=== PATIENT | male | born 1960 | race Caucasian/White ===

== ENCOUNTER 2018-02-08 08:47 | Emergency (ER) | payer OTHER ==
[2018-02-08] MEDS ORDERED: HYDROCODONE/CHLORPHEN 5 ML/OSYR ONE (09:21)
[2018-02-08] MEDS ORDERED: IBUPROFEN 400 MG TAB ONE (09:21)
[2018-02-08] MEDS ORDERED: OSELTAMIVIR 75 MG CAP ONE (09:37)
[2018-02-08] MEDS ORDERED: CEFTRIAXONE 1000 MG/VIAL ONE (10:05)
[2018-02-08] MEDS ORDERED: ALBUTEROL 2.5 MG/3 ML NEB SOL ONE (10:05)
[2018-02-08] MEDS ORDERED: LIDOCAINE 1% MPF 5 ML VIAL ONE (10:06)
--- NOTE | 2018-02-08 10:13 | ER ---
Nurse's Notes [facility] Name: Hung Long Age: 57 yrs Sex: Male : 1960 Arrival Date: 02/08/2018 Time: 08:50 Bed 6 Private MD: Alexander Pradhan R Diagnosis: Influenza due to identified novel influenza A virus;Pneumonia, unspecified organism Presentation: 02/08 09:00 Presenting complaint: Patient states: fever, non-productive cough that began 2-3 days aa5 ago. Pt denies nausea and vomiting, reports diarrhea this morning. 09:00 Transition of care: patient was not received from another setting of care. Onset of aa5 symptoms was January 2018. Risk Assessment: Do you want to hurt yourself or someone else? Patient reports no desire to harm self or others. Care prior to arrival: None. 09:00 Method Of Arrival: Ambulatory aa5 09:00 Acuity: GUNNAR 3 aa5 09:00 Initial Sepsis Screen: Does the patient meet any 2 criteria? HR > 90 bpm. Does the aa5 patient have a suspected source of infection? No. Patient's initial sepsis screen is negative. Historical: - Allergies: 09:00 No Known Allergies; aa5 - Home Meds: 09:00 None [Active]; aa5 - PMHx: 09:00 Chronic neck pain; aa5 - PSHx: 09:00 neck; left leg; right eye; aa5 - Immunization history:: Flu vaccine is not up to date. - Social history:: Smoking status: Patient uses tobacco products, smokes one-half pack cigarettes per day. - Ebola Screening: : No symptoms or risks identified at this time. Screenin:05 Abuse screen: Denies threats or abuse. Nutritional screening: No deficits noted. aa5 Tuberculosis screening: No symptoms or risk factors identified. Fall Risk None identified. Assessment: 09:02 General: Appears comfortable, Behavior is calm, cooperative. Pain: Complains of pain in aa5 whole body Pain does not radiate. Pain currently is 8 out of 10 on a pain scale. Quality of pain is described as aching, Pain began 2-3 days ago. Is continuous. Neuro: Level of Consciousness is awake, alert, obeys commands, Oriented to person, place, time, situation. Cardiovascular: Heart tones S1 S2 present Rhythm is regular. Respiratory: Reports cough that is non-productive, Airway is patent Respiratory effort is even, unlabored, Respiratory pattern is regular, symmetrical, Breath sounds are diminished bilaterally. GI: Abdomen is round non-distended, Bowel sounds present X 4 quads. Abd is soft and non tender X 4 quads. Reports diarrhea, Patient currently denies nausea, vomiting. : Reports dark yellow urine. EENT: No signs and/or symptoms were reported regarding the EENT system. Derm: Skin is pink, warm \T\ dry. Musculoskeletal: Range of motion: intact in all extremities. 09:43 Reassessment: Pt resting in bed with eyes closed, respirations even and unlabored, skin aa5 is pink/warm/dry. ROTOR PLATE WASHER was notified of low O2 sat readings at this time. . 10:15 Reassessment: Pt resting in bed with eyes closed, respirations even and unlabored, skin aa5 is hot/red/dry. Wheezing auscultated bilaterally. . 11:10 Reassessment: Patient is alert, oriented x 3, equal unlabored respirations, skin aa5 warm/dry/pink. Pt notified of d/c home order, pt calling friend for ride home. . Vital Signs: 09:00 BP 150 / 88; Pulse 108; Resp 20 S; Temp 100.2(O); Pulse Ox 91% on R/A; Pain 8/10; aa5 09:43 Resp 16 S; aa5 10:10 BP 139 / 94; Pulse 93; Resp 24 S; Temp 102.0(O); Pulse Ox 98% on Nebulizer Mask; aa5 10:40 BP 122 / 92; Pulse 93; Resp 18 S; Pulse Ox 91% on R/A; Pain 6/10; aa5 11:04 BP 125 / 95; Pulse 81; Resp 20 S; Temp 99.5(O); Pulse Ox 90% on R/A; aa5 11:07 aa5 09:43 Pt's O2 sat fluctuating between 87% to 89% when pt is asleep, ROTOR PLATE WASHER was notified aa5 11:07 ROTOR PLATE WASHER notified of recent VS and notified of O2 sat still remaining between 89 to 92% on aa5 RA. VO to d/c pt home now. ED Course: 08:50 Patient arrived in ED. mr 08:51 Alexander Pradhan MD is Private Physician. mr 09:00 Arm band placed on Patient placed in an exam room, on a stretcher. aa5 09:00 Patient has correct armband on for positive identification. Placed in gown. Bed in low aa5 position. Call light in reach. Side rails up X2. 09:02 Alem Churchill FNP-C is [facility]. snw 09:02 Jimmie Lilly MD is Attending Physician. snw 09:04 Viv Petersen, EARL is Primary Nurse. aa5 09:06 Triage completed. aa5 09:28 Chest Pa And Lat (2 Views) XRAY In Process Unspecified. EDMS 10:12 Alexander Pradhan MD is Referral Physician. snw 11:00 No provider procedures requiring assistance completed. aa5 11:25 Patient did not have IV access during this emergency room visit. aa5 Administered Medications: 09:16 Drug: Tussionex Pennkinetic ER 5 ml Route: PO; aa5 10:40 Follow up: Response: No adverse reaction aa5 09:16 Drug: Motrin 400 mg Route: PO; aa5 10:40 Follow up: Response: No adverse reaction; Temperature is increased aa5 09:30 Drug: Tamiflu 75 mg Route: PO; aa5 10:40 Follow up: Response: No adverse reaction aa5 09:55 Drug: Albuterol 2.5 mg Route: Inhalation; aa5 10:08 Drug: Rocephin (cefTRIAXone) 1 grams Route: IM; Site: right gluteus; aa5 10:40 Follow up: Response: No adverse reaction aa5 10:40 Drug: Tylenol 1000 mg Route: PO; aa5 Outcome: 10:12 Discharge ordered by . snw 11:25 Discharged to home ambulatory, with friend. aa5 11:25 Condition: stable 11:25 Discharge instructions given to patient, Instructed on discharge instructions, follow up and referral plans. medication usage, Demonstrated understanding of instructions, follow-up care, medications, Prescriptions given X x 5 11:28 Patient left the ED. aa5 Signatures: Dispatcher [employer] EDWA Alem Churchill FNP-C UNDERGROUND CONDUIT INSTALLER-Csnw Tana Bartlett mr Viv Petersen, RN RN aa5 Corrections: (The following items were deleted from the chart) 10:12 10:10 Pulse 93bpm; Resp 14bpm; Spontaneous; Pulse Ox 98% Nebulizer Mask; aa5 aa5 10:12 10:10 BP 139 / 94; Pulse 93bpm; Resp 14bpm; Spontaneous; Pulse Ox 98% Nebulizer Mask; aa5 aa5 10:13 09:02 Respiratory: Reports cough that is non-productive, Airway is patent Respiratory aa5 effort is even, unlabored, Respiratory pattern is regular, symmetrical, Breath sounds are clear bilaterally. aa5 10:21 10:10 BP 139 / 94; Pulse 93bpm; Resp 24bpm; Spontaneous; Pulse Ox 98% Nebulizer Mask; aa5 aa5 10:48 09:43 Reassessment: Pt resting in bed with eyes closed, respirations even and aa5 unlabored, skin is pink/warm/dry. ROTOR PLATE WASHER was notified of low O2 sat readings at this time. . aa5
--- NOTE | 2018-02-08 10:13 | EDPHYS ---
Physician Documentation [facility] Name: Hung Long Age: 57 yrs Sex: Male : 1960 Arrival Date: 02/08/2018 Time: 08:50 Bed 6 Private MD: Alexander Pradhan R ED Physician Jimmie Lilly HPI: 02/08 09:05 This 57 yrs old Male presents to ER via Unassigned with complaints of Flu snw Symptoms. 09:05 Onset: The symptoms/episode began/occurred suddenly, 2 day(s) ago, and became snw persistent. Associated signs and symptoms: Pertinent positives: congestion, cough, diarrhea, fever, shortness of breath, sore throat. The patient has not experienced similar symptoms in the past. The patient has not recently seen a physician, the patient's primary care provider is Dr. Dr. Freitas. Historical: - Allergies: 09:00 No Known Allergies; aa5 - Home Meds: 09:00 None [Active]; aa5 - PMHx: 09:00 Chronic neck pain; aa5 - PSHx: 09:00 neck; left leg; right eye; aa5 - Immunization history:: Flu vaccine is not up to date. - Social history:: Smoking status: Patient uses tobacco products, smokes one-half pack cigarettes per day. - Ebola Screening: : No symptoms or risks identified at this time. ROS: 09:04 Eyes: Negative for injury, pain, redness, and discharge. snw 09:04 Neck: Negative for injury, pain, and swelling, Cardiovascular: Negative for chest pain, palpitations, and edema. 09:04 Abdomen/GI: Negative for abdominal pain, nausea, vomiting, diarrhea, and constipation, Back: Negative for injury and pain, : Negative for injury, bleeding, discharge, and swelling, MS/Extremity: Negative for injury and deformity, Skin: Negative for injury, rash, and discoloration, Neuro: Negative for headache, weakness, numbness, tingling, and seizure. 09:04 Constitutional: Positive for body aches, fatigue, fever, malaise, poor PO intake. 09:04 ENT: Positive for sinus congestion, sore throat. 09:04 Respiratory: Positive for cough. Exam: 09:02 Head/Face: Normocephalic, atraumatic. snw 09:02 Neck: Trachea midline, no thyromegaly or masses palpated, and no cervical lymphadenopathy. Supple, full range of motion without nuchal rigidity, or vertebral point tenderness. No Meningismus. Chest/axilla: Normal chest wall appearance and motion. Nontender with no deformity. No lesions are appreciated. 09:02 Abdomen/GI: Soft, non-tender, with normal bowel sounds. No distension or tympany. No guarding or rebound. No evidence of tenderness throughout. Back: No spinal tenderness. No costovertebral tenderness. Full range of motion. Skin: Warm, dry with normal turgor. Normal color with no rashes, no lesions, and no evidence of cellulitis. MS/ Extremity: Pulses equal, no cyanosis. Neurovascular intact. Full, normal range of motion. Neuro: Awake and alert, GCS 15, oriented to person, place, time, and situation. Cranial nerves II-XII grossly intact. Motor strength 5/5 in all extremities. Sensory grossly intact. Cerebellar exam normal. Normal gait. Psych: Awake, alert, with orientation to person, place and time. Behavior, mood, and affect are within normal limits. 09:02 Constitutional: The patient appears awake, obviously ill, uncomfortable. 09:02 Eyes: right eye injury - chronic. 09:02 ENT: Ear canal(s): cerumen impaction, occluding the right ear canal, TM's: erythema, that is moderate, on the left, Nose: Nasal mucosa: erythematous, Mouth: is normal, Posterior pharynx: erythema, that is moderate, Voice: is hoarse. 09:02 Cardiovascular: Rate: tachycardic, Rhythm: regular, Heart sounds: normal, Edema: is not appreciated. 09:02 Respiratory: the patient does not display signs of respiratory distress, Respirations: shallow respirations, tachypnea, Breath sounds: bronchial sounds, + upper airway congestion. Vital Signs: 09:00 BP 150 / 88; Pulse 108; Resp 20 S; Temp 100.2(O); Pulse Ox 91% on R/A; Pain 8/10; aa5 09:43 Resp 16 S; aa5 10:10 BP 139 / 94; Pulse 93; Resp 24 S; Temp 102.0(O); Pulse Ox 98% on Nebulizer Mask; aa5 10:40 BP 122 / 92; Pulse 93; Resp 18 S; Pulse Ox 91% on R/A; Pain 6/10; aa5 11:04 BP 125 / 95; Pulse 81; Resp 20 S; Temp 99.5(O); Pulse Ox 90% on R/A; aa5 11:07 aa5 09:43 Pt's O2 sat fluctuating between 87% to 89% when pt is asleep, SPORTS PHYSICAL THERAPIST was notified aa5 11:07 SPORTS PHYSICAL THERAPIST notified of recent VS and notified of O2 sat still remaining between 89 to 92% on aa5 RA. VO to d/c pt home now. MDM: 09:02 Patient medically screened. snw 10:28 Data reviewed: vital signs, nurses notes. Data interpreted: Pulse oximetry: on room air snw is 98 %. Interpretation: normal. Counseling: I had a detailed discussion with the patient and/or guardian regarding: the historical points, exam findings, and any diagnostic results supporting the discharge/admit diagnosis, the presence of at least one elevated blood pressure reading (>120/80) during this emergency department visit, lab results, radiology results, the need for outpatient follow up, to return to the emergency department if symptoms worsen or persist or if there are any questions or concerns that arise at home, smoking cessation. Special discussion: I have referred the patient to see his PCP for further evaluation of high blood pressure. Based on the history and exam findings, there is no indication for further emergent testing or inpatient evaluation. I discussed with the patient/guardian the need to see the primary care provider for further evaluation of the symptoms. 02/08 08:54 Order name: Flu; Complete Time: : snw 02/08 08:54 Order name: Strep; Complete Time: : snw 02/08 09:06 Order name: Chest Pa And Lat (2 Views) XRAY snw 02/08 09:23 Order name: Throat Culture EDMS Administered Medications: 09:16 Drug: Tussionex Pennkinetic ER 5 ml Route: PO; aa5 10:40 Follow up: Response: No adverse reaction aa5 09:16 Drug: Motrin 400 mg Route: PO; aa5 10:40 Follow up: Response: No adverse reaction; Temperature is increased aa5 09:30 Drug: Tamiflu 75 mg Route: PO; aa5 10:40 Follow up: Response: No adverse reaction aa5 09:55 Drug: Albuterol 2.5 mg Route: Inhalation; aa5 10:08 Drug: Rocephin (cefTRIAXone) 1 grams Route: IM; Site: right gluteus; aa5 10:40 Follow up: Response: No adverse reaction aa5 10:40 Drug: Tylenol 1000 mg Route: PO; aa5 Disposition: 02/08/18 10:12 Discharged to Home. Impression: Influenza due to identified novel influenza A virus, Pneumonia, unspecified organism. - Condition is Stable. - Discharge Instructions: Fever, Adult, Hypertension, Influenza, Adult, Cough, Adult, Rehydration, Adult. - Prescriptions for Tamiflu 75 mg Oral Capsule - take 1 capsule by ORAL route every 12 hours for 5 days; 10 capsule. Diclofenac Sodium 75 mg Oral Tablet Sustained Release - take 1 tablet by ORAL route 2 times per day; 30 tablet. Zithromax 500 mg Oral Tablet - take 1 tablet by ORAL route once daily for 5 days; 5 tablet. Prednisone 20 mg Oral Tablet - take 2 tablet by ORAL route once daily for 5 days; 10 tablet. Albuterol Sulfate 90 mcg/actuation - inhale 1-2 puff by INHALATION route every 4-6 hours; 1 Inhaler. - Work release form, Medication Reconciliation Form, Thank You Letter, Antibiotic Education, Prescription Opioid Use form. - Follow up: Alexander Pradhan; When: 1 - 2 days; Reason: Recheck today's complaints, Continuance of care, Re-evaluation by your physician. Follow up: Emergency Department; When: As needed; Reason: Worsening of condition. Addendum: 02/20/2018 15:08 Co-signature as Attending Physician, Jimmie Lilly MD Available for consultation at p s1 all times. . Signatures: Dispatcher [employer] EDMS Alem Churchill, FURNACE PROCESS PLANT OPERATOR-C FURNACE PROCESS PLANT OPERATOR-Csnw Viv Petersen RN RN aa5 Jimmie Lilly MD MD ps1 Corrections: (The following items were deleted from the chart) 02/08 10:13 10:12 02/08/2018 10:12 Discharged to Home. Impression: Influenza due to identified snw novel influenza A virus. Condition is Stable. Discharge Instructions: Fever, Adult, Hypertension, Influenza, Adult, Cough, Adult, Rehydration, Adult. Prescriptions for Tamiflu 75 mg Oral Capsule - take 1 capsule by ORAL route every 12 hours for 5 days; 10 capsule, Diclofenac Sodium 75 mg Oral Tablet Sustained Release - take 1 tablet by ORAL route 2 times per day; 30 tablet, Zithromax 500 mg Oral Tablet - take 1 tablet by ORAL route once daily for 5 days; 5 tablet, Prednisone 20 mg Oral Tablet - take 2 tablet by ORAL route once daily for 5 days; 10 tablet, Albuterol Sulfate 90 mcg/actuation - inhale 1-2 puff by INHALATION route every 4-6 hours; 1 Inhaler. and Forms are Work release form, Medication Reconciliation Form, Thank You Letter, Antibiotic Education, Prescription Opioid Use. Follow up: Alexander Pradhan; When: 1 - 2 days; Reason: Recheck today's complaints, Continuance of care, Re-evaluation by your physician. Follow up: Emergency Department; When: As needed; Reason: Worsening of condition. snw 11:28 10:13 02/08/2018 10:12 Discharged to Home. Impression: Influenza due to identified aa5 novel influenza A virus; Pneumonia, unspecified organism. Condition is Stable. Discharge Instructions: Fever, Adult, Hypertension, Influenza, Adult, Cough, Adult, Rehydration, Adult. Prescriptions for Tamiflu 75 mg Oral Capsule - take 1 capsule by ORAL route every 12 hours for 5 days; 10 capsule, Diclofenac Sodium 75 mg Oral Tablet Sustained Release - take 1 tablet by ORAL route 2 times per day; 30 tablet, Zithromax 500 mg Oral Tablet - take 1 tablet by ORAL route once daily for 5 days; 5 tablet, Prednisone 20 mg Oral Tablet - take 2 tablet by ORAL route once daily for 5 days; 10 tablet, Albuterol Sulfate 90 mcg/actuation - inhale 1-2 puff by INHALATION route every 4-6 hours; 1 Inhaler. and Forms are Work release form, Medication Reconciliation Form, Thank You Letter, Antibiotic Education, Prescription Opioid Use. Follow up: Alexander Pradhan; When: 1 - 2 days; Reason: Recheck today's complaints, Continuance of care, Re-evaluation by your physician. Follow up: Emergency Department; When: As needed; Reason: Worsening of condition. snw
[2018-02-08] MEDS ORDERED: ACETAMINOPHEN 500 MG TAB ONE (10:51)
[2018-02-08 11:40] VITALS: BP 125/95; TEMP 99.5; O2SAT 90
--- NOTE | 2018-02-08 12:14 | RAD REPORT ---
EXAM DESCRIPTION: Xander May (2 Views)02/08/2018 9:28 am CLINICAL HISTORY: Cough COMPARISON: 2013 FINDINGS: The lungs appear clear of acute infiltrate. The heart is normal size IMPRESSION: No acute abnormalities displayed
== END 2018-02-08 11:28 | disposition home or self-care (01) ==
LOC: ER 08:47
DX: J09.X1 Influenza due to identified novel influenza A virus with pneumonia (principal); F17.210 Nicotine dependence, cigarettes, uncomplicated
CPT/HCPCS: 71046; 87070; 87081; 87804; 96372; 99284

== ENCOUNTER 2022-04-24 10:05 | Inpatient (IN) | payer OTHER ==
--- OUTSIDE RECORDS SUMMARY | 2022-04-24 10:10 | XMS REPORT | Continuity of Care Document ---
:1960 Author Organization [facility] t Address [address] [facility] [address] [place] [address] Care Team Providers Name Role Phone GEORGE MEDLEY Primary Care Physician Unavailable JOAN BURLESON Attending Clinician Unavailable KESHAWN CHENEY Attending Clinician Unavailable Keshawn Lassiter Attending Clinician KESHAWN CHENEY Admitting Clinician Unavailable Payers Payer Name Policy Type Policy Number Effective Date Expiration Date S ource HUMANA [place] GOLD 7 [id number] 2021 00:00:00 PLUS 42 OA HUMANA GOLD PLS [id number] 2021 00:00:00 HMO Problems Condition Condition Condition Status Onset Resolution Last Treating Co mments Source Name Details Category Date Date Treatment Clinician Date History of History of Disease Active 2021-02 K elsey spinal spinal 0-04 Seybold fusion fusion 00:00: - 00 Externa l Chronic Chronic Disease Active 2021-02 Yumiko bilateral bilateral 0-04 Seyb old thoracic thoracic 00:00: - back pain back pain 00 Exte rna l Primary Primary Disease Active 2021-02 Yumiko hypertensi hypertensi 0-04 Se ybold on on 00:00: - 00 Externa l Acute Acute Disease Active 2018-02 Univers appendicit appendicit 0-16 it y of is is 00:00: [address] Obesity Obesity Disease Active 2018-02 Univers (BMI (BMI 0-16 ity of 30-39.9) 30-39.9) 00:00: [address] Allergies, Adverse Reactions, Alerts Allergy Allergy Status Severity Reaction(s) Onset Inactive Treating Comm ents Source Name Type Date Date Clinician NO KNOWN Drug Active [facility] ALLERGIE Class ity of S [facility] Social History Social Habit Start Date Stop Date Quantity Comments Source History of tobacco Cigarette Smoker Yumiko Joshi - use External Exposure to 2022-04-07 2022-04-17 Not sure University SARS-CoV-2 (event) 00:00:00 17:54:00 [facility] Education 2021-11-21 2021-11-21 18 Yumiko Joshi - 00:00:00 00:00:00 External Tobacco use and 2021-11-21 2021-11-21 Smokeless Yumiko guaman - exposure 00:00:00 00:00:00 tobacco non-user External Alcohol intake 2018-12-05 2018-12-05 Ex-drinker [facility] 00:00:00 00:00:00 (finding) [facility] Cigarettes smoked 2018-12-04 2018-12-04 [facility] ity of current (pack per 00:00:00 00:00:00 [facility] ) - Reported [place] Cigarette 2018-12-04 2018-12-04 [place] of pack-years 00:00:00 00:00:00 [facility] Sex Assigned At [birth year] Universit y of 00:00:00 00:00:00 [facility] Smoking Status Start Date Stop Date Source Smokes tobacco daily 2021-11-21 00:00:00 Yumiko Mabala - External Medications Ordered Filled Start Stop Current Ordering Indication Dosage Frequency Signature Comments Components Source Medication Medication Date Date Medication? Clinician (SIG) Name Name cefTRIAXone 2022- No 500mg 500 mg, U nivers (ROCEPHIN) 04-18 Intramuscu it y of injection 05:15: 04:37 lar, ONCE, [place] 500 mg 00 :00 1 dose, On [facility] 04/17/22 at 2315, ROXY
Re ason for Anti-Infec tive: Empiric Therapy for Suspected Infection< br>Empiric Therapy Site: Urine
D uration of therapy: 72 hours iopamidol 2022- No [id number] 80mL 80 mL, Univers (ISOVUE 3- Intravenou ity o f 370-500 mL) 02:15: 02:48 s, ONCE, 1 [place] injection 00 :00 dose, On Medica l 80 mL Tue Branch 04/17/22 at 2014, Routine doxycycline Yes [id number] 100mg Take 1 Univers hyclate 100 2-28 capsule by it y of mg capsule 00:00: mouth in Ant as 00 the Medical morning Branch and 1 capsule in the evening. Gabapentin 2021-02 Yes [id number] 300mg Take 1 Yumiko 300 MG oral 02-18 107 capsule Seybo ld Capsule 00:00: (300 mg - 00 total) by Externa mouth 2 l times daily Gabapentin 2021-02 Yes [id number] 100mg Take 1 Yumiko 100 MG oral 0-04 9103 capsule Seybo ld Capsule 00:00: (100 mg - 00 total) by Externa mouth 2 l times daily Tramadol 2021-02 Yes [id number] 50mg Q.[id number] Take 1 Yumiko HCl 50 MG 0-04 9103 [id number] tablet (50 Seybold oral Tablet 00:00: 3D mg total) - 00 by mouth Externa every 8 l hours as needed for pain Lisinopril 2021-02 Yes [id number] 20mg Take 1 K elsey 20 MG oral 0-04 tablet (20 Sey bold Tablet 00:00: mg total) - 00 by mouth Externa daily l Lisinopril 2021-02 Yes [id number] 20mg Take 1 K elsey 20 MG oral 0-04 tablet (20 Sey bold Tablet 00:00: mg total) - 00 by mouth Externa daily l Gabapentin 2021-02- No [id number] 100mg Take 1 Yumiko 100 MG oral 0-04 12-19 9103 capsule Seyb old Capsule 00:00: 00:00 (100 mg - 00 :00 total) by Externa mouth 2 l times daily Tramadol 2021-02- No [id number] 50mg Q.[id number] Take 1 Yumiko HCl 50 MG 0-04 - 9103 [id number] tablet (50 Seybold oral Tablet 00:00: 00:00 3D mg total) - 00 :00 by mouth Externa every 8 l hours as needed for pain Immunizations Ordered Filled Immunization Date Status Comments Sour e Immunization Name Name Influenza Virus 2018-12-06 Completed Universit y of Vaccine Quad .5 mL 00:00:00 [facility] 6+ MO Branch Vital Signs Vital Name Observation Time Observation Value Comments Source Oxygen saturation in 2022-04-17 23:55:00 100 /min [facility] Arterial blood by [facility] Pulse oximetry Branch Systolic blood 2022-04-17 23:55:00 154 mm[Hg] Univer sity of pressure [facility] Diastolic blood 2022-04-17 23:55:00 99 mm[Hg] Unive rsity of [facility] Heart rate 2022-04-17 23:55:00 82 /min [facility] Body temperature 2022-04-17 23:55:00 36.61 [facility] Respiratory rate 2022-04-17 23:55:00 16 /min [facility] height 2022-04-17 23:55:00 180.3 cm [facility] Body weight 2022-04-17 23:55:[address] [facility] BMI 2022-04-17 23:55:00 33.47 kg/m2 [facility] Systolic blood 2021-12-19 18:06:00 132 mm[Hg] Yumiko Hamiltonybold - pressure External Diastolic blood 2021-12-19 18:06:00 84 mm[Hg] Elfego coleman Seybold - pressure External Heart rate 2021-12-19 17:56:00 93 /min Yumiko alexbold - External Body temperature 2021-12-19 17:56:00 36.33 Miranda Lucila ey Seybold - External Respiratory rate 2021-12-19 17:56:00 14 /min Lucila ey Seybold - External Body height 2021-12-19 17:56:00 180.3 cm Yumiko S eybold - External Body weight 2021-12-19 17:56:00 98.884 kg Yumiko S abibold - External BMI 2021-12-19 17:56:00 30.40 kg/m2 Yumiko alexbold - External Oxygen saturation in 2021-12-19 17:56:00 99 /min Yumiko Joshi - Arterial blood by External Pulse oximetry Systolic blood 2021-11-21 20:03:00 170 mm[Hg] Yumiko Hamiltonybold - pressure External Diastolic blood 2021-11-21 20:03:00 100 mm[Hg] Elfego y Seybold - pressure External Heart rate 2021-11-21 19:28:00 87 /min Yumiko Kuo eybold - External Body temperature 2021-11-21 19:28:00 37 Miranda Lucila alex Seybold - External Respiratory rate 2021-11-21 19:28:00 14 /min Lucila alex Seybold - External Body height 2021-11-21 19:28:00 180.3 cm Yumiko alexbold - External Body weight 2021-11-21 19:28:00 100.699 kg Yumiko alexbold - External BMI 2021-11-21 19:28:00 30.96 kg/m2 Yumiko alexbold - External Oxygen saturation in 2021-11-21 19:28:00 96 /min Yumiko Hamiltonchitobala - Arterial blood by External Pulse oximetry Procedures Procedure Date / Time Performed Performing Clinician Sourc e LIPASE 2022-04-18 [facility] COMP. METABOLIC PANEL 2022-04-18 02:00:00 Keshawn Cheney [facility] ([id number]) [facility] CBC WITH DIFF 2022-04-18 02:00:00 Shravan [facility] URINALYSIS 2022-04-18 00:14:00 [facility]ravan [facility] NOTICE OF PRIVACY 2022-04-17 23:53:59 Doctor Unassigned, No Univ [facility] PRACTICES Name Medical Branch CONSENT/REFUSAL FOR 2022-04-17 23:51:45 [facility] Unassigned, No [facility] AND Name Medical Branch TREATMENT Encounters Start End Encounter Admission Attending Care Care Encounter Source Date/Time Date/Time Type Type Clinicians Facility Department ID 2022-04-23 2022-04-23 Outpatient YUMIKO BURLESON [id number] Yumiko 00:00:00 00:00:00 JOAN burgos 2022-04-17 2022-04-17 Emergency X SHRAVAN [facility] ERT [id number] Univers 17:57:00 22:53:[address] [facility] 2022-04-17 2022-04-17 [facility] [id number] Univers 17:57:00 22:53:00 Keshawn DONIS [id number] i [facility] [id number] [facility] [id number] [address] 2022-03-02 2022-03-02 Outpatient PREZASYUMIKO [id number] Yumiko 00:00:00 00:00:00 JOAN Seybol d 2021-12-19 2021-12-19 Outpatient PREZASYUMIKO [id number] Yumiko 13:30:00 13:30:00 JOAN Seybol d 2021-12-01 2021-12-01 Outpatient PREZASYUMIKO [id number] Yumiko 00:00:00 00:00:00 JOAN Seybol d 2021-11-21 2021-11-21 Outpatient PREZASYUMIKO [id number] Yumiko 14:30:00 14:30:00 JOAN Seybol d 2021-10-30 2021-10-30 Outpatient PREZASYUMIKO [id number] Yumiko 10:00:00 10:00:00 JOAN Seybol d Results Test Description Test Time Test Comments Results Result Comments Source COMP. METABOLIC PANEL (44325) 2022-04-18 02:28:08 Test Item Value Reference Range Interpretation Comme nts NA (test code = 9300673894) 139 mmol/L 135-145 K (test code = 6832546580) 3.9 mmol/L 3.5-5.0 CL (test code = 6433329131) 103 mmol/L 98-108 CO2 TOTAL (test code = 9220638261) 28 mmol/L 23-31 AGAP (test code = 5742842215) 8 2-16 BUN (test code = 6405868717) 32 mg/dL 7-23 H GLUCOSE (test code = 1453624484) 110 mg/dL 70-110 CREATININE (test code = 1.96 mg/dL 0.60-1.25 H 2798204847) TOTAL BILI (test code = 1.0 mg/dL 0.1-1.0 1959253663) CALCIUM (test code = 2410468190) 8.7 mg/dL 8.6-10.6 T PROTEIN (test code = 6195216696) 7.0 g/dL 6.3-8.2 ALBUMIN (test code = 5052135095) 4.0 g/dL 3.5-5.0 ALK PHOS (test code = 6583405515) 51 U/L 34-122 ALTv (test code = 1742-6) 18 U/L 5-50 AST(SGOT) (test code = 8108640639) 20 U/L 13-40 eGFR (test code = 0496322276) 34.8 mL/min/1.73m2 CLOVER (test code = CLOVER) Association of Glomerular Filtration Rate (GFR) and Staging of Kidney Disease* + +-------- + ------+| GFR (mL/min/1.73 m2) ?| With Kidney Damage ?| ?Without Kidney Damage+ +-- + +| ?>90 ?| ?Stage one ?| ? Normal ?+ +------- + -------+| ?60-89 ?| ?Stage two ?| ? Decreased GFR ? + +-------- + ------+| ?30-59 ?| ?Stage three ?| ? Stage three ? + +-------- + ------+| ?15-29 ?| ?Stage four ? | ? Stage four ?+ +------- + -------+| ?<15 (or dialysis) ? ?| ?Stage five ? | ? Stage five ?+ +------- + -------+ *Each stage assumes the associated GFR level has been in effect for at least three months. ?Stages 1 to 5, with or without kidney disease, indicate chronic kidney disease. Notes: Determination of stages one and two (with eGFR >59mL/min/1.73 m2) requires estimation of kidney damage for at least three months as defined by structural or functional abnormalities of the kidney, manifested by either:Pathological abnormalities or Markers of kidney damage (including abnormalities in the composition of the blood or urine or abnormalities in imaging tests). Lab Interpretation (test code = Abnormal 87655-6) [facility]27[facility]47 Test Item Value Reference Range Interpretation Comments LIPASE (test code = 1869273710) 47 U/L 0-220 Lab Interpretation (test code = Normal 29531-0) [facility] [id number] 02:15:28 Test Item Value Reference Range Interpretation Comments WBC (test code = 8.60 See_Comment [Automated message] 0490-2) The system [employer] generated this result transmitted ref erence range: 4.20 - 1 0.70 10*3/?L. The re ference range was not u sed to interpret this result as normal/abnor mal. RBC (test code = 5.42 See_Comment [Automated message] 289-8) The system [employer] generated this result transmitted ref erence range: 4.26 - 5 .52 10*6/?L. The re ference range was not u sed to interpret this result as normal/abnor mal. HGB (test code = 15.3 g/dL 12.2-16.4 718-7) HCT (test code = 48.4 % 38.4-49.3 4544-3) MCV (test code = 89.3 fL 81.7-95.6 787-2) MCH (test code = 28.2 pg 26.1-32.7 785-6) MCHC (test code = 31.6 g/dL 31.2-35.0 786-4) RDW-SD (test code 44.9 fL 38.5-51.6 = 28154-3) RDW-CV (test code 13.7 % 12.1-15.4 = 788-0) PLT (test code = 208 See_Comment [Automated message] 587-3) The system [employer] generated this result transmitted ref erence range: 150 - 32 8 10*3/?L. The re ference range was not u sed to interpret this result as normal/abnor mal. MPV (test code = 10.1 fL 9.8-13.0 21108-0) NRBC/100 WBC (test 0.0 See_Comment [Automat ed message] code = 5736494134) The syste m which generated this result transmitted ref erence range: 0.0 - 10 .0 /100 WBCs. The refer ence range was not u sed to interpret this result as normal/abnor mal. NRBC x10^3 (test See_Comment [Automated message] code = 6464159402) The syste m which generated this result transmitted ref erence range: 10*3/?L. The reference range was not used to interpr et this result as normal/abnormal . GRAN MAT (NEUT) % 67.4 % (test code = 770-8) IMM GRAN % (test 0.70 % code = 5336032976) LYMPH % (test code 19.8 % = 736-9) MONO % (test code 9.1 % = 5905-5) EOS % (test code = 2.3 % 713-8) BASO % (test code 0.7 % = 706-2) GRAN MAT 5.80 10*3/uL 1.99-6.95 x10^3(ANC) (test code = 3215637866) IMM GRAN x10^3 0.06 10*3/uL 0.00-0.06 (test code = 1696874768) LYMPH x10^3 (test 1.70 10*3/uL 1.09-3.23 code = 731-0) MONO x10^3 (test 0.78 10*3/uL 0.36-1.02 code = 742-7) EOS x10^3 (test 0.20 10*3/uL 0.06-0.53 code = 711-2) BASO x10^3 (test 0.06 10*3/uL 0.01-0.09 code = 704-7) [facility]"
[2022-04-24 10:57] LABS: Urine Blood 1+ (Negative); Urine Glucose Negative (Negative); Urine Protein Negative (Negative)
[2022-04-24 11:16] LABS: Absolute Lymphocytes (CBC) 1.6 K/uL (0.7-4.9); Hematocrit 46.9 % (39.6-49.0); Lymphocytes % 21.1 % (15.3-44.8); MCV 87.3 fL (80-100); RBC Red Blood Cell Count 5.37 M/uL (4.33-5.43)
[2022-04-24 11:17] LABS: Urine Bacteria None Seen /HPF (<20); Urine Mucus Slight /HPF (None Seen); Urine RBC <5 /HPF (None Seen)
[2022-04-24 11:39] LABS: Albumin 3.5 g/dL (3.4-5.0); Bilirubin Total 0.3 mg/dL (0.2-1.0); Potassium 3.7 mmol/L (3.5-5.1); Protein, Total 7.8 g/dL (6.4-8.2)
--- NOTE | 2022-04-24 12:22 | RAD REPORT ---
EXAM DESCRIPTION: CT - Abdomen Pelvis Wo Contrast - 04/24/2022 11:56 am CLINICAL HISTORY: Abdominal pain COMPARISON: None TECHNIQUE: Computed axial tomography of the abdomen and pelvis was obtained. IV and oral contrast we re not requested. All CT scans are performed using dose optimization technique as appropriate and may include automated exposure control or mA/KV adjustment according to patient size. FINDINGS: The evaluation of solid organs, vessels and bowel is limited secondary to the lack of con trast administration. The liver, spleen, pancreas, and adrenals appear grossly normal. Mild bilateral hydronephrosis. 2 millimeter parenchymal calculus left kidney. 4.1 centimeter cyst ext ends off of right kidney. 7.7 centimeter cyst extends off of the left kidney. 2.5 centimeter hyperden se cyst extends off of the left kidney. Cholelithiasis 3.6 centimeter fusiform aneurysm lower abdominal aorta. Marked bladder distention. Small inguinal hernias contain fat. No evidence of diverticulitis. Appendectomy Mild prostatic enlargement. Small bilateral inguinal hernias IMPRESSION: Marked bladder distention. The hydronephrosis probably is the sequela of the bladder dis tention. Cholelithiasis 3.6 centimeter lower abdominal aortic aneurysm
[2022-04-24 15:59] LABS: SARS-CoV-2 Antigen Rapid Res Negative (Negative)
[2022-04-24] MEDS ORDERED: NA CHLORIDE 0.9% 1,000 ML ONE ×2 (16:27→21:25)
[2022-04-24] MEDS ORDERED: lisinopriL 10 MG TAB ONE (16:27)
[2022-04-24] MEDS ORDERED: ACETAMINOPHEN 325 MG TABLET PO PRN (16:34)
[2022-04-24] MEDS ORDERED: HYDROCODONE/APAP 5/325 MG TAB PO PRN (16:34)
[2022-04-24] MEDS ORDERED: ONDANSETRON 4 MG/2 ML VIAL IV PRN (16:38)
--- NOTE | 2022-04-24 16:41 | P.HP ---
Certification for Inpatient Patient admitted to: Inpatient With expected LOS: >2 Midnights Patient will require the following post-hospital care: None Practitioner: I am a practitioner with admitting privileges, knowledge of patient current condition, hospital course, and medical plan of care. Services: Services provided to patient in accordance with Admission requirements found in Title 42 Section 412.3 of the Code of Federal Regulations Patient History Date of Service: 04/24/22 History of Present Illness: Patient is a 61-year-old male with a past medical history significant for nicotine dependence, chronic pain syndrome who presents with complaint of urinary incontinence has been ongoing for the past 2 weeks. Patient reported intermittent left lower quadrant pain rated a 5/10 in severity and described as aching in quality. Patient reported associated signs and symptoms of abdominal distention. Patient denies any other signs or symptoms. Symptoms are agg ravated or relieved by nothing. Patient decided to present to the hospital due to worsening symptoms. Allergies codeine [Codeine] Allergy (Unknown, Verified 11/24/13 17:57) UNKNOWN Home Medications: Chlorhexidine 4% [Betasept*] 1 appl TOP UD #1 btl 11/26/13 Ciprofloxacin HCl [Cipro] 500 mg PO BID #30 tablet 11/26/13 Doxycycline Hyclate 100 mg PO BID #30 tablet 11/26/13 Mupirocin Oint [Bactroban 2% Ointment*] 1 appl TOP BID #1 tube 11/26/13 Sodium Chloride Irrig Solution [Sodium Chloride] 1,000 ml IR DAILY #1 irrig.soln 11/26/13 Tramadol HCl/Acetaminophen [Ultracet Tablet] 1 each PO Q4HP PRN #40 tablet 11/26/13 - Past Medical/Surgical History Diabetic: No -: Chronic pain syndrome -: Nicotine dependence -: 2 fushions in neck c3/4 -: jorge hip through knee in L leg -: removal of R eye iris -: stiches in R forarm - Social History Smoking Status: Current every day smoker Counseled patient to stop smoking for: less than 10 minutes Smoking therapy provided: Yes Patient receptive to therapy: Yes Alcohol use: Yes CD- Drugs: No Caffeine use: Yes Place of Residence: Home Review of Systems General: Unremarkable Eyes: Unremarkable Respiratory: Unremarkable Cardiovascular: Unremarkable Gastrointestinal: Abdominal Pain, Distention Genitourinary: Incontinence Musculoskeletal: Unremarkable Integumentary: Unremarkable Neurological: Unremarkable Lymphatics: Unremarkable Physical Examination - Physical Exam General: Alert, In no apparent distress, Oriented x3, Cooperative HEENT: Atraumatic, PERRLA, Mucous membr. moist/pink, EOMI, Sclerae nonicteric Neck: Supple, 2+ carotid pulse no bruit, No LAD, Without JVD or thyroid abnormality Respiratory: Clear to auscultation bilaterally, Normal air movement Cardiovascular: No edema, Regular rate/rhythm, Normal S1 S2 Capillary refill: <2 Seconds Gastrointestinal: Normal bowel sounds, Distended Musculoskeletal: No clubbing, No swelling, No contractures, No tenderness Integumentary: No rashes, No breakdown, No significant lesion Neurological: Normal speech, Normal tone, Normal affect Lymphatics: No axilla or inguinal lymphadenopathy Urinary: Kyle catheter - Studies Laboratory Data (last 24 hrs) 04/24/22 11:15: Sodium 142, Potassium 3.7, BUN 33 H, Creatinine 2.62 H, Glucose 140 H, Total Bilirubin 0.3, AST 12 L, ALT 20, Alkaline Phosphatase 64, Lipase 21 04/24/22 10:58: WBC 7.60, Hgb 15.5, Hct 46.9, Plt Count 222 Assessment and Plan - Plan --Acute kidney injury. Likely secondary to urinary retention. CT imaging indicates marked bladder distention. Kyle cath inserted. Nephrology consulted. Continue IV hydration. --Chronic pain syndrome. Patient has a history of neck\leg surgery. We will manage pain with current pain medication regimen. --BPH. Patient placed on Flomax. --Abdominal aorta neurogram. A 3.6 cm fusiform aneurysm of the lower abdominal aorta noted on imaging. We will keep blood pressure controlled. Continue supportive care. --Nicotine dependence. Patient counseled on tobacco cessation and placed on nicotine patch. --Hyperlipidemia. Patient placed on statin. -- Elevated blood pressure without a diagnosis of hypertension. We will keep blood pressure controlled with hydralazine as needed. We will continue to monitor blood pressure levels. --DVT prophylaxis with Lovenox subQ. Discharge Plan: Home Plan to discharge in: Greater than 2 days - Advance Directives Does patient have a Living Will: No Does patient have a Durable POA for Healthcare: No - Code Status/Comfort Care Code Status Assessed: Yes Physician Review: Patient Assessed, Agree with Above Assessment and Plan Critical Care: No
[2022-04-24 19:26] LABS: Protime INR 0.99
[2022-04-24 19:48] LABS: Magnesium 2.4 mg/dL (1.6-2.4); Phosphorus 3.2 mg/dL (2.5-4.9); Thyroid Stimulating Hormone 1.25 uIU/mL (0.358-3.740)
[2022-04-24] MEDS ORDERED: D10W 250 ML IV SCH (20:00)
[2022-04-24] MEDS ORDERED: ENOXAPARIN 40 MG/0.4 ML SQ ONE (21:24)
[2022-04-24] MEDS: ENOXAPARIN 40 MG/0.4 ML SQ SCH (21:36)
[2022-04-24] MEDS: NA CHLORIDE 0.9% 1,000 ML IV SCH (21:36)
[2022-04-25 02:51] LABS: Absolute Lymphocytes (CBC) 2.8 K/uL (0.7-4.9); Hematocrit 45.2 % (39.6-49.0); Lymphocytes % 27.2 % (15.3-44.8); MCV 86.6 fL (80-100); MPV 8.1 fL (7.6-11.3); RBC Red Blood Cell Count 5.22 M/uL (4.33-5.43)
[2022-04-25 02:59] LABS: Potassium 3.6 mmol/L (3.5-5.1)
[2022-04-25] MEDS: NA CHLORIDE 0.9% 1,000 ML IV SCH (06:20)
[2022-04-25] MEDS ORDERED: KCL 20 MEQ/100 mL IVPB 20 MEQ/100 ML BAG IV SCH (07:00)
[2022-04-25] MEDS: NICOTINE 21 MG/PAT TD SCH (09:00)
[2022-04-25] MEDS ORDERED: POTASSIUM 25 MEQ EFFERV TAB ONE (09:28)
[2022-04-25] MEDS ORDERED: ASPIRIN 81 MG CHEWABLE TABLET ONE (09:28)
[2022-04-25] MEDS ORDERED: ENOXAPARIN 40 MG/0.4 ML SQ ONE (09:29)
[2022-04-25] MEDS ORDERED: POTASSIUM 25 MEQ EFFERV TAB PO ONE (09:30)
[2022-04-25] MEDS: ENOXAPARIN 40 MG/0.4 ML SQ SCH (09:42)
[2022-04-25] MEDS: ASPIRIN 81 MG CHEWABLE TABLET PO SCH (09:42)
[2022-04-25] MEDS: ATORVASTATIN 40 MG TAB PO SCH (20:48)
[2022-04-25] MEDS: TAMSULOSIN 0.4 MG SR CAP PO SCH (20:49)
[2022-04-25] MEDS: HYDRALAZINE HCL 20 MG/ML VIAL IV PRN (20:51)
[2022-04-26] MEDS: HYDRALAZINE HCL 20 MG/ML VIAL IV PRN ×2 (04:47→21:24)
[2022-04-26] MEDS: NA CHLORIDE 0.9% 1,000 ML IV SCH ×3 (04:52→21:24)
[2022-04-26 08:44] LABS: Potassium 3.7 mmol/L (3.5-5.1)
[2022-04-26] MEDS: ASPIRIN 81 MG CHEWABLE TABLET PO SCH (08:52)
[2022-04-26] MEDS: ENOXAPARIN 40 MG/0.4 ML SQ SCH (08:52)
[2022-04-26] MEDS: NICOTINE 21 MG/PAT TD SCH (08:52)
--- NOTE | 2022-04-26 15:08 | P.CNS ---
Date of Consult: 04/26/22 Reason for Consult: MARIA ISABEL, obstructive uropathy. Chief Complaint: weakness, flank pain. History of Present Illness: 62-year-old male patient with medical history significant for chronic pain syndrome, hypertension, benign prostatic hypertrophy was evaluated for episode of flank pain and weakness. He had elevated creatinine of 2.[address] of the abdomen/pelvis showed significantly distended bladder and no significant obstructive uropathy. Kyle catheter was placed and patient had relief of obstruction. He was started on Flomax. He was asked to be eval by nephrology due to abnormal kidney function. Allergies codeine [Codeine] Allergy (Unknown, Verified 11/24/13 17:57) UNKNOWN Home Medications: Chlorhexidine 4% [Betasept*] 1 appl TOP UD #1 btl 11/26/13 Ciprofloxacin HCl [Cipro] 500 mg PO BID #30 tablet 11/26/13 Doxycycline Hyclate 100 mg PO BID #30 tablet 11/26/13 Mupirocin Oint [Bactroban 2% Ointment*] 1 appl TOP BID #1 tube 11/26/13 Sodium Chloride Irrig Solution [Sodium Chloride] 1,000 ml IR DAILY #1 irrig.soln 11/26/13 Tramadol HCl/Acetaminophen [Ultracet Tablet] 1 each PO Q4HP PRN #40 tablet 11/26/13 - Past Medical/Surgical History Diabetic: No -: Chronic pain syndrome -: Nicotine dependence -: 2 fushions in neck c3/4 -: jorge hip through knee in L leg -: removal of R eye iris -: stiches in R forarm - Social History Smoking Status: Unknown if ever smoked Alcohol use: Yes CD- Drugs: No Caffeine use: Yes Place of Residence: Home Review of Systems General: Weakness, Malaise Eyes: Unremarkable ENT: Unremarkable Respiratory: Unremarkable Cardiovascular: Unremarkable Gastrointestinal: Abdominal Pain Genitourinary: Unremarkable Musculoskeletal: Unremarkable Integumentary: Unremarkable Neurological: Unremarkable Physical Examination Temp Pulse Resp BP Pulse Ox 98.1 F 84 18 135/93 H 95 04/26/22 12:00 04/26/22 12:00 04/26/22 12:00 04/26/22 12:00 04/26/22 12:00 General: Alert, Oriented x3 HEENT: Atraumatic, Normocephalic Neck: Supple Respiratory: Normal air movement Cardiovascular: Regular rate/rhythm, Normal S1 S2 Gastrointestinal: Soft and benign Neurological: Normal speech, Normal strength at 5/5 x4 extr Conclusions/Impression: Obstructive uropathy MARIA ISABEL Benign prostatic hypertrophy Hypertension Weakness Plan: Present episode of kidney function abnormalities deemed multifactorial as he has history of hypertension however with a markedly distended bladder there is concern for obstructive process major) Since admission his creatinine trended down from 2.6-1.5 after Kyle was placed. He has significant urine output and has been started on Flomax. We will monitor trend of kidney function closely and dose medication for symmetrical modification. We will obtain renal ultrasound to evaluate echogenicity, corticomedullary differentiation and size of kidneys. We will follow-up on outpatient nephrology clinic for routine CKD evaluation if kidney ultrasound is suggestive of CKD.
[2022-04-26] MEDS: ATORVASTATIN 40 MG TAB PO SCH (21:24)
[2022-04-26] MEDS: TAMSULOSIN 0.4 MG SR CAP PO SCH (21:24)
[2022-04-27 03:54] LABS: Phosphorus 2.2 mg/dL (2.5-4.9); Potassium 3.8 mmol/L (3.5-5.1)
[2022-04-27] MEDS: POTASS/SODIUM PHOSPHATE 1 PKT POWD.PACK PO SCH ×3 (07:40→09:33)
--- NOTE | 2022-04-27 08:07 | RAD REPORT ---
EXAM DESCRIPTION: US - Renal Ultrasound-Complete - 04/27/2022 5:25 am CLINICAL HISTORY: evaluation of suspected CKD. COMPARISON: Abdomen Pelvis Wo Contrast dated 04/24/2022 FINDINGS: Both kidneys are normal in size, shape and echotexture. The right kidney measures 9.8 cm. Right upper pole renal cyst measuring 4.2 x 4.5 cm. No stones or delgadillo spicious masses identified. The left kidney measures 11.9 cm. Mild left-sided hydronephrosis. Simple left renal cysts identified including a large cyst measuring 7.1 x 6.3 cm. No suspicious masses identified or stones. The bladder is decompressed via Kyle catheter. IMPRESSION: Mild left-sided hydronephrosis. Bilateral simple renal cysts.
[2022-04-27] MEDS: NICOTINE 21 MG/PAT TD SCH (08:40)
[2022-04-27] MEDS: ENOXAPARIN 40 MG/0.4 ML SQ SCH (08:41)
[2022-04-27] MEDS: ASPIRIN 81 MG CHEWABLE TABLET PO SCH (08:42)
[2022-04-27] MEDS: HYDRALAZINE HCL 20 MG/ML VIAL IV PRN ×2 (08:42→17:56)
[2022-04-27] MEDS ORDERED: POTASSIUM CL SA 10 MEQ TAB PO ONE (09:00)
--- NOTE | 2022-04-27 09:20 | P.PN ---
Subjective Date of Service: 04/27/22 Chief Complaint: weakness, flank pain. Subjective: No new changes, Improving Physical Examination - Vital Signs Temperature: 97.9 F Blood Pressure: 167/93 Pulse: 76 Respirations: 14 Pulse Ox (%): 94 - Physical Exam General: Alert, Oriented x3 HEENT: Atraumatic, Normocephalic Neck: Supple Respiratory: Normal air movement Cardiovascular: Regular rate/rhythm, Normal S1 S2 Gastrointestinal: Soft and benign Neurological: Normal speech, Normal strength at 5/5 x4 extr Urinary: Kyle catheter - Studies Microbiology Data (last 24 hrs): 04/24/22 10:56 Clean Catch Urine [place] Count - Final BETWEEN 10,000 & 100,000 CFU/ML 04/24/22 10:56 Clean Catch Urine - Final MIXED REYNA. Assessment And Plan - Plan Obstructive uropathy-mild left hydronephrosis MARIA ISABEL-resolving. Benign prostatic hypertrophy Hypertension-better comntrolled. Weakness Plan: His serum cr is now much improved at 1.25. his BUN is now normal. electrolyte profile is now stable. Renal US reviewed, bilateral cyst noted with normal echotexture. we will follow cyst progression on renal US at 6 monthly interval. we will continue to avoid nephrotoxins. Mild left hydronephrosis noted. Urology to evaluate. We will follow-up on outpatient nephrology clinic for routine CKD evaluation if kidney ultrasound is suggestive of CKD. Physician Review: Patient Assessed, Agree with Above Assessment and Plan
[2022-04-27] MEDS ORDERED: METOPROLOL TARTRATE 5 MG/5 ML INJ IV STA (13:13)
[2022-04-27] MEDS ORDERED: cloNIDine HCL 0.1 MG TAB PO ONE (16:40)
[2022-04-27 17:48] LABS: Specific Gravity 1.012 (1.005-1.030); Urine Bacteria None Seen /HPF (<20); Urine Bilirubin NEGATIVE (Negative); Urine Blood 3+ (Negative); Urine Clarity Clear (Clear); Urine Color Light-Yellow (Yellow); Urine Crystals Unidentified Few /HPF (None Seen); Urine Glucose NEGATIVE (Negative); Urine Mucus Slight /HPF (None Seen); Urine Protein NEGATIVE (Negative); Urine RBC >50 /HPF (None Seen); Urine Urobilinogen Normal (Normal); Urine WBC Clump Rare /HPF (None Seen); Urine pH 7.5 (5.0-7.0)
[2022-04-27] MEDS: ATORVASTATIN 40 MG TAB PO SCH (20:52)
[2022-04-27] MEDS: TAMSULOSIN 0.4 MG SR CAP PO SCH (20:52)
[2022-04-28 06:50] LABS: Phosphorus 3.1 mg/dL (2.5-4.9)
[2022-04-28] MEDS: ASPIRIN 81 MG CHEWABLE TABLET PO SCH (08:30)
[2022-04-28] MEDS: ENOXAPARIN 40 MG/0.4 ML SQ SCH (08:31)
[2022-04-28] MEDS: NICOTINE 21 MG/PAT TD SCH (08:31)
[2022-04-28] MEDS: HYDRALAZINE HCL 20 MG/ML VIAL IV PRN ×2 (08:58→15:40)
[2022-04-28] MEDS ORDERED: cloNIDine HCL 0.1 MG TAB PO ONE (16:42)
[2022-04-28] MEDS ORDERED: METOPROLOL TAR 25 MG TAB PO SCH (18:00)
[2022-04-28] MEDS: METOPROLOL TAR 50 MG TAB PO SCH (18:00)
[2022-04-28] MEDS: ATORVASTATIN 40 MG TAB PO SCH (20:15)
[2022-04-28] MEDS: TAMSULOSIN 0.4 MG SR CAP PO SCH (20:15)
[2022-04-28] MEDS: HYDRALAZINE HCL 25 MG TABLET PO SCH (20:15)
--- NOTE | 2022-04-28 22:40 | P.PN ---
Subjective Date of Service: 04/25/22 Subjective: No new changes, No C/O voiced, Improving Review of Systems 10-point ROS is otherwise unremarkable Physical Examination - Vital Signs Temperature: 97.9 F Blood Pressure: 157/81 Pulse: 81 Respirations: 18 Pulse Ox (%): 95 - Physical Exam General: Alert, In no apparent distress, Oriented x3 Respiratory: Clear to auscultation bilaterally, Normal air movement Cardiovascular: Regular rate/rhythm, Normal S1 S2 Gastrointestinal: Normal bowel sounds, Soft and benign, Non-distended, No tenderness Musculoskeletal: No clubbing, No swelling, No tenderness Neurological: Sensation intact, Cranial nerves 3-12 intact Lymphatics: No axilla or inguinal lymphadenopathy - Studies Medications List Reviewed: Yes Assessment & Plan - Problems (Diagnosis) (1) Obstructive uropathy Current Visit: Yes Status: Acute (2) MARIA ISABEL (acute kidney injury) Current Visit: Yes Status: Acute (3) HTN (hypertension) Current Visit: Yes Status: Acute (4) Tobacco abuse Current Visit: Yes Status: Acute (5) Impacted cerumen Current Visit: Yes Status: Acute - Plan Plan: 1. Continue with Kyle catheter 2. Monitor renal function 3. Continue with physical therapy and ambulate 4. Patient with difficult social situation as he is homeless and will need to monitor UOP closely 5. Outpatient Urology follow-up; ER spoke with Dr. Mohamud and we can have them follow-up with him in the next 1-2 weeks. Discharge Plan: Home Plan to discharge in: Greater than 2 days - Advance Directives Does patient have a Living Will: No Does patient have a Durable POA for Healthcare: No - Code Status/Comfort Care Code Status Assessed: Yes Code Status: Full Code Physician Review: Patient Assessed, Agree with Above Assessment and Plan Critical Care: No Time Spent Managing PTS Care (In Minutes): 35
--- NOTE | 2022-04-28 22:44 | P.PN ---
Date of Service: 04/26/22 Subjective Subjective: Pt is improving; renal function better Review of Systems 10-point ROS is otherwise unremarkable Physical Examination - Vital Signs reviewed - Physical Exam General: Alert, In no apparent distress, Oriented x3 Respiratory: Clear to auscultation bilaterally, Normal air movement Cardiovascular: Regular rate/rhythm, Normal S1 S2 Gastrointestinal: Normal bowel sounds, Soft and benign, Non-distended, No tenderness Musculoskeletal: No clubbing, No swelling, No tenderness Neurological: Sensation intact, Cranial nerves 3-12 intact Assessment & Plan - Problems (Diagnosis) (1) Obstructive uropathy Current Visit: Yes Status: Acute (2) MARIA ISABEL (acute kidney injury) Current Visit: Yes Status: Acute (3) HTN (hypertension) Current Visit: Yes Status: Acute (4) Tobacco abuse Current Visit: Yes Status: Acute (5) Impacted cerumen Current Visit: Yes Status: Acute - Plan Continue with POC as mentioned below: 1. Continue with Lundberg catheter 2. Monitor renal function 3. Continue with physical therapy and ambulate 4. Patient with difficult social situation as he is homeless and will need to monitor UOP closely; will remove lundberg in 24-48hrs 5. Outpatient Urology follow-up; ER spoke with Dr. Mohamud and we can have them follow-up with him in the next 1-2 weeks.
--- NOTE | 2022-04-28 22:50 | P.PN ---
Date of Service: 04/27/22 Subjective Subjective: Pt is doing well and with no new complaints; pt continues to do well; remove Lundberg in the AM and monitor UOP/PVR Review of Systems 10-point ROS is otherwise unremarkable Physical Examination - Vital Signs reviewed - Physical Exam General: Alert, In no apparent distress, Oriented x3 Respiratory: Clear to auscultation bilaterally, Normal air movement Cardiovascular: Regular rate/rhythm, Normal S1 S2 Gastrointestinal: Normal bowel sounds, Soft and benign, Non-distended, No tenderness Musculoskeletal: No clubbing, No swelling, No tenderness Neurological: Sensation intact, Cranial nerves 3-12 intact Assessment & Plan - Problems (Diagnosis) (1) Obstructive uropathy Current Visit: Yes Status: Acute (2) MARIA ISABEL (acute kidney injury) Current Visit: Yes Status: Acute (3) HTN (hypertension) Current Visit: Yes Status: Acute (4) Tobacco abuse Current Visit: Yes Status: Acute (5) Impacted cerumen Current Visit: Yes Status: Acute - Plan Continue with POC as mentioned below: 1. DC Lundberg catheter in the AM; monitor PVR; continue with flomax 2. Monitor renal function 3. Continue with physical therapy and ambulate 4. Patient with difficult social situation as he is homeless and will need to monitor UOP closely; will remove lundberg in 24-48hrs 5. Outpatient Urology follow-up; ER spoke with Dr. Mohamud and we can have them follow-up with him in the next 1-2 weeks.
--- NOTE | 2022-04-28 22:51 | P.PN ---
Date of Service: 04/28/22 Subjective Subjective: States his UOP is minimal; will check bladder scan in the AM Review of Systems 10-point ROS is otherwise unremarkable Physical Examination - Vital Signs reviewed - Physical Exam General: Alert, In no apparent distress, Oriented x3 Respiratory: Clear to auscultation bilaterally, Normal air movement Cardiovascular: Regular rate/rhythm, Normal S1 S2 Gastrointestinal: Normal bowel sounds, Soft and benign, Non-distended, No tenderness Musculoskeletal: No clubbing, No swelling, No tenderness Neurological: Sensation intact, Cranial nerves 3-12 intact Assessment & Plan - Problems (Diagnosis) (1) Obstructive uropathy Current Visit: Yes Status: Acute (2) MARI AISABEL (acute kidney injury) Current Visit: Yes Status: Acute (3) HTN (hypertension) Current Visit: Yes Status: Acute (4) Tobacco abuse Current Visit: Yes Status: Acute (5) Impacted cerumen Current Visit: Yes Status: Acute - Plan Continue with POC as mentioned below: 1. Monitor PVR; bladder scan in the AM; continue with flomax 2. Monitor renal function 3. Continue with physical therapy and ambulate 4. Patient with difficult social situation as he is homeless and will need to monitor UOP closely; will remove lundberg in 24-48hrs 5. Outpatient Urology follow-up; ER spoke with Dr. Mohamud and we can have them follow-up with him in the next 1-2 weeks.
[2022-04-29] MEDS: METOPROLOL TAR 50 MG TAB PO SCH ×2 (05:36→18:00)
[2022-04-29 06:29] LABS: Absolute Lymphocytes (CBC) 2.4 K/uL (0.7-4.9); Hematocrit 42.2 % (39.6-49.0); Lymphocytes % 25.7 % (15.3-44.8); MCV 86.6 fL (80-100); MPV 7.9 fL (7.6-11.3); RBC Red Blood Cell Count 4.88 M/uL (4.33-5.43)
[2022-04-29 06:44] LABS: Magnesium 2.1 mg/dL (1.6-2.4); Potassium 4.2 mmol/L (3.5-5.1)
--- NOTE | 2022-04-29 07:57 | RAD REPORT ---
EXAM DESCRIPTION: US - Urinary Bladder - 04/29/2022 7:08 am CLINICAL HISTORY: post-void residual Pelvic pain COMPARISON: No comparisons TECHNIQUE: Real-time sonographic evaluation of the urinary bladder with pre and postvoid volume shiva urements was performed. FINDINGS: No bladder mass or ureterocele is seen. Prevoid bladder volume 1388 mL. Postvoid volume 12 65 mL. IMPRESSION: There is significant postvoid residual noted.
[2022-04-29] MEDS: ENOXAPARIN 40 MG/0.4 ML SQ SCH (09:16)
[2022-04-29] MEDS: ASPIRIN 81 MG CHEWABLE TABLET PO SCH (09:16)
[2022-04-29] MEDS: HYDRALAZINE HCL 25 MG TABLET PO SCH ×3 (09:16→19:44)
[2022-04-29] MEDS: NICOTINE 21 MG/PAT TD SCH (09:17)
[2022-04-29] MEDS ORDERED: TAMSULOSIN 0.4 MG SR CAP PO ONE (12:00)
[2022-04-29] MEDS: TAMSULOSIN 0.4 MG SR CAP PO SCH (19:44)
[2022-04-29] MEDS: ATORVASTATIN 40 MG TAB PO SCH (19:44)
--- NOTE | 2022-04-30 05:00 | P.PN ---
Date of Service: 04/29/22 Subjective Subjective: Repeated bladder scan and patient with urinary retention. We placed Lundberg catheter and greater than 800 cc immediately. Clamped Lundberg catheter and after we later opened it up we had another L of urine output. Will keep Lundberg catheter in place. Increase Flomax. Urology was not available this past week as we spoke with Dr. Mohamud and he wanted patient to follow-up as an outpatient. If Dr. Chauhan is available this week we can consult. Patient is homeless and were waiting for SNF placement. Review of Systems 10-point ROS is otherwise unremarkable Physical Examination - Vital Signs reviewed - Physical Exam General: Alert, In no apparent distress, Oriented x3 Respiratory: Clear to auscultation bilaterally, Normal air movement Cardiovascular: Regular rate/rhythm, Normal S1 S2 Gastrointestinal: Normal bowel sounds, Soft and benign, Non-distended, No t enderness Musculoskeletal: No clubbing, No swelling, No tenderness Neurological: Sensation intact, Cranial nerves 3-12 intact Assessment & Plan - Problems (Diagnosis) (1) Obstructive uropathy Current Visit: Yes Status: Acute (2) MARIA ISABEL (acute kidney injury) Current Visit: Yes Status: Acute (3) HTN (hypertension) Current Visit: Yes Status: Acute (4) Tobacco abuse Current Visit: Yes Status: Acute (5) Impacted cerumen Current Visit: Yes Status: Acute - Plan Continue with POC as mentioned below: 1. Monitor PVR; bladder scan with >1000cc after voiding; replace lundberg and increase flomax 2. Monitor renal function 3. Continue with physical therapy and ambulate 4. Patient with difficult social situation as he is homeless and will need to monitor UOP closely; replaced lundberg; lundberg care and monitor renal function at facility 5. Outpatient Urology follow-up; ER spoke with Dr. Mohamud and we can have them follow-up with him in the next 1-2 weeks.
[2022-04-30] MEDS: METOPROLOL TAR 50 MG TAB PO SCH ×2 (05:24→17:38)
[2022-04-30 06:45] LABS: Absolute Lymphocytes (CBC) 3.3 K/uL (0.7-4.9); Hematocrit 42.5 % (39.6-49.0); MCV 87.1 fL (80-100); MPV 7.9 fL (7.6-11.3); RBC Red Blood Cell Count 4.88 M/uL (4.33-5.43)
[2022-04-30] MEDS: NICOTINE 21 MG/PAT TD SCH (08:34)
[2022-04-30] MEDS: ASPIRIN 81 MG CHEWABLE TABLET PO SCH (08:34)
[2022-04-30] MEDS: ENOXAPARIN 40 MG/0.4 ML SQ SCH (08:34)
[2022-04-30] MEDS: HYDRALAZINE HCL 25 MG TABLET PO SCH ×3 (08:34→21:00)
--- NOTE | 2022-04-30 16:18 | P.PN ---
Subjective Date of Service: 04/30/22 Chief Complaint: weakness, flank pain. No acute events overnight. He denies any symptoms this morning. Kyle catheter in place with good urine output. Pending placement to SNF. Appreciate CM assistance. Review of Systems 10-point ROS is otherwise unremarkable Genitourinary: Retention Physical Examination - Vital Signs Temperature: 98.5 F Blood Pressure: 131/84 Pulse: 57 Respirations: 14 Pulse Ox (%): 94 - Physical Exam General: Alert, In no apparent distress, Oriented x3 HEENT: Atraumatic, Mucous membr. moist/pink, EOMI, Sclerae nonicteric Neck: JVD not distended Respiratory: Clear to auscultation bilaterally, Normal air movement Cardiovascular: No edema, Regular rate/rhythm, Normal S1 S2, No gallops, No rubs, No murmurs Gastrointestinal: Normal bowel sounds, Soft and benign, Non-distended, No tenderness, No rebound, No guarding Musculoskeletal: No clubbing Integumentary: No rashes Neurological: Normal speech, Normal affect Urinary: Kyle catheter - Studies Medications List Reviewed: Yes Assessment And Plan - Plan # KDIGO Stage II Acute Kidney Injury secondary to Obstructive Uropathy # Mild Left Hydronephrosis secondary to Obstruction # Left Renal Nephrolithiasis (2 mm) - Urology consulted and notification sent to Dr. Chauhan - awaiting call back - Creatinine = 2.62 -> 1.98 -> 1.50 -> 1.25 -> 1.37 -> 1.38 - Urinalysis = 3+ blood, 75 leukocyte esterase, >50 RBCs - CT abdomen/pelvis = "marked bladder distention. The hydronephrosis probably is the sequela of the bladder distention. Cholelithiasis. 3.6 centimeter lower abdominal aortic aneurysm." - Renal ultrasound = "mild left-sided hydronephrosis. Bilateral simple renal cysts." - Bladder ultrasound = "there is significant postvoid residual noted." - Continue tamsulosin - Monitor creatinine and urine output - Renally dose medications - Avoid nephrotoxic agents # Hypertension - Continue home hydralazine, metoprolol # Tobacco Use Disorder - Continue nicotine patch # Right Renal Cyst (4.1 cm) # Multiple Left Renal Cysts (7.7 cm, 2.5 cm) # Cholelithiasis # Lower Abdominal Aortic Aneurysm (3.6 cm) # Small Bilateral Inguinal Hernias - Incidental findings on radiographic studies - follow-up with PCP Camden Allen M.D.
[2022-04-30] MEDS: ATORVASTATIN 40 MG TAB PO SCH (20:59)
[2022-04-30] MEDS: TAMSULOSIN 0.4 MG SR CAP PO SCH (21:00)
[2022-05-01] MEDS: METOPROLOL TAR 50 MG TAB PO SCH ×2 (05:53→17:13)
[2022-05-01] MEDS: ASPIRIN 81 MG CHEWABLE TABLET PO SCH (09:29)
[2022-05-01] MEDS: HYDRALAZINE HCL 25 MG TABLET PO SCH ×3 (09:29→22:13)
[2022-05-01] MEDS: NICOTINE 21 MG/PAT TD SCH (09:29)
[2022-05-01] MEDS: ENOXAPARIN 40 MG/0.4 ML SQ SCH (09:30)
--- NOTE | 2022-05-01 17:37 | P.PN ---
Subjective Date of Service: 05/01/22 Chief Complaint: weakness, flank pain. No acute events overnight. He denies any symptoms this morning. Kyle catheter in place with good urine output. Pending placement to SNF. Appreciate CM assistance. Spoke with Dr. Chauhan yesterday, who has agreed to see him as an outpatient. Review of Systems 10-point ROS is otherwise unremarkable Genitourinary: Retention Physical Examination - Vital Signs Temperature: 98.7 F Blood Pressure: 97/56 Pulse: 78 Respirations: 18 Pulse Ox (%): 94 - Studies Medications List Reviewed: Yes Assessment And Plan - Plan - Physical Exam General: Alert, In no apparent distress, Oriented x3 HEENT: Atraumatic, Sclerae nonicteric Neck: JVD not distended Respiratory: Clear to auscultation bilaterally, Normal air movement Cardiovascular: No edema, Regular rate/rhythm, No murmurs Gastrointestinal: Normal bowel sounds, Soft, Non-distended, No tenderness Musculoskeletal: No clubbing Integumentary: No rashes Neurological: Normal speech, Normal affect Urinary: Kyle catheter # KDIGO Stage II Acute Kidney Injury secondary to Obstructive Uropathy # Mild Left Hydronephrosis secondary to Obstruction # Left Renal Nephrolithiasis (2 mm) - Urology consulted and spoke with Dr. Chauhan - recommendations appreciated - He agreed to follow-up with him as an outpatient - Creatinine = 2.62 -> 1.98 -> 1.50 -> 1.25 -> 1.37 -> 1.38 -> 1.37 - Urinalysis = 3+ blood, 75 leukocyte esterase, >50 RBCs - CT abdomen/pelvis = "marked bladder distention. The hydronephrosis probably is the sequela of the bladder distention. Cholelithiasis. 3.6 centimeter lower abdominal aortic aneurysm." - Renal ultrasound = "mild left-sided hydronephrosis. Bilateral simple renal cysts." - Bladder ultrasound = "there is significant postvoid residual noted." - Continue tamsulosin - Monitor creatinine and urine output - Renally dose medications - Avoid nephrotoxic agents # Hypertension - Continue home hydralazine, metoprolol # Tobacco Use Disorder - Continue nicotine patch # Right Renal Cyst (4.1 cm) # Multiple Left Renal Cysts (7.7 cm, 2.5 cm) # Cholelithiasis # Lower Abdominal Aortic Aneurysm (3.6 cm) # Small Bilateral Inguinal Hernias - Incidental findings on radiographic studies - follow-up with PCP Cmaden Allen M.D.
--- NOTE | 2022-05-01 18:28 | P.CNS ---
Date of Consult: 05/01/22 61-year-old gentleman with hypertension, hypercholesterolemia, chronic pain syndrome, s/p cervical fusion (unknown levels, but suspected C3-4) estimated 15 to 20 years ago presented via the emergency department with urinary incontinence. He acknowledges over a year of problematic LUTS, but within the last month and a half, he has LUTS worsening to increased urinary frequency and the incontinence associated with some increased constipation. He apparently also reported some left lower quadrant pain that was 5 out of 10 in severity and achy in nature. He denied any gross hematuria or dysuria associated. He he had not been treated for his urinary symptoms. A urethral Kyle catheter was placed with apparently 1.2 L of urine drained. He was apparently given a voiding trial, but the catheter was reinserted after 1 day. This was apparently within the last few days. Past medical history: Hypertension, hypercholesterolemia Past surgical history: Appendectomy 1 to 2 years ago laparoscopic, cervical fusion 15 to 20 years ago, right eye removed, and other extremity procedures Social history: He is an active smoker Allergies: Suspected to codeine but unknown Examination: He is alert, awake, oriented x3 in no acute distress There was no dyspnea or sign of respiratory distress He was comfortable and well-appearing Urethral Kyle catheter was in place draining clear yellow urine 04/24/2022 CT abdomen and pelvis without contrast revealed bilateral mild hydronephrosis and a 2.5 cm left hyperdense renal cyst 04/27/2022 renal ultrasound revealed persistence of the mild left hydronephrosis and simple cysts 04/24/2022 urine culture 10-100 K mixed arie 04/25/2022 creatinine 1.98 with EGFR 37 that has improved to 1.37 with EGFR of 58 on 05/01/2022 Assessment and recommendation: 61-year-old gentleman with hypertension, hypercholesterolemia, chronic pain syndrome, s/p cervical fusion (unknown levels, but suspected C3-4) estimated 15 to 20 years ago with overflow incontinence presumptively secondary to BPH with LUTS, MARIA ISABEL on CKD stage IIIa, and persistent mild left hydronephrosis with 2.5 cm left hyperdense/Bosniak 2 renal cyst. -Continue Flomax 0.4 mg daily -Patient may follow-up in the urology clinic in 10 to 14 days to have her surveillance culture taken from his catheter prior to an active voiding trial being performed by medical imaging director staff. If he is not on active antimicrobials, he may be given a dose of Bactrim DS given his lack of sulfa allergy. -Follow-up for cystoscopy and MARY CARMEN with me approximately 4 to 6 weeks later with PSA done 3 to 5 days prior -He will be going to [facility] and his cell phone is [phone] ~25mins spent in consultation
[2022-05-01] MEDS: TAMSULOSIN 0.4 MG SR CAP PO SCH (22:13)
[2022-05-01] MEDS: ATORVASTATIN 40 MG TAB PO SCH (22:13)
[2022-05-01 22:22] VITALS: O2SAT 97
[2022-05-02] MEDS: METOPROLOL TAR 50 MG TAB PO SCH (05:57)
[2022-05-02 06:00] VITALS: BMI 35.1
[2022-05-02] MEDS: ENOXAPARIN 40 MG/0.4 ML SQ SCH (08:39)
[2022-05-02] MEDS: ASPIRIN 81 MG CHEWABLE TABLET PO SCH (08:39)
[2022-05-02] MEDS: HYDRALAZINE HCL 25 MG TABLET PO SCH (08:39)
[2022-05-02] MEDS: NICOTINE 21 MG/PAT TD SCH (08:39)
[2022-05-02 12:13] VITALS: BP 121/75; TEMP 98.4
--- NOTE | 2022-05-02 13:34 | P.DS ---
Admission Date: 04/24/22 Discharge Date: 05/02/22 Disposition: ROUTINE DISCHARGE Discharge Condition: GOOD Reason for Admission: weakness, flank pain. Consultations: 1. Nephrology 2. Urology Hospital Course: DIAGNOSES: # KDIGO Stage II Acute Kidney Injury on likely Chronic Kidney Disease Stage III secondary to Obstructive Uropathy # Mild Left Hydronephrosis secondary to Obstruction # Left Renal Nephrolithiasis (2 mm) # Hypertension # Dyslipidemia # Tobacco Use Disorder # Right Renal Cyst (4.1 cm) # Multiple Left Renal Cysts (7.7 cm, 2.5 cm) # Cholelithiasis # Lower Abdominal Aortic Aneurysm (3.6 cm) # Small Bilateral Inguinal Hernias HOSPITAL COURSE: Mr. Hung Long is a 61 year old male with a past medical history significant for hypertension and tobacco use disorder who was admitted to the [facility] on 04/24/2022 for abdominal pain. He was admitted to the Medicine service. He was found to have an initial creatin ine of 2.62 and was diagnosed with a KDIGO stage II acute kidney injury. Upon further evaluation, his CT abdomen/pelvis revealed, "marked bladder distention. The hydronephrosis probably is the sequela of the bladder distention. Cholelithiasis. 3.6 centimeter lower abdominal aortic aneurysm." His renal ultrasound revealed, "mild left-sided hydronephrosis. Bilateral simple renal cysts." His bladder ultrasound revealed, "there is significant postvoid residual noted." It was thought that his acute kidney injury was secondary to obstructive uropathy. Nephrology and Urology were consulted and he was evaluated by Dr. Viramontes and Dr. Chauhan, respectively. A Kyle catheter was placed with significant improvement in his renal function. A SNF was requested for close urine output monitoring as well as Kyle catheter care; however, this was declined. He has been cleared for discharge with outpatient Urology follow-up. Both Francis and Dr. Chauhan have emphasized the importance of Urology follow-up and Mr. Long has agreed to schedule the follow-up. We have offered him Home Health, which he declined. Our nursing staff was able to educate him on how to care for and change his Kyle leg bags. On 05/02/2022, he was seen on rounds and deemed medically stable for discharge. He was discharged with instructions to schedule follow-up appointments with his PCP, with Nephrology (Dr. Viramontes), and Urology (Dr. Chauhan). He was provided prescriptions for tamsulosin, atorvastatin, metoprolol, and hydralazine. He was given the opportunity to ask questions and reported no further questions. Furthermore, all questions were answered to the best of my ability. A copy of this discharge summary will be sent to the above providers to facilitate continuity of care. Today, I personally spent 25 minutes on his case, of which greater than 50% of the time was spent in patient education, counseling, and coordination of care as described above. - Physical Exam General: Alert, In no apparent distress, Oriented x3 HEENT: Atraumatic, Sclerae nonicteric Neck: JVD not distended Respiratory: Clear to auscultation bilaterally, Normal air movement Cardiovascular: No edema, Regular rate/rhythm, No murmurs Gastrointestinal: Normal bowel sounds, Soft, Non-distended, No tenderness Musculoskeletal: No clubbing Integumentary: No rashes Neurological: Normal speech, Normal affect Urinary: Kyle catheter with translucent yellow urine Vital Signs/Physical Exam: Temp Pulse Resp BP Pulse Ox 98.4 F 74 12 121/75 90 L 05/02/22 12:31 05/02/22 12:31 05/02/22 12:31 05/02/22 12:31 05/02/22 12:31 Laboratory Data at Discharge: WBC 10.00 K/uL (4.3-10.9) 04/30/22 06:26 Hgb 13.8 g/dL (13.6-17.9) 04/30/22 06:26 Hct 42.5 % (39.6-49.0) 04/30/22 06:26 Plt Count 225 K/uL (152-406) 04/30/22 06:26 PT 10.9 SECONDS (9.5-12.5) 04/24/22 18:59 INR 0.99 04/24/22 18:59 Sodium 140 mmol/L (136-145) 05/02/22 02:57 Potassium 4.0 mmol/L (3.5-5.1) 05/02/22 02:57 BUN 27 mg/dL (7-18) H 05/02/22 02:57 Creatinine 1.41 mg/dL (0.70-1.30) H 05/02/22 02:57 Glucose 99 mg/dL (74-106) 05/02/22 02:57 Phosphorus 3.1 mg/dL (2.5-4.9) 04/28/22 06:09 Magnesium 2.1 mg/dL (1.6-2.4) 04/29/22 06:10 Total Bilirubin 0.3 mg/dL (0.2-1.0) 04/24/22 11:15 AST 12 U/L (15-37) L 04/24/22 11:15 ALT 20 U/L (16-61) 04/24/22 11:15 Alkaline Phosphatase 64 U/L (45-117) 04/24/22 11:15 Triglycerides 242 mg/dL (<150) H 04/24/22 18:59 Cholesterol 221 mg/dL (<200) H 04/24/22 18:59 HDL Cholesterol 34 mg/dL (40-60) L 04/24/22 18:59 Cholesterol/HDL Ratio 6.50 04/24/22 18:59 Lipase 21 U/L (13-75) 04/24/22 11:15 Home Medications: Chlorhexidine 4% [Betasept*] 1 appl TOP UD #1 btl 11/26/13 Mupirocin Oint [Bactroban 2% Ointment*] 1 appl TOP BID #1 tube 11/26/13 Sodium Chloride Irrig Solution [Sodium Chloride] 1,000 ml IR DAILY #1 irrig.soln 11/26/13 Aspirin Chewable [Aspirin Chewable*] 81 mg PO DAILY tab.chew 05/02/22 Atorvastatin Calcium [Lipitor] 40 mg PO BEDTIME #30 tab 05/02/22 Hydralazine [Apresoline*] 25 mg PO TID #90 tab 05/02/22 Metoprolol Tartrate [Lopressor*] 50 mg PO BID 6AM 6PM #60 tab 05/02/22 Tamsulosin [Flomax*] 0.8 mg PO BEDTIME #60 cap 05/02/22 New Medications: Hydralazine [Apresoline*] 25 mg PO TID #90 tab Tamsulosin [Flomax*] 0.8 mg PO BEDTIME #60 cap Atorvastatin Calcium [Lipitor] 40 mg PO BEDTIME #30 tab Metoprolol Tartrate [Lopressor*] 50 mg PO BID 6AM 6PM #60 tab Physician Discharge Instructions: 1. Please call and schedule a follow-up appointment with your PCP in 3-5 days - During your evaluation, you were found to have cysts on your kidneys, gallbladder stones, an abdominal aortic aneurysm, and groin hernias. Please discuss this with your PCP as you will need to have these findings followed up. 2. Please call and schedule a follow-up appointment with Urology (Dr. Chauhan) in 10-14 days - He will re-evaluate you at that time and discuss removing the urine Kyle catheter 3. Please call and schedule a follow-up appointment with Nephrology (Dr. Viramontes) in 5-7 days Diet: Renal Activity: Ad shai Followup: NONE,NONE [Primary Care Provider] - 1 Week Prieto Viramontes [COURTESY - CAN ADMIT] - 1 Week Carlo Chauhan [ACTIVE - CAN ADMIT] - 1 Week Time spent managing pt's care (in minutes): 25
== END 2022-05-02 14:13 | disposition home or self-care (01) | DRG 684 ==
LOC: ER 10:05 → ERHOLD 16:33 → 2ND 04-25 16:13
PROVIDERS: ADMIT Hospitalist; ATTEND Internal Medicine
DX: N17.9 Acute kidney failure, unspecified (principal); G89.4 Chronic pain syndrome; E78.5 Hyperlipidemia, unspecified; N13.9 Obstructive and reflux uropathy, unspecified; N28.1 Cyst of kidney, acquired; K59.00 Constipation, unspecified; N13.2 Hydronephrosis with renal and ureteral calculous obstruction; I12.9 Hypertensive chronic kidney disease with stage 1 through stage 4 chronic kidney disease, or unspecified chronic kidney disease; N18.31 Chronic kidney disease, stage 3a; E78.00 Pure hypercholesterolemia, unspecified; H61.20 Impacted cerumen, unspecified ear; N40.1 Benign prostatic hyperplasia with lower urinary tract symptoms; R35.0 Frequency of micturition; I71.40 Abdominal aortic aneurysm, without rupture, unspecified; K40.90 Unilateral inguinal hernia, without obstruction or gangrene, not specified as recurrent; K80.20 Calculus of gallbladder without cholecystitis without obstruction; F17.200 Nicotine dependence, unspecified, uncomplicated; R03.0 Elevated blood-pressure reading, without diagnosis of hypertension; Z88.5 Allergy status to narcotic agent; Z79.82 Long term (current) use of aspirin; Z59.00 Homelessness unspecified; Z79.899 Other long term (current) drug therapy; Z20.822 Contact with and (suspected) exposure to COVID-19
CPT/HCPCS: 36415; 51702; 74176; 76770; 76857; 80048; 80053; 80061; 81001; 81003; 81015; 82550; 83036; 83690; 83735; 83880; 84100; 84439; 84443; 85025; 85610; 87086; 87088; 87811; 97116; 97161; 97530; 99285; G0103; J0360; J1650; J7030

== ENCOUNTER 2022-09-15 23:42 | Emergency (ER) | payer OTHER ==
--- OUTSIDE RECORDS SUMMARY | 2022-09-16 00:26 | XMS REPORT | Continuity of Care Document ---
:1960 Author Organization [facility] t Address [address] [facility] Jose Elias. [address] [place] [address] Care Team Providers Name Role Phone GEORGE MEDLEY Primary Care Physician Unavailable JOAN BURLESON Attending Clinician Unavailable LAB90 Attending Clinician Unavailable TAYLOR MCNAIR Attending Clinician Unavailable DARRYL BERNARD Attending Clinician Unavailable REEMA MOSLEY Attending Clinician Unavailable BHARATH ANDRADE Attending Clinician Unavailable MONICA PAULSON Attending Clinician Unavailable KESHAWN CHENEY Attending Clinician Unavailable Keshawn Lassiter Attending Clinician KESHAWN CHENEY Admitting Clinician Unavailable Payers Payer Name Policy Type Policy Number Effective Date Expiration Date S ource HUMANA MA GOLD 7 [id number] 2021 00:00:00 PLUS 42 OA HUMANA GOLD PLS [id number] 2021 00:00:00 HMO Problems Condition Condition Condition Status Onset Resolution Last Treating Co mments Source Name Details Category Date Date Treatment Clinician Date Mixed Mixed Disease Active Yumiko hyperlipid hyperlipid 5-15 Se ybold emia emia 00:00: - 00 Externa l Well adult Well adult Disease Active K elsey exam exam 5-15 Seybold 00:00: - 00 Externa l Tobacco Tobacco Disease Active Yumiko use use 5-15 Seybold 00:00: - 00 Externa l Benign Benign Disease Active Yumiko prostatic prostatic 5-15 Seyb old hyperplasi hyperplasi 00:00: - a without a without 00 Exte rna lower lower l urinary urinary tract tract symptoms symptoms Overweight Overweight Disease Active K elsey 5-15 Seybold 00:00: - 00 Externa l History of History of Disease Active 2021-02 [...] 0-16 it y of is is 00:00: [address] Obesity Obesity Disease Active 2018-02 Univers (BMI (BMI 0-16 ity of 30-39.9) 30-39.9) 00:00: [address] Allergies, Adverse Reactions, Alerts Allergy Allergy Status Severity Reaction(s) Onset Inactive Treating Comm ents Source Name Type Date Date Clinician Terry Prado Active Other 2013-02 Yumiko ty to 0-07 Seybold adverse 00:00: - reaction 00 Externa s l NO KNOWN Drug Active [facility] ALLERGIE Class ity of S [facility] Social History Social Habit Start Date Stop Date Quantity Comments Source History of tobacco Cigarette Smoker Yumiko Joshi - use External Gender identity Yumiko dalebala - External Sexual orientation Yumiko Joshi - External Exposure to 2022-04-07 2022-04-17 Not sure [facility] SARS-CoV-2 (event) 00:00:00 17:54:00 [facility] Education 2021-11-21 2021-11-21 18 Yumiko Hamiltonybold - 00:00:00 00:00:00 External History of Social 2021-11-21 2021-11-21 Yumiko Maold - function 00:00:00 00:00:00 External Tobacco use and 2021-11-21 2021-11-21 Smokeless Yumiko Hamilton ybold - exposure 00:00:00 00:00:00 tobacco non-user External Alcohol intake 2018-12-05 2018-12-05 Ex-drinker University of 00:00:00 00:00:00 (finding) [facility] Cigarettes smoked 2018-12-04 2018-12-04 Univers ity of current (pack per 00:00:00 00:00:00 ) - Reported Branch Cigarette 2018-12-04 2018-12-04 University of pack-years 00:00:00 00:00:00 [facility] Sex Ass[birth year] At [birth year] Universit y of 00:00:00 00:00:00 [facility] Smoking Status Start Date Stop Date Source Smokes tobacco daily 2021-11-21 00:00:00 Yumiko Seybold - External Medications Ordered Filled Start Stop Current Ordering Indication Dosage Frequency Signature Comments Components Source Medication Medication Date Date Medication? Clinician (SIG) Name Name Tamsulosin Yes [id number] .4mg Take 1 Yumiko HCl 0.4 MG 5-15 capsule Seybol d oral 00:00: (0.4 mg - Capsule 00 total) by Externa mouth l every night at bedtime Nicotine 21 2022-0 Yes [id number] 1{patch Place 1 Yumiko MG/24HR 5-15 } patch onto Seybol d transdermal 00:00: the skin - PATCH 24 HR 00 every 24 Exte rna hours l Tamsulosin 2022- No [id number] .4mg Take 1 Yumiko HCl 0.4 MG 5-15 05-15 capsule Seybo ld oral 00:00: 00:00 (0.4 mg - Capsule 00 :00 total) by Externa mouth l every night at bedtime Take two tabs orally once daily at bedtime Atorvastati 0 Yes 40mg Take 1 Lucila ey n Calcium 4-13 tablet (40 Seyb old 40 MG oral 00:00: mg total) - Tablet 00 by mouth Externa daily l Metoprolol 2022-0 Yes [id number] 50mg Take 1 K elsey Tartrate 4-13 tablet (50 Seybo ld (LOPRESSOR) 00:00: mg total) - 50 MG oral 00 by mouth 2 Ext aime Tablet times l daily Tamsulosin 2022-0 2022- No [id number] Take two Yumiko HCl 0.4 MG 4-13 05-15 tabs Seybold oral 00:00: 00:00 orally - Capsule 00 :00 once daily Motor Analyst a at bedtime l hydrALAZINE 2022-0 2022- No [id number] 25mg Take 1 Yumiko HCl 25 MG - 05-15 tablet (25 Sey bold oral Tablet 00:00: 00:00 mg total) - 00 :00 by mouth 3 Externa times l daily Cefpodoxime 2022-0 2022- No 200mg Take 1 Ke lsey Proxetil 3-29 05-15 tablet Seybold 200 MG oral 00:00: 00:00 (200 mg - Tablet 00 :00 total) by Externa mouth l every 12 hours Take for 14 days Aspirin 81 2022- Yes 81mg Take 1 Kelse y MG oral 3-15 tablet (81 Seybol d Chewable 00:00: mg total) - Tablet 00 by mouth Externa daily l cefTRIAXone 2022- No 500mg 500 mg, U nivers (ROCEPHIN) 04-18 Intramuscu it y of injection 05:15: 04:37 lar, ONCE, [place] 500 mg 00 :00 1 dose, On Medical [facility] Branch 04/17/22 at 2315, ROYX
Re ason for Anti-Infec tive: Empiric Therapy for Suspected Infection< br>Empiric Therapy Site: Urine
D uration of therapy: 72 hours iopamidol 2022- No [id number] 80mL 80 mL, Univers (ISOVUE 04-18 Intravenou ity o f 370-500 mL) 02:15: 02:48 s, ONCE, 1 [place] injection 00 :00 dose, On Medica l 80 mL e Branch 04/17/22 at 2015, Routine doxycycline Yes [id number] 100mg Take 1 Univers hyclate 100 2-28 capsule by it y of mg capsule 00:00: mouth in Ant as 00 the Medical morning Branch and 1 capsule in the evening. Gabapentin 2021-02 Yes [id number] 300mg Take 1 Yumiko 300 MG oral 1- 107 capsule Seybo ld Capsule 00:00: (300 mg - 00 total) by Externa mouth 2 l times daily Gabapentin 2021-02 Yes [id number] 100mg Take 1 Yumiko 100 MG oral 0 9103 capsule Seybo ld Capsule 00:00: (100 mg - 00 total) by Externa mouth 2 l times daily Tramadol 2021-02 Yes [id number] 50mg Q.[id number] Take 1 Yumiko HCl 50 MG 0-04 9103 [id number] tablet (50 Seybold oral Tablet 00:00: 3D mg total) - 00 by mouth Externa every 8 l hours as needed for pain Lisinopril 2021-02 Yes [id number] 20mg Take 1 K elsey 20 MG oral 0-04 tablet (20 Sey bold Tablet 00:00: mg total) - 00 by mouth Externa daily l Lisinopril 2021-02 Yes [id number] 20mg Take 1 K elsey 20 MG oral 0-04 tablet (20 Sey bold Tablet 00:00: mg total) - 00 by mouth Externa daily l Gabapentin 2021-02- No [id number] 100mg Take 1 Yumiko 100 MG oral 0-04 12-19 9103 capsule Seyb old Capsule 00:00: 00:00 (100 mg - 00 :00 total) by Externa mouth 2 l times daily Tramadol 2021-02- No [id number] 50mg Q.[id number] Take 1 Yumiko HCl 50 MG 0-04 12-19 9103 [id number] tablet (50 Seybold oral Tablet 00:00: 00:00 3D mg total) - 00 :00 by mouth Externa every 8 l hours as needed for pain Immunizations Ordered Filled Immunization Date Status Comments [facility] e Immunization Name Name Influenza Virus 2018-12-06 Completed Universit y of Vaccine Quad .5 mL 00:00:00 [facility] 6+ MO Branch Influenza Virus 2018-12-06 Completed Yumiko Se ybold - Vaccine, No 00:00:00 External Preserv, age 6 months and up Vital Signs Vital Name Observation Time Observation Value Comments Source Heart rate 2022-07-02 18:44:00 78 /min Yumiko che - External Body temperature 2022-07-02 18:44:00 37.11 Miranda Lucila alex Seybbala - External Respiratory rate 2022-07-02 18:44:00 16 /min Lucila Joshi - External Body height 2022-07-02 18:44:00 180.3 cm Yumiko che - External Body weight 2022-07-02 18:44:00 97.523 kg Yumiko alexboreji - External BMI 2022-07-02 18:44:00 29.99 kg/m2 Yumiko alexboreji - External Oxygen saturation in 2022-07-02 18:44:00 99 /min Yumiko Joshi - Arterial blood by External Pulse oximetry Systolic blood 2022-07-02 18:44:00 141 mm[Hg] Yumiko Hamiltonybold - pressure External Diastolic blood 2022-07-02 18:44:00 95 mm[Hg] Elfego coleman Seybold - pressure External Systolic blood 2022-04-17 23:55:00 154 mm[Hg] Univer sity of pressure [facility] Diastolic blood 2022-04-17 23:55:00 99 mm[Hg] Unive rsity of [facility] Heart rate 2022-04-17 23:55:00 82 /min [facility] Body temperature 2022-04-17 23:55:00 36.61 Miranda [facility] Respiratory rate 2022-04-17 23:55:00 16 /min [facility] Body height 2022-04-17 23:55:00 180.3 cm [facility] Body weight 2022-04-17 23:55:00 108.863 kg Univers ty [facility] BMI 2022-04-17 23:55:00 33.47 kg/m2 [facility] Oxygen saturation in 2022-04-17 23:55:00 100 /min University Arterial blood by [facility] Pulse oximetry Branch Systolic blood 2021-12-19 18:06:00 132 mm[Hg] Yumiko Hamiltonchitobala - pressure External Diastolic blood 2021-12-19 18:06:00 84 mm[Hg] Elfego jared ybbala - pressure External Heart rate 2021-12-19 17:56:00 93 /min Yumikojune alexboreji - External Body temperature 2021-12-19 17:56:00 36.33 Miranda Lucila abi Seybold - External Respiratory rate 2021-12-19 17:56:00 14 /min Lucila alex Seybold - External Body height 2021-12-19 17:56:00 180.3 cm Yumiko alexbold - External Body weight 2021-12-19 17:56:00 98.884 kg Yumiko Kuo eybold - External BMI 2021-12-19 17:56:00 30.40 kg/m2 Yuimko Kuo eybold - External Oxygen saturation in 2021-12-19 17:56:00 99 /min Yumiko Hamiltonybbala - Arterial blood by External Pulse oximetry Systolic blood 2021-11-21 20:03:00 170 mm[Hg] Yumiko Seybold - pressure External Diastolic blood 2021-11-21 20:03:00 [...] Body weight 2021-11-21 19:28:00 100.699 kg Yumiko Kuo eybold - External BMI 2021-11-21 19:28:00 30.96 kg/m2 Yumiko alexbold - External Oxygen saturation in 2021-11-21 19:28:00 96 /min Yumiko Hamiltonybbala - Arterial blood by External Pulse oximetry Procedures Procedure Date / Time Performed Performing Clinician Sourc e LIPASE 2022-04-18 02:00:00 Shravan [facility] COMP. METABOLIC PANEL 2022-04-18 02:00:00 Keshawn [facility] ([id number]) [facility] CBC WITH DIFF 2022-04-18 02:00:00 Shravan [facility] URINALYSIS 2022-04-18 00:14:00 Shravan [facility] NOTICE OF PRIVACY 2022-04-17 23:53:59 Doctor Unassigned, No Univ [facility] PRACTICES Name Medical Branch CONSENT/REFUSAL FOR 2022-04-17 23:51:45 Doctor Unassigned, No [facility] DIAGNOSIS AND Name Medical Branch TREATMENT Encounters Start End Encounter Admission Attending Care Care Encounter Source Date/Time Date/Time Type Type Clinicians Facility Department ID 2022-08-22 2022-08-22 Outpatient YUMIKO BURLESON [id number] Yumiko 00:00:00 00:00:00 JOAN Seybol d 2022-08-14 2022-08-14 Outpatient YUMIKO BURLESON [id number] Yumiko 00:00:00 00:00:00 JOAN Seybol d 2022-08-02 2022-08-02 Outpatient YUMIKO BURLESON [id number] Yumiko 00:00:00 00:00:00 JOAN Seybol d 2022-07-24 2022-07-24 Outpatient YUMIKO BURLESON [id number] Yumiko 00:00:00 00:00:00 JOAN Seybol d 2022-07-04 2022-07-04 Outpatient PREYUMIKO REN [id number] Yumiko 00:00:00 00:00:00 JOAN Seybol d 2022-07-03 2022-07-03 Outpatient LAB90 YUMIKO HOLBROOK [id number] Yumiko 08:05:00 08:05:00 Seybol d 2022-07-03 2022-07-03 Outpatient YUMIKO BURLESON [id number] Yumiko 00:00:00 00:00:00 OJAN Seybol d 2022-07-02 2022-07-02 Outpatient YUMIKO BURLESON [id number] Yumiko 14:15:00 14:15:00 JOAN Seybol d 2022-06-18 2022-06-18 Outpatient YUMIKO MCNAIR [id number] Yumiko 14:00:00 14:00:00 TAYLOR Seybo ld 2022-06-11 2022-06-11 Outpatient YUMIKO MCNAIR [id number] Yumiko 00:00:00 00:00:00 TAYLOR Seybo ld 2022-06-05 2022-06-05 Outpatient DARRYL BERNARD [id number] Yumiko 16:00:00 16:00:00 Seybol d 2022-05-31 2022-05-31 Outpatient PREZAShiela YUMIKO HOLBROOK [id number] Yumiko 00:00:00 00:00:00 JOAN Seybol d 2022-05-31 2022-05-31 Outpatient MELANY YUMIKO HOLBROOK [id number] Yumiko 00:00:00 00:00:00 REEMA Seybol d 2022-05-30 2022-05-30 Outpatient BHARATH ANDRADE YUMIKO HOLBROOK [id number] Yumiko 13:30:00 13:30:00 Seybol d 2022-05-30 2022-05-30 Outpatient PREZAShiela YUMIKO HOLBROOK [id number] Yumiko 00:00:00 00:00:00 JOAN Seybol d 2022-05-29 2022-05-29 Outpatient PREZAYUMIKO Kuo [id number] Yumiko 00:00:00 00:00:00 JOAN Seybol d 2022-05-23 2022-05-23 Outpatient PREZASYUMIKO [id number] Yumiko 00:00:00 00:00:00 JOAN Seybol d 2022-05-21 2022-05-21 Outpatient PREZAShiela YUMIKO HOLBROOK [id number] Yumiko 11:30:00 11:30:00 JOAN Seybol d 2022-05-17 2022-05-17 Outpatient PREZAYUMIKO Kuo [id number] Yumiko 00:00:00 00:00:00 JOAN Seybol d 2022-05-02 2022-05-02 Outpatient YUMIKO PAULSON [id number] Yumiko 00:00:00 00:00:00 MONICA Seybol d 2022-04-23 2022-04-23 Outpatient PREYUMIKO REN [id number] Yumiko 00:00:00 00:00:00 JOAN Seybol d 2022-04-17 2022-04-17 [id number] Univers 17:57:00 22:53:00 KESHAWN [facility] 2022-04-17 2022-04-17 [facility] [id number] Univers 17:57:00 22:53:00 Keshawn DONIS [id number] i [facility] [id number] [facility] [id number] [facility] keshawn 084 Branch 2022-03-02 2022-03-02 Outpatient PREZAYUMIKO Kuo YUMIKO [id number] Yumiko 00:00:00 00:00:00 JOAN Seybol d 2021-12-19 2021-12-19 Outpatient PREZAShiela YUMIKO HOLBROOK [id number] Yumiko 13:30:00 13:30:00 JOAN Seybol d 2021-12-01 2021-12-01 Outpatient PREZAShiela YUMIKO HOLBROOK [id number] Yumiko 00:00:00 00:00:00 JOAN Seybol d 2021-11-21 2021-11-21 Outpatient PREZAShiela YUMIKO HOLBROOK [id number] Yumiko 14:30:00 14:30:00 JOAN Seybol d 2021-10-30 2021-10-30 Outpatient PREZAShiela YUMIKO HOLBROOK [id number] Yumiko 10:00:00 10:00:00 JOAN Seybol d Results Test Description Test Time Test Comments Results Result Comments Source COMP. METABOLIC PANEL (17528) 2022-04-18 02:28:08 Test Item Value Reference Range Interpretation Comme nts NA (test code = 8219530695) 139 mmol/L 135-145 K (test code = 9619103609) 3.9 mmol/L 3.5-5.0 CL (test code = 2018916837) 103 mmol/L 98-108 CO2 TOTAL (test code = 0804644493) 28 mmol/L 23-31 AGAP (test code = 9902759089) 8 2-16 BUN (test code = 5882616182) 32 mg/dL 7-23 H GLUCOSE (test code = 9627552321) 110 mg/dL 70-110 CREATININE (test code = 1.96 mg/dL 0.60-1.25 H 4550652521) TOTAL BILI (test code = 1.0 mg/dL 0.1-1.7 6024629030) CALCIUM (test code = 9633632647) 8.7 mg/dL 8.6-10.6 T PROTEIN (test code = 3604483137) 7.0 g/dL 6.3-8.2 ALBUMIN (test code = 6901207874) 4.0 g/dL 3.5-5.0 ALK PHOS (test code = 5826556870) 51 U/L 34-122 ALTv (test code = 1742-6) 18 U/L 5-50 AST(SGOT) (test code = 4873306574) 20 U/L 13-40 eGFR (test code = 9213238237) 34.8 mL/min/1.73m2 CLOVER (test code = CLOVER) [...] tests). Lab Interpretation (test code = Abnormal 94046-7) [facility] 02[facility]27[facility]47 Test Item Value Reference Range Interpretation Comments LIPASE (test code = 9252373852) 47 U/L 0-220 Lab Interpretation (test code = Normal 93467-7) [facility] [id number] 02:15:28 Test Item Value Reference Range Interpretation Comments WBC (test code = 8.60 See_Comment [Automated message] 7290-2) The system [employer] generated this result transmitted ref erence range: 4.20 - 1 0.70 10*3/?L. The re ference range was not u sed to interpret this result as normal/abnor mal. RBC (test code = 5.42 See_Comment [Automated message] 789-8) The system [employer] generated this result transmitted ref erence range: [...] RDW-SD (test code 44.9 fL 38.5-51.6 = 95611-0) RDW-CV (test code 13.7 % 12.1-15.4 = 788-0) PLT (test code = 208 See_Comment [Automated message] 777-3) The system [employer] generated this result transmitted ref erence range: 150 - 32 8 10*3/?L. The re ference range was not u sed to interpret this result as normal/abnor mal. MPV (test code = 10.1 fL 9.8-13.0 44475-6) NRBC/100 WBC (test 0.0 See_Comment [Automat ed message] code = 4116337050) The [employer] which generated this result transmitted ref erence range: 0.0 - 10 .0 /100 WBCs. The refer ence range was not u sed to interpret this result as normal/abnor mal. NRBC x10^3 (test See_Comment [Automated message] code = 0186933553) The [employer] which generated this result transmitted ref erence range: 10*3/?L. The reference range was not used to interpr et this result as normal/abnormal . GRAN MAT (NEUT) % 67.4 % (test code = 770-8) IMM GRAN % (test 0.70 % code = 7639620788) LYMPH % (test code 19.8 % = 736-9) MONO % (test code 9.1 % = 5905-5) EOS % (test code = 2.3 % 713-8) BASO % (test code 0.7 % = 706-2) GRAN MAT 5.80 10*3/uL 1.99-6.95 x10^3(ANC) (test code = 4575944735) IMM GRAN x10^3 0.06 10*3/uL 0.00-0.06 (test code = 7241142109) LYMPH x10^3 (test 1.70 10*3/uL 1.09-3.23 code = 731-0) MONO x10^3 (test 0.78 10*3/uL 0.36-1.02 code = 742-7) EOS x10^3 (test 0.20 10*3/uL 0.06-0.53 code = 711-2) BASO x10^3 (test 0.06 10*3/uL 0.01-0.09 code = 704-7) [facility]"
[2022-09-16] MEDS ORDERED: cloNIDine HCL 0.1 MG TAB ONE (01:18)
[2022-09-16] MEDS ORDERED: levoFLOXacin 250 MG TAB ONE (01:18)
[2022-09-16 01:36] LABS: Specific Gravity 1.012 (1.005-1.030); Urine Bacteria 20-50 /HPF (<20); Urine Clarity Turbid (Clear); Urine Color Light-Orange (Yellow); Urine Glucose NEGATIVE (Negative); Urine Mucus Slight /HPF (None Seen); Urine Triple Phosphate Crystal Few /HPF (None Seen); Urine WBC Clump Rare /HPF (None Seen)
[2022-09-16 01:37] LABS: Urine Bilirubin NEGATIVE (Negative); Urine Blood 3+ (Negative); Urine Protein 2+ (Negative); Urine Urobilinogen Normal (Normal)
--- NOTE | 2022-09-16 01:51 | ER ---
Nurse's Notes [facility] Name: Hung Long Age: 61 yrs Sex: Male : 1960 Arrival Date: 09/15/2022 Time: 23:42 Bed 18 Private MD: Diagnosis: Mechanical complication of urinary (indwelling) catheter;Acute urinary catheter, catheter associated UTI, uncontrolled hypertension Presentation: 09/15 23:52 Chief complaint: Patient states: I think my Kyle catheter needs to be change. I have a ha1 lot of pain and it is not draining well. 23:52 Coronavirus screen: Vaccine status: Patient reports being unvaccinated. Ebola Screen: ha1 No symptoms or risks identified at this time. Initial Sepsis Screen: Does the patient meet any 2 criteria? No. Patient's initial sepsis screen is negative. Does the patient have a suspected source of infection? No. Patient's initial sepsis screen is negative. Risk Assessment: Do you want to hurt yourself or someone else? Patient reports no desire to harm self or others. Onset of symptoms was September 15, 2022. 23:52 Method Of Arrival: Wheelchair ha1 23:52 Acuity: GUNNAR 3 ha1 Triage Assessment: 23:52 General: Appears uncomfortable, Behavior is anxious, crying. Pain: Complains of pain in ha1 pelvis Pain does not radiate. Pain currently is 10 out of 10 on a pain scale. Neuro: Level of Consciousness is awake, alert, obeys commands, Oriented to person, place, time, situation. Cardiovascular: Patient's skin is warm and dry. Respiratory: Airway is patent Respiratory effort is even, unlabored, Respiratory pattern is regular, symmetrical. Historical: - Allergies: 09/16 00:20 No Known Allergies; ha1 - PMHx: 00:20 chronic neck pain; Hypercholesterolemia; Hypertensive disorder; ha1 - PSHx: 00:20 Appendectomy; ha1 - Immunization history:: Adult Immunizations up to date. - Social history:: Smoking status: unknown. - Family history:: not pertinent. Screenin/29 23:55 [facility] ED Fall Risk Assessment (Adult) History of falling in the last 3 months, ha1 including since admission No falls in past 3 months (0 pts) Confusion or Disorientation No (0 pts) Intoxicated or Sedated No (0 pts) Impaired Gait No (0 pts) Mobility Assist Device Used No (0 pt) Altered Elimination No (0 pt) Score/Fall Risk Level 0 - 2 = Low Risk. Abuse screen: Denies threats or abuse. Denies injuries from another. Nutritional screening: No deficits noted. Tuberculosis screening: No symptoms or risk factors identified. Assessment: 23:52 Reassessment: see triage assessment. ha1 09/16 01:00 Reassessment: Patient and/or family updated on plan of care and expected duration. Pain ha1 level reassessed. Patient is alert, oriented x 3, equal unlabored respirations, skin warm/dry/pink. 02:00 Reassessment: Patient and/or family updated on plan of care and expected duration. Pain ha1 level reassessed. Patient is alert, oriented x 3, equal unlabored respirations, skin warm/dry/pink. 02:34 Reassessment: Patient and/or family updated on plan of care and expected duration. Pain ha1 level reassessed. Patient is alert, oriented x 3, equal unlabored respirations, skin warm/dry/pink. Patient denies pain at this time. Patient states feeling better. Patient states symptoms have improved. Vital Signs: 09/15 23:52 BP 219 / 131; Pulse 93; Resp 20; Temp 98.8; Pulse Ox 98% on R/A; Weight 108.86 kg; ha1 Height 6 ft. 0 in. ; Pain 1010; 09/16 00:33 BP 171 / 110; Pulse 79; Resp 18 S; Pulse Ox 94% on R/A; ha1 01:00 BP 150 / 98; Pulse 90; Resp 18 S; Pulse Ox 96% on R/A; ha1 02:00 BP 144 / 95; Pulse 75; Resp 18 S; Pulse Ox 96% on R/A; ha1 09/15 23:52 Body Mass Index 32.55 (108.86 kg, 182.88 cm) ha1 09/15 23:52 Pain Scale: Adult ha1 ED Course: 09/15 23:44 Patient arrived in ED. ag3 23:46 Satinder Cross MD is Attending Physician. sp4 23:53 Patient has correct armband on for positive identification. Placed in gown. Bed in low ha1 position. Call light in reach. Side rails up X 1. 23:55 Arm band placed on. ha1 09/16 00:20 Triage completed. ha1 00:25 Kyle cath inserted, using sterile technique, 18 Fr., by ne, balloon inflated, to ha1 gravity drainage, urine specimen collected. 01:07 Annie Montes De Oca, RN is Primary Nurse. ha1 01:50 Carlo Chauhan MD is Referral Physician. sp4 02:05 Urine Culture Sent. ks5 02:35 No provider procedures requiring assistance completed. Patient did not have IV access ha1 during this emergency room visit. 02:36 Provided Education on: Kyle catheter care.. ha1 Administered Medications: 01:09 Drug: cloNIDine PO 0.2 mg Route: PO; ks5 02:00 Follow up: Response: No adverse reaction; Blood pressure is lowered ha1 01:09 Drug: LevOfloxacin PO 500 mg Route: PO; ks5 01:30 Follow up: Response: No adverse reaction ha1 Medication: 02:36 VIS not applicable for this client. ha1 Outcome: 01:51 Discharge ordered by . sp4 02:35 Discharged to home ambulatory. ha1 02:35 Condition: stable 02:35 Discharge instructions given to patient, family, Instructed on discharge instructions, follow up and referral plans. medication usage, Demonstrated understanding of instructions, follow-up care, medications, Prescriptions given X 2. 02:38 Patient left the ED. ha1 Signatures: Maritza Lazo, RN RN ks5 Dayna Hernández 3 Annie Montes De Oca RN RN ha1 Satinder Cross MD MD sp4 Corrections: (The following items were deleted from the chart) 02:37 02:34 Reassessment: Patient and/or family updated on plan of care and expected ha1 duration. Pain level reassessed. Patient is alert, oriented x 3, equal unlabored respirations, skin warm/dry/pink. Patient denies pain at this time. Patient states feeling better. Patient states symptoms have improved. ha1
--- NOTE | 2022-09-16 01:51 | EDPHYS ---
Physician Documentation [facility] Name: Hung Long Age: 61 yrs Sex: Male : 1960 Arrival Date: 09/15/2022 Time: 23:42 Bed 18 Private MD: ED Physician Satinder Cross HPI: 09/15 23:46 This 61 yrs old Male presents to ER via Unassigned with complaints of Problem sp4 With Urinary Catheter. 09/16 01:21 61-year-old male presents with pain associated with urinary catheter possibly occluded sp4 urinary cath. Patient states last time catheter was exchanged was here in the emergency room which was likely in May 2022. Patient states he is feeling unwell secondary to bladder distention and pain at the site of urinary catheter. Patient has a leg bag in place. Historical: - Allergies: 00:20 No Known Allergies; ha1 - PMHx: 00:20 chronic neck pain; Hypercholesterolemia; Hypertensive disorder; ha1 - PSHx: 00:20 Appendectomy; ha1 - Immunization history:: Adult Immunizations up to date. - Social history:: Smoking status: unknown. - Family history:: not pertinent. ROS: 01:21 Constitutional: Negative for fever, chills, and weight loss, Eyes: Negative for injury, sp4 pain, redness, and discharge, : Negative for injury, bleeding, discharge, positive for indwelling urinary catheter, positive for occluded urinary catheter, positive for bladder distention and pain 01:21 All other systems are negative. Exam: 01:21 Constitutional: This is a well developed, well nourished patient who is awake, alert, sp4 uncomfortable appearing male, hypertensive, nontoxic-appearing male Head/Face: Normocephalic, atraumatic. Eyes: Pupils equal round and reactive to light, extra-ocular motions intact. Lids and lashes normal. Conjunctiva and sclera are not injected. Cornea within normal limits. Periorbital areas with no swelling, redness, or edema. ENT: Nares patent. No nasal discharge, no septal abnormalities noted. Tympanic membranes are normal and external auditory canals are clear. Oropharynx with no redness, swelling, or masses, exudates, or evidence of obstruction, uvula midline. Mucous membranes moist. Neck: Trachea midline, no thyromegaly or masses palpated, and no cervical lymphadenopathy. Supple, full range of motion without nuchal rigidity, or vertebral point tenderness. Chest/axilla: Normal chest wall appearance and motion. Nontender with no deformity. No lesions are appreciated. Cardiovascular: Regular rate and rhythm with a normal S1 and S2. No gallops, murmurs, or rubs. Normal PMI, no JVD. No pulse deficits. Respiratory: Lungs have equal breath sounds bilaterally, clear to auscultation and percussion. No rales, rhonchi or wheezes noted. No increased work of breathing, no retractions or nasal flaring. Abdomen/GI: Soft, non-tender, with normal bowel sounds. No distension or tympany. No guarding or rebound. No evidence of tenderness throughout. Back: No spinal tenderness. No costovertebral tenderness. Male : Normal genitalia with indwelling urinary catheter, nondraining urinary catheter, appears old, leg bag is in place, turbid urine in the leg bag Skin: Warm, dry with normal turgor. Normal color with no rashes, no lesions, and no evidence of cellulitis. MS/ Extremity: Pulses equal, no cyanosis. Neurovascular intact. Full, normal range of motion. Neuro: Awake and alert, GCS 15, oriented to person, place, time, and situation. Cranial nerves II-XII grossly intact. Motor strength 5/5 in all extremities. Sensory grossly intact. Psych: Awake, alert, with orientation to person, place and time. Behavior, mood, and affect are within normal limits Vital Signs: 09/15 23:52 BP 219 / 131; Pulse 93; Resp 20; Temp 98.8; Pulse Ox 98% on R/A; Weight 108.86 kg; ha1 Height 6 ft. 0 in. ; Pain 1010; 09/16 00:33 BP 171 / 110; Pulse 79; Resp 18 S; Pulse Ox 94% on R/A; ha1 01:00 BP 150 / 98; Pulse 90; Resp 18 S; Pulse Ox 96% on R/A; ha1 02:00 BP 144 / 95; Pulse 75; Resp 18 S; Pulse Ox 96% on R/A; ha1 09/15 23:52 Body Mass Index 32.55 (108.86 kg, 182.88 cm) ha1 09/15 23:52 Pain Scale: Adult ha1 Procedures: 01:21 Kyle cath inserted by myself - 18 Fr. Urine output = 1000 ml's. Patient tolerated sp4 well. Kyle catheter has decompressed the bladder with improvement of symptoms. MDM: 09/15 23:48 Patient medically screened. sp4 09/16 01:21 Differential Diagnosis sepsis, Pyelonephritis, neurogenic bladder, Kyle catheter sp4 obstruction. Data reviewed: vital signs, nurses notes, lab test result(s), urinalysis, pyuria. Consideration of Admission/Observation Escalation of care including admission/observation considered. ED course: Patient will be prescribed levofloxacin PO . ED course: Will advise catheter exchange at least once a month, will advise follow-up with urologist soon as possible, will provide referral to Dr. Chauhan. We will continue to provide blood pressure medicine will prescribe losartan 100 mg daily. Additionally advise follow-up with rn appeals for blood pressure control. . 09/16 01:28 Order name: Urinalysis W/Microscopic; Complete Time: 01:49 [facility] 09/16 01:40 Order name: Urine Culture [facility] 09/16 00:22 Order name: Kyle; Complete Time: 01:07 sp4 Administered Medications: 01:09 Drug: cloNIDine PO 0.2 mg Route: PO; ks5 02:00 Follow up: Response: No adverse reaction; Blood pressure is lowered ha1 01:09 Drug: LevOfloxacin PO 500 mg Route: PO; ks5 01:30 Follow up: Response: No adverse reaction ha1 Disposition Summary: 09/16/22 01:51 Discharge Ordered Location: Home sp4 Problem: new sp4 Symptoms: have improved sp4 Condition: Stable sp4 Diagnosis - Mechanical complication of urinary (indwelling) catheter sp4 - Acute urinary catheter, catheter associated UTI, uncontrolled hypertension sp4 Followup: sp4 - With: Carlo Chauhan MD - When: 7 - 10 days - Reason: Recheck today's complaints Followup: sp4 - With: Private Physician - When: 7 - 10 days - Reason: Recheck today's complaints Discharge Instructions: - Discharge Summary Sheet sp4 - Indwelling Urinary Catheter Insertion, Care After sp4 Forms: - Patient Portal Instructions sp4 Prescriptions: - losartan 100 mg Oral tablet - take 1 tablet by ORAL route daily; 30 tablet; Refills: 0, Product Selection sp4 Permitted - levofloxacin 500 mg Oral Tablet - take 1 tablet by ORAL route once daily for 7 days; 7 tablet; Refills: 0, sp4 Product Selection Permitted Signatures: Dispatcher [employer] Maritza Evans RN RN ks5 Annie Montes De Oca RN RN ha1 Satinder Cross MD MD sp4
[2022-09-16 02:49] VITALS: TEMP 98.8
[2022-09-16 02:51] VITALS: O2SAT 96
[2022-09-16 02:52] VITALS: BP 144/95
== END 2022-09-16 02:38 | disposition home or self-care (01) ==
LOC: ER 23:42
DX: T83.098A Other mechanical complication of other urinary catheter, initial encounter (principal); T83.518A Infection and inflammatory reaction due to other urinary catheter, initial encounter; I10 Essential (primary) hypertension
CPT/HCPCS: 51702; 81001; 87077; 87086; 87088; 87186; 99284

== ENCOUNTER 2022-12-15 07:57 | Inpatient (IN) | payer OTHER ==
--- OUTSIDE RECORDS SUMMARY | 2022-12-15 08:03 | XMS REPORT | Continuity of Care Document ---
:1960 Author Organization [facility] t Address [address] [place] [address]. [address] [place] [address] Care Team Providers Name Role Phone GEORGE MEDLEY Primary Care Physician Unavailable JOAN BURLESON Attending Clinician Unavailable LAB90 Attending Clinician Unavailable TAYLOR MCNAIR Attending Clinician Unavailable DARRLY BERNARD Attending Clinician Unavailable REEMA MOSLEY Attending Clinician Unavailable BHARATH ANDRADE Attending Clinician Unavailable MONICA PAULSON Attending Clinician Unavailable KESHAWN CHENEY Attending Clinician Unavailable Keshawn Lassiter Attending Clinician KESHAWN CHENEY Admitting Clinician Unavailable Payers Payer Name Policy Type Policy Number Effective Date Expiration Date S ource HUMANA [place] GOLD 7 [id number] 2021 00:00:00 PLUS 42 OA HUMANA GOLD PLS [id number] 2021 00:00:00 HMO Problems Condition Condition Condition [...] History of History of Disease Active 2021-02 Ange mahmood spinal spinal 0-04 Seybold fusion fusion 00:00: [...] 0-16 it y of is is 00:00: [address] Obesity Obesity Disease Active 2018-02 Univers (BMI (BMI 0-16 ity of 30-39.9) 30-39.9) 00:00: [address] Allergies, Adverse Reactions, Alerts Allergy Allergy Status Severity Reaction(s) Onset Inactive Treating Comm ents Source Name Type Date Date Clinician Terry Prado Active Other 2013-02 Yumiko ty to 0-07 Seybold adverse 00:00: - reaction 00 Externa s l NO KNOWN Drug Active [facility] ALLERGIE Class ity of [facility] Social History Social Habit Start Date Stop Date Quantity Comments Source History of tobacco Cigarette Smoker Yumiko Joshi - use External Gender identity Yumiko Hamilton ybbala - External Sexual orientation Yumiko Joshi - External Exposure to 2022-04-07 2022-04-17 Not sure Formerly [facility]-CoV-2 (event) 00:00:00 17:54:00 [facility] Education 2021-11-21 2021-11-21 18 Yumiko Hamiltonybold - 00:00:00 00:00:00 External History of Social 2021-11-21 2021-11-21 Yumiko Maold - function 00:00:00 00:00:00 External Tobacco use and 2021-11-21 2021-11-21 Smokeless Yumiko Hamilton ybold - exposure 00:00:00 00:00:00 tobacco non-user External Alcohol intake 2018-12-05 2018-12-05 Ex-drinker University of 00:00:00 00:00:00 (finding) [facility] Cigarettes smoked 2018-12-04 2018-12-04 Univers ity of current (pack per 00:00:00 00:00:00 ) - Reported Branch Cigarette 2018-12-04 2018-12-04 University of pack-years 00:00:00 00:00:00 [facility] Sex Assigned At [birth year] Universit y of 00:00:00 00:00:00 [facility] Smoking Status Start Date Stop Date Source Smokes tobacco daily 2021-11-21 00:00:00 Yumiko Seybold - External Medications Ordered Filled Start Stop Current Ordering Indication Dosage Frequency Signature Comments Components Source Medication Medication Date Date Medication? Clinician (SIG) Name Name Tamsulosin Yes [id number] .4mg Take 1 Yumiko HCl 0.4 MG 5-15 capsule Seybol d oral 00:00: (0.4 mg - Capsule 00 total) by Externa mouth l every night at bedtime Nicotine 21 2022-0 Yes [id number] 1{patch Place 1 Yumiko MG/24HR 5-15 } patch onto Seybol d transdermal 00:00: the skin - PATCH 24 HR 00 every 24 Exte rna hours l Tamsulosin 2022- No [id number] .4mg Take 1 Yumiko HCl 0.4 MG 5-15 05-15 capsule Seybo ld oral 00:00: 00:00 (0.4 mg - Capsule 00 :00 total) by Externa mouth l every night at bedtime Take two tabs orally once daily at bedtime Atorvastati 2022-0 Yes 40mg Take 1 Lucila ey n Calcium 4-13 tablet (40 Seyb old 40 MG oral 00:00: mg total) - Tablet 00 by mouth Externa daily l Metoprolol 2022-0 Yes [id number] 50mg Take 1 K elsey Tartrate 4-13 tablet (50 Seybo ld (LOPRESSOR) 00:00: mg total) - 50 MG oral 00 by mouth 2 Ext aime Tablet times l daily Tamsulosin 2022-0 2022- No [id number] Take two Yumiko HCl 0.4 MG 4-13 05-15 tabs Seybold oral 00:00: 00:00 orally - Capsule 00 :00 once daily [employer] a at bedtime l hydrALAZINE 2022- No [id number] 25mg Take 1 Yumiko HCl 25 MG - 05-15 tablet (25 Sey bold oral Tablet 00:00: 00:00 mg total) - 00 :00 by mouth 3 Externa times l daily Cefpodoxime 2022-0 2022- No 200mg Take 1 Ke lsey Proxetil 05-16 05-15 tablet Seybold 200 MG oral 00:00: [...] mg 00 :00 1 dose, On Medical [facility] Branch 04/17/22 at 2315, ROXY
Re ason for Anti-Infec tive: Empiric Therapy for Suspected Infection< br>Empiric Therapy Site: Urine
D uration of therapy: 72 hours iopamidol 2022- No [id number] 80mL 80 mL, Univers (ISOVUE 04-18 Intravenou ity o f 370-500 mL) 02:15: 02:48 s, ONCE, 1 [place] injection 00 :00 dose, On Medica l 80 mL e Branch 04/17/22 at 2015, Routine doxycycline Yes [id number] 100mg Take 1 Univers hyclate 100 2-28 capsule by it y of mg capsule 00:00: mouth in Ant as 00 the Medical morning Branch and 1 capsule in the evening. Gabapentin 2021-02 Yes [id number] 300mg Take 1 Yumiko 300 MG oral 1- 107 capsule Seybo ld Capsule 00:00: (300 mg - 00 total) by Externa mouth 2 l times daily Gabapentin 2021-02 Yes [id number] 100mg Take 1 Yumiko 100 MG oral 0-04 9103 capsule Seybo ld Capsule 00:00: (100 mg - 00 total) by Externa mouth 2 l times daily Tramadol 2021-02 Yes [id number] 50mg Q.[id number] Take 1 Yumiko HCl 50 MG 0-04 9103 [id number] tablet (50 Seybold oral Tablet 00:00: 3D mg total) - 00 by mouth Externa every 8 l hours as needed for pain Lisinopril 2021-02 Yes [id number] 20mg Take 1 K elsey 20 MG oral 0-04 tablet (20 Sey bold Tablet 00:00: mg total) - 00 by mouth Externa daily l Lisinopril 2021-02 Yes [id number] 20mg Take 1 K elsey 20 MG oral 0-04 tablet (20 Sey bold Tablet 00:00: mg total) - 00 by mouth Externa daily l Gabapentin 2021-02- No [id number] 100mg Take 1 Yumiko 100 MG oral 0-04 12-19 9103 capsule Seyb old Capsule 00:00: 00:00 (100 mg - 00 :00 total) by Externa mouth 2 l times daily Tramadol 2021-02- No [id number] 50mg Q.[id number] Take 1 Yumiko HCl 50 MG 0-04 11- 9103 [id number] tablet (50 Seybold oral Tablet 00:00: 00:00 3D mg total) - 00 :00 by mouth Externa every 8 l hours as needed for pain Vital Signs Vital Name Observation Time Observation Value Comments Source Oxygen saturation in 2022-07-02 18:44:00 99 /min Yumiko Joshi - Arterial blood by External Pulse oximetry Systolic blood 2022-07-02 18:44:00 141 mm[Hg] Yumiko Joshi - pressure External Diastolic blood 2022-07-02 18:44:00 95 mm[Hg] Elfego Joshi - pressure External Heart rate 2022-07-02 18:44:00 78 /min Yumiko che - External Body temperature 2022-07-02 18:44:00 37.11 Miranda Lucila Joshi - External Respiratory rate 2022-07-02 18:44:00 16 /min Lucila Joshi - External Body height 2022-07-02 18:44:00 180.3 cm Yumiko S eybold - External Body weight 2022-07-02 18:44:00 97.523 kg Yumiko S eybold - External BMI 2022-07-02 18:44:00 29.99 kg/m2 Yumiko S eybold - External Systolic blood 2022-04-17 23:55:00 154 mm[Hg] Univer sity of pressure [facility] Diastolic blood 2022-04-17 23:55:00 99 mm[Hg] Unive rsity of pressure [facility] Heart rate 2022-04-17 23:55:00 82 /min Universi ty of [facility] Body temperature 2022-04-17 23:55:00 36.61 Miranda Univ ersity of [facility] Respiratory rate 2022-04-17 23:55:00 16 /min Univ ersity of [facility] Body height 2022-04-17 23:55:00 180.3 cm Universi ty of [facility] Body weight 2022-04-17 23:55:00 108.863 kg Universi ty of [facility] BMI 2022-04-17 23:55:00 33.47 kg/m2 Universi ty [facility] Oxygen saturation in 2022-04-17 23:55:00 100 /min [facility] Arterial blood by [facility] Pulse oximetry Branch Systolic blood 2021-12-19 18:06:00 132 mm[Hg] Yumiko Hamiltonybold - pressure External Diastolic blood 2021-12-19 18:06:00 84 mm[Hg] Elfego y Seybold - pressure External Heart rate 2021-12-19 17:56:00 93 /min Yumiko Kuo eybold - External Body temperature 2021-12-19 17:56:00 36.33 Miranda Lucila ey Seybold - External Respiratory rate 2021-12-19 17:56:00 14 /min Lucila ey Seybold - External Body height 2021-12-19 17:56:00 180.3 cm Yumiko Kuo eybold - External Body weight 2021-12-19 17:56:00 98.884 kg Yumiko Kuo eybold - External BMI 2021-12-19 17:56:00 30.40 kg/m2 Yumiko Kuo eybold - External Oxygen saturation in 2021-12-19 17:56:00 99 /min Yumiko Joshi - Arterial blood by External Pulse oximetry Systolic blood 2021-11-21 20:03:00 170 mm[Hg] Yumiko Seybold - pressure External Diastolic blood 2021-11-21 20:03:00 100 mm[Hg] Elfego y Seybold - pressure External Heart rate 2021-11-21 19:28:00 87 /min Yumiko alexbold - External Body temperature 2021-11-21 19:28:00 37 Miranda Lucila alex Seybold - External Respiratory rate 2021-11-21 19:28:00 14 /min Lucila alex Seybold - External Body height 2021-11-21 19:28:00 180.3 cm Yumiko alexboreji - External Body weight 2021-11-21 19:28:00 100.699 kg Yumiko alexbold - External BMI 2021-11-21 19:28:00 30.96 kg/m2 Yumiko alexboreji - External Oxygen saturation in 2021-11-21 19:28:00 96 /min Yumiko Joshi - Arterial blood by External Pulse oximetry Procedures Procedure Date / Time Performed Performing Clinician Sourc e LIPASE 2022-04-18 02:00:00 Shravan [facility] COMP. METABOLIC PANEL 2022-04-18 02:00:00 Keshawn Cheney [facility] ([id number]) [facility] CBC WITH DIFF 2022-04-18 02:00:00 Shravan [facility] URINALYSIS 2022-04-18 00:14:00 Shravan [facility] NOTICE OF PRIVACY 2022-04-17 23:53:59 Doctor Unassigned, No Univ [facility] PRACTICES Name Medical Branch CONSENT/REFUSAL FOR 2022-04-17 23:51:45 [facility]assigned, No [facility] AND Name Medical Branch TREATMENT Encounters Start End Encounter Admission Attending Care Care Encounter Source Date/Time Date/Time Type Type Clinicians Facility Department ID 2022 Outpatient [facility] [id number] Common 09:12:00 [id number] [facility] 2022-12-14 2022-12-14 Outpatient PREZAS, YUMIKO HOLBROOK [id number] Yumiko 00:00:00 00:00:00 JOAN Seybol d 2022-09-19 2022-09-19 Outpatient PREZAS, YUMIKO HOLBROOK [id number] Yumiko 00:00:00 00:00:00 JOAN Seybol d 2022-08-22 2022-08-22 Outpatient PREZAS, YUMIKO HOLBROOK [id number] Yumiko 00:00:00 00:00:00 JOAN Seybol d 2022-08-14 2022-08-14 Outpatient PREZAS, YUMIKO HOLBROOK [id number] Yumiko 00:00:00 00:00:00 JOAN Seybol d 2022-08-02 2022-08-02 Outpatient PREZAS, YUMIKO HOLBROOK [id number] Yumiko 00:00:00 00:00:00 JOAN Seybol d 2022-07-24 2022-07-24 Outpatient PREZAS, YUMIKO HOLBROOK [id number] Yumiko 00:00:00 00:00:00 JOAN Seybol d 2022-07-04 2022-07-04 Outpatient PREZAS, YUMIKO HOLBROOK [id number] Yumiko 00:00:00 00:00:00 JOAN Seybol d 2022-07-03 2022-07-03 Outpatient LAB90 YUMIKO HOLBROOK [id number] Yumiko 08:05:00 08:05:00 Seybol d 2022-07-03 2022-07-03 Outpatient PREZAS, YUMIKO HOLBROOK [id number] Yumiko 00:00:00 00:00:00 JOAN Seybol d 2022-07-02 2022-07-02 Outpatient PREZAS, YUMIKO HOLBROOK [id number] Yumiko 14:15:00 14:15:00 JOAN Seybol d 2022-06-18 2022-06-18 Outpatient YUMIKO MCNAIR [id number] Yumiko 14:00:00 14:00:00 TAYLOR Seybo ld 2022-06-11 2022-06-11 Outpatient YUMIKO MCNAIR [id number] Yumiko 00:00:00 00:00:00 TAYLOR Seybo ld 2022-06-05 2022-06-05 Outpatient MARCO ANTONIODARRYL YUMIKO HOLBROOK [id number] Yumiko 16:00:00 16:00:00 Seybol d 2022-05-31 2022-05-31 Outpatient PREZAYUMIKO Kuo [id number] Yumiko 00:00:00 00:00:00 JOAN Seybol d 2022-05-31 2022-05-31 Outpatient MELANY YUMIKO HOLBROOK [id number] Yumiko 00:00:00 00:00:00 REEMA Seybol d 2022-05-30 2022-05-30 Outpatient RAYMONDBHARATH YUMIKO HOLBROOK [id number] Yumiko 13:30:00 13:30:00 Seybol d 2022-05-30 2022-05-30 Outpatient PREZAYUMIKO Kuo [id number] Yumiko 00:00:00 00:00:00 JOAN Seybol d 2022-05-29 2022-05-29 Outpatient PREYUMIKO REN [id number] Yumiko 00:00:00 00:00:00 JOAN Seybol d 2022-05-23 2022-05-23 Outpatient PREZASYUMIKO [id number] Yumiko 00:00:00 00:00:00 JOAN Seybol d 2022-05-21 2022-05-21 Outpatient PREZAYUMIKO Kuo [id number] Yumiko 11:30:00 11:30:00 JOAN Seybol d 2022-05-17 2022-05-17 Outpatient PREYUMIKO REN [id number] Yumiko 00:00:00 00:00:00 JOAN Seybol d 2022-05-02 2022-05-02 Outpatient YUMIKO PAULSON [id number] Yumiko 00:00:00 00:00:00 MONICA Seybol d 2022-04-23 2022-04-23 Outpatient YUMIKO BURLESON [id number] Yumiko 00:00:00 00:00:00 JOAN Seybol d 2022-04-17 2022-04-17 Emergency Luis Angel CHENEY [facility] ERT [id number] Univers 17:57:00 22:53:00 KESHAWN oscar [facility] 2022-04-17 2022-04-17 Emergency Shravan, [facility] [id number] Univers 17:57:00 22:53:00 Keshawn DONIS [id number] i reynaldo YRIS [id number] [facility] [id number] [place] [id number] Branch 2022-03-02 2022-03-02 Outpatient PREZAYUMIKO Kuo [id number] Yumiko 00:00:00 00:00:00 JOAN Seybol d 2021-12-19 2021-12-19 Outpatient PREZAYUMIKO Kuo [id number] Yumiko 13:30:00 13:30:00 JOAN Seybol d 2021-12-01 2021-12-01 Outpatient PREZAYUMIKO Kuo [id number] Yumiko 00:00:00 00:00:00 JOAN Seybol d 2021-11-21 2021-11-21 Outpatient PREZAYUMIKO Kuo [id number] Yumiko 14:30:00 14:30:00 JOAN Seybol d 2021-10-30 2021-10-30 Outpatient PREZASYUMIKO [id number] Yumiko 10:00:00 10:00:00 JOAN Seybol d Results Test Description Test Time Test Comments Results Result Comments Source COMP. METABOLIC PANEL (27912) 2022-04-18 02:28:08 Test Item Value Reference Range Interpretation Comme nts NA (test code = 3615138941) 139 mmol/L 135-145 K (test code = 3403916266) 3.9 mmol/L 3.5-5.0 CL (test code = 3226958900) 103 mmol/L 98-108 CO2 TOTAL (test code = 6469148338) 28 mmol/L 23-31 AGAP (test code = 7329586349) 8 2-16 BUN (test code = 0989262122) 32 mg/dL 7-23 H GLUCOSE (test code = 1418999412) 110 mg/dL 70-110 CREATININE (test code = 1.96 mg/dL 0.60-1.25 H 1790384783) TOTAL BILI (test code = 1.0 mg/dL 0.1-1.4 7428528984) CALCIUM (test code = 7783455635) 8.7 mg/dL 8.6-10.6 T PROTEIN (test code = 8189040046) 7.0 g/dL 6.3-8.2 ALBUMIN (test code = 6439830642) 4.0 g/dL 3.5-5.0 ALK PHOS (test code = 1701036984) 51 U/L 34-122 ALTv (test code = 1742-6) 18 U/L 5-50 AST(SGOT) (test code = 6928662979) 20 U/L 13-40 eGFR (test code = 4646207500) 34.8 mL/min/1.73m2 CLOVER (test code = CLOVER) [...] tests). Lab Interpretation (test code = Abnormal 28268-8) [facility]27[facility]47 Test Item Value Reference Range Interpretation Comments LIPASE (test code = 3498881461) 47 U/L 0-220 Lab Interpretation (test code = Normal 15293-4) [facility] WITH [id number] 02:15:28 Test Item Value Reference Range Interpretation Comments WBC (test code = 8.60 See_Comment [Automated message] 2190-2) The system [employer] generated this result transmitted ref erence range: 4.20 - 1 0.70 10*3/?L. The re ference range was not u sed to interpret this result as normal/abnor mal. RBC (test code = 5.42 See_Comment [Automated message] 869-8) The system [employer] generated this result transmitted ref erence range: [...] RDW-SD (test code 44.9 fL 38.5-51.6 = 08385-2) RDW-CV (test code 13.7 % 12.1-15.4 = 788-0) PLT (test code = 208 See_Comment [Automated message] 517-3) The system [employer] generated this result transmitted ref erence range: 150 - 32 8 10*3/?L. The re ference range was not u sed to interpret this result as normal/abnor mal. MPV (test code = 10.1 fL 9.8-13.0 74396-8) NRBC/100 WBC (test 0.0 See_Comment [Automat ed message] code = 3675538549) The [employer] which generated this result transmitted ref erence range: 0.0 - 10 .0 /100 WBCs. The refer ence range was not u sed to interpret this result as normal/abnor mal. NRBC x10^3 (test See_Comment [Automated message] code = 0353684348) The syste m which generated this result transmitted ref erence range: 10*3/?L. The reference range was not used to interpr et this result as normal/abnormal . GRAN MAT (NEUT) % 67.4 % (test code = 770-8) IMM GRAN % (test 0.70 % code = 8554881020) LYMPH % (test code 19.8 % = 736-9) MONO % (test code 9.1 % = 5905-5) EOS % (test code = 2.3 % 713-8) BASO % (test code 0.7 % = 706-2) GRAN MAT 5.80 10*3/uL 1.99-6.95 x10^3(ANC) (test code = 6106239799) IMM GRAN x10^3 0.06 10*3/uL 0.00-0.06 (test code = 4975255872) LYMPH x10^3 (test 1.70 10*3/uL 1.09-3.23 code = 731-0) MONO x10^3 (test 0.78 10*3/uL 0.36-1.02 code = 742-7) EOS x10^3 (test 0.20 10*3/uL 0.06-0.53 code = 711-2) BASO x10^3 (test 0.06 10*3/uL 0.01-0.09 code = 704-7) [facility]"
[2022-12-15] MEDS ORDERED: IBUPROFEN 400 MG TAB ONE (08:44)
[2022-12-15] MEDS ORDERED: ACETAMINOPHEN 500 MG TAB ONE (08:44)
[2022-12-15] MEDS ORDERED: NA CHLORIDE 0.9% 1,000 ML ONE ×3 (08:45→20:02)
[2022-12-15] MEDS ORDERED: CEFTRIAXONE 1000 MG/VIAL ONE (08:45)
[2022-12-15 08:56] LABS: Absolute Lymphocytes (CBC) 0.9 K/uL (0.7-4.9); Hematocrit 52.5 % (39.6-49.0); Lymphocytes % 7.2 % (15.3-44.8); MCV 85.6 fL (80-100); MPV 7.9 fL (7.6-11.3); Platelets 185 thou/uL (152-406); RBC Red Blood Cell Count 6.13 M/uL (4.33-5.43)
[2022-12-15 09:04] LABS: Protime INR 1.1
[2022-12-15 09:14] LABS: Albumin 3.5 g/dL (3.4-5.0); Bilirubin Total 1.5 mg/dL (0.2-1.0); Potassium 3.8 mEq/L (3.5-5.1); Protein, Total 8.5 g/dL (6.4-8.2)
--- NOTE | 2022-12-15 09:18 | RAD REPORT ---
EXAM DESCRIPTION: CTAbdomen Pelvis Wo Contrast - 12/15/2022 8:58 am CLINICAL HISTORY: ABD PAIN COMPARISON: Abdomen Pelvis W Contrast dated 05/15/2022; Abdomen Pelvis Wo Contrast dated 04/24/2022 TECHNIQUE: CT of the abdomen and pelvis was performed. All CT scans are performed using dose optimization technique as appropriate and may include automated exposure control or mA/KV adjustment according to patient size. FINDINGS: Lower chest: No acute abnormality. Liver: Hepatic steatosis Biliary: Cholelithiasis. No CT evidence of acute cholecystitis. Stomach: No significant focal abnormality. Duodenum: No significant focal abnormality. Pancreas: No significant abnormality. Spleen: No significant abnormality. Adrenal: No suspicious lesions. Kidney/ureter: No hydronephrosis. No renal calculi. Bilateral renal lesions. Of note, there is an ind eterminate intermediate attenuation lesion at the lower pole left kidney that is similar in size to p rior. Other lesions likely represent cysts. Retroperitoneum: No retroperitoneal adenopathy. Vascular: No aneurysm. Atherosclerosis . Bowel: No significant focal abnormality. Peritoneum: No ascites or free air. Bladder: Bladder wall thickening. Kyle catheter in place. Bladder wall stranding. Reproductive: Prostatomegaly. Bones: No acute fracture. Intramedullary jorge in the femur. Other: n/a IMPRESSION: Bladder mostly decompressed around a Kyle catheter with bladder wall stranding that cou ld reflect cystitis. Correlate with urinalysis. No hydronephrosis. Bilateral renal lesions, most of which are consistent with cysts wall there is an indeterminate left lower pole renal lesion that is unchanged since 04/24/2022. It may reflect a proteinaceous or hemorrh agic cyst. 7 months of stability have been established. A renal protocol CT or MRI could provide more definitive evaluation.
--- NOTE | 2022-12-15 09:46 | EDPHYS ---
Physician Documentation [facility] Name: Hung Long Age: 62 yrs Sex: Male : 1960 Arrival Date: 12/15/2022 Time: 07:57 Bed 27 Private MD: ED Physician Pedro Chambers HPI: 12/15 08:20 This 62 yrs old Male presents to ER via Unassigned with complaints of Needs Urinary ec2 Catheter Replacement - Infection. 08:27 Patient arrives today due to concern for Kyle catheter issues. Patient reports that he ec2 has been leaking around the Kyle catheter, states he is having some pain and discomfort in the area as well. States that he has no fevers or chills, no nausea or vomiting, minimal left-sided flank pain. Reports that he has indwelling catheter that was placed by Dr. Chauhan, urology due to enlarged prostate. Historical: - Allergies: 08:25 No Known Allergies; jl7 - Home Meds: 08:25 None [Active]; jl7 - PMHx: 08:25 chronic neck pain; Hypercholesterolemia; Hypertensive disorder; jl7 - PSHx: 08:25 Appendectomy; jl7 - Immunization history:: Adult Immunizations unknown. - Social history:: Smoking status: . ROS: 08:27 Constitutional: as per hpi ec2 Exam: 08:27 Constitutional: GEN: NAD Head: atraumatic Eyes: EOMI Ears: External ears are ec2 normal. CV: Tachycardia LUNGS: no respiratory distress ABD: non-distended, soft, minimally tender left upper quadrant, no guarding, not rigid, bilateral flanks are nontender SKIN: no evidence of rashes MSK: no evidence of trauma NEURO: moves all extremities equally Vital Signs: 08:22 BP 154 / 100; Pulse 105; Resp 17; Temp 102.6(O); Pulse Ox 93% ; Height 5 ft. 11 in. ; jl7 Pain 8/10; 08:30 BP 143 / 93; Pulse 68; Resp 17; Temp 102(O); Pulse Ox 99% on R/A; rs5 09:10 BP 133 / 85; Pulse 71; Resp 17; Temp 100(O); Pulse Ox 99% ; rs5 09:40 Pulse 89; ec2 10:20 BP 142 / 89; Pulse 68; Resp 18; Pulse Ox 99% on R/A; rs5 11:43 Weight 81.5 kg; rs5 08:22 Pain Scale: Adult jl7 MDM: 08:03 Patient medically screened. ec2 08:27 ED course: Patient arrives today due to concern for dysuria and urinary problems. ec2 Examination remarkable for tachycardia with slight temperature at one 2.6. Will obtain a septic work-up and empirically treat for urinary pathology. Currently considering UTI, pyelonephritis, or suspicion for intra-abdominal abscess or infection. We will give the patient Tylenol and ibuprofen and empiric antibiotic coverage.. 09:10 ED course: EKG independently reviewed and interpreted by me, shows sinus tachycardia, ec2 rate of 101, no acute ST segment elevations, nonconcerning intervals.. 09:40 ED course: CBC remarkable for leukocytosis at 13.2. Metabolic profile with appropriate ec2 electrolytes, renal dysfunction noted, lactic acid within normal ranges. CT abdomen pelvis shows cystitis. Will admit for sepsis secondary to UTI. On my reassessment patient with improving tachycardia, heart rate at 89. . 09:45 Data reviewed: vital signs. ec2 12/15 08:27 Order name: Blood Culture Adult (2) ec2 12/15 08:27 Order name: CBC with Diff; Complete Time: 09:40 ec2 12/15 08:27 Order name: CMP; Complete Time: 09:40 ec2 12/15 08:27 Order name: Lactate w/ 2H reflex if indic.; Complete Time: 09:40 ec2 12/15 08:27 Order name: Protime (+inr); Complete Time: 09:40 ec2 12/15 08:27 Order name: Ptt, Activated; Complete Time: 09:40 ec2 12/15 09:44 Order name: Urinalysis w/ reflexes ec2 12/15 10:29 Order name: Urinalysis w/ reflexes EDMS 12/15 10:29 Order name: Basic Metabolic Panel EDMS 12/15 10:29 Order name: Basic Metabolic Panel EDMS 12/15 10:29 Order name: Basic Metabolic Panel EDMS 12/15 10:29 Order name: Basic Metabolic Panel EDMS 12/15 10:29 Order name: Comprehensive Metabolic Panel EDMS 12/15 10:29 Order name: Comprehensive Metabolic Panel EDMS 12/15 10:29 Order name: Comprehensive Metabolic Panel EDMS 12/15 10:29 Order name: Comprehensive Metabolic Panel EDMS 12/15 10:29 Order name: Lipid Profile EDMS 12/15 10:29 Order name: Lipid Profile EDMS 12/15 10:29 Order name: Magnesium EDMS 12/15 10:29 Order name: Magnesium EDMS 12/15 10:29 Order name: Magnesium EDMS 12/15 10:29 Order name: Magnesium EDMS 12/15 10:29 Order name: Phosphorus EDMS 12/15 10:29 Order name: Phosphorus EDMS 12/15 10:29 Order name: Phosphorus EDMS 12/15 10:29 Order name: Phosphorus EDMS 12/15 08:27 Order name: CT Abd/Pelvis - Without Contrast; Complete Time: 09:40 ec2 12/15 08:27 Order name: EKG; Complete Time: 08:28 ec2 12/15 08:27 Order name: Cardiac monitoring; Complete Time: 08:42 ec2 12/15 08:27 Order name: EKG - Nurse/Tech; Complete Time: 08:42 ec2 12/15 08:27 Order name: IV Saline Lock - Large Bore; Complete Time: 08:42 ec2 12/15 08:27 Order name: Labs collected and sent; Complete Time: 09:19 ec2 12/15 08:27 Order name: O2 Per Protocol; Complete Time: 08:42 ec2 12/15 08:27 Order name: O2 Sat Monitoring; Complete Time: 08:42 ec2 12/15 08:27 Order name: Vital Signs; Complete Time: 08:42 ec2 Administered Medications: 08:30 Drug: Acetaminophen PO 1000 mg PO once Route: PO; rs5 09:00 Follow up: Response: No adverse reaction; Temperature is decreased rs5 08:30 Drug: Ibuprofen PO 800 mg PO once Route: PO; rs5 09:00 Follow up: Response: No adverse reaction; Temperature is decreased rs5 08:40 Drug: NS 0.9% IV 1000 ml IV at 1 bolus Per protocol; 1000 mL bolus Route: IV; Rate: 1 rs5 bolus; Site: right forearm; 09:02 Follow up: Response: No adverse reaction rs5 09:12 Drug: Rocephin IV 1 grams IV at calculated rate once; Given slow IV push per pharmacy rs5 instructions Route: IV; Rate: calculated rate; Site: right forearm; 09:35 Follow up: Response: No adverse reaction rs5 Disposition Summary: 12/15/22 09:45 Hospitalization Ordered Notes: Hospitalization Status: Inpatient Admission ec2 Provider: Barron Lopes ec2 Condition: Stable ec2 Problem: new ec2 Symptoms: have improved ec2 Bed/Room Type: Standard ec2 Location: Telemetry/MedSurg (Inpatient)(12/15/22 20:23) cg Room Assignment: [facility](12/15/22 20:44) kb3 Diagnosis - Sepsis, unspecified organism ec2 - UTI/ Urinary tract infection, site not specified ec2 Forms: - Medication Reconciliation Form ec2 - SBAR form ec2 - Leadership Thank You Letter ec2 Critical care time excluding procedures: 09:45 Critical care time: Bedside Care: 30 minutes, Consultation: 5 minutes. Total time: 35 ec2 minutes Signatures: Dispatcher [employer] Tangela Cortez RN RN Joselito Mandujano RN RN jl7 Yuly Ceballos Kelly RN RN kb3 Andrea Winn RN RN rs5 Pedro Chambers MD MD ec2 Corrections: (The following items were deleted from the chart) 09:19 08:27 Accucheck ordered. ec2 aa5 10:37 09:45 Telemetry/MedSurg (Inpatient) ec2 eb 10:37 09:45 ec2 eb 20:23 10:37 [facility] ER HOLD eb cg 20:23 10:37 ERHOLD- eb cg 20:44 20:23 210 cg kb3
--- NOTE | 2022-12-15 09:46 | ER ---
Nurse's Notes [facility] Name: Hung Long Age: 62 yrs Sex: Male : 1960 Arrival Date: 12/15/2022 Time: 07:57 Bed 27 Private MD: Diagnosis: Sepsis, unspecified organism;UTI/ Urinary tract infection, site not specified Presentation: 12/15 08:22 Chief complaint: Patient states: Kyle catheter in place, leaking around, burning, jl7 reports left flank pain. Dr. Chauhan instructed pt to come to ER. Coronavirus screen: At this time, the client does not indicate any symptoms associated with coronavirus-19. Ebola Screen: No symptoms or risks identified at this time. Initial Sepsis Screen: Does the patient meet any 2 criteria? Temp <36.0*C (96.8*F)) or > 38.3*C (100.9*F). HR > 90 bpm. Yes Does the patient have a suspected source of infection? Yes: Dysuria/Frequency/Urgency/UTI If YES to both, name of provider notified: Pedro Chambers MD Risk Assessment: Do you want to hurt yourself or someone else? Patient reports no desire to harm self or others. Onset of symptoms is unknown. Care prior to arrival: None. 08:22 Method Of Arrival: Ambulatory [facility] 08:22 Acuity: GUNNAR 2 jl7 Triage Assessment: 08:25 General: Appears in no apparent distress. uncomfortable, Behavior is calm, cooperative, jl7 appropriate for age. Pain: Complains of pain in pelvis Pain currently is 7 out of 10 on a pain scale. Historical: - Allergies: 08:25 No Known Allergies; jl7 - Home Meds: 08:25 None [Active]; jl7 - PMHx: 08:25 chronic neck pain; Hypercholesterolemia; Hypertensive disorder; jl7 - PSHx: 08:25 Appendectomy; jl7 - Immunization history:: Adult Immunizations unknown. - Social history:: Smoking status: . Assessment: 08:26 Reassessment: Dr. Chambers in triage assessing pt. [facility] 08:27 Pain: Denies pain. Neuro: Level of Consciousness is awake, alert, obeys commands, rs5 Oriented to person, place, time, situation. Cardiovascular: Heart tones S1 S2 present Rhythm is regular. Respiratory: Airway is patent Respiratory effort is even, unlabored, Respiratory pattern is regular, symmetrical. GI: Abdomen is round non-distended, Bowel sounds present X 4 quads. : Kyle in place clamped Urine is cloudy, Reports burning with urination. EENT: No signs and/or symptoms were reported regarding the EENT system. Derm: Skin is intact, Skin is pink, warm \T\ dry. Musculoskeletal: Range of motion: intact in all extremities. 08:27 General: Appears in no apparent distress. comfortable, Behavior is calm, cooperative. rs5 09:30 Reassessment: No changes from previously documented assessment. rs5 10:20 Reassessment: Patient and/or family updated on plan of care and expected duration. Pain rs5 level reassessed. Patient is alert, oriented x 3, equal unlabored respirations, skin warm/dry/pink. Vital Signs: 08:22 BP 154 / 100; Pulse 105; Resp 17; Temp 102.6(O); Pulse Ox 93% ; Height 5 ft. 11 in. ; jl7 Pain 8/10; 08:30 BP 143 / 93; Pulse 68; Resp 17; Temp 102(O); Pulse Ox 99% on R/A; rs5 09:10 BP 133 / 85; Pulse 71; Resp 17; Temp 100(O); Pulse Ox 99% ; rs5 09:40 Pulse 89; ec2 10:20 BP 142 / 89; Pulse 68; Resp 18; Pulse Ox 99% on R/A; rs5 11:43 Weight 81.5 kg; rs5 08:22 Pain Scale: Adult jl7 ED Course: 08:02 Patient arrived in ED. mg5 08:03 Pedro Chambers MD is Attending Physician. ec2 08:25 Triage completed. jl7 08:25 Arm band placed on right wrist. jl7 08:30 Inserted saline lock: 20 gauge in right forearm, using aseptic technique. Blood rs5 collected. 08:54 Andrea Winn, EARL is Primary Nurse. rs5 09:00 CT Abd/Pelvis - Without Contrast In Process Unspecified. EDMS 09:45 Pedro Chambers MD is Hospitalizing Provider. ec2 09:45 Barron Lopes MD is Hospitalizing Provider. ec2 09:56 Blood Culture Adult (2) Sent. rs5 Administered Medications: 08:30 Drug: Acetaminophen PO 1000 mg PO once Route: PO; rs5 09:00 Follow up: Response: No adverse reaction; Temperature is decreased rs5 08:30 Drug: Ibuprofen PO 800 mg PO once Route: PO; rs5 09:00 Follow up: Response: No adverse reaction; Temperature is decreased rs5 08:40 Drug: NS 0.9% IV 1000 ml IV at 1 bolus Per protocol; 1000 mL bolus Route: IV; Rate: 1 rs5 bolus; Site: right forearm; 09:02 Follow up: Response: No adverse reaction rs5 09:12 Drug: Rocephin IV 1 grams IV at calculated rate once; Given slow IV push per pharmacy rs5 instructions Route: IV; Rate: calculated rate; Site: right forearm; 09:35 Follow up: Response: No adverse reaction rs5 Outcome: 09:45 Decision to Hospitalize by Provider. ec2 21:33 Patient left the ED. cm10 Signatures: Dispatcher [employer] Joselito Aguirre RN RN jl7 Andrea Winn RN RN rs5 Gladys Perry RN RN cm10 Makayla Reynolds 5 Pedro Chambers MD MD ec2 Corrections: (The following items were deleted from the chart) 18:03 08:56 General: Appears rs5 rs5
[2022-12-15] MEDS ORDERED: ONDANSETRON 4 MG/2 ML VIAL IV PRN (10:24)
[2022-12-15] MEDS ORDERED: ACETAMINOPHEN 500 MG TAB PO PRN (10:24)
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
[2022-12-15] MEDS: NA CHLORIDE 0.9% 1,000 ML IV SCH ×2 (11:00→20:28)
[2022-12-15] MEDS ORDERED: VANCOMYCIN 1 GM in NA CHLORIDE 0.9% 250 ML IVPB SCH (11:10)
[2022-12-15] MEDS ORDERED: SODIUM CHLORIDE 0.9% 10ML INJ IV PRN (11:11)
[2022-12-15] MEDS: CEFEPIME 2 GM in NA CHLORIDE 0.9% 100 ML IV SCH ×2 (12:00→20:28)
[2022-12-15] MEDS ORDERED: VANCOMYCIN 1.5 GM in NA CHLORIDE 0.9% 500 ML IVPB SCH (13:00)
[2022-12-15] MEDS: VANCOMYCIN 1.5 GM in NA CHLORIDE 0.9% 500 ML IVPB SCH (13:00)
[2022-12-15] MEDS ORDERED: NA CHLORIDE 0.9% 100 ML ONE ×2 (13:23→20:01)
[2022-12-15] MEDS ORDERED: VANCOMYCIN 1 GM/VIAL ONE ×2 (13:23→13:28)
[2022-12-15] MEDS ORDERED: NA CHLORIDE 0.9% 0 ML ONE (13:24)
[2022-12-15] MEDS ORDERED: CEFEPIME 1 GM/VIAL ONE ×2 (13:24→20:01)
[2022-12-15] MEDS ORDERED: CEFEPIME 2 GM VIAL ONE ×2 (13:28→20:20)
[2022-12-15] MEDS ORDERED: NA CHLORIDE 0.9% 500 ML ONE (13:28)
[2022-12-15 14:22] VITALS: BMI 25.7
[2022-12-15] MEDS ORDERED: INFLUENZA VACCINE (for 6+ mo) 0.5 ML DOSE IMVAC ONE (16:00)
[2022-12-15 16:27] LABS: Renal Epithelial <5 /HPF (None Seen); Specific Gravity 1.008 (1.005-1.030); Urine Bacteria <20 /HPF (<20); Urine Bilirubin NEGATIVE (Negative); Urine Blood 2+ (Negative); Urine Clarity Turbid (Clear); Urine Color Light-Yellow (Yellow); Urine Glucose NEGATIVE (Negative); Urine Mucus Slight /HPF (None Seen); Urine Protein NEGATIVE (Negative); Urine RBC <5 /HPF (None Seen); Urine Urobilinogen Normal (Normal); Urine pH 6.5 (5.0-7.0)
[2022-12-16 03:34] LABS: Absolute Lymphocytes (CBC) 1.9 K/uL (0.7-4.9); Hematocrit 43.7 % (39.6-49.0); Lymphocytes % 15.5 % (15.3-44.8); MCV 84.5 fL (80-100); MPV 8.4 fL (7.6-11.3); Platelets 150 thou/uL (152-406); RBC Red Blood Cell Count 5.17 M/uL (4.33-5.43)
[2022-12-16 04:00] LABS: Potassium 4.1 mEq/L (3.5-5.1)
[2022-12-16 04:01] LABS: Albumin 2.6 g/dL (3.4-5.0); Bilirubin Total 0.6 mg/dL (0.2-1.0); Magnesium 1.9 mg/dL (1.6-2.4); Protein, Total 6.7 g/dL (6.4-8.2)
[2022-12-16 04:11] LABS: Phosphorus 1.5 mg/dL (2.5-4.9)
[2022-12-16 04:15] LABS: Blood Morphology Comment NOT SEEN (NOT SEEN); Platelet Estimate ADEQ; White Blood Cell Scan OK (OK)
[2022-12-16] MEDS: POTASS/SODIUM PHOSPHATE 1 PKT POWD.PACK PO SCH ×3 (04:42→07:00)
[2022-12-16] MEDS: NA CHLORIDE 0.9% 1,000 ML IV SCH ×3 (07:00→21:03)
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
[2022-12-16] MEDS: CEFEPIME 2 GM in NA CHLORIDE 0.9% 100 ML IV SCH ×2 (09:00→21:03)
[2022-12-16] MEDS: PANTOPRAZOLE 40 MG INJ IVP SCH (09:01)
[2022-12-16] MEDS: ENOXAPARIN 40 MG/0.4 ML SQ SCH (09:01)
[2022-12-16] MEDS: VANCOMYCIN 1.5 GM in NA CHLORIDE 0.9% 500 ML IVPB SCH ×2 (13:00→13:25)
[2022-12-17 02:54] LABS: Absolute Lymphocytes (CBC) 2.5 K/uL (0.7-4.9); Hematocrit 42.4 % (39.6-49.0); Lymphocytes % 22.7 % (15.3-44.8); MCV 85.5 fL (80-100); MPV 8.7 fL (7.6-11.3); Platelets 171 thou/uL (152-406); RBC Red Blood Cell Count 4.96 M/uL (4.33-5.43)
[2022-12-17] MEDS: NA CHLORIDE 0.9% 1,000 ML IV SCH (03:00)
[2022-12-17 03:08] LABS: Albumin 2.5 g/dL (3.4-5.0); Bilirubin Total 0.6 mg/dL (0.2-1.0); Magnesium 2.1 mg/dL (1.6-2.4); Phosphorus 2.3 mg/dL (2.5-4.9); Protein, Total 6.6 g/dL (6.4-8.2)
[2022-12-17] MEDS: METOPROLOL TAR 50 MG TAB PO SCH ×2 (06:47→17:13)
[2022-12-17] MEDS: POTASS/SODIUM PHOSPHATE 1 PKT POWD.PACK PO SCH ×2 (06:47→08:51)
[2022-12-17] MEDS ORDERED: HYDRALAZINE HCL 20 MG/ML VIAL IV ONE (08:27)
[2022-12-17] MEDS: CEFEPIME 2 GM in NA CHLORIDE 0.9% 100 ML IV SCH (08:49)
[2022-12-17] MEDS: ENOXAPARIN 40 MG/0.4 ML SQ SCH (08:49)
[2022-12-17] MEDS: ASPIRIN 81 MG CHEWABLE TABLET PO SCH (08:49)
[2022-12-17] MEDS: PANTOPRAZOLE 40 MG INJ IVP SCH (08:51)
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
[2022-12-17] MEDS: VANCOMYCIN 1.5 GM in NA CHLORIDE 0.9% 500 ML IVPB SCH (13:28)
[2022-12-17] MEDS ORDERED: TAMSULOSIN 0.4 MG SR CAP PO SCH ×2 (21:00)
[2022-12-17] MEDS ORDERED: ATORVASTATIN 40 MG TAB PO SCH (21:00)
[2022-12-18] MEDS: METOPROLOL TAR 50 MG TAB PO SCH (05:43)
[2022-12-18] MEDS ORDERED: VANCOMYCIN 1.5 GM in NA CHLORIDE 0.9% 500 ML IVPB SCH (06:00)
--- NOTE | 2022-12-18 07:59 | EKG ---
Test Date: 2022-12-15 Test Time: 08:37:39 Control Valve Technician: HB MEASUREMENT RESULTS: Intervals: Rate: 101 TN: 148 QRSD: 100 QT: 330 QTc: 427 Valders: P: 64 TN: 148 QRS: 41 T: 74 INTERPRETIVE STATEMENTS: Sinus tachycardia Possible Left atrial enlargement Borderline ECG Compared to ECG 11/24/2013 16:53:43 Sinus rhythm no longer present Electronically Signed On 12-18-22 07:53:14 CDT by Miguel Campo
[2022-12-18 09:01] LABS: Albumin 2.6 g/dL (3.4-5.0); Bilirubin Total 0.8 mg/dL (0.2-1.0); Magnesium 2.3 mg/dL (1.6-2.4); Phosphorus 2.9 mg/dL (2.5-4.9); Potassium 4.2 mEq/L (3.5-5.1)
[2022-12-18] MEDS: ENOXAPARIN 40 MG/0.4 ML SQ SCH (09:17)
[2022-12-18] MEDS: PANTOPRAZOLE 40 MG INJ IVP SCH (09:17)
[2022-12-18] MEDS: ASPIRIN 81 MG CHEWABLE TABLET PO SCH (09:17)
[2022-12-18 09:28] VITALS: O2SAT 95
[2022-12-18 13:16] VITALS: BP 154/92; TEMP 97.7
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
[2022-12-18] MEDS ORDERED: CIPROFLOXACIN HCL 500 MG TAB PO SCH (21:00)
== END 2022-12-18 17:02 | disposition home or self-care (01) | DRG 698 ==
LOC: ER 07:57 → ERHOLD 10:21 → 2ND 20:41
PROVIDERS: ADMIT Hospitalist; ATTEND Internal Medicine
DX: T83.511A Infection and inflammatory reaction due to indwelling urethral catheter, initial encounter (principal); A41.81 Sepsis due to Enterococcus; N39.0 Urinary tract infection, site not specified; I10 Essential (primary) hypertension; E78.00 Pure hypercholesterolemia, unspecified; G89.4 Chronic pain syndrome; M54.2 Cervicalgia; N40.0 Benign prostatic hyperplasia without lower urinary tract symptoms; F17.200 Nicotine dependence, unspecified, uncomplicated; Z90.49 Acquired absence of other specified parts of digestive tract; Z88.5 Allergy status to narcotic agent; Z79.82 Long term (current) use of aspirin; Z79.899 Other long term (current) drug therapy
CPT/HCPCS: 36415; 74176; 80053; 80061; 80202; 81001; 83605; 83735; 84100; 85025; 85610; 85730; 87040; 87077; 87086; 87088; 87186; 93005; 96374; 99284; C9113; J0360; J0692; J0696; J1650; J7030; J7040; J7050

== ENCOUNTER → 2023-03-22 | Emergency (ER) | payer OTHER ==
--- OUTSIDE RECORDS SUMMARY | 2023-03-22 07:27 | XMS REPORT | Continuity of Care Document ---
Author Name Unknown Address [address] [facility] [address] Elias[address] [place] [address] [facility] Address [address] [facility] [address] [place] [address] Care Team Providers Care Nuclear Medicine Tech Name Role Phone GEORGE MEDLEY Primary Care Physician Unavailable JOAN BURLESON Attending Clinician Unavailable MONICA PAULSON Attending Clinician Unavailable LAB90 Attending Clinician Unavailable TAYLOR MCNAIR Attending Clinician UnavailDARRYL Suarez Attending Clinician Unavailable REEMA MOSLEY Attending Clinician Unavailable BHARATH ANDRADE Attending Clinician Unavailnikki e KESHAWN CHENEY Attending Clinician Unavailable Keshawn Lassiter Attending Clinician [phone] KESHAWN CHENEY Admitting Clinician Unavailable Payers Payer Name Policy Type Policy Number Effective Date Expirati on Date Source HUMANA MA GOLD PLUS 42 OA 7 [id number] 2021 00:00:00 Yumiko Joshi 53 [id number] [facility] HUMANA GOLD PLS O [id number] 2021 00:00:00 Problems Condition Name Condition Details Condition Category Status Onset Date Resolution Date Last Treatment Date Treating Clinician Comments Source Mixed hyperlipid emia Mixed hyperlipid emia Disease Active 07-02 00:00: 00 Yumiko Olivasa toribio Well adult exam Well adult exam Disease Active 07-02 00:00: 00 Yumiko Olivasa toribio Tobacco use Tobacco use Disease Active 07-02 00:00: 00 Yumiko Olivasa toribio Benign prostatic hyperplasi a without lower urinary tract symptoms Benign prostatic hyperplasi a without lower urinary tract symptoms Disease Active 07-02 00:00: 00 Yumiko Olivasa toribio Overweight Overweight Disease Active 07-02 00:00: 00 Yumiko Olivasa toribio History of spinal fusion History of spinal fusion Disease Active 2021-02 00:00: 00 Yumiko rooney Chronic bilateral thoracic back pain Chronic bilateral thoracic back pain Disease Active 2021-02 00:00: 00 Yumiko Olivasa toribio Primary hypertensi on Primary hypertensi on Disease Active 2021-02 00:00: 00 Yumiko rooney Acute appendicit is Acute appendicit is Disease Active 2018-02 00:00: 00 [facility] Obesity (BMI 30-39.9) Obesity (BMI 30-39.9) Disease Active 2018-02 00:00: 00 [facility] [id number] Hydronephr osis, left Problem [facility] [id number] BPH loc w urin obs/LUTS Problem [facility] [id number] Urinary retention Problem [facility] Urinary incontinen ce Urinary incontinen ce Problem [facility] Allergies, Adverse Reactions, Alerts Allergy Name Allergy Type Status Severity Reaction(s) Onset Date Inactive Date Treating Clinician Comments Source Codeine Propensi ty to adverse reaction s Active Other 2013-02 00:00: 00 Yumiko rooney NO KNOWN ALLERGIE S Drug Class Active [facility] Social History Social Habit Start Date Stop Date Quantity Comments Source Gender identity Lucila Joshi - External Sexual orientation K ela Joshi - External History of Tobacco Use [facility] Sex Assigned At [facility] Exposure to SARS-CoV-2 (event) 2022-04-07 00:00:00 2022-04-17 17:54:00 Not sure [facility] Education 2021-11-21 00:00:00 2021-11-21 00:00:00 18 Yumiko Joshi - External History of Social function 2021-11-21 00:00:00 2021-11-21 00:00:00 Yumiko Joshi - External Tobacco use and exposure 2021-11-21 00:00:00 2021-11-21 00:00:00 Smokeless tobacco non-user Yumiko Joshi - External Alcohol intake 2018-12-05 00:00:00 2018-12-05 00:00:00 Ex-drinker (finding) [facility] Cigarettes smoked current (pack per day) - Reported 2018-12-04 00:00:00 2018-12-04 00:00:00 [facility] Cigarette pack-years 2018-12-04 00:00:00 2018-12-04 00:00:00 [facility] Smoking Status Start Date Stop Date Source Never Smoker [facility] Smokes tobacco daily 2021-11-21 00:00:00 Yumiko Joshi - External Medications Ordered Medication Name Filled Medication Name Start Date Stop Date Current Medication? Ordering Clinician Indication Dosage Frequency Signature (SIG) Comments Components Source Tamsulosin HCl 0.4 MG Tamsulosin HCl 0.4 MG 2022-02 00:00: 00 No 1{capsu le} QD Tamsulosin HCl 0.4 MG Tamsulosin HCl 0.4 MG oral Capsule 07-02 00:00: 00 Yes [id number] .4mg Take 1 capsule (0.4 mg total) by mouth every night at bedtime Yumiko rooney Nicotine 21 MG/24HR transdermal PATCH 24 HR 07-02 00:00: 00 Yes [id number] 1{patch } Place 1 patch onto the skin every 24 hours Yumiko Choi l Tamsulosin HCl 0.4 MG oral Capsule 07-02 00:00: 00 07-02 00:00 :00 No [id number] .4mg Take 1 capsule (0.4 mg total) by mouth every night at bedtime Take two tabs orally once daily at bedtime Yumiko roonye Atorvastati n Calcium 40 MG oral Tablet 05-31 00:00: 00 Yes 40mg Take 1 tablet (40 mg total) by mouth daily Yumiko rooney Metoprolol Tartrate (LOPRESSOR) 50 MG oral Tablet 05-31 00:00: 00 Yes [id number] 50mg Take 1 tablet (50 mg total) by mouth 2 times daily Yumiko rooney Tamsulosin HCl 0.4 MG oral Capsule 05-31 00:00: 00 07-02 00:00 :00 No [id number] Take two tabs orally once daily at bedtime Yumiko rooney hydrALAZINE HCl 25 MG oral Tablet 05-31 00:00: 00 07-02 00:00 :00 No [id number] 25mg Take 1 tablet (25 mg total) by mouth 3 times daily Yumiko rooney Cefpodoxime Proxetil 200 MG oral Tablet 05-16 00:00: 00 07-02 00:00 :00 No 200mg Take 1 tablet (200 mg total) by mouth every 12 hours Take for 14 days Yumiko rooney Aspirin 81 MG oral Chewable Tablet 05-02 00:00: 00 Yes 81mg Take 1 tablet (81 mg total) by mouth daily Yumiko rooney cefTRIAXone (ROCEPHIN) injection 500 mg 04-18 05:15: 00 04-18 04:37 :00 No 500mg 500 mg, Intramuscu lar, ONCE, 1 dose, On Sat04/17/22 at 2315, ROXY
Re ason for Anti-Infec tive: Empiric Therapy for Suspected Infection< br>Empiric Therapy Site: Urine
D uration of therapy: 72 hours [facility] iopamidol (ISOVUE 370-500 mL) injection 80 mL 04-18 02:15: 00 04-18 02:48 :00 No [id number] 80mL 80 mL, Intravenou s, ONCE, 1 dose, On Sat04/17/22 at 2015, Routine [facility] doxycycline hyclate 100 mg capsule 04-17 00:00: 00 Yes [id number] 100mg Take 1 capsule by mouth in the morning and 1 capsule in the evening. [facility] Gabapentin 300 MG oral Capsule 2021-02 00:00: 00 Yes [id number] 107 300mg Take 1 capsule (300 mg total) by mouth 2 times daily Yumiko Sechitoold - Externa l Gabapentin 100 MG oral Capsule 2021-02 00:00: 00 Yes [id number] 9103 100mg Take 1 capsule (100 mg total) by mouth 2 times daily Yumiko Sechitoold - Externa l Tramadol HCl 50 MG oral Tablet 2021-02 00:00: 00 Yes [id number] 9103 50mg Q.[id number] 3D Take 1 tablet (50 mg total) by mouth every 8 hours as needed for pain Yumiko Sechitoold - Externa l Lisinopril 20 MG oral Tablet 2021-02 00:00: 00 Yes [id number] 20mg Take 1 tablet (20 mg total) by mouth daily Yumiko Seybold - Externa l Lisinopril 20 MG oral Tablet 2021-02 00:00: 00 Yes [id number] 20mg Take 1 tablet (20 mg total) by mouth daily Yumiko Maold - Externa l Gabapentin 100 MG oral Capsule 2021-02 00:00: 00 12-19 00:00 :00 No [id number] 9103 100mg Take 1 capsule (100 mg total) by mouth 2 times daily Yumiko Hamiltonybold - Externa l Tramadol HCl 50 MG oral Tablet 2021-02 00:00: 00 12-19 00:00 :00 No [id number] 9103 50mg Q.[id number] 3D Take 1 tablet (50 mg total) by mouth every 8 hours as needed for pain Yumiko Sedeniz - Externa l Vital Signs Vital Name Observation Time Observation Value Comments S ource weight 2022 09:45:00 218 [lb_av] Comm on [facility] temperature 2022 09:45:00 97.6 [degF] Com mon [facility] bmi 2022 09:45:00 30.4 kg/m2 Commo n [facility] oximetry 2022 09:45:00 94 % Commo n [facility] respiratory rate 2022 09:45:00 18 /min Common [facility] blood pressure systolic 2022 09:45:00 160 mm[Hg] [facility] blood pressure diastolic 2022 09:45:00 104 mm[Hg] [facility] height 2022 09:45:00 71 [in_i] Commo n [facility] Oxygen saturation in Arterial blood by Pulse oximetry 2022-07-02 18:44:00 99 /min Yumiko ybo ld - External Systolic blood pressure 2022-07-02 18:44:00 141 mm[Hg] Yumiko Seybo ld - External Diastolic blood pressure 2022-07-02 18:44:00 95 mm[Hg] Yumiko ybo ld - External Heart rate 2022-07-02 18:44:00 78 /min Kel y Seybold - External Body temperature 2022-07-02 18:44:00 37.11 Miranda Yumiko Seybold - External Respiratory rate 2022-07-02 18:44:00 16 /min Yumiko Seybold - External Body height 2022-07-02 18:44:00 180.3 cm Lucila ey Seybold - External Body weight 2022-07-02 18:44:00 97.523 kg Lucila ey Seybold - External BMI 2022-07-02 18:44:00 29.99 kg/m2 Lucila ey Seybold - External Systolic blood pressure 2022-04-17 23:55:00 154 mm[Hg] [facility] Diastolic blood pressure 2022-04-17 23:55:00 99 mm[Hg] [facility] Heart rate 2022-04-17 23:55:00 82 /min [facility] temperature 2022-04-17 23:55:00 36.61 Miranda [facility] Respiratory rate 2022-04-17 23:55:00 16 /min [facility] Body height 2022-04-17 23:55:00 180.3 cm [facility] Body weight 2022-04-17 23:55:00 108.863 kg [facility] BMI 2022-04-17 23:55:00 33.47 kg/m2 [facility] Oxygen saturation in Arterial blood by Pulse oximetry 2022-04-17 23:55:00 100 /min [facility] Systolic blood pressure 2021-12-19 18:06:00 132 mm[Hg] Yumiko Seybo ld - External Diastolic blood pressure 2021-12-19 18:06:00 84 mm[Hg] Yumiko Seybo ld - External Heart rate 2021-12-19 17:56:00 93 /min Kelse y Seybold - External Body temperature 2021-12-19 17:56:00 36.33 Miranda Yumiko Seybold - External Respiratory rate 2021-12-19 17:56:00 14 /min Yumiko Seybold - External Body height 2021-12-19 17:56:00 180.3 cm Lucila ey Seybold - External Body weight 2021-12-19 17:56:00 98.884 kg Lucila ey Seybold - External BMI 2021-12-19 17:56:00 30.40 kg/m2 Lucila ey Seybold - External Oxygen saturation in Arterial blood by Pulse oximetry 2021-12-19 17:56:00 99 /min Yumiko Seybo ld - External Systolic blood pressure 2021-11-21 20:03:00 170 mm[Hg] Yumiko Seybo ld - External Diastolic blood pressure 2021-11-21 20:03:00 100 mm[Hg] Yumiko Seybo ld - External Heart rate 2021-11-21 19:28:00 87 /min Kelse y Seybold - External Body temperature 2021-11-21 19:28:00 37 Miranda Yumiko Seybold - External Respiratory rate 2021-11-21 19:28:00 14 /min Yumiko Joshi - External Body height 2021-11-21 19:28:00 180.3 cm Lucila Joshi - External Body weight 2021-11-21 19:28:00 100.699 kg Lucila Joshi - External BMI 2021-11-21 19:28:00 30.96 kg/m2 Lucila Joshi - External Oxygen saturation in Arterial blood by Pulse oximetry 2021-11-21 19:28:00 96 /min Yumiko Hamiltonchitoobdulio ld - External Procedures Procedure Date / Time Performed Performing Clinicia n Source LIPASE 2022-04-18 02:00:00 Keshawn Cheney [facility] COMP. METABOLIC PANEL (23025) 2022-04-18 02:00:00 Keshawn Cheney [facility] CBC WITH DIFF 2022-04-18 02:00:00 Keshawn Cheney [facility] URINALYSIS 2022-04-18 00:14:00 Keshawn Cheney [facility] NOTICE OF PRIVACY PRACTICES 2022-04-17 23:53:59 Doctor Unassigned, [place] [facility] CONSENT/REFUSAL FOR DIAGNOSIS AND TREATMENT 2022-04-17 23:51:45 Doctor Unassigned, [place] [facility] Encounters Start Date/Time End Date/Time Encounter Type Admission Type Attending [facility] Care Facility Care Department Encounter ID Source 2022 09:12:00 Outpatient [facility] [id number] [facility] 2023-01-31 10:00:00 2023-01-31 10:00:00 Outpatient JOAN BURLESON [id number] Yumiko Joshi 2023-01-21 00:00:00 2023-01-21 00:00:00 Outpatient JOAN BURLESON [id number] Yumkio Joshi 2022-12-17 00:00:00 2022-12-17 00:00:00 Outpatient MONICA PAULSON [id number] Yumiko Joshi 2022-12-14 00:00:00 2022-12-14 00:00:00 Outpatient PREZAS, JOAN ROMEROOFE HOLBROOK [id number] [facility]22 00:00:00 2022 00:00:00 OFFICE VISIT [facility]AB [id number] 2022-09-19 00:00:00 2022-09-19 00:00:00 Outpatient PREZAS, JOAN YUMIKO HOLBROOK [id number] Yumiko [facility] 2022-08-22 00:00:00 2022-08-22 00:00:00 Outpatient PREZAS, JOANJOHN HOLBROOK [id number] Yumiko [facility] 2022-08-14 00:00:00 2022-08-14 00:00:00 Outpatient PREZAS, JOAN HOLBROOK [id number] [facility] 2022-08-02 00:00:00 2022-08-02 00:00:00 Outpatient PREZAS, JOAN YUMIKO HOLBROOK [id number] Yumiko [facility] 2022-07-24 00:00:00 2022-07-24 00:00:00 Outpatient PREZAS, JOANJOHN HOLBROOK [id number] [facility] 2022-07-04 00:00:00 2022-07-04 00:00:00 Outpatient PREZAS, JOAN HOLBROOK [id number] [facility] 2022-07-03 08:05:00 2022-07-03 08:05:00 Outpatient LAB90 YUMIKO HOLBROOK [id number] [facility] 2022-07-03 00:00:00 2022-07-03 00:00:00 Outpatient PREZAS, JOAN HOLBROOK [id number] [facility] 2022-07-02 14:15:00 2022-07-02 14:15:00 Outpatient PREZAS, JOAN HOLBROOK [id number] [facility] 2022-06-18 14:00:00 2022-06-18 14:00:00 Outpatient TAYLOR MCNAIR [id number] [facility] 2022-06-11 00:00:00 2022-06-11 00:00:00 Outpatient NIETETAYLOR Lundberg YUMIKO HOLBROOK [id number] Yumiko Seybold 2022-06-05 16:00:00 2022-06-05 16:00:00 Outpatient DARRYL BERNARD YUMIKO HOLBROOK [id number] Yumiko Seybold 2022-05-31 00:00:00 2022-05-31 00:00:00 Outpatient PREZAS, JOAN YUMIKO HOLBROOK [id number] [facility] 2022-05-31 00:00:00 2022-05-31 00:00:00 Outpatient REEMA MOSLEY YUMIKO HOLBROOK [id number] Yumiko Seybold 2022-05-30 13:30:00 2022-05-30 13:30:00 Outpatient RAYMONDBHARATH YUMIKO HOLBROOK [id number] [facility] 2022-05-30 00:00:00 2022-05-30 00:00:00 Outpatient PREZAS, JOAN HOLBROOK [id number] [facility] 2022-05-29 00:00:00 2022-05-29 00:00:00 Outpatient PREZAS, JOAN HOLBROOK [id number] [facility] 2022-05-23 00:00:00 2022-05-23 00:00:00 Outpatient PREZAS, JOANJOHN HOLBROOK [id number] [facility] 2022-05-21 11:30:00 2022-05-21 11:30:00 Outpatient PREZAS, JOAN HOLBROOK [id number] [facility] 2022-05-17 00:00:00 2022-05-17 00:00:00 Outpatient PREZAS, JOAN HOLBROOK [id number] Yumiko Seybold 2022-05-02 00:00:00 2022-05-02 00:00:00 Outpatient MONICA PAULSON [id number] Yumiko Seybold 2022-04-23 00:00:00 2022-04-23 00:00:00 Outpatient PREZAS, JOAN HOLBROOK [id number] [facility] 2022-04-17 17:57:00 2022-04-17 22:53:00 Emergency X KESHAWN CHENEY [facility] ERT [id number] [facility] 2022-04-17 17:57:00 2022-04-17 22:53:00 Emergency Keshawn Cheney [facility] [id number] [facility] 2022-03-02 00:00:00 2022-03-02 00:00:00 Outpatient PREZAS, JOAN YUMIKO HOLBOROK [id number] Yumiko bala 2021-12-19 13:30:00 2021-12-19 13:30:00 Outpatient PREZAS, JOAN YUMIKO HOLBROOK [id number] Yumiko Joshi 2021-12-01 00:00:00 2021-12-01 00:00:00 Outpatient PREZAS, JOAN HOLBROOK [id number] Yumiko Joshi 2021-11-21 14:30:00 2021-11-21 14:30:00 Outpatient PREZAS, JOAN YUMIKO HOLBROOK [id number] Yumiko Joshi 2021-10-30 10:00:00 2021-10-30 10:00:00 Outpatient PREZAS, JOAN YUMIKO HOLBROOK [id number] [facility] Results Test Description Test Time Test Comments Results Result Co mments Source [facility]:27:47* Test Item Value Reference Range Interpretation Comme nts LIPASE (test code = 7673358699) 47 U/L 0-220 Lab Interpretation (test cod e = 61386-2) Normal [facility] [id number] 02:15:28* Test Item Value Reference Range Interpretation Comme nts WBC (test code = 6690-2) 8.60 See_Comment [Automated messa ge] The system which generated this result transmitted reference range: 4.20 - 10.70 10*3/?L. The reference range was not used to interpret this result as normal/abnormal. RBC (test code = 789-8) 5.42 See_Comment [Automated messa ge] The system which generated this result transmitted reference range: 4.26 - 5.52 10*6/?L. The reference range was not used to interpret this result as normal/abnormal. HGB (test code = 718-7) 15.3 g/dL 12.2-16.4 HCT (test code = 4544-3) 48.4 % 38.4-49.3 MCV (test code = 787-2) 89.3 fL 81.7-95.6 MCH (test code = 785-6) 28.2 pg 26.1-32.7 MCHC (test code = 786-4) 31.6 g/dL 31.2-35.0 RDW-SD (test code = 93183-1) 44.9 fL 38.5-51.6 RDW-CV (test code = 788-0) 13.7 % 12.1-15.4 PLT (test code = 777-3) 208 See_Comment [PopSeal] The system which generated this result transmitted reference range: 150 - 328 10*3/?L. The reference range was not used to interpret this result as normal/abnormal. MPV (test code = 98623-7) 10.1 fL 9.8-13.0 NRBC/100 WBC (test code = 1478674305) 0.0 See_Comment [Automated Comprehensive Carege] The system which generated this result transmitted reference range: 0.0 - 10.0 /100 WBCs. The reference range was not used to interpret this result as normal/abnormal. NRBC x10^3 (test code = 3865869260) See_Comment [Automated Comprehensive Carege] The system which generated this result transmitted reference range: 10*3/?L. The reference range was not used to interpret this result as normal/abnormal. GRAN MAT (NEUT) % (test code = 770-8) 67.4 % IMM GRAN % (test code = 1046756415) 0.70 % LYMPH % (test code = 736-9) 19.8 % MONO % (test code = 5905-5) 9.1 % EOS % (test code = 713-8) 2.3 % BASO % (test code = 706-2) 0.7 % GRAN MAT x10^3(ANC) (test code = 8002272746) 5.80 10*3/uL 1.99-6.95 IMM GRAN x10^3 (test code = 2955922112) 0.06 10*3/uL 0.00-0.06 LYMPH x10^3 (test code = 731-0) 1.70 10*3/uL 1.09-3.23 MONO x10^3 (test code = 742-7) 0.78 10*3/uL 0.36-1.02 EOS x10^3 (test code = 711-2) 0.20 10*3/uL 0.06-0.53 BASO x10^3 (test code = 704-7) 0.06 10*3/uL 0.01-0.09 [facility]
[2023-03-22 08:17] LABS: Specific Gravity 1.017 (1.005-1.030); Urine Bacteria None Seen /HPF (<20); Urine Bilirubin NEGATIVE (Negative); Urine Blood 2+ (Negative); Urine Clarity Clear (Clear); Urine Color Light-Yellow (Yellow); Urine Glucose NEGATIVE (Negative); Urine Mucus Slight /HPF (None Seen); Urine Protein NEGATIVE (Negative); Urine RBC >50 /HPF (None Seen); Urine Urobilinogen Normal (Normal); Urine pH 6.5 (5.0-7.0)
--- NOTE | 2023-03-22 08:30 | ER ---
Nurse's Notes [facility] Name: Hung Long Age: 62 yrs Sex: Male : 1960 Arrival Date: 03/22/2023 Time: 07:23 Bed 13 Private MD: Diagnosis: Other mechanical complication of urinary (indwelling) catheter Presentation: 03/22 07:48 Chief complaint: Patient states: has lundberg catheter in place, pt states "I have pain aa5 around the tip and I think it's clogged". Coronavirus screen: At this time, the client does not indicate any symptoms associated with coronavirus-19. Ebola Screen: Patient denies travel to an Ebola-affected area in the 21 days before illness onset. Initial Sepsis Screen: Does the patient meet any 2 criteria? No. Patient's initial sepsis screen is negative. Does the patient have a suspected source of infection? No. Patient's initial sepsis screen is negative. Risk Assessment: Do you want to hurt yourself or someone else? Patient reports no desire to harm self or others. Onset of symptoms was March 22, 2023. 07:48 Method Of Arrival: Ambulatory aa5 07:48 Acuity: GUNNAR 4 aa5 Historical: - Allergies: 07:48 No Known Allergies; aa5 - PMHx: 07:47 chronic neck pain; Hypercholesterolemia; Hypertensive disorder; aa5 - PSHx: 07:47 Appendectomy; aa5 - Family history:: not pertinent. - Hospitalizations: : No recent hospitalization is reported. Screenin:00 [facility] ED Fall Risk Assessment (Adult) History of falling in the last 3 months, aa5 including since admission No falls in past 3 months (0 pts) Confusion or Disorientation No (0 pts) Intoxicated or Sedated No (0 pts) Impaired Gait No (0 pts) Mobility Assist Device Used No (0 pt) Altered Elimination No (0 pt) Score/Fall Risk Level 0 - 2 = Low Risk Oriented to surroundings, Maintained a safe environment, Educated pt \\T\\ family on fall prevention, incl call for assistance when getting out of bed. Abuse screen: Denies threats or abuse. Nutritional screening: No deficits noted. Tuberculosis screening: No symptoms or risk factors identified. Assessment: 07:50 General: Appears uncomfortable, Behavior is calm, cooperative. Pain: Complains of pain aa5 in suprapubic area Pain currently is 9 out of 10 on a pain scale. Quality of pain is described as pressure, Pain began this morning Is continuous. Neuro: Level of Consciousness is awake, alert, obeys commands, Oriented to person, place, time, situation. Cardiovascular: Patient's skin is warm and dry. Respiratory: Airway is patent Respiratory effort is even, unlabored, Respiratory pattern is regular, symmetrical. : Lundberg in place to gravity drainage reports very small urinary output since yesterday morning. Reports pain to penis. Derm: Skin is pink, warm \\T\\ dry. 08:07 Reassessment: Urine specimen sent to lab . aa5 08:07 Reassessment: Patient is alert, oriented x 3, equal unlabored respirations, skin aa5 warm/dry/pink. Patient states feeling better. Patient states symptoms have improved. 08:55 Reassessment: Patient is alert, oriented x 3, equal unlabored respirations, skin aa5 warm/dry/pink. Vital Signs: 07:48 BP 158 / 122; Pulse 86; Resp 18 S; Temp 98.4(TE); Pulse Ox 96% on R/A; aa5 08:50 BP 155 / 98; Pulse 82; Resp 16 S; Pulse Ox 97% on R/A; aa5 ED Course: 07:27 Patient arrived in ED. im 07:30 Felipe Lopes MD is Attending Physician. rn 07:47 Arm band placed on. aa5 07:47 Patient has correct armband on for positive identification. Placed in gown. Bed in low aa5 position. Call light in reach. Side rails up X 1. 07:49 Triage completed. aa5 08:05 Lundberg cath removed intact, balloon deflated, sediment and possible bacteria growing at aa5 tip of catheter, was notified. 08:07 Lundberg cath inserted, using sterile technique, 18 Fr., by pa, balloon inflated, to aa5 gravity drainage, urine specimen collected. returned 400mls of urine. Patient tolerated well. 08:12 Viv Petersen, RN is Primary Nurse. aa5 08:55 No provider procedures requiring assistance completed. Patient did not have IV access aa5 during this emergency room visit. Administered Medications: No medications were administered Medication: 08:55 VIS not applicable for this client. aa5 Outcome: 08:29 Discharge ordered by . rn 08:55 Discharged to home ambulatory, aa5 08:55 Condition: improved 08:55 Discharge instructions given to patient, Instructed on discharge instructions, follow up and referral plans. medication usage, Demonstrated understanding of instructions, follow-up care, medications, Prescriptions given X 08:57 Patient left the ED. Signatures: Felipe Lopes MD MD rn Calderon, Audri, RN RN aa5 Georgina Putnam RN RN Isabelle Francis
--- NOTE | 2023-03-22 08:30 | EDPHYS ---
Physician Documentation [facility] Name: Hung Long Age: 62 yrs Sex: Male : 1960 Arrival Date: 03/22/2023 Time: 07:23 Bed 13 Private MD: ED Physician Felipe Lopes HPI: 03/22 08:19 This 62 yrs old Male presents to ER via Ambulatory with complaints of Problem With rn Urinary Catheter. 08:19 The patient presents with a Lundberg catheter problem, is not draining, is leaking urine. rn Onset: The symptoms/episode began/occurred yesterday. Modifying factors: The symptoms are alleviated by nothing, the symptoms are aggravated by nothing. Severity of symptoms: At their worst the symptoms were mild, in the emergency department the symptoms are unchanged. The patient has experienced similar episodes in the past. The patient has not recently seen a physician. Pt reports lundberg catheter not draining normal, is starting to leak around catheter. No fever. NO chills. No other acute problems. . Historical: - Allergies: 07:48 No Known Allergies; aa5 - PMHx: 07:47 chronic neck pain; Hypercholesterolemia; Hypertensive disorder; aa5 - PSHx: 07:47 Appendectomy; aa5 - Family history:: not pertinent. - Hospitalizations: : No recent hospitalization is reported. ROS: 08:19 Constitutional: Negative for fever, chills, and weight loss, Abdomen/GI: Negative for rn abdominal pain, nausea, vomiting, diarrhea, and constipation, : Negative for injury, bleeding, discharge, and swelling, Exam: 08:19 Constitutional: This is a well developed, well nourished patient who is awake, alert, rn and in no acute distress. Male : Lundberg catheter in place with moderate sediment. No discoloration or blood Vital Signs: 07:48 BP 158 / 122; Pulse 86; Resp 18 S; Temp 98.4(TE); Pulse Ox 96% on R/A; aa5 08:50 BP 155 / 98; Pulse 82; Resp 16 S; Pulse Ox 97% on R/A; aa5 MDM: 07:30 Patient medically screened. rn 08:19 Differential diagnosis: urinary retention, Lundberg catheter problem. Data reviewed: vital rn signs, nurses notes, lab test result(s), and as a result, I will discharge patient. Counseling: I had a detailed discussion with the patient and/or guardian regarding the historical points, exam findings, and any diagnostic results supporting the discharge/admit diagnosis, lab results, the need for outpatient follow up, to return to the emergency department if symptoms worsen or persist or if there are any questions or concerns that arise at home. Special discussion: I discussed with the patient/guardian in detail that at this point there is no indication for admission to the hospital. It is understood, however, that if the symptoms persist or worsen the patient needs to return immediately for re-evaluation. 03/22 07:48 Order name: Urinalysis w/ reflexes; Complete Time: 08:19 rn 03/22 08:22 Order name: Urine Culture EDDC 03/22 07:48 Order name: Lundberg; Complete Time: 08:12 rn Administered Medications: No medications were administered Disposition Summary: 03/22/23 08:29 Discharge Ordered Notes: Location: Home rn Problem: new rn Symptoms: have improved rn Condition: Stable rn Diagnosis - Other mechanical complication of urinary (indwelling) catheter rn Followup: rn - With: Private Physician - When: As needed - Reason: Recheck today's complaints, Re-evaluation by your physician Discharge Instructions: - Discharge Summary Sheet rn - Indwelling Urinary Catheter Care, Adult rn Forms: - Medication Reconciliation Form rn - Thank You Letter 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
[2023-03-22 09:10] VITALS: BP 158/122; TEMP 98.4; O2SAT 96
== END ==
LOC: ER 07:23
DX: T83.098A Other mechanical complication of other urinary catheter, initial encounter (principal)
CPT/HCPCS: 81001; 87077; 87086; 87088; 87186

== ENCOUNTER → 2023-05-06 | Emergency (ER) | payer OTHER ==
--- OUTSIDE RECORDS SUMMARY | 2023-05-06 07:00 | XMS REPORT | Continuity of Care Document ---
Author Name Unknown Address [address] [place] [address] [facility] thconnect Address [address] [place] [address] Care Team Providers Care Business Analyst Sales Operations Name Role Phone GEORGE MEDLEY Primary Care Physician Unavailable JOAN BURLESON Attending Clinician Unavailable MONICA PAULSON Attending Clinician Unavailable [id number] Attending Clinician Unavailable TAYLOR MCNAIR Attending Clinician UnavailDARRYL Suarez Attending Clinician Unavailable REEMA MOSLEY Attending Clinician Unavailable BHARATH ANDRADE Attending Clinician Unavailnikki e KESHAWN CHENEY Attending Clinician Unavailable Keshawn Lassiter Attending Clinician [phone] KESHAWN CHENEY Admitting Clinician Unavailable Payers Payer Name Policy Type Policy Number Effective Date Expirati on Date Source [employer] MA GOLD PLUS 42 OA 7 [id number] 2021 00:00:00 Yumiko Joshi 53 [id number] [facility] [employer]MANA GOLD PLS O [id number] 2021 00:00:00 Problems Condition Name Condition Details [...] appendicit is Disease Active 2018-02 00:00: 00 [facility] Obesity (BMI 30-39.9) Obesity (BMI 30-39.9) Disease Active 2018-02 00:00: 00 [facility] [id number] Hydronephr osis, left Problem [facility] [id number] BPH loc w urin obs/LUTS Problem [facility] [id number] Urinary retention Problem [facility] Urinary incontinen ce Urinary incontinen ce Problem [facility] Allergies, Adverse Reactions, Alerts Allergy Name Allergy Type Status Severity Reaction(s) Onset Date Inactive Date Treating Clinician Comments Source Codeine Propensi ty to adverse reaction s Active Other 2013-02 00:00: 00 Yumiko rooney NO KNOWN ALLERGIE S Drug Class Active [facility] Social History Social Habit Start Date Stop Date Quantity Comments Source Gender identity Lucila Joshi - External Sexual orientation K ela Joshi - External History of Tobacco Use [facility] Sex Assigned At [facility] Exposure to SARS-CoV-2 (event) 2022-04-07 00:00:00 2022-04-17 17:54:00 Not sure [facility] Education 2021-11-21 00:00:00 2021-11-21 00:00:00 18 Yumiko Joshi - External History of Social function 2021-11-21 00:00:00 2021-11-21 00:00:00 Yumiko Joshi - External Tobacco use and exposure 2021-11-21 00:00:00 2021-11-21 00:00:00 Smokeless tobacco non-user Yumiko Joshi - External Alcohol intake 2018-12-05 00:00:00 2018-12-05 00:00:00 Ex-drinker (finding) [facility] Cigarettes smoked current (pack per day) - Reported 2018-12-04 00:00:00 2018-12-04 00:00:00 [facility] Cigarette pack-years 2018-12-04 00:00:00 2018-12-04 00:00:00 [facility] Smoking Status Start Date Stop Date Source Never Smoker [facility] Smokes tobacco daily 2021-11-21 00:00:00 Yumiko Joshi - External Medications Ordered Medication Name Filled Medication Name Start Date Stop Date Current Medication? Ordering Clinician Indication Dosage Frequency Signature (SIG) Comments Components Source Tamsulosin HCl 0.4 MG Tamsulosin HCl 0.4 MG 2022-02 00:00: 00 No 1{capsu le} QD Tamsulosin HCl 0.4 MG Tamsulosin HCl 0.4 MG oral Capsule 07-02 00:00: 00 Yes [id number] .4mg Take 1 capsule (0.4 mg total) by mouth every night at bedtime Yumiko rooney Nicotine 21 MG/24HR transdermal PATCH 24 HR 07-02 00:00: 00 Yes [id number] 1{patch } Place 1 patch onto the skin every 24 hours Yumiko Choi l Tamsulosin HCl 0.4 MG oral Capsule 07-02 00:00: 00 07-02 00:00 :00 No [id number] .4mg Take 1 capsule (0.4 mg total) by mouth every night at bedtime Take two tabs orally once daily at bedtime Yumiko rooney Atorvastati n Calcium 40 MG oral Tablet 05-31 00:00: 00 Yes 40mg Take 1 tablet (40 mg total) by mouth daily Yumiko rooney Metoprolol Tartrate (LOPRESSOR) 50 MG oral Tablet 05-31 00:00: 00 Yes [id number] 50mg Take 1 tablet (50 mg total) by mouth 2 times daily Yumiko rooney Tamsulosin HCl 0.4 MG oral Capsule 05-31 00:00: 00 07-02 00:00 :00 No [id number] Take two tabs orally once daily at bedtime Yumiko rooney hydrALAZINE HCl 25 MG oral Tablet 05-31 00:00: 00 07-02 00:00 :00 No [id number] 25mg Take 1 tablet (25 mg total) [...] Urine
D uration of therapy: 72 hours [facility] iopamidol (ISOVUE 370-500 mL) injection 80 mL 04-18 02:15: 00 04-18 02:48 :00 No [id number] 80mL 80 mL, Intravenou s, ONCE, 1 dose, On Sat04/17/22 at 2015, Routine [facility] doxycycline hyclate 100 mg capsule 04-17 00:00: 00 Yes [id number] 100mg Take 1 capsule by mouth in the morning and 1 capsule in the evening. [facility] Gabapentin 300 MG oral Capsule 2021-02 00:00: 00 Yes [id number] 107 300mg Take 1 capsule (300 mg total) by mouth 2 times daily Yumiko Sechitoold - Externa l Gabapentin 100 MG oral Capsule 2021-02 00:00: 00 Yes [id number] 9103 100mg Take 1 capsule (100 mg total) by mouth 2 times daily Yumiko Sechitoold - Externa l Tramadol HCl 50 MG oral Tablet 2021-02 00:00: 00 Yes [id number] 9103 50mg Q.[id number] 3D Take 1 tablet (50 mg total) by mouth every 8 hours as needed for pain Yumiko Sechitoold - Externa l Lisinopril 20 MG oral Tablet 2021-02 00:00: 00 Yes [id number] 20mg Take 1 tablet (20 mg total) by mouth daily Yumiko Seybold - Externa l Lisinopril 20 MG oral Tablet 2021-02 00:00: 00 Yes [id number] 20mg Take 1 tablet (20 mg total) by mouth daily Yumiko Maold - Externa l Gabapentin 100 MG oral Capsule 2021-02 00:00: 00 12-19 00:00 :00 No [id number] 9103 100mg Take 1 capsule (100 mg total) by mouth 2 times daily Yumiko Hamiltonybold - Externa l Tramadol HCl 50 MG oral Tablet 2021-02 00:00: 00 12-19 00:00 :00 No [id number] 9103 50mg Q.[id number] 3D Take 1 tablet (50 mg total) by mouth every 8 hours as needed for pain Yumiko Sedeniz - Externa l Vital Signs Vital Name Observation Time Observation Value Comments S ource weight 2022 09:45:00 218 [lb_av] Comm on [facility] temperature 2022 09:45:00 97.6 [degF] Com mon [facility] bmi 2022 09:45:00 30.4 kg/m2 Commo n [facility] oximetry 2022 09:45:00 94 % Commo n [facility] respiratory rate 2022 09:45:00 18 /min [facility] blood pressure systolic 2022 09:45:00 160 mm[Hg] [facility] blood pressure diastolic 2022 09:45:00 104 mm[Hg] [facility] height 2022 09:45:00 71 [in_i] Commo n [facility] Oxygen saturation in Arterial blood [...] Systolic blood pressure 2022-04-17 23:55:00 154 mm[Hg] [facility] Diastolic blood pressure 2022-04-17 23:55:00 99 mm[Hg] [facility] Heart rate 2022-04-17 23:55:00 82 /min [facility] 2022-04-17 23:55:00 36.61 Miranda [facility] Respiratory rate 2022-04-17 23:55:00 16 /min [facility] Body height 2022-04-17 23:55:00 180.3 cm [facility] Body weight 2022-04-17 23:55:00 108.863 kg [facility] BMI 2022-04-17 23:55:00 33.47 kg/m2 [facility] Oxygen saturation in Arterial blood by Pulse oximetry 2022-04-17 23:55:00 100 /min [facility] Systolic blood pressure 2021-12-19 [...] n Source LIPASE 2022-04-18 02:00:00 Keshawn Cheney [facility] COMP. METABOLIC PANEL (48122) 2022-04-18 02:00:00 Keshawn Cheney [facility] CBC WITH DIFF 2022-04-18 02:00:00 Keshawn Cheney [facility] URINALYSIS 2022-04-18 00:14:00 Keshawn Cheney [facility] NOTICE OF PRIVACY PRACTICES 2022-04-17 23:53:59 Doctor Unassigned, [facility] CONSENT/REFUSAL FOR DIAGNOSIS AND TREATMENT 2022-04-17 23:51:45 Doctor Unassigned, [facility] Encounters Start Date/Time End Date/Time Encounter Type Admission Type Attending [facility] Care Facility Care Department Encounter ID Source 2022 09:12:00 Outpatient [facility] [id number] [facility] 2023-01-31 10:00:00 2023-01-31 10:00:00 Outpatient JOAN BURLESON [id number] Yumiko Joshi 2023-01-21 00:00:00 2023-01-21 00:00:00 Outpatient JOAN BURLESON [id number] Yumiko Joshi 2022-12-17 00:00:00 2022-12-17 00:00:00 Outpatient MONICA PAULSON [id number] Yumiko Joshi 2022-12-14 00:00:00 2022-12-14 00:00:00 Outpatient PREZAS, JOAN ROMEROOFE HOLBROOK [id number] [facility] 00:00:00 2022 00:00:00 OFFICE VISIT ESTAB PT LEVEL 4 [facility] [id number] 2022-09-19 00:00:00 2022-09-19 00:00:00 Outpatient PREZAS, JOAN YUMIKO HOLBROOK [id number] Yumiko [facility] 2022-08-22 00:00:00 2022-08-22 00:00:00 Outpatient PREZAS, JOANJOHN HOLBROOK [id number] Yumiko [facility] 2022-08-14 00:00:00 2022-08-14 00:00:00 Outpatient PREZAS, JOAN HOLBROOK [id number] [facility] 2022-08-02 00:00:00 2022-08-02 00:00:00 Outpatient PREZAS, JOAN YUMIKO HOLBROOK [id number] Yumiko [facility] 2022-07-24 00:00:00 2022-07-24 00:00:00 Outpatient PREZAS, JOANJOHN HOLBROOK [id number] [facility] 2022-07-04 00:00:00 2022-07-04 00:00:00 Outpatient PREZAS, JOAN HOLBROOK [id number] [facility] 2022-07-03 08:05:00 2022-07-03 08:05:00 Outpatient LAB90 YUMIKO HOLBROOK [id number] [facility] 2022-07-03 00:00:00 2022-07-03 00:00:00 Outpatient PREZAS, JOAN HOLBROOK [id number] [facility] 2022-07-02 14:15:00 2022-07-02 14:15:00 Outpatient PREZAS, JOAN HOLBROOK [id number] [facility] 2022-06-18 14:00:00 2022-06-18 14:00:00 Outpatient TAYLOR MCNAIR [id number] [facility] 2022-06-11 00:00:00 2022-06-11 00:00:00 Outpatient NIETETAYLOR Lundberg YUMIKO HOLBROOK [id number] Yumiko Seybold 2022-06-05 16:00:00 2022-06-05 16:00:00 Outpatient DARRYL BERNARD YUMIKO HOLBROOK [id number] Yumiko Seybold 2022-05-31 00:00:00 2022-05-31 00:00:00 Outpatient PREZAS, JOAN YUMIKO HOLBROOK [id number] [facility] 2022-05-31 00:00:00 2022-05-31 00:00:00 Outpatient REEMA MOSLEY YUMIKO HOLBROOK [id number] Yumiko Seybold 2022-05-30 13:30:00 2022-05-30 13:30:00 Outpatient RAYMONDBHARATH YUMIKO HOLBROOK [id number] [facility] 2022-05-30 00:00:00 2022-05-30 00:00:00 Outpatient PREZAS, JOAN HOLBROOK [id number] [facility] 2022-05-29 00:00:00 2022-05-29 00:00:00 Outpatient PREZAS, JOAN HOLBROOK [id number] [facility] 2022-05-23 00:00:00 2022-05-23 00:00:00 Outpatient PREZAS, JOANJOHN HOLBROOK [id number] [facility] 2022-05-21 11:30:00 2022-05-21 11:30:00 Outpatient PREZAS, JOAN HOLBROOK [id number] [facility] 2022-05-17 00:00:00 2022-05-17 00:00:00 Outpatient PREZAS, JOAN HOLBROOK [id number] Yumiko Seybold 2022-05-02 00:00:00 2022-05-02 00:00:00 Outpatient MONICA PAULSON [id number] Yumiko Seybold 2022-04-23 00:00:00 2022-04-23 00:00:00 Outpatient PREZAS, JOAN HOLBROOK [id number] [facility] 2022-04-17 17:57:00 2022-04-17 22:53:00 Emergency X KESHAWN CHENEY [facility] ERT [id number] [facility] 2022-04-17 17:57:00 2022-04-17 22:53:00 Emergency Keshawn Cheney [facility] [id number] [facility] 2022-03-02 00:00:00 2022-03-02 00:00:00 Outpatient PREZAS, JOAN YUMIKO HOLBROOK [id number] Yumiko bala 2021-12-19 13:30:00 2021-12-19 13:30:00 Outpatient PREZAS, JOAN YUMIKO HOLBROOK [id number] Yumiko Joshi 2021-12-01 00:00:00 2021-12-01 00:00:00 Outpatient PREZAS, JOAN HOLBROOK [id number] Yumiko Joshi 2021-11-21 14:30:00 2021-11-21 14:30:00 Outpatient PREZAS, JOAN YUMIKO HOLBROOK [id number] Yumiko Joshi 2021-10-30 10:00:00 2021-10-30 10:00:00 Outpatient PREZAS, JOAN YUMIKO HOLBROOK [id number] [facility] Results Test Description Test Time Test Comments Results Result Co mments [facility]47* Test Item Value Reference Range Interpretation Comme nts LIPASE (test code = 5075125188) 47 U/L 0-220 Lab Interpretation (test cod e = 77520-3) [facility] HFAQ1234-50-21 02:15:28* Test Item Value Reference Range Interpretation [...] 31.6 g/dL 31.2-35.0 RDW-SD (test code = 77766-1) 44.9 fL 38.5-51.6 RDW-CV (test code = 788-0) 13.7 % 12.1-15.4 PLT (test code = 777-3) 208 See_Comment [Chrysallis] The system which generated this result transmitted reference range: 150 - 328 10*3/?L. The reference range was not used to interpret this result as normal/abnormal. MPV (test code = 11004-3) 10.1 fL 9.8-13.0 NRBC/100 WBC (test code = 1778627194) 0.0 See_Comment [Automated Phizzboge] The system which generated this result transmitted reference range: 0.0 - 10.0 /100 WBCs. The reference range was not used to interpret this result as normal/abnormal. NRBC x10^3 (test code = 2154013650) See_Comment [Automated Phizzboge] The system which generated this result transmitted reference range: 10*3/?L. The reference range was not used to interpret this result as normal/abnormal. GRAN MAT (NEUT) % (test code = 770-8) 67.4 % IMM GRAN % (test code = 2399339104) 0.70 % LYMPH % (test code = 736-9) 19.8 % MONO % (test code = 5905-5) 9.1 % EOS % (test code = 713-8) 2.3 % BASO % (test code = 706-2) 0.7 % GRAN MAT x10^3(ANC) (test code = 7288885536) 5.80 10*3/uL 1.99-6.95 IMM GRAN x10^3 (test code = 7003470014) 0.06 10*3/uL 0.00-0.06 LYMPH x10^3 (test code = 731-0) 1.70 10*3/uL 1.09-3.23 MONO x10^3 (test code = 742-7) 0.78 10*3/uL 0.36-1.02 EOS x10^3 (test code = 711-2) 0.20 10*3/uL 0.06-0.53 BASO x10^3 (test code = 704-7) 0.06 10*3/uL 0.01-0.09 [facility]
[2023-05-06 08:12] LABS: Specific Gravity 1.011 (1.005-1.030); Sqamous Epithelial None Seen /HPF (None Seen); Urine Bacteria None Seen /HPF (<20); Urine Bilirubin NEGATIVE (Negative); Urine Blood 2+ (Negative); Urine Clarity Clear (Clear); Urine Color Light-Yellow (Yellow); Urine Culture Reflex Order NOT NEEDED; Urine Glucose NEGATIVE (Negative); Urine Ketones NEGATIVE (Negative); Urine Microscopic Reflex YN ORDER UMIC; Urine Mucus Slight /HPF (None Seen); Urine Nitrite NEGATIVE (Negative); Urine Protein NEGATIVE (Negative); Urine RBC >50 /HPF (None Seen); Urine Urobilinogen Normal (Normal); Urine pH 6.5 (5.0-7.0)
--- NOTE | 2023-05-06 08:55 | ER ---
Nurse's Notes [facility] Name: Hung Long Age: 62 yrs Sex: Male : 1960 Arrival Date: 05/06/2023 Time: 06:57 Bed 20 Private MD: Diagnosis: Retention of urine, unspecified;Lundberg catheter obstruction Presentation: 05/05 07:03 Chief complaint: Patient states: noticed his lundberg stopped draining at about 2 or 3 am, iw has prostate issues. Coronavirus screen: At this time, the client does not indicate any symptoms associated with coronavirus-19. Ebola Screen: No symptoms or risks identified at this time. Initial Sepsis Screen: Does the patient meet any 2 criteria? No. Patient's initial sepsis screen is negative. Does the patient have a suspected source of infection? No. Patient's initial sepsis screen is negative. Risk Assessment: Do you want to hurt yourself or someone else? Patient reports no desire to harm self or others. Onset of symptoms was May 06, 2023. 07:03 Method Of Arrival: Ambulatory iw 07:03 Acuity: GUNNAR 3 iw Historical: - Allergies: 07:05 No Known Allergies; iw - PMHx: 07:05 chronic neck pain; Hypercholesterolemia; Hypertensive disorder; iw - PSHx: 07:05 Appendectomy; iw - Immunization history:: Adult Immunizations not up to date. - Social history:: Smoking status: Patient reports the use of cigarette tobacco products, smokes one-half pack cigarettes per day. Screenin:47 [facility] ED Fall Risk Assessment (Adult) History of falling in the last 3 months, ph including since admission No falls in past 3 months (0 pts) Confusion or Disorientation No (0 pts) Intoxicated or Sedated No (0 pts) Impaired Gait No (0 pts) Mobility Assist Device Used No (0 pt) Altered Elimination Yes (1 pt) Score/Fall Risk Level 0 - 2 = Low Risk Oriented to surroundings, Maintained a safe environment, Assessed \T\ reinforced patient's understanding of fall precautions, Hourly rounding (assess needs \T\ fall precautionary measures) done. Abuse screen: Denies threats or abuse. Denies injuries from another. Nutritional screening: No deficits noted. Tuberculosis screening: No symptoms or risk factors identified. Assessment: 07:55 General: Appears in no apparent distress. uncomfortable, Behavior is calm, cooperative, ph appropriate for age. Pain: Complains of pain in back and pelvis. Neuro: Level of Consciousness is awake, alert, obeys commands, Oriented to person, place, time, situation. Cardiovascular: Capillary refill < 3 seconds in bilateral fingers Patient's skin is warm and dry. Respiratory: Airway is patent Respiratory effort is even, unlabored. : Lundberg in place to gravity drainage. Derm: Skin is pink, warm \T\ dry. Musculoskeletal: Circulation, motion, and sensation intact. Range of motion: intact in all extremities. Vital Signs: 07:03 Resp 16; Temp 97.4; Pulse Ox 95% on R/A; Weight 97.52 kg; Height 5 ft. 11 in. ; Pain iw 10/10; 08:00 BP 127 / 78; Pulse 89; Resp 18; Temp 98; Pulse Ox 95% on R/A; ph 07:03 Body Mass Index 29.99 (97.52 kg, 180.34 cm) iw 07:03 Pain Scale: Adult iw ED Course: 06:59 Patient arrived in ED. [id number] 07:05 Triage completed. iw 07:05 Arm band placed on. iw 07:10 Dontrell Ramsey DO is Attending Physician. ms3 07:45 Lundberg cath removed intact, balloon deflated. ph 07:55 Lundberg cath inserted, using sterile technique, 16 Fr., by ga, balloon inflated, to ph gravity drainage, urine specimen collected. returned clear yellow urine. Patient tolerated well. 07:55 Urine collected: Lundberg catheter specimen, clear. ph 08:32 Carolina Rivas RN is Primary Nurse. ph 08:47 Patient has correct armband on for positive identification. Placed in gown. Bed in low ph position. Call light in reach. Side rails up X 1. Pulse ox on. NIBP on. Door closed. Noise minimized. Warm blanket given. 08:49 No provider procedures requiring assistance completed. Patient did not have IV access ph during this emergency room visit. 08:54 Carlo Chauhan MD is Referral Physician. ms3 Administered Medications: No medications were administered Medication: 08:48 VIS not applicable for this client. ph Outcome: 08:55 Discharge ordered by . ms3 09:44 Patient left the ED. ph 09:44 Discharged to home ambulatory, ph 09:44 Condition: good 09:44 Discharge instructions given to patient, Instructed on discharge instructions, follow up and referral plans. medication usage, Demonstrated understanding of instructions, follow-up care, Signatures: Santa White RN RN Carolina Rivas RN RN Dontrell Ramsey DO DO ms3 Micki Otero jj6 Corrections: (The following items were deleted from the chart) 16:43 09:44 Discharge instructions given to patient, Instructed on discharge instructions, ph follow up and referral plans. medication usage, Demonstrated understanding of instructions, follow-up care, medications, Prescriptions given X 2, ph
--- NOTE | 2023-05-06 08:55 | EDPHYS ---
Physician Documentation [facility] Name: Hung Long Age: 62 yrs Sex: Male : 1960 Arrival Date: 05/06/2023 Time: 06:57 Bed 20 Private MD: ED Physician Dontrell Ramsey HPI: 05/05 08:56 This 62 yrs old Male presents to ER via Ambulatory with complaints of Problem With ms3 Urinary Catheter, Needs Urinary Catheter Replacement. 08:56 62-year-old male with past medical history of chronic neck pain, hypercholesterolemia, ms3 hypertension presents to the emergency department for urinary retention. Patient states his Kyle catheter clogs approximately once per month. Patient states he has a Kyle catheter inserted for enlarged prostate. Patient states his catheter was inserted on the third of last month. Patient denies fevers, chills. Patient endorses suprapubic pain.. Historical: - Allergies: 07:05 No Known Allergies; iw - PMHx: 07:05 chronic neck pain; Hypercholesterolemia; Hypertensive disorder; iw - PSHx: 07:05 Appendectomy; iw - Immunization history:: Adult Immunizations not up to date. - Social history:: Smoking status: Patient reports the use of cigarette tobacco products, smokes one-half pack cigarettes per day. ROS: 08:56 Constitutional: Negative for fever, and chills. Neck: Negative for injury, pain, and ms3 swelling, Cardiovascular: Negative for chest pain, and palpitations. Respiratory: Negative for shortness of breath, cough, wheezing, and pleuritic chest pain, 08:56 Abdomen/GI: Positive for Suprapubic pain, 08:56 : Positive for Urinary return, 08:56 All other systems are negative, Exam: 08:56 Constitutional: This is a well developed, well nourished patient who is awake, alert, ms3 and in no acute distress. Head/Face: Normocephalic, atraumatic. Neck: Trachea midline, no cervical lymphadenopathy. Supple, full range of motion without nuchal rigidity, or vertebral point tenderness. No Meningismus. Chest/axilla: Normal chest wall appearance and motion. Nontender with no deformity. Cardiovascular: Regular rate and rhythm with a normal S1 and S2. No gallops, murmurs, or rubs. Normal PMI, no JVD. No pulse deficits. Respiratory: Lungs have equal breath sounds bilaterally, clear to auscultation and percussion. No rales, rhonchi or wheezes noted. No increased work of breathing, no retractions or nasal flaring. 08:56 Abdomen/GI: Inspection: abdomen appears normal, Bowel sounds: normal, Palpation: moderate abdominal tenderness, in the suprapubic area, Vital Signs: 07:03 Resp 16; Temp 97.4; Pulse Ox 95% on R/A; Weight 97.52 kg; Height 5 ft. 11 in. ; Pain iw 10/10; 08:00 BP 127 / 78; Pulse 89; Resp 18; Temp 98; Pulse Ox 95% on R/A; ph 07:03 Body Mass Index 29.99 (97.52 kg, 180.34 cm) iw 07:03 Pain Scale: Adult iw MDM: 07:19 Patient medically screened. ms3 08:56 Differential diagnosis: urinary retention, Kyle catheter problem. Data reviewed: vital ms3 signs, nurses notes, lab test result(s), and as a result, I will discharge patient. Care significantly affected by the following chronic conditions: Hypertension. Counseling: I had a detailed discussion with the patient and/or guardian regarding the historical points, exam findings, and any diagnostic results supporting the discharge/admit diagnosis, lab results, the need for outpatient follow up, to return to the emergency department if symptoms worsen or persist or if there are any questions or concerns that arise at home. Special discussion: I discussed with the patient/guardian in detail that at this point there is no indication for admission to the hospital. It is understood, however, that if the symptoms persist or worsen the patient needs to return immediately for re-evaluation. ED course: Discussed urinalysis results with patient. On reevaluation after Kyle catheter replacement Kyle is draining clear urine, patient's symptoms improved, patient is alert and orient x 4, no apparent distress. Patient to follow-up with Dr. Chauhan in 2 to 3 days. All questions were answered. Return precautions discussed include fevers, chills, worsening symptoms, or any other concerns.. 05/05 07:19 Order name: Urinalysis w/ reflexes; Complete Time: 08:34 ms3 05/05 07:19 Order name: Kyle; Complete Time: 08:48 ms3 Administered Medications: No medications were administered Disposition Summary: 05/06/23 08:55 Discharge Ordered Notes: Location: Home ms3 Condition: Stable ms3 Diagnosis - Retention of urine, unspecified ms3 - Kyle catheter obstruction ms3 Followup: ms3 - With: Carlo Chauhan MD - When: 2 - 3 days - Reason: Recheck today's complaints Discharge Instructions: - Discharge Summary Sheet ms3 - Indwelling Urinary Catheter Care, Adult ms3 - Acute Urinary Retention, Male ms3 Forms: - Medication Reconciliation Form ms3 - Thank You Letter ms3 - Antibiotic Education ms3 - Prescription Opioid Use ms3 - Patient Portal Instructions ms3 - Leadership Thank You Letter ms3 Signatures: Dispatcher [employer] Santa Marinelli RN RN Dontrell Be DO DO ms3
[2023-05-06 10:19] VITALS: TEMP 97.4; O2SAT 95
== END ==
LOC: ER 06:57
PROC: 0T2BX0Z Change Drainage Device in Bladder, External Approach (ICD-10-PCS; principal; 2023-05-06)
DX: T83.098A Other mechanical complication of other urinary catheter, initial encounter (principal); F17.210 Nicotine dependence, cigarettes, uncomplicated
CPT/HCPCS: 51702; 81001; 99284

== ENCOUNTER 2023-05-23 18:40 | Emergency (ER) | payer OTHER ==
--- OUTSIDE RECORDS SUMMARY | 2023-05-23 18:44 | XMS REPORT | Continuity of Care Document ---
Author Name Unknown Address [address] [place] [address] [facility] thconnect Address [address] [place] [address] Care Team Providers Care Temporary Help Agency Referral Clerk Name Role Phone GEORGE MEDLEY Primary Care Physician Unavailable JOAN BURLESON Attending Clinician Unavailable MONICA PAULSON Attending Clinician Unavailable [id number] Attending Clinician Unavailable TAYLOR MCNAIR Attending Clinician UnavailDARRYL Suarez Attending Clinician Unavailable REEMA MOSLEY Attending Clinician Unavailable BHARATH ANDRADE Attending Clinician Unavailnikki e KESHAWN CHENEY Attending Clinician Unavailable Keshawn Lassiter Attending Clinician [phone] KESHAWN CHENEY Admitting Clinician Unavailable Payers Payer Name Policy Type Policy Number Effective Date Expirati on Date Source [employer] GOLD PLUS 42 OA 7 [id number] 2021 00:00:00 Yumiko Joshi 53 [id number] [facility] [employer] GOLD PLS HMO [id number] 2021 00:00:00 Problems Condition Name Condition Details Condition Category Status Onset Date Resolution Date Last Treatment Date Treating Clinician Comments Source Mixed hyperlipid emia Mixed hyperlipid emia Disease Active 07-02 00:00: 00 Yumiko Joshi - Externa toribio Well adult exam Well adult exam Disease Active 07-02 00:00: 00 Yumiko Barragan Externa toribio Tobacco use Tobacco use Disease Active 07-02 00:00: 00 Yumiko Joshi - Externa toribio Benign prostatic hyperplasi a without lower urinary tract symptoms Benign prostatic hyperplasi a without lower urinary tract symptoms Disease Active 07-02 00:00: 00 Yumiko Olivasa toribio Overweight Overweight Disease Active 07-02 00:00: 00 Yumiko Joshi - Externa toribio History of spinal fusion History of spinal fusion Disease Active 2021-02 00:00: 00 Yumiko Olivasa toribio Chronic bilateral thoracic back pain Chronic bilateral thoracic back pain Disease Active 2021-02 00:00: 00 Yumiko Olivasa toribio Primary hypertensi on Primary hypertensi on Disease Active 2021-02 00:00: 00 Yumiko Olivasa toribio Acute appendicit is Acute appendicit is Disease Active 2018-02 00:00: 00 [facility] Obesity (BMI 30-39.9) Obesity (BMI 30-39.9) Disease Active 2018-02 00:00: 00 [facility] [id number] Hydronephr osis, left Problem [facility] [id number] BPH loc w urin obs/LUTS Problem [facility] [id number] Urinary retention Problem [facility] Urinary incontinen ce Urinary incontinen ce Problem [facility] Allergies, Adverse Reactions, Alerts Allergy Name Allergy Type Status Severity Reaction(s) Onset Date Inactive Date Treating Clinician Comments Source Codeine Propensi ty to adverse reaction s Active Other 2013-02 0 00:00: 00 Yumiko rooney NO KNOWN ALLERGIE S Drug Class Active [facility] Social History Social Habit Start Date Stop Date Quantity Comments Source Gender identity Lucila Joshi - External Sexual orientation K ela Joshi - External History of Tobacco Use [facility] Sex Assigned At [facility] Exposure to SARS-CoV-2 (event) 2022-04-07 00:00:00 2022-04-17 17:54:00 Not sure [facility] Education 2021-11-21 00:00:00 2021-11-21 00:00:00 18 Yumiko Joshi - External History of Social function 2021-11-21 00:00:00 2021-11-21 00:00:00 Yumiko Joshi - External Tobacco use and exposure 2021-11-21 00:00:00 2021-11-21 00:00:00 Smokeless tobacco non-user Yumiko Joshi - External Alcohol intake 2018-12-05 00:00:00 2018-12-05 00:00:00 Ex-drinker (finding) [facility] Cigarettes smoked current (pack per day) - Reported 2018-12-04 00:00:00 2018-12-04 00:00:00 [facility] Cigarette pack-years 2018-12-04 00:00:00 2018-12-04 00:00:00 [facility] Smoking Status Start Date Stop Date Source Never Smoker [facility] Smokes tobacco daily 2021-11-21 00:00:00 Yumiko Joshi - External Medications Ordered Medication Name Filled Medication Name Start Date Stop Date Current Medication? Ordering Clinician Indication Dosage Frequency Signature (SIG) Comments Components Source Tamsulosin HCl 0.4 MG Tamsulosin HCl 0.4 MG 2022-02 0-05 00:00: 00 No 1{capsu le} QD Tamsulosin HCl 0.4 MG Tamsulosin HCl 0.4 MG oral Capsule 07-02 00:00: 00 Yes [id number] .4mg Take 1 capsule (0.4 mg total) by mouth every night at bedtime Yumiko rooney Nicotine 21 MG/24HR transdermal PATCH 24 HR 07-02 00:00: 00 Yes [id number] 1{patch } Place 1 patch onto the skin every 24 hours Yumiko rooney Atorvastati n Calcium 40 MG oral Tablet 05-31 00:00: 00 Yes 40mg Take 1 tablet (40 mg total) by mouth daily Yumiko rooney Metoprolol Tartrate (LOPRESSOR) 50 MG oral Tablet 05-31 00:00: 00 Yes [id number] 50mg Take 1 tablet (50 mg total) by mouth 2 times daily Yumiko rooney Tamsulosin HCl 0.4 MG oral Capsule 05-31 00:00: 00 07-02 00:00 :00 No [id number] Take two tabs orally once daily at bedtime Yumiko rooney hydrALAZINE HCl 25 MG oral Tablet 05-31 00:00: 00 07-02 00:00 :00 No [id number] 25mg Take 1 tablet (25 mg total) [...] Urine
D uration of therapy: 72 hours [facility] iopamidol (ISOVUE 370-500 mL) injection 80 mL 04-18 02:15: 04-18 02:48 :00 No [id number] 80mL 80 mL, Intravenou s, ONCE, 1 dose, On Sat04/17/22 at 2015, Routine [facility] doxycycline hyclate 100 mg capsule 04-17 00:00: 00 Yes [id number] 100mg Take 1 capsule by mouth in the morning and 1 capsule in the evening. [facility] Gabapentin 300 MG oral Capsule 2021-02 00:00: 00 Yes [id number] 107 300mg Take 1 capsule (300 mg total) by mouth 2 times daily Yumiko rooney Lisinopril 20 MG oral Tablet 2021-02 00:00: 00 Yes [id number] 20mg Take 1 tablet (20 mg total) by mouth daily Yumiko rooney Gabapentin 100 MG oral Capsule 2021-02 00:00: 00 12-19 00:00 :00 No [id number] 9103 100mg Take 1 capsule (100 mg total) by mouth 2 times daily Yumiko rooney Tramadol HCl 50 MG oral Tablet 2021-02 00:00: 00 12-19 00:00 :00 No [id number] 9103 50mg [id number] 3D Take 1 tablet (50 mg total) by mouth every 8 hours as needed for pain Yumiko rooney Vital Signs Vital Name Observation Time Observation Value Comments S ource weight 2022 09:45:00 218 [lb_av] Comm on [facility] temperature 2022 09:45:00 97.6 [degF] Com [facility] bmi 2022 09:45:00 30.4 kg/m2 Commo n [facility] oximetry 2022 09:45:00 94 % Commo n [facility] respiratory rate 2022 09:45:00 18 /min [facility] blood pressure systolic 2022 09:45:00 160 mm[Hg] [facility] blood pressure diastolic 2022 09:45:00 104 mm[Hg] [facility] height 2022 09:45:00 71 [in_i] Commo n [facility] Oxygen saturation in Arterial blood by Pulse oximetry 2022-07-02 18:44:00 99 /min Yumiko Hamiltonybo ld - External Systolic blood pressure 2022-07-02 18:44:00 141 mm[Hg] Yumiko Hamiltonybo ld - External Diastolic blood pressure 2022-07-02 18:44:00 95 mm[Hg] Yumiko Seybo ld - External Heart rate 2022-07-02 18:44:00 78 /min Elfego y Seybold - External Body temperature 2022-07-02 18:44:00 37.11 Miranda Yumiko Seybold - External Respiratory rate 2022-07-02 18:44:00 16 /min Yumiko Hamiltonybold - External Body height 2022-07-02 18:44:00 180.3 cm Lucila ey Seybold - External Body weight 2022-07-02 18:44:00 97.523 kg Lucila ey Seybold - External BMI 2022-07-02 18:44:00 29.99 kg/m2 Lucila ey Seybold - External Systolic blood pressure 2022-04-17 23:55:00 154 mm[Hg] [facility] Diastolic blood pressure 2022-04-17 23:55:00 99 mm[Hg] [facility] Heart rate 2022-04-17 23:55:00 82 /min [facility] Body temperature 2022-04-17 23:55:00 36.61 Miranda [facility] Respiratory rate 2022-04-17 23:55:00 16 /min [facility] Body height 2022-04-17 23:55:00 180.3 cm [facility] Body weight 2022-04-17 23:55:00 108.863 kg [facility] BMI 2022-04-17 23:55:00 33.47 kg/m2 [facility] Oxygen saturation in Arterial blood by Pulse oximetry 2022-04-17 23:55:00 100 /min [facility] Systolic blood pressure 2021-12-19 18:06:00 132 mm[Hg] Yumiko Hamiltonybo ld - External Diastolic blood pressure 2021-12-19 18:06:00 84 mm[Hg] Yumiko Hamiltonybo ld - External Heart rate 2021-12-19 17:56:00 93 /min Kelse y Seybold - External Body temperature 2021-12-19 17:56:00 36.33 Miranda Yumiko Seybold - External Respiratory rate 2021-12-19 17:56:00 14 /min Ymuiko Seybold - External Body height 2021-12-19 17:56:00 [...] Respiratory rate 2021-11-21 19:28:00 14 /min Yumiko Seybold - External Body height 2021-11-21 19:28:00 180.3 cm Lucila ey Seybold - External Body weight 2021-11-21 19:28:00 100.699 kg Lucila ey Seybold - External BMI 2021-11-21 19:28:00 30.96 kg/m2 Lucila ey Seybold - External Oxygen saturation in Arterial blood by Pulse oximetry 2021-11-21 19:28:00 96 /min Yumiko Seybo ld - External Procedures Procedure Date / Time Performed Performing Clinicia n Source LIPASE 2022-04-18 02:00:00 Keshawn Cheney [facility] COMP. METABOLIC PANEL (68010) 2022-04-18 02:00:00 Keshawn Cheney [facility] CBC WITH DIFF 2022-04-18 02:00:00 Keshawn Cheney [facility] URINALYSIS 2022-04-18 00:14:00 Keshawn Cheney [facility] NOTICE OF PRIVACY PRACTICES 2022-04-17 23:53:59 Doctor Unassigned, [place] [facility] CONSENT/REFUSAL FOR DIAGNOSIS AND TREATMENT 2022-04-17 23:51:45 Doctor Unassigned, [place] [facility] Encounters Start Date/Time End Date/Time Encounter Type Admission Type Attending [facility] Care Facility Care Department Encounter ID Source 2022 09:12:00 Outpatient [facility] [id number] [facility] 2023-01-31 10:00:00 2023-01-31 10:00:00 Outpatient JOAN BURLESON [id number] [facility] 2023-01-21 00:00:00 2023-01-21 00:00:00 Outpatient JOAN BURLESON [id number] [facility] 2022-12-17 00:00:00 2022-12-17 00:00:00 Outpatient MONICA PAULSON [id number] [facility] 2022-12-14 00:00:00 2022-12-14 00:00:00 Outpatient JOAN BURLESON [id number] [facility] 2022 00:00:00 2022 00:00:00 OFFICE VISIT ESTAB PT LEVEL [facility] [id number] [facility] 2022-09-19 00:00:00 2022-09-19 00:00:00 Outpatient JOAN BURLESON [id number] [facility] 2022-08-22 00:00:00 2022-08-22 00:00:00 Outpatient JOAN BURLESON [id number] [facility] 2022-08-14 00:00:00 2022-08-14 00:00:00 Outpatient JOAN BURLESON [id number] [facility] 2022-08-02 00:00:00 2022-08-02 00:00:00 Outpatient JOAN BURLESON [id number] [facility] 2022-07-24 00:00:00 2022-07-24 00:00:00 Outpatient PREZAS, JOAN HOLBROOK YUMIKO [id number] [facility] 2022-07-04 00:00:00 2022-07-04 00:00:00 Outpatient PREZASJOAN YUMIKO [id number] Y[facility] Seybold 2022-07-03 08:05:00 2022-07-03 08:05:00 Outpatient CELESTE YUMIKO YUMIKO [id number] Y[facility]iko Seybold 2022-07-03 00:00:00 2022-07-03 00:00:00 Outpatient PREZAS, JOAN YUMIKO H[facility]BROOK [id number] [facility] 2022-07-02 14:15:00 2022-07-02 14:15:00 Outpatient PREZAS, JOAN YUMIKO [facility]OOK [id number] [facility] Seybold 2022-06-18 14:00:00 2022-06-18 14:00:00 Outpatient TAYLOR MCNAIR [id number] [facility] Seybold 2022-06-11 00:00:00 2022-06-11 00:00:00 Outpatient TAYLOR MCNAIR [id number] Y[facility] Seybold 2022-06-05 16:00:00 2022-06-05 16:00:00 Outpatient MARCO ANTONIO DARRYL H[facility]BROOK [id number] [facility] Seybold 2022-05-31 00:00:00 2022-05-31 00:00:00 Outpatient PREZAS, JOAN YUMIKO HOLBROOK [id number] [facility] Seybold 2022-05-31 00:00:00 2022-05-31 00:00:00 Outpatient REEMA MOSLEY [id number] [facility] Seybold 2022-05-30 13:30:00 2022-05-30 13:30:00 Outpatient BHARATH ANDRADE [id number] [facility] Seybold 2022-05-30 00:00:00 2022-05-30 00:00:00 Outpatient PREZAS, JOAN HOLBROOK [id number] [facility] Joshi 2022-05-29 00:00:00 2022-05-29 00:00:00 Outpatient PREZAJOAN Kuo YUMIKO [id number] [facility] Joshi 2022-05-23 00:00:00 2022-05-23 00:00:00 Outpatient PREZAS, JOAN HOLBROOK YUMIKO [id number] [facility] Joshi 2022-05-21 11:30:00 2022-05-21 11:30:00 Outpatient PREZAS, JOAN YUMIKO YUMIKO [id number] [facility] 2022-05-17 00:00:00 2022-05-17 00:00:00 Outpatient PREZAS, JOAN YUMIKO HOLBROOK [id number] [facility] 2022-05-02 00:00:00 2022-05-02 00:00:00 Outpatient NAIMA PAULSONICA YUMIKO [facility] [id number] [facility] 2022-04-23 00:00:00 2022-04-23 00:00:00 Outpatient PREZAS, JOAN ROMEROOFE H[facility]BROOK [id number] [facility] 2022-04-17 17:57:00 2022-04-17 22:53:00 Emergency X KESHAWN CHENEY [facility] E[facility] [id number] [facility] 2022-04-17 17:57:00 2022-04-17 22:53:00 Emergency Keshawn Cheney [facility] [id number] [facility] 2022-03-02 00:00:00 2022-03-02 00:00:00 Outpatient PREZAS, JOAN YUMIKO HOLBROOK [id number] [facility] 2021-12-19 13:30:00 2021-12-19 13:30:00 Outpatient PREZAS, JOAN YUMIKO HOLBROOK [id number] [facility] 2021-12-01 00:00:00 2021-12-01 00:00:00 Outpatient PREZAS, JOAN YUMIKO HOLBROOK [id number] [facility] 2021-11-21 14:30:00 2021-11-21 14:30:00 Outpatient JOAN BURLESON [id number] [facility] Joshi 2021-10-30 10:00:00 2021-10-30 10:00:00 Outpatient JOAN BURLESON [id number] [facility] Joshi Results Test Description Test Time Test Comments Results Result Co mments [facility]47* Test Item Value Reference Range Interpretation Comme nts LIPASE (test code = 1485202754) 47 U/L 0-220 Lab Interpretation (test cod e = 86630-0) [facility] [id number] 02:15:28* Test Item Value Reference Range Interpretation [...] 31.6 g/dL 31.2-35.0 RDW-SD (test code = 26007-6) 44.9 fL 38.5-51.6 RDW-CV (test code = 788-0) 13.7 % 12.1-15.4 PLT (test code = 777-3) 208 See_Comment [Automated messa ge] The system which generated this result transmitted reference range: 150 - 328 10*3/?L. The reference range was not used to interpret this result as normal/abnormal. MPV (test code = 42706-1) 10.1 fL 9.8-13.0 NRBC/100 WBC (test code = 3822834187) 0.0 See_Comment [Automated me ssage] The system which generated this result transmitted reference range: 0.0 - 10.0 /100 WBCs. The reference range was not used to interpret this result as normal/abnormal. NRBC x10^3 (test code = 2310983509) See_Comment [Automated me ssage] The system which generated this result transmitted reference range: 10*3/?L. The reference range was not used to interpret this result as normal/abnormal. GRAN MAT (NEUT) % (test code = 770-8) 67.4 % IMM GRAN % (test code = 0919055505) 0.70 % LYMPH % (test code = 736-9) 19.8 % MONO % (test code = 5905-5) 9.1 % EOS % (test code = 713-8) 2.3 % BASO % (test code = 706-2) 0.7 % GRAN MAT x10^3(ANC) (test code = 5671576669) 5.80 10*3/uL 1.99-6.95 IMM GRAN x10^3 (test code = 4108234226) 0.06 10*3/uL 0.00-0.06 LYMPH x10^3 (test code = 731-0) 1.70 10*3/uL 1.09-3.23 MONO x10^3 (test code = 742-7) 0.78 10*3/uL 0.36-1.02 EOS x10^3 (test code = 711-2) 0.20 10*3/uL 0.06-0.53 BASO x10^3 (test code = 704-7) 0.06 10*3/uL 0.01-0.09 [facility]
--- NOTE | 2023-05-23 20:13 | EDPHYS ---
Physician Documentation [facility] Name: Hung Long Age: 62 yrs Sex: Male : 1960 Arrival Date: 05/23/2023 Time: 18:40 Bed 9 Private MD: ED Physician Pedro Chambers HPI: 05/22 20:06 This 62 yrs old Male presents to ER via Ambulatory with complaints of Needs ec2 Urinary Catheter Replacement. 20:06 Patient arrives today for evaluation of Lundberg catheter issues. Patient with indwelling ec2 lundebrg catheter. Patient feels that is not draining appropriately. Denies any abdominal pain, denies fevers or chills, denies any other complaints. Historical: - Allergies: 19:24 No Known Allergies; ha1 - PMHx: 19:24 chronic neck pain; Hypercholesterolemia; Hypertensive disorder; ha1 - PSHx: 19:24 Appendectomy; ha1 - Immunization history:: Adult Immunizations unknown. - Infectious Disease History:: Denies. - Social history:: Smoking status: Patient reports the use of cigarette tobacco products, denies chronic smoking, but will smoke occasionally. ROS: 20:11 Constitutional: as per hpi ec2 Exam: 20:08 Constitutional: , Suprapubic catheter in place. GEN: NAD Head: atraumatic Eyes: ec2 EOMI Ears: External ears are normal. CV: regular rate LUNGS: no respiratory distress ABD: non-distended, lundberg catheter in place. SKIN: no evidence of rashes MSK: no evidence of trauma NEURO: moves all extremities equally Vital Signs: 19:21 BP 185 / 115; Pulse 84; Resp 16 S; Temp 98.2; Pulse Ox 95% on R/A; Weight 95.25 kg; ha1 21:03 BP 155 / 95; Pulse 80; Resp 17 S; Temp 98.2(T); Pulse Ox 96% on R/A; ha1 MDM: 19:50 Patient medically screened. ec2 20:08 Data reviewed: vital signs. ED course: Patient arrives today for exchange of suprapubic ec2 catheter. Examination markable appearing nontoxic dividual is otherwise in no acute distress. Low suspicion for UTI, low suspicion for intra-abdominal process.. 05/22 18:45 Order name: Lundberg; Complete Time: 20:50 ec2 Administered Medications: No medications were administered Disposition Summary: 05/23/23 20:12 Discharge Ordered Notes: Location: Home ec2 Condition: Stable ec2 Diagnosis - Other mechanical complication of urinary (indwelling) catheter ec2 Followup: ec2 - With: Private Physician - When: - Reason: Re-evaluation by your physician Discharge Instructions: - Discharge Summary Sheet ec2 - Indwelling Urinary Catheter Care, Adult, [id number] ec2 Forms: - Medication Reconciliation Form ec2 - Thank You Letter ec2 - Antibiotic Education ec2 - Prescription Opioid Use ec2 - Patient Portal Instructions ec2 - Leadership Thank You Letter ec2 Signatures: Annie Montes De Oca RN RN 1 Pedro Chambers MD MD ec2 Corrections: (The following items were deleted from the chart) 20:08 20:08 Constitutional: GEN: NAD Head: atraumatic Eyes: EOMI Ears: External ears are ec2 normal. CV: regular rate LUNGS: no respiratory distress ABD: non-distended SKIN: no evidence of rashes MSK: no evidence of trauma NEURO: moves all extremities equally ec2 20:11 20:06 Patient arrives today for evaluation of Lundberg catheter issues. Patient with ec2 indwelling suprapubic catheter. Patient feels that is not draining appropriately. Denies any abdominal pain, denies fevers or chills, denies any other complaints. ec2 20:12 20:08 Constitutional: , Suprapubic catheter in place. GEN: NAD Head: atraumatic Eyes: ec2 EOMI Ears: External ears are normal. CV: regular rate LUNGS: no respiratory distress ABD: non-distended, suprapubic catheter in place. SKIN: no evidence of rashes MSK: no evidence of trauma NEURO: moves all extremities equally ec2
--- NOTE | 2023-05-23 20:13 | ER ---
Nurse's Notes [facility] Name: Hung Long Age: 62 yrs Sex: Male : 1960 Arrival Date: 05/23/2023 Time: 18:40 Bed 9 Private MD: Diagnosis: Other mechanical complication of urinary (indwelling) catheter Presentation: 05/22 19:21 Chief complaint: Patient states: My urinary catheter is not draining well and is ha1 painful at my suprapubic area. Coronavirus screen: Vaccine status: Patient reports being unvaccinated. Ebola Screen: No symptoms or risks identified at this time. Initial Sepsis Screen: Does the patient meet any 2 criteria? No. Patient's initial sepsis screen is negative. Does the patient have a suspected source of infection? No. Patient's initial sepsis screen is negative. Risk Assessment: Do you want to hurt yourself or someone else? Patient reports no desire to harm self or others. Onset of symptoms was May 23, 2023. 19:21 Method Of Arrival: Ambulatory ha1 19:21 Acuity: GUNNAR 4 ha1 Triage Assessment: 19:24 General: Appears uncomfortable, Behavior is calm, cooperative. Pain: Complains of pain ha1 in pelvis Pain does not radiate. Pain currently is 10 out of 10 on a pain scale. Quality of pain is described as pressure, throbbing. Neuro: Level of Consciousness is awake, alert, obeys commands, Oriented to person, place, time, situation. Cardiovascular: Patient's skin is warm and dry. Respiratory: Airway is patent Respiratory effort is even, unlabored, Respiratory pattern is regular, symmetrical. Historical: - Allergies: 19:24 No Known Allergies; ha1 - PMHx: 19:24 chronic neck pain; Hypercholesterolemia; Hypertensive disorder; ha1 - PSHx: 19:24 Appendectomy; ha1 - Immunization history:: Adult Immunizations unknown. - Infectious Disease History:: Denies. - Social history:: Smoking status: Patient reports the use of cigarette tobacco products, denies chronic smoking, but will smoke occasionally. Screenin:04 [facility] ED Fall Risk Assessment (Adult) History of falling in the last 3 months, ha1 including since admission No falls in past 3 months (0 pts) Confusion or Disorientation No (0 pts) Intoxicated or Sedated No (0 pts) Impaired Gait No (0 pts) Mobility Assist Device Used No (0 pt) Altered Elimination No (0 pt) Score/Fall Risk Level 0 - 2 = Low Risk Oriented to surroundings, Maintained a safe environment, Educated pt \T\ family on fall prevention, incl call for assistance when getting out of bed, Hourly rounding (assess needs \T\ fall precautionary measures) done. Abuse screen: Denies threats or abuse. Denies injuries from another. Nutritional screening: No deficits noted. Tuberculosis screening: No symptoms or risk factors identified. Assessment: 19:20 Reassessment: see triage assessment. ha1 20:50 Reassessment: Patient and/or family updated on plan of care and expected duration. Pain ha1 level reassessed. Patient is alert, oriented x 3, equal unlabored respirations, skin warm/dry/pink. Patient denies pain at this time. Patient states feeling better. Patient states symptoms have improved. Vital Signs: 19:21 BP 185 / 115; Pulse 84; Resp 16 S; Temp 98.2; Pulse Ox 95% on R/A; Weight 95.25 kg; ha1 21:03 BP 155 / 95; Pulse 80; Resp 17 S; Temp 98.2(T); Pulse Ox 96% on R/A; ha1 ED Course: 18:44 Patient arrived in ED. im 18:45 Pedro Chambers MD is Attending Physician. ec2 19:19 Arm band placed on right wrist. ha1 19:24 Triage completed. ha1 19:55 Patient has correct armband on for positive identification. Placed in gown. Bed in low ha1 position. Call light in reach. Side rails up X 1. 20:51 Lundberg cath inserted, using sterile technique, 18 Fr., by sc, balloon inflated, to cm10 gravity drainage, Patient tolerated well. 20:51 Lundberg cath removed intact, balloon deflated, Patient's old lundberg catheter removed and cm10 replaced. 21:04 No provider procedures requiring assistance completed. Patient did not have IV access ha1 during this emergency room visit. 21:05 Provided Education on: following up with urology . ha1 Administered Medications: No medications were administered Medication: 21:05 VIS not applicable for this client. ha1 Outcome: 20:12 Discharge ordered by . ec2 21:04 Discharged to home ambulatory, ha1 21:04 Condition: stable 21:04 Discharge instructions given to patient, Instructed on discharge instructions, follow up and referral plans. Demonstrated understanding of instructions, follow-up care, 21:05 Patient left the ED. ha1 Signatures: Annie Montes De Oca RN RN ha1 Isabelle Francis Clarissa, RN RN cm10 Pedro Chambers MD MD ec2
[2023-05-23 22:27] VITALS: BP 185/115; TEMP 98.2; O2SAT 95
== END 2023-05-23 21:05 | disposition home or self-care (01) ==
LOC: ER 18:40
DX: T83.098A Other mechanical complication of other urinary catheter, initial encounter (principal)
CPT/HCPCS: 51702; 99284

== ENCOUNTER 2023-06-04 02:55 | Emergency (ER) | payer OTHER ==
--- OUTSIDE RECORDS SUMMARY | 2023-06-04 03:00 | XMS REPORT | Continuity of Care Document ---
Author Name Unknown Address [address] [place] [address] [facility] thconnect Address [address] [place] [address] Care Team Providers Care Coil Shaper Name Role Phone GEORGE MEDLEY Primary Care Physician Unavailable JOAN BURLESON Attending Clinician Unavailable MONICA PAULSON Attending Clinician Unavailable LAB90 Attending Clinician Unavailable TAYLOR MCNAIR Attending Clinician UnavailDARRYL Suarez Attending Clinician Unavailable REEMA MOSLEY Attending Clinician Unavailable BHARATH ANDRADE Attending Clinician Unavailnikki e KESHAWN CHENEY Attending Clinician Unavailable Keshawn Lassiter Attending Clinician [phone] KESHAWN CHENEY Admitting Clinician Unavailable Payers Payer Name Policy Type Policy Number Effective Date Expirati on Date Source [employer] MA GOLD PLUS 42 OA 7 [id number] 2021 00:00:00 Yumiko Joshi 53 [id number] [facility] HUMANA GOLD PLS O [id number] 2021 00:00:00 Problems Condition Name Condition Details [...] Active 2018-02 00:00: 00 [facility] [id number] Hydronephr osis, left Problem [facility] [id number] BPH loc w urin obs/LUTS Problem [facility] [id number] Urinary retention Problem [facility] Urinary incontinen ce Urinary incontinen ce Problem [facility] Allergies, Adverse Reactions, Alerts Allergy [...] Joshi - External History of Tobacco Use [facility] Sex Assigned At [facility] Exposure to SARS-CoV-2 (event) 2022-04-07 00:00:00 2022-04-17 17:54:00 Not sure [facility] Education 2021-11-21 00:00:00 2021-11-21 00:00:00 18 Yumiko Joshi - External History of Social function 2021-11-21 00:00:00 2021-11-21 00:00:00 Yumiko Joshi - External Tobacco use and exposure 2021-11-21 00:00:00 2021-11-21 00:00:00 Smokeless tobacco non-user Yumiko Joshi - External Alcohol intake 2018-12-05 00:00:00 2018-12-05 00:00:00 Ex-drinker (finding) [facility] Cigarettes smoked current (pack per day) - Reported 2018-12-04 00:00:00 2018-12-04 00:00:00 [facility] Cigarette pack-years 2018-12-04 00:00:00 2018-12-04 00:00:00 [facility] Smoking Status Start Date Stop Date Source Never Smoker [facility] Smokes tobacco daily 2021-11-21 00:00:00 Yuimko Joshi - External Medications Ordered Medication Name Filled Medication Name Start Date Stop Date Current Medication? Ordering Clinician Indication Dosage Frequency Signature (SIG) Comments Components Source Tamsulosin HCl 0.4 MG Tamsulosin HCl 0.4 MG 2022-02 0-05 00:00: 00 No 1{capsu le} QD Tamsulosin HCl 0.4 MG Tamsulosin HCl 0.4 MG oral Capsule 07-02 00:00: 00 Yes [id number] .4mg Take 1 capsule (0.4 mg total) by mouth every night at bedtime Yumiko rooney Nicotine 21 MG/24HR transdermal PATCH 24 HR 07-02 00:00: 00 Yes [id number] 1{patch } Place 1 patch onto the skin every 24 hours Yumiko rooney Atorvastati n Calcium 40 MG oral Tablet 05-31 00:00: 00 Yes 40mg Take 1 tablet (40 mg total) by mouth daily Yumiko rooney Metoprolol Tartrate (LOPRESSOR) 50 MG oral Tablet 05-31 00:00: 00 Yes [id number] 50mg Take 1 tablet (50 mg total) by mouth 2 times daily Yumiko rooney Tamsulosin HCl 0.4 MG oral Capsule 05-31 00:00: 00 07-02 00:00 :00 No [id number] Take two tabs orally once daily at bedtime Yumiko rooney hydrALAZINE HCl 25 MG oral Tablet 05-31 00:00: 00 07-02 00:00 :00 No [id number] 25mg Take 1 tablet (25 mg total) [...] Urine
D uration of therapy: 72 hours [facility] iopamidol (ISOVUE 370-500 mL) injection 80 mL 04-18 02:15: 04-18 02:48 :00 No [id number] 80mL 80 mL, Intravenou s, ONCE, 1 dose, On Sat04/17/22 at 2015, Routine [facility] doxycycline hyclate 100 mg capsule 04-17 00:00: 00 Yes [id number] 100mg Take 1 capsule by mouth in the morning and 1 capsule in the evening. [facility] Gabapentin 300 MG oral Capsule 2021-02 00:00: 00 Yes [id number] 107 300mg Take 1 capsule (300 mg total) by mouth 2 times daily Yumiko rooney Lisinopril 20 MG oral Tablet 2021-02 00:00: 00 Yes [id number] 20mg Take 1 tablet (20 mg total) by mouth daily Yumiko rooney Gabapentin 100 MG oral Capsule 2021-02 00:00: 00 12-19 00:00 :00 No [id number] 9103 100mg Take 1 capsule (100 mg total) by mouth 2 times daily Yumiko rooney Tramadol HCl 50 MG oral Tablet 2021-02 00:00: 00 12-19 00:00 :00 No [id number] 9103 50mg Q.[id number] 3D Take 1 tablet (50 mg total) by mouth every 8 hours as needed for pain Yumiko rooney Vital Signs Vital Name Observation Time Observation Value Comments S ource weight 2022 09:45:00 218 [lb_av] Comm on [facility] temperature 2022 09:45:00 97.6 [degF] Com [facility] bmi 2022 09:45:00 30.4 kg/m2 Commo n [facility] oximetry 2022 09:45:00 94 % Commo n [facility] respiratory rate 2022 09:45:00 18 /min [facility] blood pressure systolic 2022 09:45:00 160 mm[Hg] [facility] blood pressure diastolic 2022 09:45:00 104 mm[Hg] [facility] height 2022 09:45:00 71 [in_i] Commo [facility] Oxygen saturation in Arterial blood by Pulse oximetry 2022-07-02 18:44:00 99 /min Yumiko Mao ld - External Systolic blood pressure 2022-07-02 18:44:00 141 mm[Hg] Yumiko Hamiltonybo ld - External Diastolic blood pressure 2022-07-02 18:44:00 95 mm[Hg] Yumiko Hamiltonybo ld - External Heart rate 2022-07-02 18:44:00 78 /min Kel y Seybold - External Body temperature 2022-07-02 18:44:00 37.11 Miranad Yumiko Hamiltonybold - External Respiratory rate 2022-07-02 18:44:00 16 /min Yumiko Hamiltonybold - External Body height 2022-07-02 18:44:00 180.3 cm Lucila ey Seybold - External Body weight 2022-07-02 18:44:00 97.523 kg Lucila ey Seybold - External BMI 2022-07-02 18:44:00 29.99 kg/m2 Lucila ey Seybold - External Diastolic blood pressure 2022-04-17 23:55:00 99 mm[Hg] [facility] Heart rate 2022-04-17 23:55:00 82 /min [facility] Body temperature 2022-04-17 23:55:00 36.61 Miranda [facility] Respiratory rate 2022-04-17 23:55:00 16 /min [facility] Body height 2022-04-17 23:55:00 180.3 cm [facility] Body weight 2022-04-17 23:55:00 108.863 kg [facility] BMI 2022-04-17 23:55:00 33.47 kg/m2 [facility] Oxygen saturation in Arterial blood by Pulse oximetry 2022-04-17 23:55:00 100 /min [facility] Systolic blood pressure 2022-04-17 23:55:00 154 mm[Hg] [facility] Systolic blood pressure 2021-12-19 18:06:00 132 mm[Hg] [...] n Source LIPASE 2022-04-18 02:00:00 Keshawn [facility] COMP. METABOLIC PANEL ([id number]) 2022-04-18 02:00:00 Keshawn Cheney [facility] CBC WITH DIFF 2022-04-18 02:00:00 Keshawn Cheney [facility] URINALYSIS 2022-04-18 00:14:00 Keshawn [facility] NOTICE OF PRIVACY PRACTICES 2022-04-17 23:53:59 Doctor Unassigned, [place] [facility] CONSENT/REFUSAL FOR DIAGNOSIS AND TREATMENT 2022-04-17 23:51:45 Doctor Unassigned, [place] [facility] Encounters Start Date/Time End Date/Time Encounter Type Admission Type Attending [facility] Care Facility Care Department Encounter ID Source 2022 09:12:00 Outpatient [facility] [id number] [facility] 2023-01-31 10:00:00 2023-01-31 10:00:00 Outpatient JOAN BURLESON [id number] [facility] 2023-01-21 00:00:00 2023-01-21 00:00:00 Outpatient JOAN BURLESON [id number] [facility] 2022-12-17 00:00:00 2022-12-17 00:00:00 Outpatient MONICA PAULSON [id number] [facility] 2022-12-14 00:00:00 2022-12-14 00:00:00 Outpatient JOAN BURLESON [id number] [facility] 2022 00:00:00 2022 00:00:00 [id number] 2022-09-19 00:00:00 2022-09-19 00:00:00 Outpatient JOAN BURLESON [id number] [facility] 2022-08-22 00:00:00 2022-08-22 00:00:00 Outpatient JOAN BURLESON [id number] [facility] 2022-08-14 00:00:00 2022-08-14 00:00:00 Outpatient JOAN BURLESON [id number] [facility] 2022-08-02 00:00:00 2022-08-02 00:00:00 Outpatient JOAN BURLESON [id number] [facility] 2022-07-24 00:00:00 2022-07-24 00:00:00 Outpatient PREZAS, JOAN HOLBROOK YUMIKO [id number] [facility] 2022-07-04 00:00:00 2022-07-04 00:00:00 Outpatient PREZAS, JOAN YUMIKO YUMIKO [id number] [facility] 2022-07-03 08:05:00 2022-07-03 08:05:00 Outpatient CELESTE YUMIKO YUMIKO [id number] [facility] 2022-07-03 00:00:00 2022-07-03 00:00:00 Outpatient PREZAS, JOAN YUMIKO HOLBROOK [id number] [facility] 2022-07-02 14:15:00 2022-07-02 14:15:00 Outpatient PREZAS, JOAN YUMIKO HOLBROOK [id number] [facility] 2022-06-18 14:00:00 2022-06-18 14:00:00 Outpatient TAYLOR MCNAIR [id number] [facility] 2022-06-11 00:00:00 2022-06-11 00:00:00 Outpatient TAYLOR MCNAIR [id number] [facility] 2022-06-05 16:00:00 2022-06-05 16:00:00 Outpatient DARRYL BERNARD [id number] [facility] 2022-05-31 00:00:00 2022-05-31 00:00:00 Outpatient PREZAS, JOAN YUMIKO HOLBROOK [id number] [facility] 2022-05-31 00:00:00 2022-05-31 00:00:00 Outpatient REEMA MOSLEY [id number] [facility] 2022-05-30 13:30:00 2022-05-30 13:30:00 Outpatient BHARATH ANDRADE [id number] [facility] 2022-05-30 00:00:00 2022-05-30 00:00:00 Outpatient PREZAS, JOAN HOLBROOK [id number] [facility] 2022-05-29 00:00:00 2022-05-29 00:00:00 Outpatient PREZAJOAN Kuo YUMIKO [id number] [facility] 2022-05-23 00:00:00 2022-05-23 00:00:00 Outpatient PREZAS, JOAN HOLBROOK YUMIKO [id number] [facility] 2022-05-21 11:30:00 2022-05-21 11:30:00 Outpatient PREZAS, JOAN HOLBROOK YUMIKO [id number] [facility] 2022-05-17 00:00:00 2022-05-17 00:00:00 Outpatient PREZAS, JOAN YUMIKO [facility]BROOK [id number] [facility] 2022-05-02 00:00:00 2022-05-02 00:00:00 Outpatient KHURRAM MONICA YUMIKO [facility]BROOK [id number] [facility] 2022-04-23 00:00:00 2022-04-23 00:00:00 Outpatient PREZAS, JOAN HOLBROOK YUMIKO [id number] [facility] 2022-04-17 17:57:00 2022-04-17 22:53:00 Emergency X KESHAWN CHENEY [facility] ERT [id number] [facility] 2022-04-17 17:57:00 2022-04-17 22:53:00 Emergency Keshawn Cheney [facility] [id number] [facility] 2022-03-02 00:00:00 2022-03-02 00:00:00 Outpatient PREZAS, JOAN YUMIKO HOLBROOK [id number] [facility] 2021-12-19 13:30:00 2021-12-19 13:30:00 Outpatient PREZAS, JOAN YUMIKO HOLBROOK [id number] [facility] 2021-12-01 00:00:00 2021-12-01 00:00:00 Outpatient PREZAS, JOAN YUMIKO HOLBROOK [id number] [facility] 2021-11-21 14:30:00 2021-11-21 14:30:00 Outpatient JOAN BURLESON [id number] [facility] 2021-10-30 10:00:00 2021-10-30 10:00:00 Outpatient JOAN BURLESON [id number] [facility] Results Test Description Test Time Test Comments Results Result Co mments [facility]47* Test Item Value Reference Range Interpretation Comme nts LIPASE (test code = 2486645581) 47 U/L 0-220 Lab Interpretation (test cod e = 90568-0) [id number] 02:15:28* Test Item Value Reference Range Interpretation [...] 31.6 g/dL 31.2-35.0 RDW-SD (test code = 97596-1) 44.9 fL 38.5-51.6 RDW-CV (test code = 788-0) 13.7 % 12.1-15.4 PLT (test code = 777-3) 208 See_Comment [Automated messa ge] The system which generated this result transmitted reference range: 150 - 328 10*3/?L. The reference range was not used to interpret this result as normal/abnormal. MPV (test code = 34565-5) 10.1 fL 9.8-13.0 NRBC/100 WBC (test code = 5585827175) 0.0 See_Comment [Automated me ssage] The system which generated this result transmitted reference range: 0.0 - 10.0 /100 WBCs. The reference range was not used to interpret this result as normal/abnormal. NRBC x10^3 (test code = 5206474623) See_Comment [Automated me ssage] The system which generated this result transmitted reference range: 10*3/?L. The reference range was not used to interpret this result as normal/abnormal. GRAN MAT (NEUT) % (test code = 770-8) 67.4 % IMM GRAN % (test code = 8668947008) 0.70 % LYMPH % (test code = 736-9) 19.8 % MONO % (test code = 5905-5) 9.1 % EOS % (test code = 713-8) 2.3 % BASO % (test code = 706-2) 0.7 % GRAN MAT x10^3(ANC) (test code = 6077537776) 5.80 10*3/uL 1.99-6.95 IMM GRAN x10^3 (test code = 2111450171) 0.06 10*3/uL 0.00-0.06 LYMPH x10^3 (test code = 731-0) 1.70 10*3/uL 1.09-3.23 MONO x10^3 (test code = 742-7) 0.78 10*3/uL 0.36-1.02 EOS x10^3 (test code = 711-2) 0.20 10*3/uL 0.06-0.53 BASO x10^3 (test code = 704-7) 0.06 10*3/uL 0.01-0.09 [facility]
--- NOTE | 2023-06-04 03:25 | EDPHYS ---
Physician Documentation [facility] Name: Hung Long Age: 62 yrs Sex: Male : 1960 Arrival Date: 06/04/2023 Time: 02:55 Bed 13 Private MD: Boom Anthony ED Physician Satinder Cross HPI: 06/03 03:02 This 62 yrs old Male presents to ER via Unassigned with complaints of Needs sp4 Urinary Catheter Replacement. 03:21 Very pleasant 62-year-old male with chronic neck pain, hypercholesterolemia, sp4 hypertensive disorder, BPH and indwelling Kyle catheter with leg bag, presents with request for Kyle catheter change, patient states he has been urinating just a little around the Kyle catheter. Patient has no other complaints today . . Historical: - Allergies: 03:19 Codeine; cm10 - PMHx: 03:19 chronic neck pain; Hypercholesterolemia; Hypertensive disorder; cm10 - PSHx: 03:19 Appendectomy; cm10 - Immunization history:: Adult Immunizations up to date. - Infectious Disease History:: Denies. - Social history:: Smoking status: Patient denies any tobacco usage or history of. - Family history:: not pertinent. ROS: 03:21 Constitutional: Negative for fever, chills, and weight loss, positive for indwelling sp4 Kyle catheter with poor seal 03:21 All other systems are negative, Exam: 03:21 Constitutional: This is a well developed, well nourished patient who is awake, alert, sp4 and in no acute distress. Head/Face: Normocephalic, atraumatic. Eyes: Pupils equal round and reactive to light, extra-ocular motions intact. Lids and lashes normal. Conjunctiva and sclera are not injected. Cornea within normal limits. Periorbital areas with no swelling, redness, or edema. ENT: Nares patent. No nasal discharge, no septal abnormalities noted. Tympanic membranes are normal and external auditory canals are clear. Oropharynx with no redness, swelling, or masses, exudates, or evidence of obstruction, uvula midline. Mucous membranes moist. Neck: Trachea midline, no thyromegaly or masses palpated, and no cervical lymphadenopathy. Supple, full range of motion without nuchal rigidity, or vertebral point tenderness. Chest/axilla: Normal chest wall appearance and motion. Nontender with no deformity. No lesions are appreciated. Cardiovascular: Regular rate and rhythm with a normal S1 and S2. No gallops, murmurs, or rubs. Normal PMI, no JVD. No pulse deficits. Respiratory: Lungs have equal breath sounds bilaterally, clear to auscultation and percussion. No rales, rhonchi or wheezes noted. No increased work of breathing, no retractions or nasal flaring. Abdomen/GI: Soft, with normal bowel sounds. No distension or tympany. No guarding or rebound. No evidence of tenderness throughout. Back: No spinal tenderness. No costovertebral tenderness. Male : Normal genitalia with no discharge or lesions. Positive for indwelling Kyle catheter Skin: Warm, dry with normal turgor. Normal color with no rashes, no lesions, and no evidence of cellulitis. MS/ Extremity: Pulses equal, no cyanosis. Neurovascular intact. Full, normal range of motion. Neuro: Awake and alert, GCS 15, oriented to person, place, time, and situation. Cranial nerves II-XII grossly intact. Motor strength 5/5 in all extremities. Sensory grossly intact. Psych: Awake, alert, with orientation to person, place and time. Behavior, mood, and affect are within normal limits Vital Signs: 03:15 BP 192 / 111 LA Sitting (auto/reg); Pulse 77 MON; Resp 17 S; Temp 98.1(O); Pulse Ox 97% ty on R/A; Weight 97.52 kg (R); Height 5 ft. 11 in. (R); Pain 0/10; 03:15 Body Mass Index 29.99 (97.52 kg, 180.34 cm) ty 03:15 Pain Scale: Adult ty Lingle Coma Score: 03:21 Eye Response: spontaneous(4). Motor Response: obeys commands(6). Verbal Response: sp4 oriented(5). Total: 15. MDM: 03:10 Patient medically screened. sp4 03:21 Differential Diagnosis Complication of Kyle Catheter . Data reviewed: vital signs, sp4 nurses notes. ED course: Patient is going to have Kyle catheter exchange.. RN was instructed to exchange Kyle catheter. Patient stable for discharge home. . 06/03 03:06 Order name: Kyle Leg Bag; Complete Time: 03:43 sp4 06/03 03:06 Order name: Leg Bag; Complete Time: 03:43 sp4 Administered Medications: No medications were administered Disposition Summary: 06/04/23 03:24 Discharge Ordered Notes: Location: Home sp4 Problem: new sp4 Symptoms: have improved sp4 Condition: Stable sp4 Diagnosis - Other mechanical complication of urinary (indwelling) catheter sp4 - Encounter for Kyle catheter exchange sp4 Followup: sp4 - With: Private Physician - When: 7 - 10 days - Reason: Recheck today's complaints Discharge Instructions: - Discharge Summary Sheet sp4 - Indwelling Urinary Catheter Care, Adult, [id number] sp4 Signatures: Satinder Cross MD MD sp4 Gladys Perry RN RN cm10
--- NOTE | 2023-06-04 03:25 | ER ---
Nurse's Notes [facility] Name: Hung [facility] Age: 62 yrs Sex: Male : 1960 Arrival Date: 06/04/2023 Time: 02:55 Bed 13 Private MD: Boom Anthony Diagnosis: Other mechanical complication of urinary (indwelling) catheter;Encounter for Lundberg catheter exchange Presentation: 06/03 03:18 Chief complaint: Patient states: Here to have lundberg catheter exchanged. Coronavirus cm10 screen: Client denies travel out of the [place] in the last 14 days. At this time, the client does not indicate any symptoms associated with coronavirus-19. Ebola Screen: Patient denies travel to an Ebola-affected area in the 21 days before illness onset. No symptoms or risks identified at this time. Initial Sepsis Screen: Does the patient meet any 2 criteria? No. Patient's initial sepsis screen is negative. Does the patient have a suspected source of infection? No. Patient's initial sepsis screen is negative. Risk Assessment: Do you want to hurt yourself or someone else? Patient reports no desire to harm self or others. Onset of symptoms was June 04, 2023. 03:18 Method Of Arrival: Ambulatory cm10 03:18 Acuity: GUNNAR 4 cm10 Triage Assessment: 03:19 General: Appears in no apparent distress. comfortable, Behavior is calm, cooperative. cm10 Pain: Denies pain. Neuro: No deficits noted. Level of Consciousness is awake, alert, obeys commands, Oriented to person, place, time, situation, Appropriate for age. Respiratory: No deficits noted. Airway is patent Respiratory effort is even, unlabored, Respiratory pattern is regular, symmetrical. : Lundberg in place. Derm: No deficits noted. Skin is intact, Skin is pink, warm \T\ dry. Musculoskeletal: No deficits noted. Range of motion: intact in all extremities. Historical: - Allergies: 03:19 Codeine; cm10 - PMHx: 03:19 chronic neck pain; Hypercholesterolemia; Hypertensive disorder; cm10 - PSHx: 03:19 Appendectomy; cm10 - Immunization history:: Adult Immunizations up to date. - Infectious Disease History:: Denies. - Social history:: Smoking status: Patient denies any tobacco usage or history of. - Family history:: not pertinent. Screenin:26 [facility] ED Fall Risk Assessment (Adult) History of falling in the last 3 months, cm10 including since admission No falls in past 3 months (0 pts) Confusion or Disorientation No (0 pts) Intoxicated or Sedated No (0 pts) Impaired Gait No (0 pts) Mobility Assist Device Used No (0 pt) Altered Elimination No (0 pt) Score/Fall Risk Level 0 - 2 = Low Risk Oriented to surroundings, Maintained a safe environment, Hourly rounding (assess needs \T\ fall precautionary measures) done. Abuse screen: Denies threats or abuse. Denies injuries from another. Nutritional screening: No deficits noted. Tuberculosis screening: No symptoms or risk factors identified. Vital Signs: 03:15 BP 192 / 111 LA Sitting (auto/reg); Pulse 77 MON; Resp 17 S; Temp 98.1(O); Pulse Ox 97% ty on R/A; Weight 97.52 kg (R); Height 5 ft. 11 in. (R); Pain 0/10; 03:15 Body Mass Index 29.99 (97.52 kg, 180.34 cm) ty 03:15 Pain Scale: Adult ty Melissa Coma Score: 03:21 Eye Response: spontaneous(4). Motor Response: obeys commands(6). Verbal Response: sp4 oriented(5). Total: 15. ED Course: 03:01 Patient arrived in ED. gm2 03:01 Boom Atnhony DO is Private Physician. gm2 03:02 Satinder Cross MD is Attending Physician. sp4 03:19 Triage completed. cm10 03:20 Arm band placed on Patient placed in an exam room, on a stretcher. cm10 03:26 Patient has correct armband on for positive identification. Provided Education on: ER cm10 process and procedures. 03:26 No provider procedures requiring assistance completed. Lundberg cath removed intact, cm10 balloon deflated. 03:27 Lundberg cath inserted, using sterile technique, 18 Fr., by ED staff, balloon inflated, to cm10 gravity drainage. 03:30 Patient did not have IV access during this emergency room visit. cm10 Administered Medications: No medications were administered Medication: 03:26 VIS not applicable for this client. cm10 Outcome: 03:24 Discharge ordered by . sp4 03:30 Discharged to home ambulatory, cm10 03:30 Condition: good 03:30 Discharge instructions given to patient, Instructed on discharge instructions, follow up and referral plans. Demonstrated understanding of instructions, follow-up care, 03:43 Patient left the ED. cm10 Signatures: Satinder Cross MD MD sp4 Gladys Perry RN RN cm10 Kayla Buchanan gm2 Molina Alfaro
[2023-06-04 10:08] VITALS: BP 192/111; TEMP 98.1; O2SAT 97
== END 2023-06-04 03:43 | disposition home or self-care (01) ==
LOC: ER 02:55
DX: T83.038A Leakage of other urinary catheter, initial encounter (principal); Z46.6 Encounter for fitting and adjustment of urinary device
CPT/HCPCS: 51702; 99284

== ENCOUNTER 2023-06-23 16:20 | Emergency (ER) | payer OTHER ==
[2023-06-23 17:45] LABS: Specific Gravity 1.013 (1.005-1.030); Sqamous Epithelial None Seen /HPF (None Seen); Urine Bacteria <20 /HPF (<20); Urine Bilirubin NEGATIVE (Negative); Urine Blood 1+ (Negative); Urine Clarity Extremely Turbid (Clear); Urine Color Light-Yellow (Yellow); Urine Culture Reflex Order REFLEXED; Urine Glucose NEGATIVE (Negative); Urine Ketones NEGATIVE (Negative); Urine Micro Reflex YN NO BILL MICROSCOPIC; Urine Nitrite NEGATIVE (Negative); Urine Protein TRACE (Negative); Urine RBC 21-50 /HPF (None Seen); Urine Urobilinogen Normal (Normal); Urine WBC 20-50 /HPF (<5); Urine pH 6.5 (5.0-7.0)
--- NOTE | 2023-06-23 17:52 | EDPHYS ---
Physician Documentation [facility] Name: Hung Long Age: 62 yrs Sex: Male : 1960 Arrival Date: 06/23/2023 Time: 16:20 Bed 17 Private MD: Boom Anthony ED Physician Evelio Guzman HPI: 06/22 17:01 This 62 yrs old Male presents to ER via Ambulatory with complaints of Needs Urinary sb4 Catheter Replacement. 17:01 states urine is leaking around his lundberg catheter tubing causing pain. lundberg was last sb4 replaced 2 weeks ago. no other complaints at this time. Historical: - Allergies: 16:36 NKDA; nj1 - PMHx: 16:36 Hypercholesterolemia; Hypertensive disorder; chronic neck pain; nj1 - PSHx: 16:36 Appendectomy; nj1 - Immunization history:: Client reports having NOT received the Covid vaccine. - Infectious Disease History:: Denies. - Social history:: Smoking status: Patient reports the use of cigarette tobacco products, smokes one-half pack cigarettes per day. ROS: 17:01 Constitutional: Negative for fever, chills, and weight loss, sb4 17:01 : Positive for burning with urination, Exam: 17:30 Constitutional: This is a well developed, well nourished patient who is awake, alert, sb4 and in no acute distress. Head/Face: Normocephalic, atraumatic. Eyes: Extra-ocular motions intact. Periorbital areas with no swelling, redness, or edema. ENT: Mucous membranes moist. 17:30 : a lundberg is noted, leaking, Vital Signs: 16:33 BP 202 / 116; Pulse 87; Resp 18; Temp 98.5; Pulse Ox 94% on R/A; Weight 97.52 kg; nj1 Height 5 ft. 11 in. ; Pain 10/10; 17:02 BP 181 / 107; Pulse 80; Resp 18; Pulse Ox 99% on R/A; rs5 18:01 BP 177 / 99; Pulse 77; Resp 18; Pulse Ox 99% on R/A; rs5 16:33 Body Mass Index 29.99 (97.52 kg, 180.34 cm) [facility] 16:33 Pain Scale: Adult [facility] MDM: 16:38 Patient medically screened. sb4 17:30 Data reviewed: vital signs, nurses notes, lab test result(s), and as a result, I will sb4 discharge patient. Counseling: I had a detailed discussion with the patient and/or guardian regarding the historical points, exam findings, and any diagnostic results supporting the discharge/admit diagnosis, lab results, the need for outpatient follow up, a urologist, to return to the emergency department if symptoms worsen or persist or if there are any questions or concerns that arise at home. 06/22 16:37 Order name: UAM; Complete Time: 17:50 sb4 06/22 16:39 Order name: Urine Culture sb4 06/22 16:37 Order name: Misc. Order: replace lundberg catheter; Complete Time: 17:14 sb4 Administered Medications: No medications were administered Disposition Summary: 06/23/23 17:51 Discharge Ordered Notes: Location: Home sb4 Problem: new sb4 Symptoms: have improved sb4 Condition: Stable sb4 Diagnosis - Mechanical complication of urinary (indwelling) catheter sb4 Followup: sb4 - With: Carlo Chauhan MD - When: 2 - 3 days - Reason: Recheck today's complaints, Re-evaluation by your physician Discharge Instructions: - Discharge Summary Sheet sb4 - Indwelling Urinary Catheter Care, Adult, [id number] sb4 Forms: - Patient Portal Instructions sb4 - Leadership Thank You Letter sb4 Signatures: Dispatcher [employer] Chantal Leyva PA-C PA-C sb4 Andrea Winn RN RN rs5 Betzaida Neal, EARL RN nj1 Corrections: (The following items were deleted from the chart) 16:37 16:36 Allergies: Codeine; nj1 nj1 16:40 16:40 Urine Culture+[id number].LAB.BRZ ordered. [facility] [place]
--- NOTE | 2023-06-23 17:52 | ER ---
Nurse's Notes [facility] Name: Hung Long Age: 62 yrs Sex: Male : 1960 Arrival Date: 06/23/2023 Time: 16:20 Bed 17 Private MD: Boom Anthony Diagnosis: Mechanical complication of urinary (indwelling) catheter Presentation: 06/22 16:33 Chief complaint: Patient states: Catheter not draining properly, burning at meatus. nj1 Sees urologist next month, had catheter placed 2 week ago in this ED. Coronavirus screen: Vaccine status: Patient reports being unvaccinated. Ebola Screen: Patient denies travel to an Ebola-affected area in the 21 days before illness onset. Initial Sepsis Screen: Does the patient meet any 2 criteria? No. Patient's initial sepsis screen is negative. Does the patient have a suspected source of infection? No. Patient's initial sepsis screen is negative. Risk Assessment: Do you want to hurt yourself or someone else? Patient reports no desire to harm self or others. Onset of symptoms was June 22, 2023. 16:33 Method Of Arrival: Ambulatory [facility] 16:33 Acuity: GUNNAR 3 [facility] Triage Assessment: 16:37 General: Appears in no apparent distress. uncomfortable, Behavior is calm, cooperative, nj1 appropriate for age. Pain: Complains of pain in meatus Pain currently is 10 out of 10 on a pain scale. Quality of pain is described as burning. Historical: - Allergies: 16:36 NKDA; nj1 - PMHx: 16:36 Hypercholesterolemia; Hypertensive disorder; chronic neck pain; nj1 - PSHx: 16:36 Appendectomy; nj1 - Immunization history:: Client reports having NOT received the Covid vaccine. - Infectious Disease History:: Denies. - Social history:: Smoking status: Patient reports the use of cigarette tobacco products, smokes one-half pack cigarettes per day. Screenin:40 [facility] ED Fall Risk Assessment (Adult) History of falling in the last 3 months, rs5 including since admission No falls in past 3 months (0 pts) Confusion or Disorientation No (0 pts) Intoxicated or Sedated No (0 pts) Impaired Gait No (0 pts) Mobility Assist Device Used No (0 pt) Altered Elimination No (0 pt) Score/Fall Risk Level 0 - 2 = Low Risk Oriented to surroundings, Maintained a safe environment. 16:40 Abuse screen: Denies threats or abuse. Nutritional screening: No deficits noted. rs5 Tuberculosis screening: No symptoms or risk factors identified. Assessment: 16:40 General: Appears in no apparent distress. uncomfortable, Behavior is calm, cooperative. rs5 Pain: Complains of pain in penis Pain currently is 8 out of 10 on a pain scale. Quality of pain is described as aching, Is continuous. Neuro: Level of Consciousness is awake, alert, obeys commands, Oriented to person, place, time, situation. Cardiovascular: Rhythm is regular. Respiratory: Airway is patent Respiratory effort is even, unlabored, Respiratory pattern is regular, symmetrical. GI: Abdomen is round non-distended, Abd is soft and non tender X 4 quads. : Reports pain in urinary catheter when urinating. pt states "when I pee I feel like it leeks around the catheter and it hurts". EENT: No signs and/or symptoms were reported regarding the EENT system. Derm: Skin is intact, Skin is pink, warm \\T\\ dry. Musculoskeletal: Range of motion: intact in all extremities. 16:40 : Kyle in place clamped with leg bag. clear yellow urine noted in urinary cathet. rs5 16:45 Reassessment: pt states "I don't want anything for my blood pressure, just get this rs5 cather out and replace it with a new one". 16:52 Reassessment: Patient and/or family updated on plan of care and expected duration. Pain ll1 level reassessed. 16:52 Reassessment: To bedside. old catheter removed and new 20 ff catheter Kyle inserted rs5 using sterile technique per MD orders. pt denies pain at this moment. 18:01 Reassessment: Patient and/or family updated on plan of care and expected duration. Pain rs5 level reassessed. Patient is alert, oriented x 3, equal unlabored respirations, skin warm/dry/pink. Vital Signs: 16:33 BP 202 / 116; Pulse 87; Resp 18; Temp 98.5; Pulse Ox 94% on R/A; Weight 97.52 kg; nj1 Height 5 ft. 11 in. ; Pain 10/10; 17:02 BP 181 / 107; Pulse 80; Resp 18; Pulse Ox 99% on R/A; rs5 18:01 BP 177 / 99; Pulse 77; Resp 18; Pulse Ox 99% on R/A; rs5 16:33 Body Mass Index 29.99 (97.52 kg, 180.34 cm) nj1 16:33 Pain Scale: Adult nj1 ED Course: 16:01 No provider procedures requiring assistance completed. rs5 16:01 Patient did not have IV access during this emergency room visit. rs5 16:24 Patient arrived in ED. rg4 16:24 Boom Anthony DO is Private Physician. rg4 16:34 Chantal Espinoza PA-C is PHCP. sb4 16:34 Evelio Guzman MD is Attending Physician. sb4 16:36 Triage completed. nj1 16:37 Arm band placed on right wrist. nj1 16:40 Patient has correct armband on for positive identification. Placed in gown. Bed in low rs5 position. Call light in reach. Side rails up X2. 16:52 Patient placed in an exam room, on a stretcher. ll1 16:53 Andrea Winn, RN is Primary Nurse. rs5 17:51 Carlo Chauhan MD is Referral Physician. sb4 Administered Medications: No medications were administered Medication: 16:40 VIS not applicable for this client. rs5 Outcome: 17:51 Discharge ordered by . sb4 18:05 Discharged to home ambulatory, rs5 18:05 Condition: stable 18:05 Discharge instructions given to patient, family, Instructed on discharge instructions, follow up and referral plans. Demonstrated understanding of instructions, follow-up care, 18:10 Patient left the ED. rs5 Signatures: Talia Naranjo rg4 Kevin Solis, RN RN ll1 Chantal Espinoza PA-C PA-C sb4 Andrea Winn RN RN rs5 Betzaida Neal RN RN nj1 Corrections: (The following items were deleted from the chart) 16:37 16:36 Allergies: Codeine; nj1 nj1 18:48 18:21 Patient left the ED. rs5 rs5 18:49 16:40 No provider procedures requiring assistance completed. rs5 rs5
[2023-06-23 19:08] VITALS: BP 202/116; TEMP 98.5; O2SAT 94
== END 2023-06-23 18:21 | disposition home or self-care (01) ==
LOC: ER 16:20
PROC: 0T2BX0Z Change Drainage Device in Bladder, External Approach (ICD-10-PCS; principal; 2023-06-23)
DX: T83.098A Other mechanical complication of other urinary catheter, initial encounter (principal)
CPT/HCPCS: 81001; 87086; 87088; 99283

== ENCOUNTER 2023-08-01 19:32 | Emergency (ER) | payer OTHER ==
--- NOTE | 2023-08-01 21:05 | EDPHYS ---
Physician Documentation [facility] Name: Hung Long Age: 62 yrs Sex: Male : 1960 Arrival Date: 08/01/2023 Time: 19:32 Bed 13 Private MD: ED Physician Evelio Guzman HPI: 07/31 21:16 This 62 yrs old Male presents to ER via Ambulatory with complaints of Needs Urinary kb Catheter Replacement. 21:16 Pt is a 62 year old male who presents to have lundberg catheter replaced. States he has kb had this catheter in for one month. Today he changed the bag around 1500 and it hasn't drained since then. . Historical: - Allergies: 19:43 NKDA; as6 - PMHx: 19:43 Hypercholesterolemia; chronic neck pain; Hypertensive disorder; as6 - PSHx: 19:43 Appendectomy; as6 - Immunization history:: Adult Immunizations up to date. - Infectious Disease History:: Denies. - Social history:: Smoking status: Patient reports the use of cigarette tobacco products, cigars. ROS: 21:16 Constitutional: As per HPI kb Exam: 21:16 Constitutional: This is a well developed, well nourished patient who is awake, alert, kb and in no acute distress. Head/Face: Normocephalic, atraumatic. ENT: Moist Mucous membranes Cardiovascular: Regular rate Respiratory: Respirations even and unlabored. No increased work of breathing. Talking in full sentences Abdomen/GI: Soft, non-tender. No distention Skin: Warm, dry with normal turgor. Normal color. MS/ Extremity: Pulses equal, no cyanosis. Neurovascular intact. Full, normal range of motion. Neuro: Awake and alert, GCS 15, oriented to person, place, time, and situation. Moves all extremities. Normal gait. Vital Signs: 19:42 BP 204 / 129; Pulse 87; Resp 18; Temp 97.4; Pulse Ox 94% ; Weight 99.79 kg; Height 5 as6 ft. 11 in. ; Pain 10/10; 20:19 BP 199 / 136; Pulse 94; Resp 20; Temp 98.4; Pulse Ox 94% on R/A; Pain 10/10; pc2 21:14 BP 187 / 119; Pulse 90; Resp 18; Pulse Ox 99% ; Pain 4/10; pc2 19:42 Body Mass Index 30.68 (99.79 kg, 180.34 cm) as6 19:42 Pain Scale: Adult as6 20:19 Pain Scale: Adult pc2 21:14 Pain Scale: Adult pc2 MDM: 19:48 Patient medically screened. kb 21:16 Data reviewed: vital signs, nurses notes. Counseling: I had a detailed discussion with kb the patient and/or guardian regarding the historical points, exam findings, and any diagnostic results supporting the discharge/admit diagnosis, the need for outpatient follow up, a urologist, to return to the emergency department if symptoms worsen or persist or if there are any questions or concerns that arise at home. ED course: new lundberg in place, pt states he is feeling better and ready to go home.. 21:17 Differential diagnosis: Lundberg catheter problem. kb 07/31 19:51 Order name: Lundberg: replace lundberg; Complete Time: 20:49 kb Administered Medications: No medications were administered Disposition Summary: 08/01/23 21:04 Discharge Ordered Notes: Location: Home kb Condition: Stable kb Diagnosis - Mechanical complication of urinary (indwelling) catheter kb Followup: kb - With: Emergency Department - When: As needed - Reason: Worsening of condition Followup: kb - With: Private Physician - When: 2 - 3 days - Reason: Recheck today's complaints, Continuance of care, Re-evaluation by your physician Discharge Instructions: - Discharge Summary Sheet kb - Indwelling Urinary Catheter Care, Adult, [id number] kb Forms: - Medication Reconciliation Form kb - Antibiotic Education kb - Prescription Opioid Use kb - Patient Portal Instructions kb - Leadership Thank You Letter kb Signatures: Vianca Mehta FNP-C FNP-Alejandro Rodríguez, RN RN as6
--- NOTE | 2023-08-01 21:05 | ER ---
Nurse's Notes [facility] Name: Hung Long Age: 62 yrs Sex: Male : 1960 Arrival Date: 08/01/2023 Time: 19:32 Bed 13 [facility] MD: Diagnosis: Mechanical complication of urinary (indwelling) catheter Presentation: 07/31 19:42 Chief complaint: Patient states: pt had his catheter changed today around 1500 and it as6 hasn't been draining since. Coronavirus screen: At this time, the client does not indicate any symptoms associated with coronavirus-19. Ebola Screen: No symptoms or risks identified at this time. Initial Sepsis Screen: Does the patient meet any 2 criteria? No. Patient's initial sepsis screen is negative. Does the patient have a suspected source of infection? No. Patient's initial sepsis screen is negative. Risk Assessment: Do you want to hurt yourself or someone else? Patient reports no desire to harm self or others. Onset of symptoms was August 01, 2023. 19:42 Method Of Arrival: Ambulatory as6 19:42 Acuity: GUNNAR 3 as6 Historical: - Allergies: 19:43 NKDA; as6 - PMHx: 19:43 Hypercholesterolemia; chronic neck pain; Hypertensive disorder; as6 - PSHx: 19:43 Appendectomy; as6 - Immunization history:: Adult Immunizations up to date. - Infectious Disease History:: Denies. - Social history:: Smoking status: Patient reports the use of cigarette tobacco products, cigars. Screenin:15 [facility] ED Fall Risk Assessment (Adult) History of falling in the last 3 months, pc2 including since admission No falls in past 3 months (0 pts). Abuse screen: Denies threats or abuse. Denies injuries from another. Nutritional screening: No deficits noted. Tuberculosis screening: No symptoms or risk factors identified. Assessment: 20:15 General: Appears uncomfortable, obese, Behavior is cooperative, appropriate for age, pc2 restless. Pain: Complains of pain in bladder, groin Pain currently is 10 out of 10 on a pain scale. Quality of pain is described as pressure, Is lasting more than 1 hour. Noted to be restless. Neuro: Level of Consciousness is awake, alert, Oriented to person, place, time, situation, Appropriate for age. Cardiovascular: Patient's skin is warm and dry. Respiratory: Airway is patent Respiratory effort is even, unlabored, Respiratory pattern is regular, symmetrical. GI: Abdomen is round Reports lower abdominal pain. : Lundberg in place 20 Fr with minimum urinary drainage noted to leg bag. Reports changing leg bag about 3pm and has not drained much. Lundberg was last changed about 4 weeks ago. Urine is clear, Reports pain. EENT: No signs and/or symptoms were reported regarding the EENT system. Derm: No signs and/or symptoms reported regarding the dermatologic system. Musculoskeletal: No signs and/or symptoms reported regarding the musculoskeletal system. Vital Signs: 19:42 BP 204 / 129; Pulse 87; Resp 18; Temp 97.4; Pulse Ox 94% ; Weight 99.79 kg; Height 5 as6 ft. 11 in. ; Pain 10/10; 20:19 BP 199 / 136; Pulse 94; Resp 20; Temp 98.4; Pulse Ox 94% on R/A; Pain 10/10; pc2 21:14 BP 187 / 119; Pulse 90; Resp 18; Pulse Ox 99% ; Pain 4/10; pc2 19:42 Body Mass Index 30.68 (99.79 kg, 180.34 cm) as6 19:42 Pain Scale: Adult as6 20:19 Pain Scale: Adult pc2 21:14 Pain Scale: Adult pc2 ED Course: 19:37 Patient arrived in ED. gm2 19:43 Triage completed. as6 19:44 Arm band placed on. as6 19:48 Vianca Me[facility] F[facility]-C [facility] kb 19:48 Evelio Guzman MD is Attending Physician. kb 20:09 sAhley canales, RN is Primary Nurse. pc2 20:10 Patient has correct armband on for positive identification. Placed in gown. Bed in low pc2 position. Call light in reach. Side rails up X2. Provided Education on: plan of care. 20:52 Lundberg cath balloon deflated. vk 20:53 Lundberg cath inserted, using sterile technique, 20 Fr., by me, balloon inflated. vk 21:09 No provider procedures requiring assistance completed. pc2 21:14 Patient did not have IV access during this emergency room visit. pc2 Administered Medications: No medications were administered Medication: 20:46 VIS not applicable for this client. pc2 Output: 20:49 Urine: 700ml (Lundberg); Total: 700ml. pc2 Outcome: 21:04 Discharge ordered by MD. santizo 21:09 Discharged to home ambulatory, pc2 21:09 Condition: stable 21:09 Discharge instructions given to patient, Instructed on discharge instructions, follow up and referral plans. lundberg care 21:15 Patient left the ED. pc2 Signatures: Vianca Mehta FNP-C FNP-Ckb Slawson, Ashby, RN RN as6 Kayla Buchanan gm2 Isabel Batista Pam, RN RN pc2 Corrections: (The following items were deleted from the chart) 19:44 19:42 Acuity: GUNNAR 4 as6 as6
[2023-08-01 22:10] VITALS: BP 187/119; TEMP 98.4; O2SAT 99
== END 2023-08-01 21:15 | disposition home or self-care (01) ==
LOC: ER 19:32
DX: T83.098A Other mechanical complication of other urinary catheter, initial encounter (principal)
CPT/HCPCS: 51702; 99284

== ENCOUNTER 2023-08-08 08:50 | Emergency (ER) | payer OTHER ==
--- NOTE | 2023-08-08 10:03 | ER ---
Nurse's Notes [facility] Name: Hung Long Age: 62 yrs Sex: Male : 1960 Arrival Date: 08/08/2023 Time: 08:50 Bed 20 Private MD: Diagnosis: Other mechanical complication of urinary (indwelling) catheter;Other retention of urine;Essential (primary) hypertension Presentation: 08/07 09:05 Chief complaint: Patient states: Kyle cath leaking from meatus, concerned about the nj1 "white stuff" in his urine. Changed last week. 09:05 Coronavirus screen: Vaccine status: Patient reports being unvaccinated. Ebola Screen: [facility] Patient denies travel to an Ebola-affected area in the 21 days before illness onset. Initial Sepsis Screen: Does the patient meet any 2 criteria? No. Patient's initial sepsis screen is negative. Does the patient have a suspected source of infection? No. Patient's initial sepsis screen is negative. Risk Assessment: Do you want to hurt yourself or someone else? Patient reports no desire to harm self or others. Onset of symptoms. 09:05 Method Of Arrival: Ambulatory [facility] 09:05 Acuity: GUNNAR 3 nj1 Triage Assessment: 09:13 General: Appears in no apparent distress. Behavior is calm, cooperative, appropriate bp for age. Pain: Denies pain. EENT: No deficits noted. : 3-way catheter in place. Historical: - Allergies: 09:13 NKDA; nj1 - PMHx: 09:13 chronic neck pain; Hypercholesterolemia; Hypertensive disorder; nj1 - PSHx: 09:13 Appendectomy; nj1 - Immunization history:: Client reports having NOT received the Covid vaccine. - Infectious Disease History:: Denies. - Social history:: Smoking status: Patient reports the use of cigarette tobacco products, smokes one-half pack cigarettes per day. - Family history:: not pertinent. Screenin:15 [facility] ED Fall Risk Assessment (Adult) History of falling in the last 3 months, bp including since admission No falls in past 3 months (0 pts) Confusion or Disorientation No (0 pts) Intoxicated or Sedated No (0 pts) Impaired Gait No (0 pts) Mobility Assist Device Used No (0 pt) Altered Elimination Yes (1 pt) Score/Fall Risk Level 0 - 2 = Low Risk. Abuse screen: Denies threats or abuse. Denies injuries from another. Nutritional screening: No deficits noted. Tuberculosis screening: No symptoms or risk factors identified. Assessment: 09:13 General: Appears in no apparent distress. comfortable, obese, Behavior is calm, bp cooperative, appropriate for age. 11:24 Reassessment: [facility]. bp Vital Signs: 09:05 BP 182 / 105; Pulse 65; Resp 18; Temp 98.2(O); Pulse Ox 94% on R/A; Weight 99.79 kg; nj1 Height 5 ft. 10 in. ; 11:24 BP 175 / 95; Pulse 71; Resp 16; Pulse Ox 95% ; bp 09:05 Body Mass Index 31.57 (99.79 kg, 177.8 cm) [facility] ED Course: 08:51 Patient arrived in ED. rg4 08:57 Diogo Barron, RN is Primary Nurse. bp 08:57 Evelio Guzman MD is Attending Physician. rohit 09:13 Triage completed. [facility] 09:13 Arm band placed on. nj 09:15 Patient has correct armband on for positive identification. bp 10:02 Carlo Chauhan MD is Referral Physician. rohit 10:59 Kyle cath inserted, using sterile technique, 20 Fr., by or, balloon inflated, to bp gravity drainage, urine specimen collected. Patient tolerated well. Patient did not have IV access during this emergency room visit. 11:25 No provider procedures requiring assistance completed. bp Administered Medications: 10:18 Drug: Flomax PO 0.4 mg PO once Route: PO; bp 11:21 Follow up: Response: No adverse reaction bp 10:18 Drug: Ciprofloxacin PO 500 mg PO once Route: PO; bp 11:21 Follow up: Response: No adverse reaction bp Medication: 11:24 VIS not applicable for this client. bp Outcome: 10:02 Discharge ordered by . rohit 11:25 Discharged to home ambulatory, bp 11:25 Condition: stable 11:25 Discharge instructions given to patient, Instructed on discharge instructions, follow up and referral plans. medication usage, Demonstrated understanding of instructions, follow-up care, medications, Prescriptions given X 3, 11:26 Patient left the ED. bp Signatures: Evelio Guzman MD MD cha Garcia, Rubi rg4 Diogo Barron, RN RN bp Ángel, Betzaida, RN RN nj1
--- NOTE | 2023-08-08 10:03 | EDPHYS ---
Physician Documentation [facility] Name: Hung Long Age: 62 yrs Sex: Male : 1960 Arrival Date: 08/08/2023 Time: 08:50 Bed 20 Private MD: ED Physician Evelio Guzman HPI: 08/07 09:54 This 62 yrs old Male presents to ER via Ambulatory with complaints of Problem rohit With Urinary Catheter. 09:54 The patient presents with a Lundberg catheter problem, is leaking urine. Onset: The rohit symptoms/episode began/occurred 2 day(s) ago. Modifying factors: The symptoms are alleviated by nothing, the symptoms are aggravated by nothing. Associated signs and symptoms: The patient has no apparent associated signs or symptoms. Severity of symptoms: At their worst the symptoms were mild, in the emergency department the symptoms are unchanged. The patient has experienced similar episodes in the past, a few times. Historical: - Allergies: 09:13 NKDA; nj1 - PMHx: 09:13 chronic neck pain; Hypercholesterolemia; Hypertensive disorder; nj1 - PSHx: 09:13 Appendectomy; nj1 - Immunization history:: Client reports having NOT received the Covid vaccine. - Infectious Disease History:: Denies. - Social history:: Smoking status: Patient reports the use of cigarette tobacco products, smokes one-half pack cigarettes per day. - Family history:: not pertinent. ROS: 09:54 Constitutional: Negative for fever, chills, and weight loss, Eyes: Negative for injury, rohit pain, redness, and discharge, ENT: Negative for injury, pain, and discharge, Neck: Negative for injury, pain, and swelling, Cardiovascular: Negative for chest pain, palpitations, and edema, Respiratory: Negative for shortness of breath, cough, wheezing, and pleuritic chest pain, Abdomen/GI: Negative for abdominal pain, nausea, vomiting, diarrhea, and constipation, Back: Negative for injury and pain, MS/Extremity: Negative for injury and deformity, Skin: Negative for injury, rash, and discoloration, Neuro: Negative for headache, weakness, numbness, tingling, and seizure, Psych: Negative for depression, anxiety, suicide ideation, homicidal ideation, and hallucinations, Allergy/Immunology: Negative for hives, rash, and allergies, Endocrine: Negative for neck swelling, polydipsia, polyuria, polyphagia, and marked weight changes, Hematologic/Lymphatic: Negative for swollen nodes, abnormal bleeding, and unusual bruising, 09:54 : Positive for leaking around lundberg, currently has a 3 way, Exam: 09:54 Constitutional: This is a well developed, well nourished patient who is awake, alert, rohit and in no acute distress. Head/Face: Normocephalic, atraumatic. Eyes: Pupils equal round and reactive to light, extra-ocular motions intact. Lids and lashes normal. Conjunctiva and sclera are non-icteric and not injected. Cornea within normal limits. Periorbital areas with no swelling, redness, or edema. ENT: Nares patent. No nasal discharge, no septal abnormalities noted. Tympanic membranes are normal and external auditory canals are clear. Oropharynx with no redness, swelling, or masses, exudates, or evidence of obstruction, uvula midline. Mucous membranes moist. Neck: Trachea midline, no thyromegaly or masses palpated, and no cervical lymphadenopathy. Supple, full range of motion without nuchal rigidity, or vertebral point tenderness. No Meningismus. Chest/axilla: Normal chest wall appearance and motion. Nontender with no deformity. No lesions are appreciated. Cardiovascular: Regular rate and rhythm with a normal S1 and S2. No gallops, murmurs, or rubs. Normal PMI, no JVD. No pulse deficits. Respiratory: Lungs have equal breath sounds bilaterally, clear to auscultation and percussion. No rales, rhonchi or wheezes noted. No increased work of breathing, no retractions or nasal flaring. Abdomen/GI: Soft, non-tender, with normal bowel sounds. No distension or tympany. No guarding or rebound. No evidence of tenderness throughout. Back: No spinal tenderness. No costovertebral tenderness. Full range of motion. Skin: Warm, dry with normal turgor. Normal color with no rashes, no lesions, and no evidence of cellulitis. MS/ Extremity: Pulses equal, no cyanosis. Neurovascular intact. Full, normal range of motion. Neuro: Awake and alert, GCS 15, oriented to person, place, time, and situation. Cranial nerves II-XII grossly intact. Motor strength 5/5 in all extremities. Sensory grossly intact. Cerebellar exam normal. Normal gait. Psych: Awake, alert, with orientation to person, place and time. Behavior, mood, and affect are within normal limits. 09:54 : CVA tenderness, is absent, Male external genitalia: normal, Bladder: is normal, Rectal exam: is not applicable, a lundberg is noted, 3-way catheter is employed, urine is clear, Vital Signs: 09:05 BP 182 / 105; Pulse 65; Resp 18; Temp 98.2(O); Pulse Ox 94% on R/A; Weight 99.79 kg; nj1 Height 5 ft. 10 in. ; 11:24 BP 175 / 95; Pulse 71; Resp 16; Pulse Ox 95% ; bp 09:05 Body Mass Index 31.57 (99.79 kg, 177.8 cm) nj1 MDM: 08:57 Patient medically screened. rohit 09:59 Data reviewed: vital signs, nurses notes, lab test result(s), urinalysis. Consideration rohit of Admission/Observation Escalation of care including admission/observation considered. I considered the following discharge prescriptions or medication management in the emergency department Medications were administered in the Emergency Department. See MAR. Test considered but Not performed: Labs: no labs. Historians other than the Patient: pt well informed. Care significantly affected by the following chronic conditions: Hypertension, high cholesterol, obese, bph. 08/07 09:54 Order name: Urinalysis w/ reflexes rohit 08/07 11:21 Order name: Urine Culture [facility] 08/07 09:54 Order name: Lundberg: 20 fr; Complete Time: 10:59 rohit Administered Medications: 10:18 Drug: Flomax PO 0.4 mg PO once Route: PO; bp 11:21 Follow up: Response: No adverse reaction bp 10:18 Drug: Ciprofloxacin PO 500 mg PO once Route: PO; bp 11:21 Follow up: Response: No adverse reaction bp Disposition Summary: 08/08/23 10:02 Discharge Ordered Notes: Location: Home rohit Problem: new rohit Symptoms: have improved rohit Condition: Stable rohit Diagnosis - Other mechanical complication of urinary (indwelling) catheter rohit - Other retention of urine rohit - Essential (primary) hypertension rohit Followup: rohit - With: Private Physician - When: 2 - 3 days - Reason: Recheck today's complaints, Continuance of care, Re-evaluation by your physician Followup: rohit - With: Carlo Chauhan MD - When: 2 - 3 days - Reason: Recheck today's complaints, Continuance of care, Re-evaluation by your physician Discharge Instructions: - Discharge Summary Sheet rohit - Hypertension, Adult rohit - Acute Urinary Retention, Male rohit - Hypertension, Adult, [id number] rohit - How to Take Your Blood Pressure, [id number] rohit - Managing Your Hypertension rohit - Preventing Hypertension rohit Forms: - Medication Reconciliation Form rohit - Antibiotic Education rohit - Prescription Opioid Use rohit - Patient Portal Instructions rohit - Leadership Thank You Letter [facility] Prescriptions: - Flomax 0.4 mg Oral capsule - take 1 capsule ORAL route every 24 hours; 30 capsule; Refills: 0, Product [facility] Selection Permitted - Cipro 250 mg Oral tablet - take 1 tablet ORAL route every 12 hours; 14 tablet; Refills: 0, Product rohit Selection Permitted - Norvasc 10 mg Oral Tablet - take 1 tablet ORAL route once daily; 30 tablet; Refills: 0, Product Selection rohit Permitted Signatures: Dispatcher [employer] Evelio Brooks MD MD cha Peltier, Brian, RN RN bp Betzaida Neal RN RN nj1
[2023-08-08] MEDS ORDERED: CIPROFLOXACIN HCL 500 MG TAB ONE (10:11)
[2023-08-08] MEDS ORDERED: TAMSULOSIN 0.4 MG SR CAP ONE (10:11)
[2023-08-08 11:18] LABS: Specific Gravity 1.024 (1.005-1.030); Sqamous Epithelial None Seen /HPF (None Seen); Urine Bacteria <20 /HPF (<20); Urine Bilirubin NEGATIVE (Negative); Urine Blood 3+ (OVER) (Negative); Urine Clarity Extremely Turbid (Clear); Urine Color Light-Orange (Yellow); Urine Culture Reflex Order REFLEXED; Urine Glucose NEGATIVE (Negative); Urine Ketones NEGATIVE (Negative); Urine Microscopic Reflex YN ORDER UMIC; Urine Nitrite NEGATIVE (Negative); Urine Protein 1+ (Negative); Urine RBC >50 /HPF (None Seen); Urine Urobilinogen Normal (Normal); Urine WBC >50 /HPF (<5); Urine WBC Clump Occasional /HPF (None Seen); Urine pH 6.5 (5.0-7.0)
[2023-08-08 11:37] VITALS: BP 175/95; TEMP 98.2; O2SAT 95
== END 2023-08-08 11:26 | disposition home or self-care (01) ==
LOC: ER 08:50
DX: T83.038A Leakage of other urinary catheter, initial encounter (principal); R33.8 Other retention of urine; I10 Essential (primary) hypertension
CPT/HCPCS: 51702; 81001; 87086; 87088; 99284

== ENCOUNTER 2023-08-22 18:50 | Emergency (ER) | payer OTHER ==
--- NOTE | 2023-08-22 19:46 | ER ---
Nurse's Notes [facility] Name: Hung Long Age: 62 yrs Sex: Male : 1960 Arrival Date: 08/22/2023 Time: 18:50 Bed 20 Private MD: Diagnosis: Mechanical complication of urinary (indwelling) catheter Presentation: 08/21 18:57 Chief complaint: Patient states: catheter is clogged up, it was placed 2 weeks ago. ko1 Coronavirus screen: At this time, the client does not indicate any symptoms associated with coronavirus-19. Ebola Screen: No symptoms or risks identified at this time. Initial Sepsis Screen: Does the patient meet any 2 criteria? No. Patient's initial sepsis screen is negative. Does the patient have a suspected source of infection? No. Patient's initial sepsis screen is negative. Risk Assessment: Do you want to hurt yourself or someone else? Patient reports no desire to harm self or others. Onset of symptoms was August 22, 2023. 18:57 Method Of Arrival: Ambulatory ko1 18:57 Acuity: GUNNAR 4 ko1 Triage Assessment: 19:01 General: Appears in no apparent distress. Behavior is calm, cooperative, appropriate ko1 for age. Pain: Denies pain. : Reports burning with urination. Historical: - Allergies: 19:01 NKDA; ko1 - PMHx: 19:01 chronic neck pain; Hypercholesterolemia; Hypertensive disorder; ko1 - PSHx: 19:01 Appendectomy; ko1 - Immunization history:: Adult Immunizations up to date. - Infectious Disease History:: Denies. - Social history:: Smoking status: Patient reports the use of cigarette tobacco products, denies chronic smoking, but will smoke occasionally. Screenin:48 [facility] ED Fall Risk Assessment (Adult) History of falling in the last 3 months, rg5 including since admission No falls in past 3 months (0 pts) Confusion or Disorientation No (0 pts) Intoxicated or Sedated No (0 pts) Impaired Gait No (0 pts) Mobility Assist Device Used No (0 pt) Altered Elimination No (0 pt) Score/Fall Risk Level 0 - 2 = Low Risk. Abuse screen: Denies threats or abuse. Nutritional screening: No deficits noted. Tuberculosis screening: No symptoms or risk factors identified. Assessment: 19:20 Pain: Complains of pain in GENITAL Pain currently is 5 out of 10 on a pain scale. rg5 Quality of pain is described as burning, Pain began 2 hours ago. Is intermittent. 19:20 Neuro: Level of Consciousness is awake, alert, obeys commands, Oriented to person, rg5 place, time. Cardiovascular: Capillary refill < 3 seconds. Respiratory: Airway is patent Trachea midline. GI: Abdomen is round non-distended. : Kyle in place to gravity drainage Reports inability to void, pain with urination, Pain is 5 out of 10 on a pain scale. EENT: No deficits noted. Derm: Skin is intact, Skin is dry, Skin is pink, warm \T\ dry. Musculoskeletal: Range of motion: intact in all extremities. 19:48 General: Appears in no apparent distress. Behavior is calm, cooperative. rg5 20:01 Reassessment: Patient and/or family updated on plan of care and expected duration. Pain rg5 level reassessed. Patient is alert, oriented x 3, equal unlabored respirations, skin warm/dry/pink. DISCHARGE WITH Kyle IN PLACE Patient states feeling better. Patient states symptoms have improved. Vital Signs: 18:57 BP 152 / 86; Pulse 98; Resp 18; Temp 98.4; Pulse Ox 99% ; ko1 19:20 BP 155 / 89; Pulse 93; Resp 17; Pain 5/10; rg5 19:20 Pain Scale: Adult rg5 ED Course: 18:52 Patient arrived in ED. mr 19:01 Triage completed. ko1 19:01 Arm band placed on right wrist. Patient placed in an exam room, on a stretcher, on ko1 pulse oximetry, Patient notified of wait time. 19:11 Evelio Veloz PA is PHCP. cp 19:11 Evelio Guzman MD is Attending Physician. cp 19:22 Abhinav Kaufman, EARL is Primary Nurse. rg5 19:25 Kyle cath removed intact, balloon deflated. rg5 19:34 Kyle cath inserted, using sterile technique, 20 Fr., by me, balloon inflated, returned rg5 clear yellow urine. Patient tolerated well. 19:48 Placed in gown. Bed in low position. Call light in reach. Side rails up X 1. Provided rg5 Education on: POST ER CARE. 19:48 No provider procedures requiring assistance completed. Patient did not have IV access rg5 during this emergency room visit. Administered Medications: No medications were administered Medication: 19:48 VIS not applicable for this client. rg5 Outcome: 19:46 Discharge ordered by . katina 19:48 Discharged to home rg5 19:48 Condition: stable 19:48 Discharge instructions given to patient, Instructed on discharge instructions, follow up and referral plans. 20:01 Patient left the ED. rg5 Signatures: Tana Bartlett, Reg Reg mr Evelio Veloz PA PA cp Oliver, Kathy, RN RN ko1 Abhinav Kaufman RN RN rg5 Corrections: (The following items were deleted from the chart) 19:54 19:48 Pain: Complains of pain in GENITAL Pain currently is 5 out of 10 on a pain scale. rg5 Quality of pain is described as burning, Pain began 2 hours ago. Is intermittent, rg5
--- NOTE | 2023-08-22 19:46 | EDPHYS ---
Physician Documentation [facility] Name: Hung Long Age: 62 yrs Sex: Male : 1960 Arrival Date: 08/22/2023 Time: 18:50 Bed 20 Private MD: ED Physician Evelio Guzman HPI: 08/21 19:30 This 62 yrs old Male presents to ER via Ambulatory with complaints of Problem With cp Urinary Catheter. 19:30 Patient is a 62-year-old male who presents to the emergency department reporting that cp his Lundberg catheter is not draining. Patient reports she started noticing decreased drainage since yesterday and has not noticed any output today. Patient does complain of lower abdominal discomfort. Denies fever. Historical: - Allergies: 19:01 NKDA; ko1 - PMHx: 19:01 chronic neck pain; Hypercholesterolemia; Hypertensive disorder; ko1 - PSHx: 19:01 Appendectomy; ko1 - Immunization history:: Adult Immunizations up to date. - Infectious Disease History:: Denies. - Social history:: Smoking status: Patient reports the use of cigarette tobacco products, denies chronic smoking, but will smoke occasionally. ROS: 19:33 Constitutional: HX per HPI cp 19:33 Constitutional: Negative for body aches, chills, fever, cp 19:33 Abdomen/GI: Positive for abdominal pain, 19:33 : Positive for Lundberg Catheter, 19:33 Neuro: Negative for altered mental status, weakness, 19:33 All other systems are negative, Exam: 19:35 Constitutional: The patient appears in no acute distress, alert, non-toxic, well cp developed, well nourished, uncomfortable, 19:35 Head/Face: Normocephalic, atraumatic. cp 19:35 Eyes: Periorbital structures: appear normal, Conjunctiva: normal, no exudate, no injection, Sclera: no appreciated abnormality, Lids and lashes: appear normal, bilaterally, 19:35 Chest/axilla: Inspection: normal, 19:35 Cardiovascular: Rate: normal, 19:35 Respiratory: the patient does not display signs of respiratory distress, Respirations: normal, no use of accessory muscles, no retractions, labored breathing, is not present, Breath sounds: are clear throughout, no decreased breath sounds, no stridor, no wheezing, 19:35 Abdomen/GI: Inspection: obese Palpation: soft, in all quadrants, moderate abdominal tenderness, in the right lower quadrant and left lower quadrant, 19:35 Neuro: Orientation: is normal, Mentation: is normal, Vital Signs: 18:57 BP 152 / 86; Pulse 98; Resp 18; Temp 98.4; Pulse Ox 99% ; ko1 19:20 BP 155 / 89; Pulse 93; Resp 17; Pain 5/10; rg5 19:20 Pain Scale: Adult rg5 MDM: 19:11 Patient medically screened. cp 19:30 Differential diagnosis: nonspecific abdominal pain, UTI, urinary retention, Lundberg cp catheter problem. 19:45 Data reviewed: vital signs, nurses notes, and as a result, I will discharge patient. cp 19:45 Counseling: I had a detailed discussion with the patient and/or guardian regarding the cp historical points, exam findings, and any diagnostic results supporting the discharge/admit diagnosis, to return to the emergency department if symptoms worsen or persist or if there are any questions or concerns that arise at home. Response to treatment: the patient's symptoms have resolved after treatment, lundberg catheter replaced and reported 800 ccs urine output. 08/21 19:12 Order name: Misc. Order: lundberg irrigation; Complete Time: 19:33 cp 08/21 19:33 Order name: Lundberg Leg Bag; Complete Time: 19:33 rg5 Administered Medications: No medications were administered Disposition Summary: 08/22/23 19:46 Discharge Ordered Notes: Location: Home cp Problem: new cp Symptoms: are resolved cp Condition: Stable cp Diagnosis - Mechanical complication of urinary (indwelling) catheter cp Followup: cp - With: Private Physician - When: As needed - Reason: Worsening of condition Discharge Instructions: - Discharge Summary Sheet cp - Indwelling Urinary Catheter Care, Adult cp Forms: - Medication Reconciliation Form cp - Antibiotic Education cp - Prescription Opioid Use cp - Patient Portal Instructions cp - Leadership Thank You Letter cp Addendum: 08/24/2023 07:48 Co-signature as Attending Physician, Evelio Guzman MD I agree with the assessment and c espinal plan of care. Signatures: Evelio Guzman MD MD cha Page, Corey, PA PA cp Oliver, Kathy RN RN ko1 Abhinav Kaufman RN RN rg5
[2023-08-22 20:23] VITALS: BP 155/89; TEMP 98.4; O2SAT 99
== END 2023-08-22 20:01 | disposition home or self-care (01) ==
LOC: ER 18:50
DX: T83.098A Other mechanical complication of other urinary catheter, initial encounter (principal)
CPT/HCPCS: 51702; 99284

== ENCOUNTER 2023-10-04 14:32 | Emergency (ER) | payer OTHER ==
--- NOTE | 2023-10-04 18:34 | ER ---
Nurse's Notes [facility] Name: Hung Long Age: 62 yrs Sex: Male : 1960 Arrival Date: 10/04/2023 Time: 14:32 Bed 11 Private MD: Diagnosis: Mechanical complication of urinary (indwelling) catheter Presentation: 10/03 14:51 Chief complaint: Patient states: Pt states he needs his urinary catheter changed. Pt tl4 c/o burning at the tip of his penis, discomfort, nausea, and catheter is leaking. Last catheter change was 2 weeks ago. Coronavirus screen: At this time, the client does not indicate any symptoms associated with coronavirus-19. Ebola Screen: No symptoms or risks identified at this time. Initial Sepsis Screen: Does the patient meet any 2 criteria? No. Patient's initial sepsis screen is negative. Does the patient have a suspected source of infection? No. Patient's initial sepsis screen is negative. Risk Assessment: Do you want to hurt yourself or someone else? Patient reports no desire to harm self or others. Onset of symptoms was October 02, 2023. 14:51 Method Of Arrival: Ambulatory tl4 14:51 Acuity: GUNNAR 4 tl4 Triage Assessment: 14:55 General: Appears in no apparent distress. Behavior is calm, cooperative. Pain: tl4 Complains of pain in pelvis. EENT: No signs and/or symptoms were reported regarding the EENT system. Neuro: Level of Consciousness is awake, alert, obeys commands, Oriented to person, place, time, situation. Cardiovascular: Capillary refill < 3 seconds Patient's skin is warm and dry. Respiratory: Airway is patent Respiratory effort is even, unlabored, Respiratory pattern is regular, symmetrical. GI: No signs and/or symptoms were reported involving the gastrointestinal system. : Reports burning with urination, catheter is causing discomfort. Derm: No signs and/or symptoms reported regarding the dermatologic system. Musculoskeletal: No signs and/or symptoms reported regarding the musculoskeletal system. Historical: - Allergies: 14:54 NKDA; tl4 - Home Meds: 14:54 tamsulosin 0.4 mg oral capsule 1 cap daily [Active]; amlodipine 10 mg oral tablet daily tl4 [Active]; - PMHx: 14:54 chronic neck pain; enlarged prostate; Hypercholesterolemia; Hypertensive disorder; tl4 - PSHx: 14:54 Appendectomy; tl4 - Immunization history:: Adult Immunizations unknown. - Infectious Disease History:: Denies. - Social history:: Smoking status: Patient reports the use of cigarette tobacco products, cigars. - Family history:: not pertinent. - Hospitalizations: : No recent hospitalization is reported. Screenin:43 [facility] ED Fall Risk Assessment (Adult) History of falling in the last 3 months, le1 including since admission No falls in past 3 months (0 pts) Confusion or Disorientation No (0 pts) Intoxicated or Sedated No (0 pts) Impaired Gait No (0 pts) Mobility Assist Device Used No (0 pt) Altered Elimination Yes (1 pt) Score/Fall Risk Level 0 - 2 = Low Risk Oriented to surroundings, Maintained a safe environment, Educated pt \T\ family on fall prevention, incl call for assistance when getting out of bed, Assessed \T\ reinforced patient's understanding of fall precautions, Hourly rounding (assess needs \T\ fall precautionary measures) done. Abuse screen: Denies threats or abuse. Denies injuries from another. Nutritional screening: No deficits noted. Tuberculosis screening: No symptoms or risk factors identified. Assessment: 17:44 Reassessment: refer to triage assessment. le1 19:02 Reassessment: Pt refused last set of vitals. le1 Vital Signs: 14:51 BP 138 / 103; Pulse 90; Resp 18; Temp 97.8(O); Pulse Ox 94% on R/A; Weight 104.33 kg; tl4 Height 5 ft. 11 in. ; Pain 0/10; 17:52 BP 160 / 119; Pulse 79; Resp 16; Temp 98.3(O); Pulse Ox 98% on R/A; Pain 0/10; le1 14:51 Body Mass Index 32.08 (104.33 kg, 180.34 cm) tl4 14:51 Pain Scale: Adult tl4 17:52 Pain Scale: Adult le1 ED Course: 14:35 Patient arrived in ED. mg5 14:38 Felipe Lopes MD is Attending Physician. rn 14:53 Triage completed. tl4 14:56 Arm band placed on right wrist. tl4 17:18 Mirna Lancaster, RN is Primary Nurse. le1 17:40 Kyle cath removed intact, balloon deflated. le1 17:40 Kyle cath inserted, using sterile technique, 20 Fr., by ks, balloon inflated, to le1 gravity drainage. 17:43 Patient has correct armband on for positive identification. Placed in gown. Bed in low le1 position. Call light in reach. Side rails up X2. Provided Education on: use call light if needed. 19:02 No provider procedures requiring assistance completed. Patient did not have IV access le1 during this emergency room visit. Administered Medications: No medications were administered Medication: 17:43 VIS not applicable for this client. le1 Intake: 17:53 PO: 0ml; Total: 0ml. le1 Output: 17:53 Urine: 400ml (Kyle); Total: 400ml. le1 Outcome: 18:33 Discharge ordered by . rn 19:02 Discharged to home ambulatory, le1 19:02 Condition: improved 19:02 Discharge instructions given to patient, Instructed on discharge instructions, follow up and referral plans. medication usage, Demonstrated understanding of instructions, follow-up care, medications, Prescriptions given X 2, 19:03 Patient left the ED. le1 Signatures: Felipe Lopes MD MD rn Gardner, [place] mg5 Ej Pollard RN RN tl4 Mirna Lancaster RN RN le1
--- NOTE | 2023-10-04 18:34 | EDPHYS ---
Physician Documentation [facility] Name: Hung Long Age: 62 yrs Sex: Male : 1960 Arrival Date: 10/04/2023 Time: 14:32 Bed 11 Private MD: ED Physician Felipe Lopes HPI: 10/03 15:51 This 62 yrs old Male presents to ER via Ambulatory with complaints of Problem With rn Urinary Catheter. 15:51 The patient presents with urinary symptoms. Onset: The symptoms/episode began/occurred rn at an unknown time. Modifying factors: The symptoms are alleviated by nothing, the symptoms are aggravated by nothing. Associated signs and symptoms: Pertinent positives: dysuria, Leakage of catheter. Severity of symptoms: At their worst the symptoms were mild, in the emergency department the symptoms are unchanged. The patient has experienced similar episodes in the past. Patient reports here for exchange of urinary catheter. Reports has had this 1 in for 2 weeks. Reports mild discomfort at tip of penis and has noted some leakage of urine around catheter. No fever or chills. No abdominal pain.. Historical: - Allergies: 14:54 NKDA; tl4 - Home Meds: 14:54 tamsulosin 0.4 mg oral capsule 1 cap daily [Active]; amlodipine 10 mg oral tablet daily tl4 [Active]; - PMHx: 14:54 chronic neck pain; enlarged prostate; Hypercholesterolemia; Hypertensive disorder; tl4 - PSHx: 14:54 Appendectomy; tl4 - Immunization history:: Adult Immunizations unknown. - Infectious Disease History:: Denies. - Social history:: Smoking status: Patient reports the use of cigarette tobacco products, cigars. - Family history:: not pertinent. - Hospitalizations: : No recent hospitalization is reported. ROS: 15:51 Constitutional: Negative for fever, chills, and weight loss, Cardiovascular: Negative rn for chest pain, palpitations, and edema, Respiratory: Negative for shortness of breath, cough, wheezing, and pleuritic chest pain, Abdomen/GI: Negative for abdominal pain, nausea, vomiting, diarrhea, and constipation, : Positive for discomfort at urethral meatus and leakage of urine Exam: 15:51 Constitutional: This is a well developed, well nourished patient who is awake, alert, rn and in no acute distress. Cardiovascular: Regular rate and rhythm. No pulse deficits. Respiratory: No increased work of breathing, no retractions or nasal flaring. Abdomen/GI: Soft, non-tender Vital Signs: 14:51 BP 138 / 103; Pulse 90; Resp 18; Temp 97.8(O); Pulse Ox 94% on R/A; Weight 104.33 kg; tl4 Height 5 ft. 11 in. ; Pain 0/10; 17:52 BP 160 / 119; Pulse 79; Resp 16; Temp 98.3(O); Pulse Ox 98% on R/A; Pain 0/10; le1 14:51 Body Mass Index 32.08 (104.33 kg, 180.34 cm) tl4 14:51 Pain Scale: Adult tl4 17:52 Pain Scale: Adult le1 MDM: 14:38 Patient medically screened. rn 18:29 Differential diagnosis: Kyle catheter problem. Data reviewed: vital signs, nurses rn notes, and as a result, I will discharge patient. Counseling: I had a detailed discussion with the patient and/or guardian regarding the historical points, exam findings, and any diagnostic results supporting the discharge/admit diagnosis, the need for outpatient follow up, to return to the emergency department if symptoms worsen or persist or if there are any questions or concerns that arise at home. Special discussion: I discussed with the patient/guardian in detail that at this point there is no indication for admission to the hospital. It is understood, however, that if the symptoms persist or worsen the patient needs to return immediately for re-evaluation. 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 EDMS ROME
[2023-10-04 19:10] VITALS: BP 160/119; TEMP 98.3; O2SAT 98
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
== END 2023-10-04 19:03 | disposition home or self-care (01) ==
LOC: ER 14:32
DX: T83.038A Leakage of other urinary catheter, initial encounter (principal); R30.0 Dysuria
CPT/HCPCS: 51702; 99284

== ENCOUNTER 2023-10-09 02:46 | Inpatient (IN) | payer OTHER ==
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
[2023-10-09] MEDS ORDERED: ALBUTEROL 2.5 MG/3 ML NEB SOL ONE ×3 (03:44→18:38)
[2023-10-09] MEDS ORDERED: IPRATROPIUM BROM 0.5MG/2.5ML ONE ×3 (03:44→18:39)
[2023-10-09 04:43] LABS: SARS-CoV-2 Antigen CONTROL BLUE LINE VIS/BG OK; SARS-CoV-2 Antigen Rapid Res Negative (Negative)
[2023-10-09] MEDS ORDERED: METHYLPREDNISOLONE 125 MG INJ ONE ×2 (05:01→18:32)
[2023-10-09 05:43] LABS: Absolute Eosinophils 0.1 K/uL (0-0.5); Absolute Lymphocytes (CBC) 3.1 K/uL (0.7-4.9); Absolute Monocytes 0.9 K/uL (0.1-1.3); Absolute Neutrophil 4.6 K/uL (1.8-8.0); Basophils % 0.5 % (0-1.3); Hematocrit 52.7 % (39.6-49.0); Hemoglobin 17.5 g/dL (13.6-17.9); Lymphocytes % 35.5 % (15.3-44.8); MCH 29.7 pg (27.0-35.0); MCHC 33.2 g/dL (32.0-36.0); MCV 89.5 fL (80-100); MPV 8.6 fL (7.6-11.3); Monocytes % 10.4 % (3.3-12.3); Neutrophils % 52.6 % (41.7-73.7); Nucleated Red Blood Cells % 0.2 % (0-0); Platelets 133 thou/uL (152-406); RBC Red Blood Cell Count 5.89 M/uL (4.33-5.43); Red Cell Distribution Width 14.6 % (12.1-15.2)
[2023-10-09 05:45] LABS: D-Dimer 0.613 FEUug/mL (0-0.500); PT Prothrombin Time 11.7 SECONDS (9.4-12.5); Protime INR 1.05
[2023-10-09 05:58] LABS: Albumin 3.4 g/dL (3.4-5.0); Albumin/Globulin Ratio 0.9 (1.1-1.8); Anion Gap 4.7 mEq/L (5.0-15.0); Bilirubin Direct 0.3 mg/dL (0-0.2); Bilirubin Indirect, Calculated 0.9 mg/dL (0.2-0.8); Bilirubin Total 1.2 mg/dL (0.2-1.0); Globulin 3.7 g/dL (2.3-3.5); Magnesium 2.1 mg/dL (1.6-2.4); Potassium 3.7 mEq/L (3.5-5.1); Protein, Total 7.1 g/dL (6.4-8.2); Troponin High Sensitivity 5.3 pg/mL (<58.9)
[2023-10-09] MEDS ORDERED: ASPIRIN 81 MG CHEWABLE TABLET ONE (06:02)
--- NOTE | 2023-10-09 06:21 | ER ---
Nurse's Notes [facility] Name: Hung Long Age: 62 yrs Sex: Male : 1960 Arrival Date: 10/09/2023 Time: 02:46 Bed 20 Private MD: Steve Gutierrez Diagnosis: COPD/ Chronic obstructive pulmonary disease with (acute) exacerbation;Hypoxemia Presentation: 10/08 03:13 Chief complaint: Patient states: cough, congestion, runny nose x2 days. Coronavirus vc1 screen: congestion, cough unrelated to allergies, runny nose. Ebola Screen: No symptoms or risks identified at this time. Initial Sepsis Screen: Does the patient meet any 2 criteria? No. Patient's initial sepsis screen is negative. Does the patient have a suspected source of infection? No. Patient's initial sepsis screen is negative. Risk Assessment: Do you want to hurt yourself or someone else? Patient reports no desire to harm self or others. Onset of symptoms was October 07, 2023. 03:13 Method Of Arrival: Ambulatory vc1 03:13 Acuity: GUNNAR 4 vc1 Triage Assessment: 03:15 General: Appears in no apparent distress. Behavior is calm, cooperative. Pain: Denies vc1 pain. EENT: Reports nasal congestion. Neuro: Level of Consciousness is awake, alert, obeys commands, Oriented to person, place, time, situation. Cardiovascular: Capillary refill < 3 seconds Patient's skin is warm and dry. Respiratory: Reports cough that is productive, Airway is patent Respiratory effort is even, unlabored, Respiratory pattern is regular, symmetrical. GI: No signs and/or symptoms were reported involving the gastrointestinal system. : No signs and/or symptoms were reported regarding the genitourinary system. Derm: Skin is intact, Skin is pink, warm \T\ dry. normal. Musculoskeletal: No signs and/or symptoms reported regarding the musculoskeletal system. Historical: - Allergies: 03:15 NKDA; vc1 - Home Meds: 03:15 amlodipine 10 mg tablet daily [Active]; tamsulosin 0.4 mg Oral capsule 1 cap daily vc1 [Active]; - PMHx: 03:15 chronic neck pain; enlarged prostate; Hypercholesterolemia; Hypertensive disorder; vc1 - PSHx: 03:15 Appendectomy; vc1 - Immunization history:: Adult Immunizations up to date. - Infectious Disease History:: Denies. - Social history:: Smoking status: Patient reports the use of cigarette tobacco products, 1/5 PPD. Screenin:30 [facility] ED Fall Risk Assessment (Adult) History of falling in the last 3 months, cp4 including since admission No falls in past 3 months (0 pts) Confusion or Disorientation No (0 pts) Intoxicated or Sedated No (0 pts) Impaired Gait No (0 pts) Mobility Assist Device Used No (0 pt) Altered Elimination No (0 pt) Score/Fall Risk Level 0 - 2 = Low Risk Oriented to surroundings, Maintained a safe environment, Assessed \T\ reinforced patient's understanding of fall precautions, Hourly rounding (assess needs \T\ fall precautionary measures) done. Abuse screen: Denies threats or abuse. Nutritional screening: No deficits noted. Tuberculosis screening: No symptoms or risk factors identified. Assessment: 03:30 General: Appears in no apparent distress. uncomfortable, Behavior is calm, cooperative, cp4 appropriate for age. 03:30 Pain: Denies pain. Neuro: Level of Consciousness is awake, alert, obeys commands, cp4 Oriented to person, place, time, situation. Cardiovascular: Rhythm is sinus rhythm. Cardiovascular: Denies chest pain. 03:30 Cardiovascular: Capillary refill < 3 seconds Patient's skin is warm and dry. cp4 03:30 Respiratory: Airway is patent Respiratory effort is even, unlabored, Breath sounds with cp4 wheezes bilaterally. 03:30 GI: No signs and/or symptoms were reported involving the gastrointestinal system. : cp4 No signs and/or symptoms were reported regarding the genitourinary system. EENT: No signs and/or symptoms were reported regarding the EENT system. Derm: No signs and/or symptoms reported regarding the dermatologic system. Musculoskeletal: No signs and/or symptoms reported regarding the musculoskeletal system. 04:30 Reassessment: No changes from previously documented assessment. Patient and/or family cp4 updated on plan of care and expected duration. Pain level reassessed. Patient is alert, oriented x 3, equal unlabored respirations, skin warm/dry/pink. 05:30 Reassessment: No changes from previously documented assessment. Patient and/or family cp4 updated on plan of care and expected duration. Pain level reassessed. Patient is alert, oriented x 3, equal unlabored respirations, skin warm/dry/pink. 06:30 Reassessment: No changes from previously documented assessment. Patient and/or family cp4 updated on plan of care and expected duration. Pain level reassessed. Patient is alert, oriented x 3, equal unlabored respirations, skin warm/dry/pink. 19:30 General: Appears comfortable, Smells of Reports Denies. Pain: Complains of pain in mt4 right arm Quality of pain is described as aching, Pain began years ago. Is intermittent, chronic. Neuro: Level of Consciousness is awake, alert, obeys commands, Oriented to person, place, time, situation, Speech is normal, Facial symmetry appears normal. Cardiovascular: Capillary refill < 3 seconds Patient's skin is warm and dry. Respiratory: Airway is patent Respiratory effort is unlabored, Respiratory pattern is regular. 19:30 : Kyle in place. mt4 20:19 Respiratory: Airway mt4 21:00 Reassessment: Patient and/or family updated on plan of care and expected duration. Pain mt4 level reassessed. General: Appears in no apparent distress. comfortable, Behavior is calm, cooperative. Pain: Complains of pain in right arm Pain does not radiate. Pain currently is 5 out of 10 on a pain scale. Is chronic. Neuro: Level of Consciousness is Oriented to person, place, time, situation, Case Liner are equal bilaterally Moves all extremities. Gait is steady, Speech is normal, Facial symmetry appears normal. Cardiovascular: Capillary refill < 3 seconds. Respiratory: Airway is patent. GI:. : Kyle in place Denies burning with urination. Vital Signs: 03:13 BP 149 / 96; Pulse 77; Resp 18; Pulse Ox 90% on R/A; vc1 03:13 Weight 102.06 kg; Height 5 ft. 11 in. ; Pain 0/10; vc1 04:43 BP 159 / 109; Pulse 75; Resp 18; Pulse Ox 85% on R/A; cp4 05:50 BP 184 / 108; Pulse 75; Resp 16; Pulse Ox 90% on 6 lpm Venturi mask; cp4 06:39 BP 173 / 108; Pulse 78; Resp 18; Pulse Ox 93% on BiPAP; cp4 19:53 BP 136 / 92; Pulse 75; Resp 16; Temp 98.1(O); Pulse Ox 90% ; FiO2 3 %; Pain 0/10; mt4 03:13 Body Mass Index 31.38 (102.06 kg, 180.34 cm) vc1 03:13 Pain Scale: Adult vc1 19:53 Pain Scale: Adult mt4 [place] Score: 20:19 Eye Response: spontaneous(4). Motor Response: obeys commands(6). Verbal Response: mt4 oriented(5). Total: 15. 21:00 Eye Response: spontaneous(4). Motor Response: obeys commands(6). Verbal Response: mt4 oriented(5). Total: 15. ED Course: 02:51 Patient arrived in ED. gm2 02:51 Steve Gutierrez MD is Private Physician. gm2 02:54 Evelio Veloz PA is PHCP. cp 02:54 Evelio Guzman MD is Attending Physician. cp 03:15 Triage completed. vc1 03:16 Arm band placed on right wrist. Patient placed in an exam room, on a stretcher. vc1 03:20 Sandy Manrique is Primary Nurse. cp4 03:30 Bed in low position. Call light in reach. Side rails up X2. cp4 03:39 XRAY Chest Pa And Lat (2 Views) In Process Unspecified. EDMS 05:06 No provider procedures requiring assistance completed. Initial lab(s) drawn, by , cpMirza sent to lab. EKG done, by ED staff, reviewed by Evelio BARAHONA. Inserted saline lock: 20 gauge in right antecubital area, using aseptic technique. Blood collected. Flushed with 10 mL NS. 06:20 Madina Torres MD is Hospitalizing Provider. cp 06:29 First set of blood cultures drawn by me. oe 06:39 Provided Education on: admission. cp4 06:39 Patient admitted, IV remains in place. cp4 06:40 Inserted saline lock: 22 gauge in left hand, using aseptic technique. Blood collected. oe Flushed with 10 mL NS. 06:48 Second set of blood cultures drawn by me. oe 08:22 Carolina Rivas RN is Primary Nurse. ph 08:48 CT Chest For PE Angio In Process Unspecified. EDMS 08:[address] Torres to ask for admit orders. bd 09:25 Primary Nurse role handed off by Carolina Rivas RN bp 09:25 Anderson, Diogo, RN is Primary Nurse. bp 20:19 Oxygen administration via nasal cannula \T\ 3L/min. mt4 21:00 No apparent distress. Resting quietly. Awaiting bed assignment. mt4 21:00 Client placed on continuous cardiac and pulse oximetry monitoring. NIBP monitoring mt4 applied. ekg monitor on. Pulse ox on. Door closed. Visitors limited. Lights dimmed. Warm blanket given. Pillow given. Head of bed. 21:00 Patient admitted, IV remains in place. Oxygen administration via nasal cannula \T\ 3L/min.mt4 Administered Medications: 03:59 Drug: Albuterol Inhalation 2.5 mg Inhalation once Route: Inhalation; cp4 03:59 Drug: Ipratropium Inhalation Aerosol 0.5 mg Inhalation once Route: Inhalation; cp4 04:51 Not Given (Physician Discretion): [id number] mg PO once cp 05:05 Drug: MethylPrednisoLONE IVP 125 mg IVP once Route: IVP; Site: right antecubital; cp4 12:18 Follow up: Response: No adverse reaction bp 05:57 CANCELLED (Physician Discretion): [id number] mg IVP once cp 06:18 Drug: Aspirin PO Chewable Tablet 324 mg PO once; 81 mg tablets x 4 Route: PO; cp4 12:17 Follow up: Response: No adverse reaction bp 06:48 Drug: NS 0.9% IV 1000 ml IV at 999 bolus Per protocol; 1000 mL bolus Route: IV; Rate: cp4 999 bolus; Site: right antecubital; 12:17 Follow up: IV Status: Completed infusion; IV Intake: 1000ml bp 06:48 Drug: LevaQUIN IVPB 750 mg IVPB once Route: IVPB; Site: right antecubital; cp4 12:17 Follow up: IV Status: Completed infusion; IV Intake: 250ml bp Medication: 03:30 VIS not applicable for this client. cp4 Intake: 12:17 IV: 250ml; Total: 250ml. bp 12:17 IV: 1000ml; Total: 1250ml. bp Outcome: 06:21 Decision to Hospitalize by Provider. cp 06:38 Admitted to ER Hold. Please see [facility] for further documentation. cp4 06:38 Condition: stable 06:38 Instructed on the need for admit, 21:41 Patient left the ED. mt4 Signatures: Dispatcher [employer] EDMS Emiliana Galvin Patricia RN RN ph Ros[place], JUN Fraser cp Mario Davies oe Diogo Barron RN RN bp Kitty Dillard RN RN vc1 Sandy Manrique cp4 Kayla Buchanan 2 Liset Garcia RN RN mt4 Corrections: (The following items were deleted from the chart) 07:09 06:50 Inserted saline lock: 22 gauge in left hand, using aseptic technique. Blood oe collected. Flushed with 10 mL NS oe 21:39 19:30 Neuro: Level of Consciousness is awake, alert, obeys commands, Oriented to mt4 person, place, time, situation, Speech is normal, Facial symmetry appears normal, mt4
--- NOTE | 2023-10-09 06:22 | EDPHYS ---
Physician Documentation [facility] Name: Hung Long Age: 62 yrs Sex: Male : 1960 Arrival Date: 10/09/2023 Time: 02:46 Bed 20 Private MD: Steve Gutierrez ED Physician Evelio Guzman HPI: 10/08 03:05 This 62 yrs old Male presents to ER via Unassigned with complaints of Cough, cp Congestion, Flu Symptoms. 03:05 The patient or guardian reports cough, that is intermittent, with productive sputum, cp wheezing. Onset: The symptoms/episode began/occurred 2 day(s) ago. 03:05 Severity of symptoms: in the emergency department the symptoms are actually worse. cp Associated signs and symptoms: Pertinent negatives: chest pain, diarrhea, fever, sore throat, vomiting. Historical: - Allergies: 03:15 NKDA; vc1 - Home Meds: 03:15 amlodipine 10 mg tablet daily [Active]; tamsulosin 0.4 mg Oral capsule 1 cap daily vc1 [Active]; - PMHx: 03:15 chronic neck pain; enlarged prostate; Hypercholesterolemia; Hypertensive disorder; vc1 - PSHx: 03:15 Appendectomy; vc1 - Immunization history:: Adult Immunizations up to date. - Infectious Disease History:: Denies. - Social history:: Smoking status: Patient reports the use of cigarette tobacco products, 1/5 PPD. ROS: 03:10 Constitutional: Negative for body aches, chills, fever, poor PO intake, cp 03:10 Eyes: Negative for injury, pain, redness, and discharge, cp 03:10 ENT: Negative for drainage from ear(s), ear pain, sore throat, difficulty swallowing, difficulty handling secretions, 03:10 Cardiovascular: Negative for chest pain, edema, palpitations, 03:10 Respiratory: Positive for cough, shortness of breath, wheezing, 03:10 Abdomen/GI: Negative for abdominal pain, vomiting, diarrhea, constipation, 03:10 Neuro: Negative for altered mental status, dizziness, headache, syncope, weakness, 03:10 All other systems are negative, Exam: 03:15 Constitutional: The patient appears in no acute distress, alert, awake, cp non-diaphoretic, non-toxic, well developed, well nourished, 03:15 Head/Face: Normocephalic, atraumatic. cp 03:15 Eyes: Periorbital structures: appear normal, Conjunctiva: normal, no exudate, no injection, Sclera: no appreciated abnormality, Lids and lashes: appear normal, bilaterally, 03:15 ENT: External ear(s): are unremarkable, Nose: is normal, Mouth: Lips: moist, Oral mucosa: moist, Posterior pharynx: Airway: no evidence of obstruction, patent, erythema, is not appreciated, exudate, is not appreciated, 03:15 Neck: ROM/movement: is normal, is supple, without pain, no range of motions cp limitations, no meningismus, 03:15 Chest/axilla: Inspection: normal, Palpation: is normal, no crepitus, no tenderness, 03:15 Cardiovascular: Rate: normal, Rhythm: regular, Edema: is not appreciated, JVD: is not appreciated, 03:15 Respiratory: the patient does not display signs of respiratory distress, Respirations: normal, no use of accessory muscles, no retractions, Breath sounds: decreased breath sounds, that are moderate, throughout, wheezing: that is mild, is heard diffusely, 03:15 Abdomen/GI: Inspection: abdomen appears normal, Palpation: abdomen is soft and non-tender, in all quadrants, 03:15 Back: pain, is absent, ROM is normal, 03:15 Skin: cellulitis, is not appreciated, no rash present. 03:15 Neuro: Orientation: to person, place \T\ time. Mentation: is normal, Motor: moves all cp fours, strength is normal, Sensation: is normal, Gait: is steady, at a normal pace, without difficulty, 05:06 ECG was reviewed by the Attending Physician. cp Vital Signs: 03:13 BP 149 / 96; Pulse 77; Resp 18; Pulse Ox 90% on R/A; vc1 03:13 Weight 102.06 kg; Height 5 ft. 11 in. ; Pain 0/10; vc1 04:43 BP 159 / 109; Pulse 75; Resp 18; Pulse Ox 85% on R/A; cp4 05:50 BP 184 / 108; Pulse 75; Resp 16; Pulse Ox 90% on 6 lpm Venturi mask; cp4 06:39 BP 173 / 108; Pulse 78; Resp 18; Pulse Ox 93% on BiPAP; cp4 19:53 BP 136 / 92; Pulse 75; Resp 16; Temp 98.1(O); Pulse Ox 90% ; FiO2 3 %; Pain 0/10; mt4 03:13 Body Mass Index 31.38 (102.06 kg, 180.34 cm) vc1 03:13 Pain Scale: Adult vc1 19:53 Pain Scale: Adult mt4 [place] Coma Score: 20:19 Eye Response: spontaneous(4). Motor Response: obeys commands(6). Verbal Response: mt4 oriented(5). Total: 15. 21:00 Eye Response: spontaneous(4). Motor Response: obeys commands(6). Verbal Response: mt4 oriented(5). Total: 15. MDM: 03:17 Patient medically screened. cp 06:05 Data reviewed: vital signs, nurses notes, lab test result(s), EKG, radiologic studies, cp plain films, I have discussed the patient's presentation/case with the attending Emergency Department Physician; and as a result, I will admit patient. 06:05 Differential Diagnosis: Bronchitis Influenza Asthma Exacerbation Viral Syndrome cp Pneumonia. I considered the following discharge prescriptions or medication management in the emergency department Medications were administered in the Emergency Department. See MAR. Independent interpretation of the following test(s) in the Emergency Department EKG: See my EKG interpretation above. Care significantly affected by the following chronic conditions: Chronic Obstructive Pulmonary Disease. Counseling: I had a detailed discussion with the patient and/or guardian regarding the historical points, exam findings, and any diagnostic results supporting the discharge/admit diagnosis, lab results, radiology results, the need for further work-up and treatment in the hospital. 10/08 03:08 Order name: SARS RAPID; Complete Time: 05:52 cp 10/08 03:08 Order name: Influenza Screen (a \T\ B); Complete Time: 05:52 cp 10/08 04:50 Order name: Basic Metabolic Panel; Complete Time: 06:00 cp 10/08 06:00 Interpretation: Normal except: ANION GAP 4.7; GFR 63. cp 10/08 04:50 Order name: CBC with Diff; Complete Time: 05:52 cp 10/08 05:52 Interpretation: Normal except: RBC 5.89; HCT 52.7; PLT 133. cp 10/08 04:50 Order name: D-Dimer; Complete Time: 05:52 cp 10/08 04:50 Order name: LFT's; Complete Time: 06:00 cp 10/08 04:50 Order name: Magnesium; Complete Time: 06:00 cp 10/08 04:50 Order name: NT PRO-BNP; Complete Time: 06:00 cp 10/08 04:50 Order name: PT-INR; Complete Time: 05:52 cp 10/08 04:50 Order name: Troponin HS; Complete Time: 06:00 cp 10/08 05:57 Order name: ABG; Complete Time: 11:38 cp 10/08 06:02 Order name: Lactate w/ 2H reflex if indic.; Complete Time: 11:38 cp 10/08 06:02 Order name: Blood Culture Adult (2) cp 10/08 10:05 Order name: Lactate w/ 2H reflex if indic.; Complete Time: 11:38 EDMS 10/08 10:05 Order name: Procalcitonin EDMS 10/08 10:05 Order name: CBC with Automated Diff EDMS 10/08 10:05 Order name: CBC with Automated Diff EDMS 10/08 10:05 Order name: Comprehensive Metabolic Panel EDMS 10/08 10:05 Order name: Comprehensive Metabolic Panel EDMS 10/08 10:05 Order name: Lactate w/ 2H reflex if indic. EDMS 10/08 10:05 Order name: Lactate w/ 2H reflex if indic. EDMS 10/08 10:05 Order name: Lipid Profile EDMS 10/08 10:05 Order name: Lipid Profile EDMS 10/08 10:05 Order name: Magnesium EDMS 10/08 10:05 Order name: Magnesium EDMS 10/08 10:05 Order name: NT PRO-BNP EDMS 10/08 10:05 Order name: NT PRO-BNP EDMS 10/08 10:05 Order name: Phosphorus EDMS 10/08 10:05 Order name: Phosphorus EDMS 10/08 10:05 Order name: Protime (+INR) EDMS 10/08 10:05 Order name: Protime (+INR) EDMS 10/08 10:05 Order name: PTT, Activated Partial Thromb EDMS 10/08 10:05 Order name: PTT, Activated Partial Thromb EDMS 10/08 10:05 Order name: Troponin High Sensitivity EDMS 10/08 10:05 Order name: Troponin High Sensitivity; Complete Time: 11:38 EDMS 10/08 10:05 Order name: Troponin High Sensitivity EDNV 10/08 03:08 Order name: XRAY Chest Pa And Lat (2 Views) 10/08 05:54 Order name: CT Chest For PE Angio; Complete Time: 11:38 cp 10/08 04:50 Order name: EKG; Complete Time: 04:51 cp 10/08 10:05 Order name: CONS Physician Consult EDNV 10/08 04:38 Order name: Vital Signs; Complete Time: 04:52 cp 10/08 04:50 Order name: Cardiac monitoring; Complete Time: 05:05 cp 10/08 04:50 Order name: EKG - Nurse/Tech; Complete Time: 05:05 cp 10/08 04:50 Order name: IV Saline Lock; Complete Time: 05:05 cp 10/08 04:50 Order name: Labs collected and sent; Complete Time: 05:05 cp 10/08 04:50 Order name: O2 Per Protocol; Complete Time: 05:05 cp 10/08 04:50 Order name: O2 Sat Monitoring; Complete Time: 05:05 cp EC:06 Rate is 71 beats/min. Rhythm is regular. AR interval is normal. QRS interval is cp prolonged at 108 msec. QT interval is normal. Interpreted by me. Reviewed by me. Administered Medications: 03:59 Drug: Albuterol Inhalation 2.5 mg Inhalation once Route: Inhalation; cp4 03:59 Drug: Ipratropium Inhalation Aerosol 0.5 mg Inhalation once Route: Inhalation; cp4 04:51 Not Given (Physician Discretion): mg PO once cp 05:05 Drug: MethylPrednisoLONE IVP 125 mg IVP once Route: IVP; Site: right antecubital; cp4 12:18 Follow up: Response: No adverse reaction bp 05:57 CANCELLED (Physician Discretion): [id number] mg IVP once cp 06:18 Drug: Aspirin PO Chewable Tablet 324 mg PO once; 81 mg tablets x 4 Route: PO; cp4 12:17 Follow up: Response: No adverse reaction bp 06:48 Drug: NS 0.9% IV 1000 ml IV at 999 bolus Per protocol; 1000 mL bolus Route: IV; Rate: cp4 999 bolus; Site: right antecubital; 12:17 Follow up: IV Status: Completed infusion; IV Intake: 1000ml bp 06:48 Drug: LevaQUIN IVPB 750 mg IVPB once Route: IVPB; Site: right antecubital; cp4 12:17 Follow up: IV Status: Completed infusion; IV Intake: 250ml bp Disposition: 10/09 01:21 Co-signature as Attending Physician, Evelio Guzman MD I agree with the assessment and rohit plan of care. Disposition Summary: 10/09/23 06:21 Hospitalization Ordered Notes: Hospitalization Status: Inpatient Admission cp Provider: Madina Torres cp Condition: Stable cp Problem: new cp Symptoms: have improved cp Bed/Room Type: Standard cp Location: Telemetry/MedSurg (Inpatient)(10/09/23 19:40) rv1 Room Assignment: 413(10/09/23 19:40) rv1 Diagnosis - COPD/ Chronic obstructive pulmonary disease with (acute) exacerbation cp - Hypoxemia cp Forms: - Medication Reconciliation Form cp - SBAR form cp - Leadership Thank You Letter cp Signatures: Dispatcher [employer] EDMS Emiliana Galvin Corey, MD MD cha Page, Corey, PA PA Kitty Yusuf, RN RN vc1 Jorden Alatorre MD MD rt Villegas, Rebecca rv1 Sandy Manrique cp4 Diogo Barron RN bp Corrections: (The following items were deleted from the chart) 10/08 03:08 03:08 SARS-COV-2 Antigen Rapid+I.LAB.BRZ ordered. EDMS EDMS 03:08 03:08 Influenza Screen (A \T\ B)+BA.LAB.BRZ ordered. EDMS EDMS 05:57 05:54 hydrALAZINE IVP 10 mg IVP once ordered. cp cp 06:36 06:21 Telemetry/MedSurg (Inpatient) cp vc1 06:36 06:21 cp vc1 13:36 06:36 [facility] ER HOLD vc1 bd 13:36 06:36 ERHOLD- vc1 bd 13:43 13:36 Telemetry/MedSurg (Inpatient) bd bd 13:43 13:36 215 bd bd 19:40 13:43 [facility] ER HOLD bd rv1 19:40 13:43 ERHOLD- bd rv1
[2023-10-09] MEDS ORDERED: Levofloxacin 750mg IV 750 MG/150 ML BAG IV ONE (06:43)
[2023-10-09] MEDS ORDERED: NA CHLORIDE 0.9% 1,000 ML ONE (06:43)
--- NOTE | 2023-10-09 08:56 | RAD REPORT ---
EXAM DESCRIPTION: CT - Chest For Pe Angio - 10/09/2023 8:46 am CLINICAL HISTORY: shortness of breath COMPARISON: Abdomen Pelvis Wo Contrast dated 12/15/2022 TECHNIQUE: Dynamically enhanced axial 3 mm thick images of the chest were obtained during administra tion of <100> mL Isovue 370 IV contrast. Coronal and oblique reconstruction images were generated and reviewed. Exam utilizes a protocol for optimal evaluation of pulmonary arterial tree. Maximum intensity projections 3D imaging was utilized All CT scans are performed using dose optimization technique as appropriate and may include automated exposure control or mA/KV adjustment according to patient size. FINDINGS: Chest Wall: No suspicious thyroid nodules or pathologic lymphadenopathy. Lungs: Emphysema. Mild consolidative airspace disease in the right greater than left lung base. Pleura: No significant effusions or pneumothorax. Mediastinum/thad: Reactive size mediastinal and hilar lymph nodes. Pulmonary arteries/Aorta: No filling defect identified. No aortic aneurysm. Heart: No significant pericardial effusion. Normal heart size. Upper abdomen: Hepatic steatosis cholelithiasis. No CT is acute cholecystitis. Right upper pole renal cyst. Bones: No acute abnormality. IMPRESSION: Negative for pulmonary embolism. Mild consolidative airspace disease in the right greate r than left lung base concerning for either pneumonia or pneumonitis.
[2023-10-09] MEDS ORDERED: ONDANSETRON 4 MG/2 ML VIAL IV PRN (09:58)
[2023-10-09] MEDS ORDERED: ACETAMINOPHEN 500 MG TAB PO PRN (09:58)
[2023-10-09] MEDS: NA CHLORIDE 0.9% 1,000 ML IV SCH (10:00)
--- NOTE | 2023-10-09 10:10 | P.HP ---
Certification for Inpatient Patient admitted to: Inpatient With expected LOS: >2 Midnights Patient will require the following post-hospital care: None Practitioner: I am a practitioner with admitting privileges, knowledge of patient current condition, hospital course, and medical plan of care. Services: Services provided to patient in accordance with Admission requirements found in Title 42 Section 412.3 of the Code of Federal Regulations Patient History Date of Service: 10/09/23 Reason for admission: Interstitial pneumonia/hypertensive emergency History of Present Illness: Patient is a 62-year-old gentleman came to the hospital with cough and congestion. He been feeling very poorly for the last 4 days. Clinical symptoms have gotten worse. He has a history of BPH and has a leg bag for obstructive uropathy. He is post to follow-up with Dr. Chauhan in 3 months. He also has poorly controlled hypertension. He states he has been doubling up on his blood pressure medication. He states for the last 4 days he started getting really weak and anorexic. He had no appetite and his clinical condition deteriorated. He came to the ER and in the emergency room he was severely hypoxic with room air O2 sats of 70% and placed on BiPAP. CT PE protocol showed bilateral pneumonia. Will check a procalcitonin level as well. Continue with nebs st eroids and antibiotic therapy along with diuresing patient. Patient with hypertensive emergency with blood pressure 190s over 120s. Will put him on a nicardipine drip. Patient will be admitted to the hospital for further evaluation. Allergies codeine [Codeine] Allergy (Unknown, Verified 11/24/13 17:57) UNKNOWN Home Medications: Aspirin Chewable [Aspirin Chewable*] 81 mg PO DAILY 30 Days #30 tab.chew 12/18/22 Atorvastatin Calcium [Lipitor] 40 mg PO BEDTIME 30 Days #30 tab 12/18/22 Ciprofloxacin HCl [Cipro 500 MG Tablet] 500 mg PO BID 30 Days #60 tab 12/18/22 Metoprolol Tartrate [Lopressor*] 50 mg PO BID 6AM 6PM #60 tab 12/18/22 Tamsulosin [Flomax*] 0.8 mg PO BEDTIME 30 Days #60 cap 12/18/22 - Past Medical/Surgical History Diabetic: No -: Chronic pain syndrome -: Nicotine dependence -: Obstructive uropathy -: COPD -: Uncontrolled hypertension -: 2 fusions in neck c3/4 -: jorge hip through knee in L leg -: removal of R eye iris -: stiches in R forarm - Family History Father Family History: Reviewed- Non-Contributory - Social History Smoking Status: Former smoker Alcohol use: No CD- Drugs: No Caffeine use: No Review of Systems 10-point ROS is otherwise unremarkable Physical Examination - Vital Signs Temperature: 98 F Blood Pressure: 190/120 Pulse: 80 Respirations: 18 Pulse Ox (%): 92 - Physical Exam General: Alert, In no apparent distress, Oriented x3 HEENT: Atraumatic, PERRLA, Mucous membr. moist/pink, EOMI, Sclerae nonicteric Neck: Supple, 2+ carotid pulse no bruit, No LAD, Without JVD or thyroid abnormality Respiratory: Clear to auscultation bilaterally, Normal air movement Cardiovascular: Regular rate/rhythm, Normal S1 S2 Gastrointestinal: Normal bowel sounds, Soft and benign, Non-distended, No tenderness Musculoskeletal: No clubbing, No swelling, No tenderness Integumentary: No rashes Neurological: Normal gait, Normal speech, Normal strength at 5/5 x4 extr, Normal tone, Normal affect Lymphatics: No axilla or inguinal lymphadenopathy Urinary: Kyle catheter - Studies Laboratory Data (last 24 hrs) 10/09/23 10/09/23 10/09/23 05:00 05:00 05:00 WBC 8.70 Hgb 17.5 Hct 52.7 H Plt Count 133 L PT 11.7 INR 1.05 Sodium 138 Potassium 3.7 BUN 15 Creatinine 1.27 Glucose 98 Magnesium 2.1 Total Bilirubin 1.2 H AST 21 ALT 38 Alkaline Phosphatase 55 Microbiology Data (last 24 hrs): 10/09/23 03:41 Nasopharnyx Influenza Type A Antigen Screen - Final 10/09/23 03:41 Nasopharnyx Influenza Type B Antigen Screen - Final Assessment & Plan - Problems (Diagnosis) (1) Hypertensive emergency Current Visit: Yes Status: Acute (2) Acute CHF Current Visit: Yes Status: Acute (3) Bilateral pneumonia Current Visit: Yes Status: Acute (4) COPD (chronic obstructive pulmonary disease) Current Visit: Yes Status: Acute (5) MARIA ISABEL (acute kidney injury) Current Visit: No Status: Acute (6) Obstructive uropathy Current Visit: No Status: Acute (7) Tobacco abuse Current Visit: No Status: Acute - Plan Plan: 1. Hypertensive emergency; continue with Cardene drip. Continue with gentle hydration. Continue with echocardiogram and diuresing patient will start oral antihypertensives. Current map is 130s. Will keep MAP at less than 25% of 110. At this time patient be admitted to the hospital for further evaluation. Patient will get ICU. 2. Bilateral pneumonia; patient hypoxic and requiring BiPAP support. Currently weaned down on nasal cannula. Patient still severely hypoxic. Patient with a history of tobacco abuse and appears to have an acute COPD exacerbation secondary to the pneumonia. Continue with nebs, steroids, and antibiotics. 3. History of obstructive uropathy; patient with leg bag strict I's and O's. 4. GI DVT prophylaxis Discharge Plan: Home Plan to discharge in: Greater than 2 days - Advance Directives Does patient have a Living Will: No Does patient have a Durable POA for Healthcare: No - Code Status/Comfort Care Code Status Assessed: Yes Code Status: Full Code Critical Care: Yes Time Spent Managing PTS Care (In Minutes): 50
[2023-10-09 10:45] LABS: Arterial Blood Carboxyhemoglob 3.6 % (0-1.5); Blood Gas Oxyhemoglobin 83.2 % (94-97); Blood O2 Saturation 87.9 % (92-98.5)
[2023-10-09] MEDS: AMLODIPINE 10 MG TAB PO ONE (10:45)
[2023-10-09] MEDS ORDERED: AMLODIPINE 5 MG TAB PO ONE (10:45)
[2023-10-09 10:49] LABS: Blood Gas THB 18.5 g/dl (12-18)
[2023-10-09] MEDS ORDERED: AMLODIPINE 10 MG TAB ONE (11:46)
[2023-10-09] MEDS: METHYLPREDNISOLONE 125 MG INJ IV SCH (12:00)
[2023-10-09 12:13] VITALS: BMI 31.4
[2023-10-09] MEDS: FUROSEMIDE 40 MG/4 ML VIAL IV ONE (13:15)
[2023-10-09] MEDS: Nicardipine/NS 25 MG/250 ML KIT IV SCH (13:15)
[2023-10-09] MEDS ORDERED: FUROSEMIDE 40 MG/4 ML VIAL ONE (13:46)
[2023-10-09] MEDS ORDERED: Nicardipine/NS 25 MG/250 ML KIT IV ONE (13:47)
[2023-10-09] MEDS: IPRATROPIUM BROM 0.5MG/2.5ML NEB SCH (14:20)
[2023-10-09] MEDS: ALBUTEROL 2.5 MG/3 ML NEB SOL NEB SCH (14:20)
--- NOTE | 2023-10-09 16:54 | EKG ---
Test Date: 2023-10-09 Test Time: 05:02:15 Custom Shoemaker: VICTOR M MEASUREMENT RESULTS: Intervals: Rate: 71 HI: 174 QRSD: 108 QT: 426 QTc: 462 [place]: P: 71 HI: 174 QRS: 59 T: 73 INTERPRETIVE STATEMENTS: Normal sinus rhythm Nonspecific T wave abnormality Prolonged QT Abnormal ECG Compared to ECG 12/15/2022 08:37:39 T-wave abnormality now present Prolonged QT interval now present Sinus tachycardia no longer present Electronically Signed On 10-09-23 16:53:36 CDT by Chi Bhatia
[2023-10-09] MEDS: FUROSEMIDE 40 MG/4 ML VIAL IV SCH (17:00)
[2023-10-09] MEDS: METOPROLOL TAR 50 MG TAB PO SCH (18:00)
[2023-10-09] MEDS ORDERED: METOPROLOL TAR 50 MG TAB ONE (18:32)
[2023-10-09] MEDS ORDERED: METOPROLOL TARTRATE 5 MG/5 ML INJ IV PRN (18:43)
--- NOTE | 2023-10-09 20:56 | RAD REPORT ---
EXAM DESCRIPTION: RAD - Chest Pa And Lat (2 Views) - 10/09/2023 3:37 am TECHNIQUE: Cough COMPARISON: None TECHNIQUE: Chest 2 Views AP PA Lateral FINDINGS: Trachea midline. Heart size and pulmonary vessels within normal limits. Lungs clear without evidence of consolidation, mass, or significant pulmonary edema. No significant pleural effusion or pneumothorax. Bones unremarkable. IMPRESSION: Unremarkable chest radiograph. Electronically signed by: Marcus Hall MD 10/09/2023 04:35 AM CDT Due to temporary technical issues with the PACS/Fluency reporting system, reports are being signed by the in house radiologists without review as a courtesy to insure prompt reporting. The interpreting radiologist is fully responsible for the content of the report.
[2023-10-09] MEDS: CEFTRIAXONE 1,000 MG in NA CHLORIDE 0.9% 50 ML IVPB SCH (22:06)
[2023-10-10 06:53] LABS: Absolute Basophils 0.1 K/uL (0-0.5); Absolute Lymphocytes (CBC) 1.4 K/uL (0.7-4.9); Absolute Monocytes 0.3 K/uL (0.1-1.3); Absolute Neutrophil 11.4 K/uL (1.8-8.0); Basophils % 0.5 % (0-1.3); Hematocrit 51.9 % (39.6-49.0); Hemoglobin 17.1 g/dL (13.6-17.9); Lymphocytes % 10.3 % (15.3-44.8); MCH 29.2 pg (27.0-35.0); MCHC 32.9 g/dL (32.0-36.0); MCV 88.6 fL (80-100); MPV 8.5 fL (7.6-11.3); Monocytes % 2.5 % (3.3-12.3); Neutrophils % 86.7 % (41.7-73.7); Nucleated Red Blood Cells % 0.1 % (0-0); Platelets 169 thou/uL (152-406); RBC Red Blood Cell Count 5.86 M/uL (4.33-5.43); Red Cell Distribution Width 14.3 % (12.1-15.2)
[2023-10-10 06:57] LABS: PT Prothrombin Time 11.4 SECONDS (9.4-12.5); PTT, Activated Partial Thromb 29.7 SECONDS (24.3-36.9); Protime INR 1.02
[2023-10-10 07:12] LABS: Albumin 3.3 g/dL (3.4-5.0); Albumin/Globulin Ratio 0.8 (1.1-1.8); Anion Gap 10.5 mEq/L (5.0-15.0); Bilirubin Total 0.5 mg/dL (0.2-1.0); Globulin 3.9 g/dL (2.3-3.5); Magnesium 2.2 mg/dL (1.6-2.4); Phosphorus 1.8 mg/dL (2.5-4.9); Potassium 3.5 mEq/L (3.5-5.1); Protein, Total 7.2 g/dL (6.4-8.2)
--- NOTE | 2023-10-10 08:24 | P.CNS ---
Date of Consult: 10/09/23 Reason for Consult: Cough congestion possible pneumonia Chief Complaint: Pneumonia cough congestion History of Present Illness: Patient is 62 years of age admitted to the hospital complaining of cough and congestion for the past 3 days patient is an active smoker no prior history of COPD also for she is actively has moderate to severe exertion denies any prior dyspnea no chest pain lives in a trailer take any bronchodilators was found to have a possible right lower lobe pneumonia Allergies codeine [Codeine] Allergy (Unknown, Verified 11/24/13 17:57) UNKNOWN Home Medications: Aspirin Chewable [Aspirin Chewable*] 81 mg PO DAILY 30 Days #30 tab.chew 12/18/22 Atorvastatin Calcium [Lipitor] 40 mg PO BEDTIME 30 Days #30 tab 12/18/22 Ciprofloxacin HCl [Cipro 500 MG Tablet] 500 mg PO BID 30 Days #60 tab 12/18/22 Metoprolol Tartrate [Lopressor*] 50 mg PO BID 6AM 6PM #60 tab 12/18/22 Tamsulosin [Flomax*] 0.8 mg PO BEDTIME 30 Days #60 cap 12/18/22 - Past Medical/Surgical History Diabetic: No -: Chronic pain syndrome -: Nicotine dependence -: Obstructive uropathy -: COPD -: Uncontrolled hypertension -: 2 fusions in neck c3/4 -: jorge hip through knee in L leg -: removal of R eye iris -: stiches in R forarm - Family History Father Family History: Reviewed- Non-Contributory - Social History Smoking Status: Current some day smoker Alcohol use: No CD- Drugs: No Caffeine use: No Place of Residence: Homeless Review of Systems 10-point ROS is otherwise unremarkable General: Weakness Respiratory: Cough Physical Examination Temp Pulse Resp BP Pulse Ox 98.6 F 74 18 131/75 87 L 10/10/23 05:18 10/10/23 05:18 10/10/23 05:18 10/10/23 05:18 10/10/23 05:18 General: Alert, Oriented x3 HEENT: Atraumatic Neck: Supple Respiratory: Clear to auscultation bilaterally Cardiovascular: No edema Gastrointestinal: Normal bowel sounds, Soft and benign - Problems (1) COPD (chronic obstructive pulmonary disease) Current Visit: Yes Status: Acute Plan: Patient is 62 years of age heavy smoker with 3-day history of congestion most likely has a right lower lobe pneumonia I suspect that he has underlying obstructive airways disease He claims that he is very active use any bronchodilators at home and was mildly hypoxic elevated white count will insufficiency CT scan reviewed possible right lower lobe infiltrate 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 prednisone levofloxacin appears to be hypoxic Qualifiers: COPD type: COPD with acute exacerbation Qualified Code(s): J44.1 - Chronic obstructive pulmonary disease with (acute) exacerbation
[2023-10-10] MEDS: POTASS/SODIUM PHOSPHATE 1 PKT POWD.PACK PO SCH ×2 (09:00→12:20)
[2023-10-10 09:20] LABS: White Blood Cell Scan OK (OK)
[2023-10-10 09:21] LABS: Blood Morphology Comment NOT SEEN (NOT SEEN); Platelet Estimate ADEQ
--- NOTE | 2023-10-10 09:23 | RAD REPORT ---
EXAM DESCRIPTION: Xander May (2 Views)10/10/2023 9:14 am CLINICAL HISTORY: Cough COMPARISON: October 09, 2023 FINDINGS: Mild worsening in the right lower lobe consolidation Left lung appears clear The heart is mildly enlarged IMPRESSION: Mild worsening in the right lower lobe consolidation probably pneumonia
[2023-10-10] MEDS: AZITHROMYCIN IV 500 MG in NA CHLORIDE 0.9% 250 ML IVPB SCH (09:49)
[2023-10-10] MEDS: ENOXAPARIN 40 MG/0.4 ML SQ SCH (09:49)
[2023-10-10] MEDS: POTASSIUM CL SA 10 MEQ TAB PO ONE (09:51)
[2023-10-10] MEDS: AMLODIPINE 10 MG TAB PO SCH (09:52)
[2023-10-10] MEDS: DULERA 200/5 (MOMETASONE/FORMOTEROL) INHALER IH SCH (10:43)
[2023-10-10] MEDS: FUROSEMIDE 40 MG/4 ML VIAL IV ONE (12:22)
--- NOTE | 2023-10-10 12:34 | P.PN ---
Subjective Date of Service: 10/10/23 Chief Complaint: Pneumonia likely underlying COPD Patient was doing better until this morning started complaining of chest congestion he still remains hypoxic chest x-ray is clear Review of Systems General: Weakness Respiratory: Cough, Shortness of Breath Physical Examination - Vital Signs Temperature: 98.2 F Blood Pressure: 121/65 Pulse: 74 Respirations: 20 Pulse Ox (%): 88 - Physical Exam General: Oriented x3 Neck: Supple Respiratory: Diminished Assessment And Plan - Current Problems (Diagnosis) (1) COPD (chronic obstructive pulmonary disease) Current Visit: Yes Status: Acute Plan: Patient most likely has underlying obstructive airways disease he continues to remain hypoxic with bronchodilators 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
[2023-10-10] MEDS: levoFLOXacin 750 MG TAB PO SCH (13:19)
[2023-10-10] MEDS: predniSONE 20 MG TAB PO SCH (20:24)
--- NOTE | 2023-10-11 07:25 | P.DS ---
Admission Date: 10/09/23 Discharge Date: 10/11/23 Disposition: ROUTINE DISCHARGE Discharge Condition: FAIR Reason for Admission: Pneumonia likely underlying COPD Brief History of Present Illness: Patient is a 62-year-old gentleman came to the hospital with cough and congestion. He been feeling very poorly for the last 4 days. Clinical symptoms have gotten worse. He has a history of BPH and has a leg bag for obstructive uropathy. He is post to follow-up with Dr. Chauhan in 3 months. He also has poorly controlled hypertension. He states he has been doubling up on his blood pressure medication. He states for the last 4 days he started getting really weak and anorexic. He had no appetite and his clinical condition deteriorated. He came to the ER and in the emergency room he was severely hypoxic with room air O2 sats of 70% and placed on BiPAP. CT PE protocol showed bilateral pneumonia. Will check a procalcitonin level as well. Continue with nebs steroids and antibiotic therapy along with diuresing patient. Patient with hypertensive emergency with blood pressure 190s over 120s. Will put him on a nicardipine drip. Patient will be admitted to the hospital for further evaluation. - Physical Exam General: Alert, In no apparent distress, Oriented x3 HEENT: Atraumatic, PERRLA, Mucous membr. moist/pink, EOMI, Sclerae nonicteric Neck: Supple, 2+ carotid pulse no bruit, No LAD, Without JVD or thyroid abnormality Respiratory: Clear to auscultation bilaterally, Normal air movement Cardiovascular: Regular rate/rhythm, Normal S1 S2 Gastrointestinal: Normal bowel sounds, Soft and benign, Non-distended, No tenderness Musculoskeletal: No clubbing, No swelling, No tenderness Integumentary: No rashes Neurological: Normal gait, Normal speech, Normal strength at 5/5 x4 extr, Normal tone, Normal affect Lymphatics: No axilla or inguinal lymphadenopathy Hospital Course: 62-year-old gentleman came to the hospital with cough and congestion. He been feeling very poorly for the last 4 days. Clinical symptoms have gotten worse. He has a history of BPH and has a leg bag for obstructive uropathy. He is post to follow-up with Dr. Chauhan in 3 months. He also has poorly controlled hypertension. He states he has been doubling up on his blood pressure medication. He states for the last 4 days he started getting really weak and anorexic. He was admitted to ICU on cardene gtt, with Bipap for acute respiratory failure. history of tobacco use, COPD, started on steroids, nebs. Assessment hypertensive urgency adjust blood pressure medications COPD exacerbation, discharged home on p.o. steroids, antibiotics, nebulizers, inhalers Tobacco use-educated on tobacco cessation, follow-up with pulmonary after discharge Continue home medicines as previously prescribed GOAL: Clear understanding of disease process INSTRUCTIONS: Physician Discharge Instructions: -Follow-up with PCP in 1 to 2 weeks -Please call Dr. Torres at [phone] if any questions regarding hospital stay -Please call nursing station at [phone] if any nursing or medication questions -Return to the emergency room if symptoms worsen Diet: ADA, low sodium Activity: Fall precautions Vital Signs/Physical Exam: Temp Pulse Resp BP Pulse Ox 96.9 F 72 18 135/70 92 10/11/23 04:00 10/11/23 05:58 10/11/23 04:00 10/11/23 05:58 10/11/23 04:00 Laboratory Data at Discharge: WBC 13.20 thou/uL (4.3-10.9) H 10/10/23 06:42 Hgb 17.1 g/dL (13.6-17.9) 10/10/23 06:42 Hct 51.9 % (39.6-49.0) H 10/10/23 06:42 Plt Count 169 thou/uL (152-406) D 10/10/23 06:42 PT 11.4 SECONDS (9.4-12.5) 10/10/23 06:42 INR 1.02 10/10/23 06:42 APTT 29.7 SECONDS (24.3-36.9) 10/10/23 06:42 Sodium 139 mEq/L (136-145) 10/10/23 06:42 Potassium 3.5 mEq/L (3.5-5.1) 10/10/23 06:42 BUN 23 mg/dL (7-18) H 10/10/23 06:42 Creatinine 1.31 mg/dL (0.70-1.30) H 10/10/23 06:42 Glucose 172 mg/dL (74-106) H 10/10/23 06:42 Phosphorus 1.8 mg/dL (2.5-4.9) L 10/10/23 06:42 Magnesium 2.2 mg/dL (1.6-2.4) 10/10/23 06:42 Total Bilirubin 0.5 mg/dL (0.2-1.0) 10/10/23 06:42 AST 16 U/L (15-37) 10/10/23 06:42 ALT 38 U/L (16-61) 10/10/23 06:42 Alkaline Phosphatase 54 U/L (45-117) 10/10/23 06:42 Triglycerides 70 mg/dL (<150) 10/10/23 06:42 Cholesterol 191 mg/dL (<200) 10/10/23 06:42 HDL Cholesterol 34 mg/dL (40-60) L 10/10/23 06:42 Cholesterol/HDL Ratio 5.62 10/10/23 06:42 Home Medications: Aspirin Chewable [Aspirin Chewable*] 81 mg PO DAILY 30 Days #30 tab.chew 12/18/22 Atorvastatin Calcium [Lipitor] 40 mg PO BEDTIME 30 Days #30 tab 12/18/22 Ciprofloxacin HCl [Cipro 500 MG Tablet] 500 mg PO BID 30 Days #60 tab 12/18/22 Metoprolol Tartrate [Lopressor*] 50 mg PO BID 6AM 6PM #60 tab 12/18/22 Tamsulosin [Flomax*] 0.8 mg PO BEDTIME 30 Days #60 cap 12/18/22 Diet: AHA Activity: Fall precautions Followup: Amari Patel MD [ACTIVE - CAN ADMIT] - Steve Gutierrez MD [Primary Care Provider] - Time spent managing pt's care (in minutes): 55
[2023-10-11 08:30] LABS: Absolute Basophils 0.1 K/uL (0-0.5); Absolute Lymphocytes (CBC) 1.7 K/uL (0.7-4.9); Absolute Monocytes 1.2 K/uL (0.1-1.3); Absolute Neutrophil 15.5 K/uL (1.8-8.0); Basophils % 0.4 % (0-1.3); Hematocrit 48.4 % (39.6-49.0); MCH 29.2 pg (27.0-35.0); MCV 88.4 fL (80-100); MPV 8.5 fL (7.6-11.3); Monocytes % 6.6 % (3.3-12.3); Nucleated Red Blood Cells % 0.1 % (0-0); Platelets 192 thou/uL (152-406); RBC Red Blood Cell Count 5.47 M/uL (4.33-5.43); Red Cell Distribution Width 14.7 % (12.1-15.2)
[2023-10-11 08:38] LABS: Anion Gap 6.6 mEq/L (5.0-15.0); Magnesium 2.3 mg/dL (1.6-2.4); Phosphorus 2.5 mg/dL (2.5-4.9); Potassium 3.6 mEq/L (3.5-5.1)
--- NOTE | 2023-10-12 07:54 | P.PN ---
Date of Service: 10/11/23 subjective Still wheezing, reports breathing slightly improved, productive cough Review of Systems 10-point ROS is otherwise unremarkable Physical Examination - Vital Signs Reviewed - Physical Exam General: Alert, In no apparent distress, Oriented x3 HEENT: Atraumatic, PERRLA, Mucous membr. moist/pink, EOMI, Sclerae nonicteric Neck: Supple, 2+ carotid pulse no bruit, No LAD, Without JVD or thyroid abnormality Respiratory: Diminished,, expiratory wheeze, productive cough Cardiovascular: Regular rate/rhythm, Normal S1 S2 Gastrointestinal: Normal bowel sounds, Soft and benign, Non-distended, No tenderness Musculoskeletal: No clubbing, No swelling, No tenderness Integumentary: No rashes Neurological: Normal gait, Normal speech, Normal strength at 5/5 x4 extr, Normal tone, Normal affect Lymphatics: No axilla or inguinal lymphadenopathy Assessment & Plan - Problems (Diagnosis) (1) Hypertensive emergency Current Visit: Yes Status: Acute (2) Acute CHF Current Visit: Yes Status: Acute (3) Bilateral pneumonia Current Visit: Yes Status: Acute (4) COPD (chronic obstructive pulmonary disease) Current Visit: Yes Status: Acute (5) MARIA ISABEL (acute kidney injury) Current Visit: No Status: Acute (6) Obstructive uropathy Current Visit: No Status: Acute (7) Tobacco abuse Current Visit: No Status: Acute - Plan Plan: 1. Hypertensive emergency; continue with Cardene drip. Continue with gentle hydration. Continue with echocardiogram and diuresing patient will start oral antihypertensives. Current map is 130s. Will keep MAP at less than 25% of 110. At this time patient be admitted to the hospital for further evaluation. Patient will get ICU. 2. Bilateral pneumonia; patient hypoxic and requiring BiPAP support. Currently weaned down on nasal cannula. Patient still severely hypoxic. Patient with a history of tobacco abuse and appears to have an acute COPD exacerbation secondary to the pneumonia. Continue with nebs, steroids, and antibiotics. 3. History of obstructive uropathy; patient with leg bag strict I's and O's. 4. GI DVT prophylaxis Discharge Plan: Home Plan to discharge in: Greater than 2 days - Advance Directives Does patient have a Living Will: No Does patient have a Durable POA for Healthcare: No - Code Status/Comfort Care Code Status Assessed: Yes Code Status: Full Code Critical Care: Yes Time Spent Managing PTS Care (In Minutes): 35 <Luzmaria Marlow - Last Filed: 10/12/23 15:17> Patient was seen and examined. Events of the last 24 hours have been noted. Spoke with with ALY regarding patient's clinical picture after evaluating and examining the patient independently. I performed a substantial part of the MDM during this patient's care today. I personally made or approved the documented management plan and acknowledge its risk of complications. I agree with the findings and documentation provided in the ALY's notes. Agree with findings as mentioned above. Blood pressure stabilized. Continue with oral antihypertensives. Patient moved to general medical floor for the last couple of days. Patient doing well and oxygenation is stabilized. Patient on room air O2 sats. <Madina Torres - Last Filed: 10/13/23 20:20>
[2023-10-12 08:22] LABS: Absolute Basophils 0.1 K/uL (0-0.5); Absolute Lymphocytes (CBC) 2.1 K/uL (0.7-4.9); Absolute Monocytes 0.8 K/uL (0.1-1.3); Absolute Neutrophil 9.1 K/uL (1.8-8.0); Basophils % 0.6 % (0-1.3); Hematocrit 52.7 % (39.6-49.0); Hemoglobin 16.8 g/dL (13.6-17.9); Lymphocytes % 17.2 % (15.3-44.8); MCH 28.9 pg (27.0-35.0); MCHC 31.9 g/dL (32.0-36.0); MCV 90.6 fL (80-100); MPV 8.6 fL (7.6-11.3); Monocytes % 6.4 % (3.3-12.3); Neutrophils % 75.8 % (41.7-73.7); Nucleated Red Blood Cells % 0.1 % (0-0); Platelets 203 thou/uL (152-406); RBC Red Blood Cell Count 5.82 M/uL (4.33-5.43)
[2023-10-12 08:35] LABS: Albumin 3.2 g/dL (3.4-5.0); Anion Gap 5.2 mEq/L (5.0-15.0); Magnesium 2.3 mg/dL (1.6-2.4); Phosphorus 2.4 mg/dL (2.5-4.9); Potassium 4.2 mEq/L (3.5-5.1)
--- NOTE | 2023-10-12 10:57 | P.PN ---
Subjective Date of Service: 10/12/23 Chief Complaint: COPD with pneumonia Patient is complaining of cough and congestion patient is still hypoxic Review of Systems General: Weakness Respiratory: Cough, Shortness of Breath Physical Examination - Vital Signs Temperature: 97.0 F Blood Pressure: 147/92 Pulse: 66 Respirations: 22 Pulse Ox (%): 90 - Physical Exam General: Alert, Oriented x3 Respiratory: Expiratory wheezes Cardiovascular: No edema, Regular rate/rhythm Assessment And Plan - Current Problems (Diagnosis) (1) COPD (chronic obstructive pulmonary disease) Current Visit: Yes Status: Acute Plan: Patient admitted with presumed COPD exacerbation possibly underlying pneumonia labs chemistries all reviewed blood cultures are negative still hypoxic on room air chest x-ray is clear discharge planning may need oxygen at home Qualifiers: COPD type: COPD with acute exacerbation Qualified Code(s): J44.1 - Chronic obstructive pulmonary disease with (acute) exacerbation
--- NOTE | 2023-10-12 15:21 | P.PN ---
Date of Service: 10/12/23 subjective Wheezing somewhat improved, reports feeling better Weaning O2 Review of Systems 10-point ROS is otherwise unremarkable Physical Examination - Vital Signs Reviewed - Physical Exam General: Alert, In no apparent distress, Oriented x3 HEENT: Atraumatic, PERRLA, Mucous membr. moist/pink, EOMI, Sclerae nonicteric Neck: Supple, 2+ carotid pulse no bruit, No LAD, Without JVD or thyroid abnormality Respiratory: Diminished,, expiratory wheeze, productive cough Cardiovascular: Regular rate/rhythm, Normal S1 S2 Gastrointestinal: Normal bowel sounds, Soft and benign, Non-distended, No tenderness Musculoskeletal: No clubbing, No swelling, No tenderness Integumentary: No rashes Neurological: Normal gait, Normal speech, Normal strength at 5/5 x4 extr, Normal tone, Normal affect Lymphatics: No axilla or inguinal lymphadenopathy Assessment & Plan - Problems (Diagnosis) (1) Hypertensive emergency improved Current Visit: Yes Status: Acute (2) Acute CHF Current Visit: Yes Status: Acute (3) Bilateral pneumonia improving Current Visit: Yes Status: Acute (4) COPD (chronic obstructive pulmonary disease) Current Visit: Yes Status: Acute (5) MARIA ISABEL (acute kidney injury) Current Visit: No Status: Acute (6) Obstructive uropathy Current Visit: No Status: Acute (7) Tobacco abuse Current Visit: No Status: Acute - Plan Plan: 1. Hypertensive emergency; continue with Cardene drip. Continue with gentle hydration. Continue with echocardiogram and diuresing patient will start oral antihypertensives. Current map is 130s. Will keep MAP at less than 25% of 110. At this time patient be admitted to the hospital for further evaluation. Patient will get ICU. 2. Bilateral pneumonia; patient hypoxic and requiring BiPAP support. Currently weaned down on nasal cannula. Patient still severely hypoxic. Patient with a history of tobacco abuse and appears to have an acute COPD exacerbation secondary to the pneumonia. Continue with nebs, steroids, and antibiotics. 3. History of obstructive uropathy; patient with leg bag strict I's and O's. 4. GI DVT prophylaxis Discharge Plan: Home Plan to discharge in: Greater than 2 days - Advance Directives Does patient have a Living Will: No Does patient have a Durable POA for Healthcare: No - Code Status/Comfort Care Code Status Assessed: Yes Code Status: Full Code Critical Care: Yes Time Spent Managing PTS Care (In Minutes): 35 <Luzmaria Marlow - Last Filed: 10/12/23 15:19> Patient was seen and examined. Events of the last 24 hours have been noted. Spoke with with ALY regarding patient's clinical picture after evaluating and examining the patient independently. I performed a substantial part of the MDM during this patient's care today. I personally made or approved the documented management plan and acknowledge its risk of complications. I agree with the findings and documentation provided in the ALY's notes. Agree with findings as mentioned above. Blood pressure stabilized. Continue with oral antihypertensives. Patient moved to general medical floor for the last couple of days. Patient doing well and oxygenation is stabilized. Patient still on 2 to 3 L of oxygen. Getting out of bed and ambulating. Feels much better. Anticipate discharge in the morning. <Madina Torres - Last Filed: 10/13/23 20:33>
[2023-10-12] MEDS ORDERED: HYDRALAZINE HCL 20 MG/ML VIAL IV PRN (18:28)
[2023-10-13 09:11] LABS: Absolute Lymphocytes (CBC) 1.5 K/uL (0.7-4.9); Absolute Monocytes 0.6 K/uL (0.1-1.3); Absolute Neutrophil 7.9 K/uL (1.8-8.0); Basophils % 0.2 % (0-1.3); Eosinophils % 0.1 % (0-4.4); Hematocrit 53.7 % (39.6-49.0); Hemoglobin 17.4 g/dL (13.6-17.9); Lymphocytes % 15.3 % (15.3-44.8); MCH 29.2 pg (27.0-35.0); MCHC 32.4 g/dL (32.0-36.0); MPV 8.6 fL (7.6-11.3); Monocytes % 6.2 % (3.3-12.3); Neutrophils % 78.2 % (41.7-73.7); Platelets 200 thou/uL (152-406); RBC Red Blood Cell Count 5.96 M/uL (4.33-5.43); Red Cell Distribution Width 14.7 % (12.1-15.2)
[2023-10-13 09:16] LABS: Albumin 3.1 g/dL (3.4-5.0); Anion Gap 6.2 mEq/L (5.0-15.0); Magnesium 2.3 mg/dL (1.6-2.4); Phosphorus 2.3 mg/dL (2.5-4.9); Potassium 4.2 mEq/L (3.5-5.1)
[2023-10-13] MEDS: POTASS/SODIUM PHOSPHATE 1 PKT POWD.PACK PO SCH (10:28)
--- NOTE | 2023-10-13 20:17 | P.PN ---
Date of Service: 10/10/23 Subjective Patient continues to do well and patient denies any new complaints. Clinical symptoms are improving. Patient still with some respiratory distress. Weaning off of oxygen at this time. Physical Examination - Vital Signs Reviewed - Physical Exam General: Alert, In no apparent distress, Oriented x3 Respiratory: Clear to auscultation bilaterally, Normal air movement Cardiovascular: Regular rate/rhythm, Normal S1 S2 Gastrointestinal: Normal bowel sounds, Soft and benign, Non-distended, No tenderness Musculoskeletal: No clubbing, No swelling, No tenderness Integumentary: No rashes Neurological: No focal deficits Urinary: Kyle catheter Assessment & Plan - Problems (Diagnosis) (1) Hypertensive emergency Current Visit: Yes Status: Acute (2) Acute CHF Current Visit: Yes Status: Acute (3) Bilateral pneumonia Current Visit: Yes Status: Acute (4) COPD (chronic obstructive pulmonary disease) Current Visit: Yes Status: Acute (5) MARIA ISABEL (acute kidney injury) Current Visit: No Status: Acute (6) Obstructive uropathy Current Visit: No Status: Acute (7) Tobacco abuse Current Visit: No Status: Acute - Plan Continue with plan of care as mentioned below: 1. Hypertensive emergency; weaned off Cardene drip. Blood pressure stable on oral antihypertensives Oxygenation has improved. Continue with diuresing. Some of patient's respiratory distress could have been related to flash pulmonary edema from uncontrolled hypertension. 2. Bilateral pneumonia; patient hypoxic and requiring BiPAP support. Patient was weaned off of BiPAP support and was on 5 L of oxygen at this time. Will continue to wean down the nasal cannula. Patient still severely hypoxic. Patient with a history of tobacco abuse and appears to have an acute COPD exacerbation secondary to the pneumonia. Continue with nebs, steroids, and antibiotics. 3. History of obstructive uropathy; patient with leg bag strict I's and O's. Will need outpatient follow-up with urology. Requesting second opinion. 4. GI DVT prophylaxis Discharge Plan: Home Plan to discharge in: Greater than 2 days - Advance Directives Does patient have a Living Will: No Does patient have a Durable POA for Healthcare: No - Code Status/Comfort Care Code Status Assessed: Yes Code Status: Full Code Critical Care: Yes Time Spent Managing PTS Care (In Minutes): 50
--- NOTE | 2023-10-13 20:31 | P.DS ---
Discharge Date: 10/14/23 Disposition: ROUTINE DISCHARGE Discharge Condition: FAIR Reason for Admission: COPD with pneumonia - Problems (1) Hypertensive emergency Current Visit: Yes Status: Acute (2) Acute CHF Current Visit: Yes Status: Acute (3) Bilateral pneumonia Current Visit: Yes Status: Acute (4) COPD (chronic obstructive pulmonary disease) Current Visit: Yes Status: Acute Qualifiers: COPD type: COPD with acute exacerbation Qualified Code(s): J44.1 - Chronic obstructive pulmonary disease with (acute) exacerbation (5) MARIA ISABEL (acute kidney injury) Current Visit: No Status: Acute (6) Obstructive uropathy Current Visit: No Status: Acute (7) Tobacco abuse Current Visit: No Status: Acute Brief History of Present Illness: Patient is a 62-year-old gentleman came to the hospital with cough and congestion. He been feeling very poorly for the last 4 days. Clinical symptoms have gotten worse. He has a history of BPH and has a leg bag for obstructive uropathy. He is post to follow-up with Dr. Chauhan in 3 months. He also has poorly controlled hypertension. He states he has been doubling up on his blood pressure medication. He states for the last 4 days he started getting really weak and anorexic. He had no appetite and his clinical condition deteriorated. He came to the ER and in the emergency room he was severely hypoxic with room air O2 sats of 70% and placed on BiPAP. CT PE protocol showed bilateral pneumonia. Will check a procalcitonin level as well. Continue with nebs steroi ds and antibiotic therapy along with diuresing patient. Patient with hypertensive emergency with blood pressure 190s over 120s. Will put him on a nicardipine drip. Patient will be admitted to the hospital for further evaluation. Hospital Course: Patient is a 62-year-old gentleman who came to the hospital with acute respiratory distress. Patient had hypertensive emergency and was admitted to the ICU. Patient was started on nicardipine drip. Blood pressure was stabilized. Patient with acute respiratory distress with pneumonia. Patient was started on antibiotic therapy. Patient was given nebs, steroids, and O2 per protocol. Weaned off of oxygen. Currently, patient doing well and plan to discharge home with outpatient follow-up. Patient also with obstructive uropathy. Patient requesting second opinion as patient has not been able to see his own urologist for many months. He wants the Kyle catheter removed as he has had it for over a year. Patient's blood pressure is stable. Respiratory status has improved. Outpatient follow-up with cardiology, pulmonary, and urologist as an outpatient. Vital Signs/Physical Exam: Temp Pulse Resp BP Pulse Ox 98.4 F 64 18 141/91 H 93 10/13/23 20:00 10/13/23 20:00 10/13/23 20:00 10/13/23 20:00 10/13/23 20:00 General: Alert, In no apparent distress, Oriented x3 Laboratory Data at Discharge: WBC 10.10 thou/uL (4.3-10.9) 10/13/23 08:00 Hgb 17.4 g/dL (13.6-17.9) 10/13/23 08:00 Hct 53.7 % (39.6-49.0) H 10/13/23 08:00 Plt Count 200 thou/uL (152-406) 10/13/23 08:00 PT 11.4 SECONDS (9.4-12.5) 10/10/23 06:42 INR 1.02 10/10/23 06:42 APTT 29.7 SECONDS (24.3-36.9) 10/10/23 06:42 Sodium 138 mEq/L (136-145) 10/13/23 08:00 Potassium 4.2 mEq/L (3.5-5.1) 10/13/23 08:00 BUN 22 mg/dL (7-18) H 10/13/23 08:00 Creatinine 0.90 mg/dL (0.70-1.30) 10/13/23 08:00 Glucose 146 mg/dL (74-106) H 10/13/23 08:00 Phosphorus 2.3 mg/dL (2.5-4.9) L 10/13/23 08:00 Magnesium 2.3 mg/dL (1.6-2.4) 10/13/23 08:00 Total Bilirubin 0.5 mg/dL (0.2-1.0) 10/10/23 06:42 AST 16 U/L (15-37) 10/10/23 06:42 ALT 38 U/L (16-61) 10/10/23 06:42 Alkaline Phosphatase 54 U/L (45-117) 10/10/23 06:42 Triglycerides 70 mg/dL (<150) 10/10/23 06:42 Cholesterol 191 mg/dL (<200) 10/10/23 06:42 HDL Cholesterol 34 mg/dL (40-60) L 10/10/23 06:42 Cholesterol/HDL Ratio 5.62 10/10/23 06:42 Home Medications: Aspirin Chewable [Aspirin Chewable*] 81 mg PO DAILY 30 Days #30 tab.chew 12/18/22 Atorvastatin Calcium [Lipitor] 40 mg PO BEDTIME 30 Days #30 tab 12/18/22 Metoprolol Tartrate [Lopressor*] 50 mg PO BID 6AM 6PM #60 tab 12/18/22 Tamsulosin [Flomax*] 0.8 mg PO BEDTIME 30 Days #60 cap 12/18/22 Albuterol Neb [Proventil 0.083% Neb Soln] 2.5 mg NEB [id number] #60 amp 10/13/23 Amlodipine [Norvasc*] 10 mg PO DAILY #30 tab 10/13/23 Ipratropium Neb [Atrovent*] 0.5 mg NEB [id number] #60 amp 10/13/23 Metoprolol Tartrate [Lopressor*] 50 mg PO BID 6AM 6PM #60 tab 10/13/23 Mometasone/Formoterol [Dulera 200 Mcg/5 Mcg Inhaler] 2 puff IH BID #1 inhaler 10/13/23 Nebulizer 1 each MC DAILY #1 ea 10/13/23 Nebulizer Accessories [Aeroneb Go] 1 each MC DAILY #1 ea 10/13/23 levoFLOXacin [Levaquin*] 750 mg PO DAILY #3 tab 10/13/23 predniSONE [Prednisone*] 20 mg PO BID #20 tab 10/13/23 New Medications: Nebulizer Accessories [Aeroneb Go] 1 each MC DAILY #1 ea Ipratropium Neb [Atrovent*] 0.5 mg NEB [id number] #60 amp Mometasone/Formoterol [Dulera 200 Mcg/5 Mcg Inhaler] 2 puff IH BID #1 inhaler levoFLOXacin [Levaquin*] 750 mg PO DAILY #3 tab Metoprolol Tartrate [Lopressor*] 50 mg PO BID 6AM 6PM #60 tab Nebulizer 1 each MC DAILY #1 ea Amlodipine [Norvasc*] 10 mg PO DAILY #30 tab predniSONE [Prednisone*] 20 mg PO BID #20 tab Albuterol Neb [Proventil 0.083% Neb Soln] 2.5 mg NEB [id number] #60 amp Physician Discharge Instructions: -DC IV and DC home -Follow-up with PCP in 1 to 2 weeks -Follow-up with Cardiology in 1 to 2 weeks -Follow-up with Pulmonary in 1 to 2 weeks -Follow-up with Urologist in 2 to 4 weeks -Please call Dr. Torres at [phone] if any questions regarding hospital stay -Please call nursing station at [phone] if any nursing or medication questions -Return to the emergency room if symptoms worsen Shemar Magaña MD Urology [address] [place] [address] [address] [place] [address] Diet: AHA Activity: Fall precautions Followup: Amari Patel MD [ACTIVE - CAN ADMIT] - Steve Gutierrez MD [Primary Care Provider] - Shemar Magaña MD [OUTSIDE PHYSICIAN] -
--- NOTE | 2023-10-13 20:40 | P.PN ---
Date of Service: 10/13/23 Subjective Patient is clinically doing well and patient denies any new complaints. Patient's clinical symptoms have been stable. Patient denies any new complaints. Patient feeling better. Anticipate discharge in a.m. if patient continues to do well. Physical Examination - Vital Signs Reviewed - Physical Exam General: Alert, In no apparent distress, Oriented x3 Respiratory: End expiratory wheezing with basilar crackles Cardiovascular: Regular rate/rhythm, Normal S1 S2 Gastrointestinal: Normal bowel sounds, Soft and benign, Non-distended, No tenderness Musculoskeletal: No clubbing, No swelling, No tenderness Integumentary: No rashes Neurological: No focal deficits Urinary: Kyle catheter Assessment & Plan - Problems (Diagnosis) (1) Hypertensive emergency Current Visit: Yes Status: Acute (2) Acute CHF Current Visit: Yes Status: Acute (3) Bilateral pneumonia Current Visit: Yes Status: Acute (4) COPD (chronic obstructive pulmonary disease) Current Visit: Yes Status: Acute (5) MARIA ISABEL (acute kidney injury) Current Visit: No Status: Acute (6) Obstructive uropathy Current Visit: No Status: Acute (7) Tobacco abuse Current Visit: No Status: Acute - Plan Continue with plan of care as mentioned below: 1. Hypertensive emergency; Hemodynamically stable. Blood pressure stable on oral antihypertensives Oxygenation has improved. Continue with diuresing. Some of patient's respiratory distress could have been related to flash pulmonary edema from uncontrolled hypertension. Imperative that he keeps his blood pressure controlled going forward. 2. Bilateral pneumonia; patient hypoxic and requiring BiPAP support. Patient was weaned off of BiPAP support and was on 5 L of oxygen at this time. Will continue to wean down the nasal cannula. Patient currently back on 2 to 3 L of oxygen. Patient with a history of tobacco abuse and appears to have compensated his respiratory status. Continue with nebs, steroids, and antibiotics. Anticipate discharge in a.m. 3. History of obstructive uropathy; patient with leg bag strict I's and O's. Will need outpatient follow-up with urology. Requesting second opinion as an outpt. 4. GI DVT prophylaxis Discharge Plan: Home Plan to discharge in: Greater than 2 days - Advance Directives Does patient have a Living Will: No Does patient have a Durable POA for Healthcare: No - Code Status/Comfort Care Code Status Assessed: Yes Code Status: Full Code Critical Care: Yes Time Spent Managing PTS Care (In Minutes): 50
[2023-10-14 08:10] VITALS: BP 137/93
[2023-10-14 09:01] VITALS: TEMP 97.5
[2023-10-14 12:11] VITALS: O2SAT 91
== END 2023-10-14 13:27 | disposition home or self-care (01) | DRG 193 ==
LOC: ER 02:46 → ERHOLD 09:57 → 4TH 20:53
PROVIDERS: ADMIT Hospitalist; ATTEND Hospitalist
PROC: 4A033R1 Measurement of Arterial Saturation, Peripheral, Percutaneous Approach (ICD-10-PCS; principal; 2023-10-09)
PROC: 5A09457 Assistance with Respiratory Ventilation, 24-96 Consecutive Hours, Continuous Positive Airway Pressure (ICD-10-PCS; 2023-10-09)
DX: J18.9 Pneumonia, unspecified organism (principal); J96.21 Acute and chronic respiratory failure with hypoxia; J44.1 Chronic obstructive pulmonary disease with (acute) exacerbation; J44.0 Chronic obstructive pulmonary disease with (acute) lower respiratory infection; I16.1 Hypertensive emergency; N17.9 Acute kidney failure, unspecified; E78.00 Pure hypercholesterolemia, unspecified; I11.0 Hypertensive heart disease with heart failure; I50.9 Heart failure, unspecified; G89.4 Chronic pain syndrome; M54.2 Cervicalgia; N13.9 Obstructive and reflux uropathy, unspecified; N40.0 Benign prostatic hyperplasia without lower urinary tract symptoms; F17.210 Nicotine dependence, cigarettes, uncomplicated; Z88.5 Allergy status to narcotic agent; Z79.82 Long term (current) use of aspirin; Z11.52 Encounter for screening for COVID-19; Z90.49 Acquired absence of other specified parts of digestive tract; Z79.899 Other long term (current) drug therapy
CPT/HCPCS: 36415; 36600; 71046; 71275; 80048; 80053; 80061; 80069; 80076; 82805; 83605; 83735; 83880; 84100; 84145; 84484; 85025; 85379; 85610; 85730; 87040; 87804; 87811; 93005; 94010; 94660; 94760; 96365; 96366; 96375; 99285; J0696; J1650; J1940; J2919; J3535; J7030; J7050; J7512; J7613; J7644; Q9967

== ENCOUNTER 2023-12-15 12:47 | Emergency (ER) | payer OTHER ==
--- NOTE | 2023-12-15 13:06 | EDPHYS ---
Physician Documentation [facility] Name: Hung Long Age: 63 yrs Sex: Male : 1960 Arrival Date: 12/15/2023 Time: 12:47 Bed 6 Private MD: ED Physician Mazin Pena HPI: 12/14 13:00 This 63 yrs old Male presents to ER via Ambulatory with complaints of Needs Urinary [facility] Catheter Replacement. 13:00 63-year-old male with a past medical history of enlarged prostate presents to the ER [facility] for needing a Lundberg bag replacement. The patient reports that the Lundberg is draining appropriately and denies any urinary symptoms, but states that there is a hole in his back. He reports that he sees Dr. Chauhan as his urologist and has not been given a date for a TURP procedure yet. Patient calm and alert in triage.. Historical: - Allergies: 12:59 NKDA; ap3 - PMHx: 12:59 chronic neck pain; enlarged prostate; Hypercholesterolemia; Hypertensive disorder; ap3 - PSHx: 12:59 Appendectomy; ap3 - Immunization history:: Client reports receiving the 2nd dose of the Covid vaccine. - Infectious Disease History:: Denies. - Social history:: Smoking status: Patient reports the use of cigarette tobacco products, cigars. ROS: 12:55 Constitutional: Per HPI [facility] Exam: 12:55 Constitutional: This is a well developed, well nourished patient who is awake, alert, jh7 and in no acute distress. Head/Face: Normocephalic, atraumatic. Cardiovascular: Regular rate and rhythm with a normal S1 and S2. No gallops, murmurs, or rubs. Normal PMI, no JVD. No pulse deficits. Respiratory: Lungs have equal breath sounds bilaterally, clear to auscultation and percussion. No rales, rhonchi or wheezes noted. No increased work of breathing, no retractions or nasal flaring. Abdomen/GI: Soft, non-tender, with normal bowel sounds. No distension or tympany. No guarding or rebound. No evidence of tenderness throughout. Back: No spinal tenderness. No costovertebral tenderness. Full range of motion. Skin: Warm, dry with normal turgor. Normal color with no rashes, no lesions, and no evidence of cellulitis. MS/ Extremity: Pulses equal, no cyanosis. Neurovascular intact. Full, normal range of motion. Neuro: Awake and alert, GCS 15, oriented to person, place, time, and situation. Motor strength 5/5 in all extremities. Sensory grossly intact. Normal gait. 12:55 : a lundberg is noted, Vital Signs: 12:58 BP 145 / 88; Pulse 66; Resp 17; Temp 98.8; Pulse Ox 97% ; Weight 95.25 kg; ap3 MDM: 12:53 Medical Screening Exam initiated [facility] 13:10 Differential diagnosis: Lundberg bag needing replacement. Data reviewed: vital signs, [facility] nurses notes. Counseling: I had a detailed discussion with the patient and/or guardian regarding the historical points, exam findings, and any diagnostic results supporting the discharge/admit diagnosis, the need for outpatient follow up, a urologist, to return to the emergency department if symptoms worsen or persist or if there are any questions or concerns that arise at home. 12/14 13:03 Order name: Lundberg Leg Bag; Complete Time: 13:27 [facility] Administered Medications: No medications were administered Disposition Summary: 12/15/23 13:05 Discharge Ordered Notes: Location: Home [facility] Problem: an ongoing problem [facility] Symptoms: are unchanged [facility] Condition: Stable [facility] Diagnosis - Encounter for fitting and adjustment of urinary device [facility] Followup: [facility] - With: Carlo Chauhan MD - When: 2 - 3 days - Reason: Recheck today's complaints Discharge Instructions: - Discharge Summary Sheet [facility] - Indwelling Urinary Catheter Care, Adult [facility] Forms: - Medication Reconciliation Form [facility] - Patient Portal Instructions [facility] - Leadership Thank You Letter [facility] Signatures: Sonam Angela RN RN ap3 Micki Colby FNP FNP [facility] Corrections: (The following items were deleted from the chart) 13:03 [facility]02 [facility] [place] [id number]
--- NOTE | 2023-12-15 13:06 | ER ---
Nurse's Notes [facility] Name: Hung Long Age: 63 yrs Sex: Male : 1960 Arrival Date: 12/15/2023 Time: 12:47 Bed 6 Private MD: Diagnosis: Encounter for fitting and adjustment of urinary device Presentation: 12/14 12:58 Chief complaint: Patient states: his lundberg bag needs to be replaced due to leaking. ap3 Coronavirus screen: At this time, the client does not indicate any symptoms associated with coronavirus-19. Ebola Screen: No symptoms or risks identified at this time. Initial Sepsis Screen: Does the patient meet any 2 criteria? No. Patient's initial sepsis screen is negative. Does the patient have a suspected source of infection? No. Patient's initial sepsis screen is negative. Risk Assessment: Do you want to hurt yourself or someone else? Patient reports no desire to harm self or others. Onset of symptoms is unknown. 12:58 Method Of Arrival: Ambulatory ap3 12:58 Acuity: GUNNAR 5 ap3 Triage Assessment: 12:59 General: Appears in no apparent distress. Behavior is calm, cooperative, appropriate ap3 for age. Pain: Denies pain. Neuro: Level of Consciousness is awake, alert, obeys commands, Oriented to person, place, time, situation. Cardiovascular: Patient's skin is warm and dry. Respiratory: Airway is patent Respiratory effort is even, unlabored, Respiratory pattern is regular, symmetrical. : Lundberg in place. Historical: - Allergies: 12:59 NKDA; ap3 - PMHx: 12:59 chronic neck pain; enlarged prostate; Hypercholesterolemia; Hypertensive disorder; ap3 - PSHx: 12:59 Appendectomy; ap3 - Immunization history:: Client reports receiving the 2nd dose of the Covid vaccine. - Infectious Disease History:: Denies. - Social history:: Smoking status: Patient reports the use of cigarette tobacco products, cigars. Screenin:00 Abuse screen: Denies threats or abuse. Nutritional screening: No deficits noted. ap3 Tuberculosis screening: No symptoms or risk factors identified. 13:29 [facility] ED Fall Risk Assessment (Adult) History of falling in the last 3 months, ph including since admission No falls in past 3 months (0 pts) Confusion or Disorientation No (0 pts) Intoxicated or Sedated No (0 pts) Impaired Gait No (0 pts) Mobility Assist Device Used No (0 pt) Altered Elimination Yes (1 pt) Score/Fall Risk Level 0 - 2 = Low Risk Oriented to surroundings, Maintained a safe environment. Assessment: 13:27 Reassessment: Leg bag replaced. General: Appears in no apparent distress. comfortable, ph Behavior is calm, cooperative, Denies fever, feeling ill. Pain: Denies pain. : Lundberg in place to gravity drainage Urine is clear. Derm: Skin is pink, warm \T\ dry. Vital Signs: 12:58 BP 145 / 88; Pulse 66; Resp 17; Temp 98.8; Pulse Ox 97% ; Weight 95.25 kg; ap3 ED Course: 12:49 Patient arrived in ED. 3 12:52 Melinda Kelley, EARL is Primary Nurse. 6 12:53 [facility] 12:53 Mazin Pena MD is Attending Physician. [facility] 12:59 Triage completed. ap3 13:00 Carolina Rivas RN is Primary Nurse. ph 13:00 Arm band placed on right wrist. ap3 13:04 Carlo Chauhan MD is Referral Physician. [facility] 13:29 No provider procedures requiring assistance completed. Pt arrived w/ Lundberg in place, ph c/o leaking from leg bag, leg bag replaced. Patient did not have IV access during this emergency room visit. 13:30 Patient has correct armband on for positive identification. Bed in low position. ph Administered Medications: No medications were administered Medication: 13:30 VIS not applicable for this client. ph Outcome: 13:05 Discharge ordered [address] . [facility] 13:30 Discharged to home ambulatory, ph 13:30 Condition: good 13:30 Discharge instructions given to patient, Instructed on discharge instructions, follow up and referral plans. Demonstrated understanding of instructions, follow-up care, 13:30 Patient left the ED. ph Signatures: Carolina Rivas RN RN ph Prokisch, Amanda, RN RN [facility] Micki Colby FNP [employer] [facility] Melinda Kelley RN RN [facility] Anju Keenan [facility]
[2023-12-15 18:26] VITALS: BP 145/88; TEMP 98.8; O2SAT 97
== END 2023-12-15 13:30 | disposition home or self-care (01) ==
LOC: ER 12:47
DX: Z46.6 Encounter for fitting and adjustment of urinary device (principal); I10 Essential (primary) hypertension; E78.00 Pure hypercholesterolemia, unspecified; N40.0 Benign prostatic hyperplasia without lower urinary tract symptoms; F17.210 Nicotine dependence, cigarettes, uncomplicated
CPT/HCPCS: 99282

== ENCOUNTER 2024-03-15 00:24 | Emergency (ER) | payer OTHER ==
--- NOTE | 2024-03-15 00:53 | ER ---
Nurse's Notes [facility] Name: Hung Long Age: 63 yrs Sex: Male : 1960 Arrival Date: 03/15/2024 Time: 00:24 Bed 8 Private MD: Diagnosis: Mechanical complication of urinary (indwelling) catheter;Retention of urine, unspecified Presentation: 03/15 00:38 Chief complaint: Patient states: my lundberg catheter is not draining. onset 1800 lg3 yesterday. Coronavirus screen: Client denies travel out of the [place] in the last 14 days. At this time, the client does not indicate any symptoms associated with coronavirus-19. Ebola Screen: No symptoms or risks identified at this time. Initial Sepsis Screen: Does the patient meet any 2 criteria? No. Patient's initial sepsis screen is negative. Does the patient have a suspected source of infection? No. Patient's initial sepsis screen is negative. Risk Assessment: Do you want to hurt yourself or someone else? Patient reports no desire to harm self or others. Onset of symptoms was March 14, 2024. 00:38 Method Of Arrival: Ambulatory lg3 00:38 Acuity: GUNNAR 3 lg3 Triage Assessment: 00:40 General: Appears in no apparent distress. unkempt, Behavior is calm, cooperative. Pain: lg3 Complains of pain in pelvis. EENT: No deficits noted. No signs and/or symptoms were reported regarding the EENT system. Neuro: No deficits noted. [place] Agitation-Sedation Scale (RASS): 0 - Alert and Calm Level of Consciousness is awake, alert, obeys commands, Oriented to person, place, time, situation. Cardiovascular: No deficits noted. Denies chest pain, shortness of breath, Capillary refill < 3 seconds Clubbing of nail beds is absent JVD is absent Patient's skin is warm and dry. Respiratory: No deficits noted. Airway is patent Respiratory effort is even, unlabored, Respiratory pattern is regular, symmetrical. GI: No deficits noted. Abdomen is round non-distended, obese. : Lundberg in place to gravity drainage Reports inability to void. Derm: No deficits noted. No signs and/or symptoms reported regarding the dermatologic system. Skin is intact, is healthy with good turgor, Skin is dry, Skin is normal, Skin temperature is warm. Musculoskeletal: No deficits noted. No signs and/or symptoms reported regarding the musculoskeletal system. Circulation, motion, and sensation intact. Range of motion: intact in all extremities. Historical: - Allergies: 00:40 NKDA; lg3 - PMHx: 00:40 chronic neck pain; enlarged prostate; Hypercholesterolemia; Hypertensive disorder; lg3 - PSHx: 00:40 Appendectomy; lg3 - Immunization history:: Adult Immunizations up to date. - Infectious Disease History:: Denies. - Social history:: Smoking status: Patient reports the use of cigarette tobacco products, smokes one-half pack cigarettes per day, Patient/guardian denies using alcohol, street drugs. Screenin:26 [facility] ED Fall Risk Assessment (Adult) History of falling in the last 3 months, al5 including since admission No falls in past 3 months (0 pts) Confusion or Disorientation No (0 pts) Intoxicated or Sedated No (0 pts) Impaired Gait No (0 pts) Mobility Assist Device Used No (0 pt) Altered Elimination No (0 pt) Score/Fall Risk Level 0 - 2 = Low Risk Oriented to surroundings, Maintained a safe environment, Hourly rounding (assess needs \T\ fall precautionary measures) done. Abuse screen: Denies threats or abuse. Denies injuries from another. Nutritional screening: No deficits noted. Tuberculosis screening: No symptoms or risk factors identified. Assessment: 01:28 General: Appears in no apparent distress. Behavior is calm, cooperative. Neuro: Level al5 of Consciousness is awake, alert, obeys commands, Oriented to person, place, time, situation. Cardiovascular: Capillary refill < 3 seconds Patient's skin is warm and dry. Respiratory: Airway is patent Respiratory effort is even, unlabored, Respiratory pattern is regular, symmetrical. GI: No signs and/or symptoms were reported involving the gastrointestinal system. : Lundberg in place to gravity drainage. EENT: No signs and/or symptoms were reported regarding the EENT system. Derm: Skin is intact, is healthy with good turgor, Skin is pink, warm \T\ dry. normal. Musculoskeletal: No signs and/or symptoms reported regarding the musculoskeletal system. Vital Signs: 00:38 BP 184 / 94; Pulse 104; Resp 17 S; Temp 97.8(O); Pulse Ox 94% on R/A; Weight 99.79 kg lg3 (R); Height 5 ft. 10 in. (R); 01:29 BP 171 / 97; Pulse 100; Resp 18; Pulse Ox 94% on R/A; al5 00:38 Body Mass Index 31.57 (99.79 kg, 177.8 cm) 3 ED Course: 00:25 Patient arrived in ED. jj6 00:31 Evelio Guzman MD is Attending Physician. [facility] 00:40 Triage completed. lg3 00:40 Arm band placed on left wrist. lg3 00:52 Carlo Chauhan MD is Referral Physician. [facility] 00:56 Sonam Blas, JOSE MIGUEL is Primary Nurse. al5 01:21 Lundberg cath inserted, using sterile technique, returned nallely urine. Patient tolerated sa1 well. 01:26 Patient has correct armband on for positive identification. Bed in low position. Call al5 light in reach. Side rails up X 1. Provided Education on: discharge follow up, lundberg care. 01:26 No provider procedures requiring assistance completed. Patient did not have IV access al5 during this emergency room visit. 01:27 Lundberg cath removed intact, balloon deflated, patient lundberg catheter replaced with urine al5 return. patient to be discharged home. done by mae, supervised by jose miguel alonso. Administered Medications: 01:19 Drug: Ciprofloxacin PO 500 mg PO once Route: PO; ha1 01:20 Follow up: Response: No adverse reaction al5 Medication: 01:29 VIS not applicable for this client. al5 Outcome: 00:52 Discharge ordered by . [facility] 01:29 Discharged to home ambulatory, al5 01:29 Condition: good 01:29 Discharge instructions given to patient, Instructed on discharge instructions, follow up and referral plans. medication usage, Demonstrated understanding of instructions, follow-up care, medications, 01:29 Patient left the ED. al5 Addendum: 03/17/2024 08:12 Addendum: Culture Results: Positive urine culture. No further action required. Bacteria s s sensitive to prescribed antibiotic. Signatures: Evelio Guzman MD MD cha Blanchard, Shelby, RN RN ss Able, Lacie, RN RN 3 Micki Otero j6 Annie Montes De Oca RN RN [facility] Sonam Blas RN RN al5 [place], [place] sa1
--- NOTE | 2024-03-15 00:53 | EDPHYS ---
Physician Documentation [facility] Name: Hung Long Age: 63 yrs Sex: Male : 1960 Arrival Date: 03/15/2024 Time: 00:24 Bed 8 Private MD: ED Physician Evelio Guzman HPI: 03/15 00:40 This 63 yrs old Male presents to ER via Ambulatory with complaints of Needs rohit Urinary Catheter Replacement. 00:40 The patient presents with a Kyle catheter problem, is not draining. Onset: The rohit symptoms/episode began/occurred 1 day(s) ago. Modifying factors: The symptoms are alleviated by nothing, the symptoms are aggravated by nothing. Associated signs and symptoms: The patient has no apparent associated signs or symptoms. Severity of symptoms: At their worst the symptoms were mild, in the emergency department the symptoms are unchanged. The patient has experienced similar episodes in the past. Historical: - Allergies: 00:40 NKDA; lg3 - PMHx: 00:40 chronic neck pain; enlarged prostate; Hypercholesterolemia; Hypertensive disorder; lg3 - PSHx: 00:40 Appendectomy; lg3 - Immunization history:: Adult Immunizations up to date. - Infectious Disease History:: Denies. - Social history:: Smoking status: Patient reports the use of cigarette tobacco products, smokes one-half pack cigarettes per day, Patient/guardian denies using alcohol, street drugs. ROS: 00:41 Constitutional: Negative for fever, chills, and weight loss, Eyes: Negative for injury, rohit pain, redness, and discharge, ENT: Negative for injury, pain, and discharge, Neck: Negative for injury, pain, and swelling, Cardiovascular: Negative for chest pain, palpitations, and edema, Respiratory: Negative for shortness of breath, cough, wheezing, and pleuritic chest pain, Abdomen/GI: Negative for abdominal pain, nausea, vomiting, diarrhea, and constipation, Back: Negative for injury and pain, MS/Extremity: Negative for injury and deformity, Skin: Negative for injury, rash, and discoloration, Neuro: Negative for headache, weakness, numbness, tingling, and seizure, Psych: Negative for depression, anxiety, suicide ideation, homicidal ideation, and hallucinations, Allergy/Immunology: Negative for hives, rash, and allergies, Endocrine: Negative for neck swelling, polydipsia, polyuria, polyphagia, and marked weight changes, Hematologic/Lymphatic: Negative for swollen nodes, abnormal bleeding, and unusual bruising, 00:41 : Positive for urinary symptoms, Exam: 00:41 Constitutional: This is a well developed, well nourished patient who is awake, alert, rohit and in no acute distress. Head/Face: Normocephalic, atraumatic. Eyes: Pupils equal round and reactive to light, extra-ocular motions intact. Lids and lashes normal. Conjunctiva and sclera are non-icteric and not injected. Cornea within normal limits. Periorbital areas with no swelling, redness, or edema. ENT: Nares patent. No nasal discharge, no septal abnormalities noted. Tympanic membranes are normal and external auditory canals are clear. Oropharynx with no redness, swelling, or masses, exudates, or evidence of obstruction, uvula midline. Mucous membranes moist. Neck: Trachea midline, no thyromegaly or masses palpated, and no cervical lymphadenopathy. Supple, full range of motion without nuchal rigidity, or vertebral point tenderness. No Meningismus. Chest/axilla: Normal chest wall appearance and motion. Nontender with no deformity. No lesions are appreciated. Cardiovascular: Regular rate and rhythm with a normal S1 and S2. No gallops, murmurs, or rubs. Normal PMI, no JVD. No pulse deficits. Respiratory: Lungs have equal breath sounds bilaterally, clear to auscultation and percussion. No rales, rhonchi or wheezes noted. No increased work of breathing, no retractions or nasal flaring. Abdomen/GI: Soft, non-tender, with normal bowel sounds. No distension or tympany. No guarding or rebound. No evidence of tenderness throughout. Back: No spinal tenderness. No costovertebral tenderness. Full range of motion. Male : Normal genitalia with no discharge or lesions. Skin: Warm, dry with normal turgor. Normal color with no rashes, no lesions, and no evidence of cellulitis. MS/ Extremity: Pulses equal, no cyanosis. Neurovascular intact. Full, normal range of motion., bilateral aka Neuro: Awake and alert, GCS 15, oriented to person, place, time, and situation. Cranial nerves II-XII grossly intact. Motor strength 5/5 in all extremities. Sensory grossly intact. Cerebellar exam normal. Normal gait. Psych: Awake, alert, with orientation to person, place and time. Behavior, mood, and affect are within normal limits. Vital Signs: 00:38 BP 184 / 94; Pulse 104; Resp 17 S; Temp 97.8(O); Pulse Ox 94% on R/A; Weight 99.79 kg lg3 (R); Height 5 ft. 10 in. (R); 01:29 BP 171 / 97; Pulse 100; Resp 18; Pulse Ox 94% on R/A; al5 00:38 Body Mass Index 31.57 (99.79 kg, 177.8 cm) lg3 MDM: 00:31 Medical Screening Exam initiated rohit 00:50 Differential diagnosis: urinary retention, Kyle catheter problem, prostatitis, rohit urethritis. Data reviewed: vital signs, nurses notes. Consideration of Admission/Observation Escalation of care including admission/observation considered. I considered the following discharge prescriptions or medication management in the emergency department Medications were administered in the Emergency Department. See MAR. Independent interpretation of the following test(s) in the Emergency Department. Test considered but Not performed: Labs: no labs. Historians other than the Patient: pt well inproved. Care significantly affected by the following chronic conditions: Hypertension, chronic pain , high chlesterol, bph. Counseling: I had a detailed discussion with the patient and/or guardian regarding the historical points, exam findings, and any diagnostic results supporting the discharge/admit diagnosis, lab results, the need for outpatient follow up, for definitive care, a family practitioner, a urologist. 03/15 00:31 Order name: Urinalysis w/ reflexes [facility] 03/15 00:40 Order name: Urine Culture [facility] 03/15 00:31 Order name: Kyle; Complete Time: 01:19 [facility] 03/15 00:31 Order name: Leg Bag; Complete Time: :19 rohit Administered Medications: 01:19 Drug: Ciprofloxacin PO 500 mg PO once Route: PO; ha1 01:20 Follow up: Response: No adverse reaction al5 Disposition Summary: 03/15/24 00:52 Discharge Ordered Notes: Location: Home rohit Problem: new rohit Symptoms: have improved rohit Condition: Stable rohit Diagnosis - Mechanical complication of urinary (indwelling) catheter rohit - Retention of urine, unspecified rohit Followup: rohit - With: Private Physician - When: 2 - 3 days - Reason: Recheck today's complaints, Continuance of care, Re-evaluation by your physician Followup: [facility] - With: Carlo Chauhan MD - When: 2 - 3 days - Reason: Recheck today's complaints, Re-evaluation by your physician Discharge Instructions: - Discharge Summary Sheet rohit - Acute Urinary Retention, Male [facility] - Acute Urinary Retention, Male, [id number] [facility] - Indwelling Urinary Catheter Care, Adult, [id number] [facility] - Indwelling Urinary Catheter Insertion at Home, Male [facility] Forms: - Medication Reconciliation Form [facility] - Antibiotic Education [facility] - Prescription Opioid Use [facility] - Patient Portal Instructions [facility] - Leadership Thank You Letter [facility] Prescriptions: - Flomax 0.4 mg Oral capsule - take 1 capsule ORAL route once daily at bedtime; 30 capsule; Refills: 0, [facility] Product Selection Permitted - Cipro 250 mg Oral tablet - take 1 tablet ORAL route every 12 hours; 14 tablet; Refills: 0, Product [facility] Selection Permitted Signatures: Dispatcher [employer] Evelio Brooks MD MD cha Able, Lacie RN RN lg3 Annie Montes De Oca RN RN ha1 Sonam Blas RN al5 Corrections: (The following items were deleted from the chart) 00:32 00:32 Urinalysis+U.LAB.BRZ ordered. [place] [place]
[2024-03-15] MEDS ORDERED: CIPROFLOXACIN HCL 500 MG TAB ONE (01:16)
[2024-03-15 01:39] LABS: Specific Gravity 1.023 (1.005-1.030); Sqamous Epithelial None Seen /HPF (None Seen); Urine Bacteria >50 /HPF (<20); Urine Bilirubin NEGATIVE (Negative); Urine Blood 3+ (OVER) (Negative); Urine Clarity Extremely Turbid (Clear); Urine Color Light-Orange (Yellow); Urine Crystals Unidentified Few /HPF (None Seen); Urine Culture Reflex Order REFLEXED; Urine Glucose NEGATIVE (Negative); Urine Ketones NEGATIVE (Negative); Urine Microscopic Reflex YN ORDER UMIC; Urine Mucus 2+ /HPF (None Seen); Urine Nitrite NEGATIVE (Negative); Urine Protein 1+ (Negative); Urine RBC >50 /HPF (None Seen); Urine Urobilinogen 2+ (Normal); Urine WBC >50 /HPF (<5); Urine WBC Clump Many /HPF (None Seen)
[2024-03-15 03:39] VITALS: TEMP 97.8; O2SAT 94
[2024-03-15 03:40] VITALS: BP 171/97
== END 2024-03-15 01:29 | disposition home or self-care (01) ==
LOC: ER 00:24
DX: T83.098A Other mechanical complication of other urinary catheter, initial encounter (principal); F17.210 Nicotine dependence, cigarettes, uncomplicated
CPT/HCPCS: 51702; 81001; 87077; 87086; 87088; 87186; 99284

== ENCOUNTER 2024-03-26 09:15 | Emergency (ER) | payer OTHER ==
[2024-03-26] MEDS ORDERED: LIDOCAINE VISCOUS 2% 10ML ORAL SOLN ONE (09:34)
--- NOTE | 2024-03-26 09:41 | EDPHYS ---
Physician Documentation [facility] Name: Hung Long Age: 63 yrs Sex: Male : 1960 Arrival Date: 03/26/2024 Time: 09:15 Bed 12 Private MD: JUANCHO Physician Evelio Guzman HPI: 03/26 09:37 This 63 yrs old Male presents to ER via Unassigned with complaints of Problem rohit With Urinary Catheter, Penile Pain. 09:37 The patient presents with a Lundberg catheter problem, is not draining, urinary symptoms. rohit Onset: The symptoms/episode began/occurred last night. Modifying factors: The symptoms are alleviated by nothing, the symptoms are aggravated by nothing. Associated signs and symptoms: The patient has no apparent associated signs or symptoms. Severity of symptoms: At their worst the symptoms were mild, in the emergency department the symptoms are unchanged. The patient has not experienced similar symptoms in the past. Historical: - Allergies: 09:53 NKDA; ap3 - PMHx: 09:53 chronic neck pain; enlarged prostate; Hypercholesterolemia; Hypertensive disorder; ap3 - PSHx: 09:53 Appendectomy; ap3 - Immunization history:: Adult Immunizations up to date. - Infectious Disease History:: Denies. - Family history:: not pertinent. - Social history:: Smoking status: Patient reports the use of cigarette tobacco products. ROS: 09:37 Constitutional: Negative for fever, chills, and weight loss, Eyes: Negative for injury, rohit pain, redness, and discharge, ENT: Negative for injury, pain, and discharge, Neck: Negative for injury, pain, and swelling, Cardiovascular: Negative for chest pain, palpitations, and edema, Respiratory: Negative for shortness of breath, cough, wheezing, and pleuritic chest pain, Abdomen/GI: Negative for abdominal pain, nausea, vomiting, diarrhea, and constipation, Back: Negative for injury and pain, MS/Extremity: Negative for injury and deformity, Skin: Negative for injury, rash, and discoloration, Neuro: Negative for headache, weakness, numbness, tingling, and seizure, Psych: Negative for depression, anxiety, suicide ideation, homicidal ideation, and hallucinations, Allergy/Immunology: Negative for hives, rash, and allergies, Endocrine: Negative for neck swelling, polydipsia, polyuria, polyphagia, and marked weight changes, Hematologic/Lymphatic: Negative for swollen nodes, abnormal bleeding, and unusual bruising, 09:37 : Positive for urinary symptoms, lundberg blocked, Exam: 09:37 Constitutional: This is a well developed, well nourished patient who is awake, alert, rohit and in no acute distress. Head/Face: Normocephalic, atraumatic. Eyes: Pupils equal round and reactive to light, extra-ocular motions intact. Lids and lashes normal. Conjunctiva and sclera are non-icteric and not injected. Cornea within normal limits. Periorbital areas with no swelling, redness, or edema. ENT: Nares patent. No nasal discharge, no septal abnormalities noted. Tympanic membranes are normal and external auditory canals are clear. Oropharynx with no redness, swelling, or masses, exudates, or evidence of obstruction, uvula midline. Mucous membranes moist. Neck: Trachea midline, no thyromegaly or masses palpated, and no cervical lymphadenopathy. Supple, full range of motion without nuchal rigidity, or vertebral point tenderness. No Meningismus. Chest/axilla: Normal chest wall appearance and motion. Nontender with no deformity. No lesions are appreciated. Cardiovascular: Regular rate and rhythm with a normal S1 and S2. No gallops, murmurs, or rubs. Normal PMI, no JVD. No pulse deficits. Respiratory: Lungs have equal breath sounds bilaterally, clear to auscultation and percussion. No rales, rhonchi or wheezes noted. No increased work of breathing, no retractions or nasal flaring. Abdomen/GI: Soft, non-tender, with normal bowel sounds. No distension or tympany. No guarding or rebound. No evidence of tenderness throughout. Back: No spinal tenderness. No costovertebral tenderness. Full range of motion. Skin: Warm, dry with normal turgor. Normal color with no rashes, no lesions, and no evidence of cellulitis. MS/ Extremity: Pulses equal, no cyanosis. Neurovascular intact. Full, normal range of motion., bilateral aka Neuro: Awake and alert, GCS 15, oriented to person, place, time, and situation. Cranial nerves II-XII grossly intact. Motor strength 5/5 in all extremities. Sensory grossly intact. Cerebellar exam normal. Normal gait. Psych: Awake, alert, with orientation to person, place and time. Behavior, mood, and affect are within normal limits. 09:37 : CVA tenderness, is absent, Male external genitalia: normal, Bladder: distension, that is moderate, Vital Signs: 09:52 Pulse 100; Resp 18; Temp 97.9(O); Pulse Ox 96% on R/A; Weight 95.25 kg; Height 5 ft. 10 ap3 in. ; Pain 10/10; 10:54 BP 148 / 94; Pulse 98; Resp 18; Pulse Ox 98% on R/A; ap3 09:52 Body Mass Index 30.13 (95.25 kg, 177.8 cm) ap3 09:52 Pain Scale: Adult ap3 MDM: 09:25 Medical Screening Exam initiated [facility] 09:39 Differential diagnosis: nonspecific abdominal pain, UTI, urinary retention, Lundberg rohit catheter problem, prostatitis, urethritis. Data reviewed: vital signs, nurses notes, lab test result(s), urinalysis. Consideration of Admission/Observation Escalation of care including admission/observation considered. I considered the following discharge prescriptions or medication management in the emergency department Medications were administered in the Emergency Department. See MAR. Test considered but Not performed: Labs: no labs. Care significantly affected by the following chronic conditions: bph. 03/26 09:26 Order name: Urinalysis w/ reflexes; Complete Time: 10:39 [facility] 03/26 10:40 Order name: Urine Culture [facility] 03/26 09:26 Order name: Lundberg; Complete Time: 09:56 rohit Administered Medications: 09:56 Drug: Viscous Lidocaine Mucous Membrane Liquid (4 %) 10 ml Mucous Membrane once; to ap3 bedside Route: Mucous Membrane; 10:55 Follow up: Response: No adverse reaction ap3 10:54 Drug: Ciprofloxacin PO 500 mg PO once Route: PO; ap3 10:55 Follow up: Response: Medication administered at discharge. ap3 Disposition Summary: 03/26/24 09:40 Discharge Ordered Notes: Location: Home rohit Problem: new rohit Symptoms: have improved rohit Condition: Stable rohit Diagnosis - Mechanical complication of urinary (indwelling) catheter rohit - Other mechanical complication of urinary (indwelling) catheter rohit Followup: rohit - With: Private Physician - When: 2 - 3 days - Reason: Recheck today's complaints, Continuance of care, Re-evaluation by your physician Followup: rohit - With: Carlo Chauhan MD - When: 2 - 3 days - Reason: Recheck today's complaints, Re-evaluation by your physician Discharge Instructions: - Discharge Summary Sheet rohit - Indwelling Urinary Catheter Care, Adult rohit - Indwelling Urinary Catheter Care, Adult, [id number] Forms: - Medication Reconciliation Form rohit - Antibiotic Education ro[facility] - Prescription Opioid Use [facility] - Patient Portal Instructions rohit - Leadership Thank You Letter [facility] Prescriptions: - Flomax 0.4 mg Oral capsule - take 1 capsule ORAL route once; 20 capsule; Refills: 0, Product Selection [facility] Permitted - Cipro 250 mg Oral tablet - take 1 tablet ORAL route every 12 hours; 14 tablet; Refills: 0, Product rohit Selection Permitted Signatures: Dispatcher [employer] EDEvelio Gusman MD MD cha Prokisch, Amanda RN RN ap3 Corrections: (The following items were deleted from the chart) 09:27 09:27 Urinalysis+U.LAB.BRZ ordered. EDMS EDMS 10:40 10:40 Urine Culture+BA.LAB.BRZ ordered. EDMS EDMS
[2024-03-26 10:33] LABS: Specific Gravity 1.009 (1.005-1.030); Sqamous Epithelial None Seen /HPF (None Seen); Transitional Epithelial <5 /HPF (None Seen); Urine Bacteria <20 /HPF (<20); Urine Bilirubin NEGATIVE (Negative); Urine Blood 2+ (Negative); Urine Clarity Extremely Turbid (Clear); Urine Color Light-Yellow (Yellow); Urine Culture Reflex Order REFLEXED; Urine Glucose NEGATIVE (Negative); Urine Ketones NEGATIVE (Negative); Urine Microscopic Reflex YN ORDER UMIC; Urine Nitrite NEGATIVE (Negative); Urine Protein NEGATIVE (Negative); Urine Urobilinogen Normal (Normal); Urine WBC >50 /HPF (<5); Urine WBC Clump Occasional /HPF (None Seen); Urine pH 6.5 (5.0-7.0)
[2024-03-26] MEDS ORDERED: CIPROFLOXACIN HCL 500 MG TAB ONE (10:51)
--- NOTE | 2024-03-26 11:15 | ER ---
Nurse's Notes [facility] Name: Hung Long Age: 63 yrs Sex: Male : 1960 Arrival Date: 03/26/2024 Time: 09:15 Bed 12 Private MD: Diagnosis: Mechanical complication of urinary (indwelling) catheter;Other mechanical complication of urinary (indwelling) catheter Presentation: 03/26 09:52 Chief complaint: Patient states: he believes his lundberg catheter is stopped up as he has ap3 not seen any drainage since 10pm last night. Coronavirus screen: At this time, the client does not indicate any symptoms associated with coronavirus-19. Ebola Screen: No symptoms or risks identified at this time. Initial Sepsis Screen: Does the patient meet any 2 criteria? HR > 90 bpm. Does the patient have a suspected source of infection? No. Patient's initial sepsis screen is negative. Risk Assessment: Do you want to hurt yourself or someone else? Patient reports no desire to harm self or others. Onset of symptoms was March 25, 2024. 09:52 Method Of Arrival: Ambulatory ap3 09:52 Acuity: GUNNAR 4 ap3 Triage Assessment: 09:54 General: Appears uncomfortable, Behavior is calm, cooperative. Pain: Complains of pain ap3 in pelvis Pain currently is 10 out of 10 on a pain scale. Neuro: Level of Consciousness is awake, alert, obeys commands. Cardiovascular: Patient's skin is warm and dry. Respiratory: Airway is patent Respiratory effort is even, unlabored, Respiratory pattern is regular, symmetrical. : Lundberg in place to gravity drainage. Historical: - Allergies: 09:53 NKDA; ap3 - PMHx: 09:53 chronic neck pain; enlarged prostate; Hypercholesterolemia; Hypertensive disorder; ap3 - PSHx: 09:53 Appendectomy; ap3 - Immunization history:: Adult Immunizations up to date. - Infectious Disease History:: Denies. - Family history:: not pertinent. - Social history:: Smoking status: Patient reports the use of cigarette tobacco products. Screenin:54 [facility] ED Fall Risk Assessment (Adult) History of falling in the last 3 months, ap3 including since admission No falls in past 3 months (0 pts) Confusion or Disorientation No (0 pts) Intoxicated or Sedated No (0 pts) Impaired Gait No (0 pts) Mobility Assist Device Used No (0 pt) Altered Elimination No (0 pt) Score/Fall Risk Level 0 - 2 = Low Risk Oriented to surroundings, Maintained a safe environment, Educated pt \T\ family on fall prevention, incl call for assistance when getting out of bed, Assessed \T\ reinforced patient's understanding of fall precautions, Hourly rounding (assess needs \T\ fall precautionary measures) done. Abuse screen: Denies threats or abuse. Nutritional screening: No deficits noted. Tuberculosis screening: No symptoms or risk factors identified. Vital Signs: 09:52 Pulse 100; Resp 18; Temp 97.9(O); Pulse Ox 96% on R/A; Weight 95.25 kg; Height 5 ft. 10 ap3 in. ; Pain 10/10; 10:54 BP 148 / 94; Pulse 98; Resp 18; Pulse Ox 98% on R/A; ap3 09:52 Body Mass Index 30.13 (95.25 kg, 177.8 cm) ap3 09:52 Pain Scale: Adult ap3 ED Course: 09:17 Patient arrived in ED. im 09:24 Dontrell Ramsey DO is Attending Physician. ms3 09:25 Attending Physician role handed off by Dontrell Ramsey DO rohit 09:25 Evelio Guzman MD is Attending Physician. rohit 09:41 Carlo Chauhan MD is Referral Physician. rohit 09:53 Triage completed. ap3 09:54 Arm band placed on right wrist. ap3 09:55 Patient has correct armband on for positive identification. Call light in reach. Side ap3 rails up X 1. Provided Education on: catheter care. Pulse ox on. NIBP on. 10:54 No provider procedures requiring assistance completed. Patient did not have IV access ap3 during this emergency room visit. Administered Medications: 09:56 Drug: Viscous Lidocaine Mucous Membrane Liquid (4 %) 10 ml Mucous Membrane once; to ap3 bedside Route: Mucous Membrane; 10:55 Follow up: Response: No adverse reaction ap3 10:54 Drug: Ciprofloxacin PO 500 mg PO once Route: PO; ap3 10:55 Follow up: Response: Medication administered at discharge. ap3 Medication: 09:55 VIS not applicable for this client. ap3 Outcome: 09:40 Discharge ordered by . rohit 10:54 Discharged to home ambulatory, ap3 10:54 Condition: good 10:54 Discharge instructions given to patient, Instructed on discharge instructions, follow up and referral plans. medication usage, Demonstrated understanding of instructions, follow-up care, medications, Prescriptions given X 2, 11:15 Patient left the ED. ap3 Addendum: 03/29/2024 08:19 Addendum: Culture Results: Positive urine culture. No further action required. Bacteria e b sensitive to prescribed antibiotic. Signatures: Evelio Guzman MD MD cha Prokisch, Amanda RN RN ap3 Yuly Ceballos Marcus, DO DO ms3 Isabelle Francis
[2024-03-26 11:18] VITALS: TEMP 97.9
[2024-03-26 11:19] VITALS: BP 148/94; O2SAT 98
== END 2024-03-26 11:15 | disposition home or self-care (01) ==
LOC: ER 09:15
DX: T83.098A Other mechanical complication of other urinary catheter, initial encounter (principal)
CPT/HCPCS: 81001; 87077; 87086; 87088; 87186; 99283

== ENCOUNTER 2024-04-24 17:51 | Emergency (ER) | payer OTHER ==
--- NOTE | 2024-04-24 18:59 | ER ---
Nurse's Notes [facility] Name: Hung Long Age: 63 yrs Sex: Male : 1960 Arrival Date: 04/24/2024 Time: 17:51 Bed 10 Private MD: Diagnosis: Mechanical complication of urinary (indwelling) catheter Presentation: 04/24 17:57 Chief complaint: Patient states: he is need of a lundberg catheter change due to urine ap3 going around catheter. patient reports that he has had a catheter now for approx a year. Coronavirus screen: At this time, the client does not indicate any symptoms associated with coronavirus-19. Ebola Screen: No symptoms or risks identified at this time. Initial Sepsis Screen: Does the patient meet any 2 criteria? No. Patient's initial sepsis screen is negative. Does the patient have a suspected source of infection? No. Patient's initial sepsis screen is negative. Risk Assessment: Do you want to hurt yourself or someone else? Patient reports no desire to harm self or others. Onset of symptoms is unknown. 17:57 Method Of Arrival: Ambulatory ap3 17:57 Acuity: GUNNAR 4 ap3 Triage Assessment: 17:59 General: Appears in no apparent distress. Behavior is calm, cooperative, appropriate ap3 for age. Pain: Complains of pain in head of penis. Neuro: Level of Consciousness is awake, alert, obeys commands, Oriented to person, place, time, situation, Appropriate for age. Cardiovascular: Patient's skin is warm and dry. Respiratory: Airway is patent Respiratory effort is even, unlabored, Respiratory pattern is regular, symmetrical. : Lundberg in place to gravity drainage. Historical: - Allergies: 17:59 NKDA; ap3 - PMHx: 17:59 chronic neck pain; enlarged prostate; Hypercholesterolemia; Hypertensive disorder; ap3 - PSHx: 17:59 Appendectomy; ap3 - Immunization history:: Client reports having NOT received the Covid vaccine. Flu vaccine status is unknown. - Infectious Disease History:: Denies. - Social history:: Smoking status: Patient reports the use of cigarette tobacco products, denies chronic smoking, but will smoke occasionally. Screenin:00 Abuse screen: Denies threats or abuse. Nutritional screening: No deficits noted. ap3 Tuberculosis screening: No symptoms or risk factors identified. Assessment: 18:25 Reassessment: No changes from previously documented assessment. Patient and/or family hb updated on plan of care and expected duration. Pain level reassessed. Vital Signs: 17:57 BP 167 / 92; Pulse 76; Resp 18; Temp 97.8; Pulse Ox 97% ; Weight 99.79 kg; Height 5 ft. ap3 11 in. ; 17:57 Body Mass Index 30.68 (99.79 kg, 180.34 cm) ap3 ED Course: 17:54 Patient arrived in ED. mr 17:54 [facility] Espinoza [facility]C [facility]. sb4 17:55 Ary Fox MD is Attending Physician. sb4 17:59 Triage completed. ap3 18:00 Arm band placed on right wrist. ap3 18:25 Patient placed in an exam room, on a stretcher. hb 18:55 Lundberg cath removed intact, balloon deflated. hb 18:59 Carlo Chauhan MD is Referral Physician. sb4 18:59 Lundberg cath inserted, using sterile technique, 18 Fr., by dc, balloon inflated, to hb gravity drainage, returned clear yellow urine. Patient tolerated well. 19:12 Kasey Garcia, RN is Primary Nurse. ay 19:27 Patient did not have IV access during this emergency room visit. ay Administered Medications: No medications were administered Outcome: 18:59 Discharge ordered by . sb4 19:27 Discharged to home ambulatory, ay 19:27 Condition: stable 19:27 Discharge instructions given to patient, Instructed on discharge instructions, Demonstrated understanding of instructions, 19:28 Patient left the ED. ay Signatures: Tana Bartlett, Reg Reg Georgina Putnam, EARL ELLIOTT Sonam Angela RN RN ap3 Chantal Espinoza PA-C PA-C sb4 Kasey Garcia RN RN ay
--- NOTE | 2024-04-24 18:59 | EDPHYS ---
Physician Documentation [facility] Name: Hung Long Age: 63 yrs Sex: Male : 1960 Arrival Date: 04/24/2024 Time: 17:51 Bed 10 Private MD: ED Physician Ary Fox HPI: 04/24 18:48 This 63 yrs old Male presents to ER via Ambulatory with complaints of Problem With sb4 Urinary Catheter. 18:48 Patient is here requesting to have his indwelling Lundberg catheter replaced. States he sb4 has had it in for about 1 month now. States that his urine is now leaking around the tube. Has no other complaints at this time. Historical: - Allergies: 17:59 NKDA; ap3 - PMHx: 17:59 chronic neck pain; enlarged prostate; Hypercholesterolemia; Hypertensive disorder; ap3 - PSHx: 17:59 Appendectomy; ap3 - Immunization history:: Client reports having NOT received the Covid vaccine. Flu vaccine status is unknown. - Infectious Disease History:: Denies. - Social history:: Smoking status: Patient reports the use of cigarette tobacco products, denies chronic smoking, but will smoke occasionally. ROS: 18:48 Constitutional: Negative for fever, chills, and weight loss, sb4 18:48 : Positive for 18:48 All other systems are negative, Exam: 18:48 Constitutional: This is a well developed, well nourished patient who is awake, alert, sb4 and in no acute distress. Head/Face: Normocephalic, atraumatic. Eyes: Extra-ocular motions intact. Periorbital areas with no swelling, redness, or edema. ENT: Mucous membranes moist. Respiratory: No increased work of breathing, no retractions or nasal flaring. Skin: Warm, dry with normal turgor. Normal color with no rashes, no lesions, and no evidence of cellulitis. 18:48 : a lundberg is noted, urine is cloudy, Vital Signs: 17:57 BP 167 / 92; Pulse 76; Resp 18; Temp 97.8; Pulse Ox 97% ; Weight 99.79 kg; Height 5 ft. ap3 11 in. ; 17:57 Body Mass Index 30.68 (99.79 kg, 180.34 cm) ap3 MDM: 18:09 Medical Screening Exam initiated sb4 18:49 Data reviewed: vital signs, nurses notes, and as a result, I will discharge patient. sb4 Counseling: I had a detailed discussion with the patient and/or guardian regarding the historical points, exam findings, and any diagnostic results supporting the discharge/admit diagnosis, the need for outpatient follow up, a urologist, to return to the emergency department if symptoms worsen or persist or if there are any questions or concerns that arise at home. 04/24 18:09 Order name: [facility]. Order: exchange lundberg catheter; Complete Time: 18:59 sb4 Administered Medications: No medications were administered Disposition Summary: 04/24/24 18:59 Discharge Ordered Notes: Location: Home sb4 Problem: new sb4 Symptoms: have improved sb4 Condition: Stable sb4 Diagnosis - Mechanical complication of urinary (indwelling) catheter sb4 Followup: sb4 - With: Carlo Chauhan MD - When: 1 week - Reason: Recheck today's complaints, Re-evaluation by your physician Discharge Instructions: - Discharge Summary Sheet sb4 - Indwelling Urinary Catheter Care, Adult, [id number] sb4 Forms: - Patient Portal Instructions sb4 - Leadership Thank You Letter sb4 Signatures: Sonam Angela RN RN Chantal Coppola PA-C PA-C sb4
[2024-04-24 19:36] VITALS: BP 167/92; TEMP 97.8; O2SAT 97
== END 2024-04-24 19:28 | disposition home or self-care (01) ==
LOC: ER 17:51
DX: T83.098A Other mechanical complication of other urinary catheter, initial encounter (principal)
CPT/HCPCS: 51702; 99284

== ENCOUNTER 2024-05-16 10:32 | Emergency (ER) | payer OTHER ==
[2024-05-16] MEDS ORDERED: LIDOCAINE 1% MPF 2 ML AMPULE ONE (10:56)
[2024-05-16] MEDS ORDERED: CEFTRIAXONE 1000 MG/VIAL ONE (10:56)
[2024-05-16 11:13] LABS: Specific Gravity 1.013 (1.005-1.030); Sqamous Epithelial None Seen /HPF (None Seen); Urine Bacteria None Seen /HPF (<20); Urine Bilirubin NEGATIVE (Negative); Urine Blood 3+ (OVER) (Negative); Urine Clarity Extremely Turbid (Clear); Urine Color Colorless (Yellow); Urine Culture Reflex Order NOT NEEDED; Urine Glucose NEGATIVE (Negative); Urine Ketones NEGATIVE (Negative); Urine Microscopic Reflex YN ORDER UMIC; Urine Mucus Slight /HPF (None Seen); Urine Nitrite NEGATIVE (Negative); Urine Protein TRACE (Negative); Urine RBC >50 /HPF (None Seen); Urine Urobilinogen Normal (Normal)
--- NOTE | 2024-05-16 11:41 | EDPHYS ---
Physician Documentation [facility] Name: Hung Long Age: 63 yrs Sex: Male : 1960 Arrival Date: 05/16/2024 Time: 10:32 Bed 12 Private MD: ED Physician Leticia Holden HPI: 05/16 11:47 This 63 yrs old Male presents to ER via Ambulatory with complaints of Needs dr5 Urinary Catheter Replacement. 11:47 Onset: The symptoms/episode began/occurred yesterday. Patient is a 63-year-old male dr5 with history of chronic neck pain, BPH, hyperlipidemia, and hypertension coming in with 1 day of urinary decreased output. Patient reports that he has to come in every 1 to 2 weeks to have Kyle replaced. Patient states that he has a urologist appointment coming up in which they will scope him.. Historical: - Allergies: 10:41 NKDA; cm10 - PMHx: 10:41 chronic neck pain; enlarged prostate; Hypercholesterolemia; Hypertensive disorder; cm10 - PSHx: 10:41 Appendectomy; cm10 - Immunization history:: Adult Immunizations up to date. - Infectious Disease History:: Denies. - Social history:: Smoking status: Patient reports the use of cigarette tobacco products, denies chronic smoking, but will smoke occasionally. ROS: 11:47 Constitutional: as per hpi dr5 Exam: 11:47 Constitutional: This is a well developed, well nourished patient who is awake, alert, dr5 and in no acute distress. Head/Face: Normocephalic, atraumatic. Eyes: Pupils equal round and reactive to light, extra-ocular motions intact. Lids and lashes normal. Conjunctiva and sclera are non-icteric and not injected. Cornea within normal limits. Periorbital areas with no swelling, redness, or edema. Neck: Trachea midline, no thyromegaly or masses palpated, and no cervical lymphadenopathy. Supple, full range of motion without nuchal rigidity, or vertebral point tenderness. No Meningismus. Chest/axilla: Normal chest wall appearance and motion. Nontender with no deformity. No lesions are appreciated. Cardiovascular: Regular rate and rhythm with a normal S1 and S2. Normal PMI, no JVD. No pulse deficits. Respiratory: Lungs have equal breath sounds bilaterally, clear to auscultation. No rales, rhonchi or wheezes noted. No increased work of breathing, no retractions or nasal flaring. Back: No spinal tenderness. No costovertebral tenderness. Full range of motion. Skin: Warm, dry with normal turgor. Normal color with no rashes, no lesions, and no evidence of cellulitis. Neuro: Awake and alert, GCS 15, oriented to person, place, time, and situation. Cranial nerves II-XII grossly intact. Motor strength 5/5 in all extremities. Sensory grossly intact. Cerebellar exam normal. Normal gait. 11:47 Abdomen/GI: Inspection: abdomen appears normal, Bowel sounds: normal, Palpation: abdomen is soft and non-tender, Vital Signs: 10:40 BP 175 / 89; Pulse 108; Resp 18; Temp 98.1; Pulse Ox 96% on R/A; Pain 8/10; cm10 10:40 Pain Scale: Adult cm10 Procedures: 11:47 Kyle Exchanged by RN. 800ml output. Pain resolved.. dr5 MDM: 10:40 Medical Screening Exam initiated dr5 11:47 Differential diagnosis: viral Infection, bacterial infection, UTI. Data reviewed: vital dr5 signs, nurses notes, lab test result(s), urinalysis, bacteruria, pyuria. I considered the following discharge prescriptions or medication management in the emergency department Medications were administered in the Emergency Department. See MAR. Care significantly affected by the following chronic conditions: Hypertension, BPH, hyperlipidemia. Care significantly affected by the following Social Determinants of Health: Poor access to healthcare and/or lack of insurance, Poor access to transportation, Problems related to employment. Counseling: I had a detailed discussion with the patient and/or guardian regarding the historical points, exam findings, and any diagnostic results supporting the discharge/admit diagnosis, the presence of at least one elevated blood pressure reading (>120/80) during this emergency department visit, lab results, the need for outpatient follow up, for definitive care, a family practitioner, a urologist, to return to the emergency department if symptoms worsen or persist or if there are any questions or concerns that arise at home. ED course: Patient's pain has resolved and patient had about 800 mL of urine output. Rocephin 1 g given in ER for likely developing UTI. Will send patient home on Vantin twice a day for 10 days. Pending urine culture for resistance and sensitivity. All questions answered. Patient was changed to leg bag and strict ER precautions given. Patient ambulated out of ER with steady gait.. 05/16 10:51 Order name: Urinalysis w/ reflexes; Complete Time: 11:15 dr5 05/16 10:52 Order name: Misc. Order: Exchange Kyle Catheter Please; Complete Time: 10:59 dr5 Administered Medications: 10:56 CANCELLED (Physician Discretion): ns 0.9% 1000 ml IV at 1000 ml once; to be given as a dr5 bolus over 60 minutes 10:56 CANCELLED (Physician Discretion): rocephin1 grams IV at per protocol once; Given slow dr5 IV push per pharmacy instructions 11:28 Drug: Rocephin (cefTRIAXone) IM 1 grams IM once Route: IM; Site: right deltoid; hb 11:41 Follow up: Response: No adverse reaction hb Disposition Summary: 05/16/24 11:41 Discharge Ordered Notes: Location: Home dr5 Condition: Stable dr5 Diagnosis - UTI/ Urinary tract infection, site not specified dr5 - Mechanical complication of urinary (indwelling) catheter dr5 Followup: dr5 - With: Emergency Department - When: As needed - Reason: Worsening of condition Followup: dr5 - With: Private Physician - When: 1 - 2 days - Reason: Recheck today's complaints, Continuance of care, Re-evaluation by your physician Discharge Instructions: - Discharge Summary Sheet dr5 - Urinary Tract Infection, Adult, [id number] dr5 - Indwelling Urinary Catheter Insertion, Care After dr5 Forms: - Medication Reconciliation Form dr5 - Antibiotic Education dr5 - Patient Portal Instructions dr5 - Leadership Thank You Letter dr5 Prescriptions: - Zofran 4 mg Oral Tablet - take 1 tablet ORAL route every 12 hours As needed; 20 tablet; Refills: 0, dr5 Product Selection Permitted - cefpodoxime 200 mg Oral tablet - take 1 tablet ORAL route every 12 hours for 10 days with food; 20 tablet; dr5 Refills: 0, Product Selection Permitted Signatures: Dispatcher [employer] [facility] Georgina Putnam RN RN Gladys Rodriguez RN RN cm10 Harvey Kraus, [employer]-C INSTITUTIONAL ASSET MANAGER-Cdr5 Corrections: (The following items were deleted from the chart) 10:56 10:54 NS 0.9% IV 1000 ml IV at 1000 ml once; to be given as a bolus over 60 minutes dr5 ordered. dr5 10:56 10:54 Rocephin IV 1 grams IV at per protocol once; Given slow IV push per pharmacy dr5 instructions ordered. dr5
--- NOTE | 2024-05-16 11:41 | ER ---
Nurse's Notes [facility] Name: Hung Long Age: 63 yrs Sex: Male : 1960 Arrival Date: 05/16/2024 Time: 10:32 Bed 12 Private MD: Diagnosis: UTI/ Urinary tract infection, site not specified;Mechanical complication of urinary (indwelling) catheter Presentation: 05/16 10:40 Chief complaint: Patient states: Here to have cordero catheter replaced. Pt reports cm10 having pain. Coronavirus screen: Client denies travel out of the [place] in the last 14 days. Ebola Screen: Patient denies travel to an Ebola-affected area in the 21 days before illness onset. Initial Sepsis Screen: Does the patient meet any 2 criteria? HR > 90 bpm. Does the patient have a suspected source of infection? No. Patient's initial sepsis screen is negative. Risk Assessment: Do you want to hurt yourself or someone else? Patient reports no desire to harm self or others. Onset of symptoms was May 16, 2024. 10:40 Method Of Arrival: Ambulatory cm10 10:40 Acuity: GUNNAR 3 cm10 Triage Assessment: 10:40 General: Appears uncomfortable, Behavior is cooperative. Pain: Complains of pain in cm10 abdomen Pain currently is 8 out of 10 on a pain scale. Neuro: No deficits noted. Level of Consciousness is awake, alert, Oriented to person, place, time, situation, Appropriate for age. Respiratory: No deficits noted. Airway is patent Respiratory effort is even, unlabored, Respiratory pattern is regular, symmetrical. : Cordero in place NOT DRAINING. Historical: - Allergies: 10:41 NKDA; cm10 - PMHx: 10:41 chronic neck pain; enlarged prostate; Hypercholesterolemia; Hypertensive disorder; cm10 - PSHx: 10:41 Appendectomy; cm10 - Immunization history:: Adult Immunizations up to date. - Infectious Disease History:: Denies. - Social history:: Smoking status: Patient reports the use of cigarette tobacco products, denies chronic smoking, but will smoke occasionally. Screenin:28 [facility] ED Fall Risk Assessment (Adult) History of falling in the last 3 months, cm10 including since admission No falls in past 3 months (0 pts) Confusion or Disorientation No (0 pts) Intoxicated or Sedated No (0 pts) Impaired Gait No (0 pts) Mobility Assist Device Used No (0 pt) Altered Elimination Yes (1 pt) Score/Fall Risk Level 0 - 2 = Low Risk Oriented to surroundings, Maintained a safe environment, Hourly rounding (assess needs \T\ fall precautionary measures) done. Abuse screen: Denies threats or abuse. Denies injuries from another. Nutritional screening: No deficits noted. Tuberculosis screening: No symptoms or risk factors identified. Assessment: 10:50 General: CORDERO CATHETER CHANGED OUT AT THIS TIME. PT NOTED TO HAVE PURULENT DRAINAGE cm10 FROM PENIS.. 10:55 Reassessment: Patient states feeling better. Patient states symptoms have improved. cm10 Vital Signs: 10:40 BP 175 / 89; Pulse 108; Resp 18; Temp 98.1; Pulse Ox 96% on R/A; Pain 8/10; cm10 10:40 Pain Scale: Adult cm10 ED Course: 10:35 Patient arrived in ED. mr 10:40 Gladys Perry RN is Primary Nurse. cm10 10:40 Harvey Kraus FNP-C is PHCP. dr5 10:40 Leticia Holden MD is Attending Physician. dr5 10:41 Triage completed. cm10 10:41 Arm band placed on right wrist. Patient placed in an exam room, on a stretcher. cm10 10:45 Patient has correct armband on for positive identification. Placed in gown. Bed in low cm10 position. Call light in reach. Side rails up X 1. 10:55 Coud inserted, using sterile technique, 18 Fr. Returned cloudy urine. To gravity cm10 drainage. Urine specimen collected. 10:59 Urinalysis w/ reflexes Sent. cm10 11:47 No provider procedures requiring assistance completed. Patient did not have IV access hb during this emergency room visit. Administered Medications: 10:56 CANCELLED (Physician Discretion): ns 0.9% 1000 ml IV at 1000 ml once; to be given as a dr5 bolus over 60 minutes 10:56 CANCELLED (Physician Discretion): rocephin1 grams IV at per protocol once; Given slow dr5 IV push per pharmacy instructions 11:28 Drug: Rocephin (cefTRIAXone) IM 1 grams IM once Route: IM; Site: right deltoid; hb 11:41 Follow up: Response: No adverse reaction hb Medication: 11:28 VIS not applicable for this client. cm10 Outcome: 11:41 Discharge ordered by . feliciano 11:47 Discharged to home ambulatory, hb 11:47 Condition: stable 11:47 Discharge instructions given to patient, Instructed on discharge instructions, follow up and referral plans. medication usage, Demonstrated understanding of instructions, follow-up care, medications, Prescriptions given X 2, 11:47 Patient left the ED. hb Signatures: Tana Bartlett, Reg Reg mr Georgina Putnam RN RN Gladys Rodriguez RN RN cm10 Harvey Kraus, PROOF COIN COLLECTOR-C PROOF COIN COLLECTOR-[facility]
[2024-05-16 11:52] VITALS: BP 175/89; TEMP 98.1; O2SAT 96
== END 2024-05-16 11:47 | disposition home or self-care (01) ==
LOC: ER 10:32
DX: N39.0 Urinary tract infection, site not specified (principal); T83.098A Other mechanical complication of other urinary catheter, initial encounter; F17.210 Nicotine dependence, cigarettes, uncomplicated
CPT/HCPCS: 81001; J0696; 96372; 99284

== ENCOUNTER 2024-06-24 11:19 | Emergency (ER) | payer OTHER ==
--- NOTE | 2024-06-24 13:06 | EDPHYS ---
Physician Documentation [facility] Name: Hung Long Age: 63 yrs Sex: Male : 1960 Arrival Date: 06/24/2024 Time: 11:19 Bed 12 Private MD: ED Physician Evelio Guzman HPI: 06/24 13:01 This 63 yrs old Male presents to ER via Ambulatory with complaints of Needs rohit Urinary Catheter Replacement. 13:01 The patient presents with a Lundberg catheter problem, is leaking urine. Onset: The rohit symptoms/episode began/occurred 2 day(s) ago. Modifying factors: The symptoms are alleviated by nothing, the symptoms are aggravated by nothing. Associated signs and symptoms: The patient has no apparent associated signs or symptoms. Severity of symptoms: At their worst the symptoms were mild, in the emergency department the symptoms are unchanged. Historical: - Allergies: 11:40 NKDA; me1 - PMHx: 11:40 chronic neck pain; enlarged prostate; Hypercholesterolemia; Hypertensive disorder; me1 - PSHx: 11:40 Appendectomy; me1 - Immunization history:: Adult Immunizations up to date. - Infectious Disease History:: Denies. - Social history:: Smoking status: Patient reports the use of cigarette tobacco products, smokes one-half pack cigarettes per day. - Family history:: not pertinent. ROS: 13:01 Constitutional: Negative for fever, chills, and weight loss, Eyes: Negative for injury, rohit pain, redness, and discharge, ENT: Negative for injury, pain, and discharge, Neck: Negative for injury, pain, and swelling, Cardiovascular: Negative for chest pain, palpitations, and edema, Respiratory: Negative for shortness of breath, cough, wheezing, and pleuritic chest pain, Abdomen/GI: Negative for abdominal pain, nausea, vomiting, diarrhea, and constipation, Back: Negative for injury and pain, MS/Extremity: Negative for injury and deformity, Skin: Negative for injury, rash, and discoloration, Neuro: Negative for headache, weakness, numbness, tingling, and seizure, Psych: Negative for depression, anxiety, suicide ideation, homicidal ideation, and hallucinations, Allergy/Immunology: Negative for hives, rash, and allergies, Endocrine: Negative for neck swelling, polydipsia, polyuria, polyphagia, and marked weight changes, Hematologic/Lymphatic: Negative for swollen nodes, abnormal bleeding, and unusual bruising, 13:01 : Positive for lundberg , pain, Exam: 13:01 Constitutional: This is a well developed, well nourished patient who is awake, alert, rohit and in no acute distress. Head/Face: Normocephalic, atraumatic. Eyes: Pupils equal round and reactive to light, extra-ocular motions intact. Lids and lashes normal. Conjunctiva and sclera are non-icteric and not injected. Cornea within normal limits. Periorbital areas with no swelling, redness, or edema. ENT: Nares patent. No nasal discharge, no septal abnormalities noted. Tympanic membranes are normal and external auditory canals are clear. Oropharynx with no redness, swelling, or masses, exudates, or evidence of obstruction, uvula midline. Mucous membranes moist. Neck: Trachea midline, no thyromegaly or masses palpated, and no cervical lymphadenopathy. Supple, full range of motion without nuchal rigidity, or vertebral point tenderness. No Meningismus. Chest/axilla: Normal chest wall appearance and motion. Nontender with no deformity. No lesions are appreciated. Cardiovascular: Regular rate and rhythm with a normal S1 and S2. No gallops, murmurs, or rubs. Normal PMI, no JVD. No pulse deficits. Respiratory: Lungs have equal breath sounds bilaterally, clear to auscultation and percussion. No rales, rhonchi or wheezes noted. No increased work of breathing, no retractions or nasal flaring. Abdomen/GI: Soft, non-tender, with normal bowel sounds. No distension or tympany. No guarding or rebound. No evidence of tenderness throughout. Back: No spinal tenderness. No costovertebral tenderness. Full range of motion. Skin: Warm, dry with normal turgor. Normal color with no rashes, no lesions, and no evidence of cellulitis. MS/ Extremity: Pulses equal, no cyanosis. Neurovascular intact. Full, normal range of motion., bilateral aka Neuro: Awake and alert, GCS 15, oriented to person, place, time, and situation. Cranial nerves II-XII grossly intact. Motor strength 5/5 in all extremities. Sensory grossly intact. Cerebellar exam normal. Normal gait. Psych: Awake, alert, with orientation to person, place and time. Behavior, mood, and affect are within normal limits. 13:01 : CVA tenderness, is absent, Male external genitalia: normal, no abrasion, no discharge, no erythema, no injury, no swelling, no tenderness, no evidence of ulceration, Bladder: is normal, to gravity drainage, Vital Signs: 11:37 BP 186 / 114; Pulse 87; Resp 17; Temp 98.4; Pulse Ox 94% ; Weight 108.86 kg; Height 5 me1 ft. 11 in. ; Pain 8/10; 13:14 BP 178 / 107; Pulse 84; Resp 16; Temp 98.1; Pulse Ox 96% ; me1 11:37 Body Mass Index 33.47 (108.86 kg, 180.34 cm) me1 11:37 Pain Scale: Adult me1 MDM: 11:27 Medical Screening Exam initiated rohit 13:03 Differential diagnosis: nonspecific abdominal pain, UTI, urinary retention, Lundberg rohit catheter problem, prostatitis, urethritis. Data reviewed: vital signs, nurses notes, lab test result(s), urinalysis. Consideration of Admission/Observation Escalation of care including admission/observation considered. I considered the following discharge prescriptions or medication management in the emergency department Medications were administered in the Emergency Department. See MAR. Test considered but Not performed: Labs: no cbc, no cmp. Care significantly affected by the following chronic conditions: Hypertension, chronic neck pain, high chlesterol, bph. 06/24 12:59 Order name: UA Rfx Catracho Cult if indicated oh1 06/24 11:27 Order name: Lundberg; Complete Time: 12:59 rohit 06/24 11:27 Order name: Lundberg Leg Bag; Complete Time: 12:59 [facility] Administered Medications: 13:08 Drug: Ciprofloxacin PO 500 mg PO once Route: PO; oh1 13:10 Follow up: Response: No adverse reaction me1 Disposition Summary: 06/24/24 13:05 Discharge Ordered Notes: Location: Home rohit Problem: new rohit Symptoms: have improved rohit Condition: Stable rohit Diagnosis - Other mechanical complication of urinary (indwelling) catheter rohit - Mechanical complication of urinary (indwelling) catheter rohit - Essential (primary) hypertension rohit Followup: rohit - With: Private Physician - When: 2 - 3 days - Reason: Recheck today's complaints, Continuance of care, Re-evaluation by your physician Followup: rohit - With: Carlo Chauhan MD - When: 2 - 3 days - Reason: Recheck today's complaints, Continuance of care, Re-evaluation by your physician Discharge Instructions: - Discharge Summary Sheet rohit - Indwelling Urinary Catheter Care, Adult rohit - Hypertension, Adult rohit - Hypertension, Adult, [id number] rohit - How to Take Your Blood Pressure, [id number] rohit - Indwelling Urinary Catheter Care, Adult, [id number] rohit - Managing Your Hypertension [facility] Forms: - Medication Reconciliation Form rohit - Antibiotic Education rohit - Prescription Opioid Use rohit - Patient Portal Instructions [facility] - Leadership Thank You Letter [facility] Prescriptions: - Flomax 0.4 mg Oral capsule - take 1 capsule ORAL route daily; 30 capsule; Refills: 0, Product Selection [facility] Permitted - Cipro 250 mg Oral Tablet - take 2 tablets ORAL route every 12 hours; 20 tablet; Refills: 0, Product [facility] Selection Permitted - Norvasc 10 mg Oral Tablet - take 1 tablet ORAL route once daily; 30 tablet; Refills: 0, Product Selection [facility] Permitted Signatures: Dispatcher [employer] Evelio Brooks MD MD cha Eddleman, Michelle, RN RN me1
--- NOTE | 2024-06-24 13:06 | ER ---
Nurse's Notes [facility] Name: Hung Long Age: 63 yrs Sex: Male : 1960 Arrival Date: 06/24/2024 Time: 11:19 Bed 12 Private MD: Diagnosis: Other mechanical complication of urinary (indwelling) catheter;Mechanical complication of urinary (indwelling) catheter;Essential (primary) hypertension Presentation: 06/24 11:37 Chief complaint: Patient states: needs his urinary catheter changed. Reports that he me1 has burning to urethra and thinks he has a uti. Coronavirus screen: Vaccine status: Patient reports being unvaccinated. Ebola Screen: No symptoms or risks identified at this time. Initial Sepsis Screen: Does the patient meet any 2 criteria? No. Patient's initial sepsis screen is negative. Does the patient have a suspected source of infection? No. Patient's initial sepsis screen is negative. Risk Assessment: Do you want to hurt yourself or someone else? Patient reports no desire to harm self or others. Onset of symptoms is unknown. 11:37 Method Of Arrival: Ambulatory ct1 11:37 Acuity: GUNNAR 4 me1 Historical: - Allergies: 11:40 NKDA; me1 - PMHx: 11:40 chronic neck pain; enlarged prostate; Hypercholesterolemia; Hypertensive disorder; me1 - PSHx: 11:40 Appendectomy; me1 - Immunization history:: Adult Immunizations up to date. - Infectious Disease History:: Denies. - Social history:: Smoking status: Patient reports the use of cigarette tobacco products, smokes one-half pack cigarettes per day. - Family history:: not pertinent. Screenin:05 [facility] ED Fall Risk Assessment (Adult) History of falling in the last 3 months, ct1 including since admission No falls in past 3 months (0 pts) Confusion or Disorientation No (0 pts) Intoxicated or Sedated No (0 pts) Impaired Gait No (0 pts) Mobility Assist Device Used No (0 pt) Altered Elimination No (0 pt) Score/Fall Risk Level 0 - 2 = Low Risk Maintained a safe environment, Provided non-skid footwear, Hourly rounding (assess needs \T\ fall precautionary measures) done. Abuse screen: Denies threats or abuse. Nutritional screening: No deficits noted. Tuberculosis screening: No symptoms or risk factors identified. Assessment: 12:05 General: Appears in no apparent distress. Behavior is calm, cooperative, appropriate me1 for age. Pain: Complains of pain in pelvis Pain does not radiate. Pain currently is 4 out of 10 on a pain scale. Quality of pain is described as Pain began gradually, Is continuous. Neuro: Level of Consciousness is awake, alert, obeys commands, Oriented to person, place, time, situation, Appropriate for age. Cardiovascular: Patient's skin is warm and dry. Respiratory: Airway is patent Respiratory effort is even, unlabored, Respiratory pattern is regular, symmetrical. GI: No signs and/or symptoms were reported involving the gastrointestinal system. : Kyle in place to gravity drainage. : Reports pain in suprapubic area. EENT: No signs and/or symptoms were reported regarding the EENT system. Derm: Skin is intact, is healthy with good turgor, Skin is pink, warm \T\ dry. Musculoskeletal: No signs and/or symptoms reported regarding the musculoskeletal system. Vital Signs: 11:37 BP 186 / 114; Pulse 87; Resp 17; Temp 98.4; Pulse Ox 94% ; Weight 108.86 kg; Height 5 me1 ft. 11 in. ; Pain 8/10; 13:14 BP 178 / 107; Pulse 84; Resp 16; Temp 98.1; Pulse Ox 96% ; me1 11:37 Body Mass Index 33.47 (108.86 kg, 180.34 cm) me1 11:37 Pain Scale: Adult ct1 ED Course: 11:23 Patient arrived in ED. gl 11:26 Evelio Guzman MD is Attending Physician. rohit 11:40 Triage completed. me1 11:40 Arm band placed on Patient placed in waiting room. me1 12:05 Patient has correct armband on for positive identification. Bed in low position. Call me1 light in reach. Side rails up X2. Provided Education on: POC. Verbalized understanding.. Client placed on continuous cardiac and pulse oximetry monitoring. NIBP monitoring applied. Pulse ox on. NIBP on. 12:05 No provider procedures requiring assistance completed. Patient did not have IV access me1 during this emergency room visit. 12:38 Jessica Amato RN is Primary Nurse. me1 13:00 Kyle cath inserted, using sterile technique, [address], balloon inflated, to me1 gravity drainage, urine specimen collected. Kyle cath removed intact, balloon deflated. 13:04 Carlo Chauhan MD is Referral Physician. [facility] 13:04 UA Rfx Catracho Cult if indicated Sent. [facility] 13:04 Urine collected: Kyle catheter specimen, cloudy, Amount Returned: 800mL. ct1 Administered Medications: 13:08 Drug: Ciprofloxacin PO 500 mg PO once Route: PO; [facility] 13:10 Follow up: Response: No adverse reaction [facility] Medication: 12:05 VIS not applicable for this client. [facility] Outcome: 13:05 Discharge ordered by . [facility] 13:13 Discharged to home ambulatory, [facility] 13:13 Condition: stable 13:13 Discharge instructions given to patient, Instructed on discharge instructions, follow up and referral plans. medication usage, Demonstrated understanding of instructions, follow-up care, medications, Prescriptions given X 3, 13:13 Patient left the ED. ct1 Signatures: Evelio Guzman MD MD [facility] Jessica Amato, EARL RN ct1 Carmen Dawkins, Reg Reg gl
[2024-06-24] MEDS ORDERED: CIPROFLOXACIN HCL 500 MG TAB ONE (13:07)
[2024-06-24 13:31] LABS: Specific Gravity 1.013 (1.005-1.030); Sqamous Epithelial None Seen /HPF (None Seen); Urine Bacteria None Seen /HPF (<20); Urine Bilirubin NEGATIVE (Negative); Urine Blood 3+ (OVER) (Negative); Urine Clarity Turbid (Clear); Urine Color Light-Yellow (Yellow); Urine Culture Reflex Order NOT NEEDED; Urine Glucose NEGATIVE (Negative); Urine Ketones NEGATIVE (Negative); Urine Microscopic Reflex YN ORDER UMIC; Urine Mucus Slight /HPF (None Seen); Urine Nitrite NEGATIVE (Negative); Urine Protein NEGATIVE (Negative); Urine RBC >50 /HPF (None Seen); Urine Urobilinogen Normal (Normal); Urine pH 6.5 (5.0-7.0)
== END 2024-06-24 13:13 | disposition home or self-care (01) ==
LOC: ER 11:19
DX: T83.038A Leakage of other urinary catheter, initial encounter (principal); I10 Essential (primary) hypertension; F17.210 Nicotine dependence, cigarettes, uncomplicated
CPT/HCPCS: 51702; 81001; 99284

== ENCOUNTER 2024-12-03 03:55 | Emergency (ER) | payer OTHER ==
--- OUTSIDE RECORDS SUMMARY | 2024-12-03 03:59 | XMS REPORT | Continuity of Care Document ---
Author Name Unknown Address [address] [place] [address] [facility] Address [address] [place] [address] Care Team Providers Care Chief Deputy Court Clerk Name Role Phone DEBORAH MEDLEY Primary Care Physician Unavailable TABITHA GERARD Attending Clinician Unavailable TABITHA GERARD Attending Clinician Unavailable JOAN BURLESON Attending Clinician Unavailable MONICA PAULSON Attending Clinician Unavailable LAB90 Attending Clinician Unavailable TAYLOR MCNAIR Attending Clinician UnavailDARRYL Suarez Attending Clinician Unavailable REEMA MOSLEY Attending Clinician Unavailable BHARATH ANDRADE Attending Clinician UnavailKESHAWN Braga Attending Clinician Unavailable Keshawn Lassiter Attending Clinician [phone] KESHAWN CHENEY Admitting Clinician Unavailable Payers Payer Name Policy Type Policy Number Effective Date Expirati on Date Source Yumiko Joshi 53 [id number] [facility] HUMANA GOLD PLS O [id number] 2021 00:00:00 HUMANA MA GOLD PLUS 42 OA 7 [id number] 2021 00:00:00 Problems Condition Name Condition Details [...] appendicit is Disease Active 2018-02 00:00: 00 [facility] Obesity (BMI 30-39.9) Obesity (BMI 30-39.9) Disease Active 2018-02 00:00: 00 [facility] [id number] Hydronephr osis, left Problem [facility] [id number] BPH loc w urin obs/LUTS Problem [facility] [id number] Urinary retention Problem [facility] Urinary incontinen ce Urinary incontinen ce Problem [facility] Allergies, Adverse Reactions, Alerts Allergy Name Allergy Type Status Severity Reaction(s) Onset Date Inactive Date Treating Clinician Comments Source Codeine Propensi ty to adverse reaction s Active Other 2013-02 0 00:00: 00 Yumiko Joshi - Externa toribio NO KNOWN ALLERGIE S Drug Class Active [facility] Social History Social Habit Start Date Stop Date Quantity Comments Source Gender identity Lucila Joshi - External Sexual orientation U [facility] History of Tobacco Use [facility] Sex Assigned At [facility] Alcoholic beverage intake 2023-09-01 00:00:00 2023-09-01 00:00:00 Ex-drinker (finding) [facility] History of Social function 2023-09-01 00:00:00 2023-09-01 00:00:00 [facility] Exposure to SARS-CoV-2 (event) 2022-04-07 00:00:00 2022-04-17 17:54:00 Not sure [facility] Education 2021-11-21 00:00:00 2021-11-21 00:00:00 18 Yumiko Kim Alcohol intake 2018-12-05 00:00:00 2018-12-05 00:00:00 Ex-drinker (finding) [facility] Cigarettes smoked current (pack per day) - Reported 2018-12-04 00:00:00 2018-12-04 00:00:00 [facility] Cigarette pack-years 2018-12-04 00:00:00 2018-12-04 00:00:00 [facility] Tobacco use and exposure 2018-12-04 00:00:00 2018-12-04 00:00:00 Smokeless tobacco non-user [facility] Smoking Status Start Date Stop Date Source Never Smoker [facility] Smokes tobacco daily 2018-12-04 00:00:00 [facility] Medications Ordered Medication Name Filled Medication Name Start Date Stop Date Current Medication? Ordering Clinician Indication Dosage Frequency Signature (SIG) Comments Components Source Tamsulosin HCl 0.4 MG Tamsulosin HCl 0.4 MG 2022-02 00:00: 00 No 1{capsu le} QD Tamsulosin HCl 0.4 MG Nicotine 21 MG/24HR transdermal PATCH 24 HR 07-02 00:00: 00 Yes [id number] 1{patch } Place 1 patch onto the skin every 24 hours Yumiko Barragan Externa l Tamsulosin HCl 0.4 MG oral Capsule 07-02 00:00: 00 07-02 00:00 :00 No [id number] .4mg Take 1 capsule (0.4 mg total) by mouth every night at bedtime Take two tabs orally once daily at bedtime Yumiko rooney Atorvastati n Calcium 40 MG oral Tablet 05-31 00:00: 00 Yes 40mg Take 1 tablet (40 mg total) by mouth daily Yumiko rooney Metoprolol Tartrate (LOPRESSOR) 50 MG oral Tablet 05-31 00:00: 00 Yes [id number] 50mg Take 1 tablet (50 mg total) by mouth 2 times daily Yumiko rooney Tamsulosin HCl 0.4 MG oral Capsule 05-31 00:00: 00 07-02 00:00 :00 No [id number] Take two tabs orally once daily at bedtime Yumiko rooney hydrALAZINE HCl 25 MG oral Tablet 05-31 00:00: 00 07-02 00:00 :00 No [id number] 25mg Take 1 tablet (25 mg total) [...] Urine
D uration of therapy: 72 hours [facility] iopamidol (ISOVUE 370-500 mL) injection 80 mL 04-18 02:15: 00 04-18 02:48 :00 No [id number] 80mL 80 mL, Intravenou s, ONCE, 1 dose, On Sat04/17/22 at 2014, Routine [facility] doxycycline hyclate 100 mg capsule 04-17 00:00: 00 Yes [id number] 100mg Take 1 capsule by mouth in the morning and 1 capsule in the evening. [facility] Gabapentin 300 MG oral Capsule 2021-02 00:00: 00 Yes [id number] 107 300mg Take 1 capsule (300 mg total) by mouth 2 times daily Yumiko rooney Gabapentin 100 MG oral Capsule 2021-02 00:00: 00 Yes [id number] 9103 100mg Take 1 capsule (100 mg total) by mouth 2 times daily Yumiko rooney Tramadol HCl 50 MG oral Tablet 2021-02 00:00: 00 Yes [id number] 9103 50mg [id number] 3D Take 1 tablet (50 mg total) by mouth every 8 hours as needed for pain Yumiko rooney Lisinopril 20 MG oral Tablet 2021-02 00:00: 00 Yes [id number] 20mg Take 1 tablet (20 mg total) by mouth daily Yumiko rooney Immunizations Ordered Immunization Name Filled Immunization Name Date Status Comments Source Influenza Virus Vaccine, No Preserv, age 6 months and up 2018-12-06 00:00:00 Completed Yumiko Kim Influenza Virus Vaccine Quad .5 mL IM 6+ MO 2018-12-06 00:00:00 Completed [facility] Influenza Virus Vaccine Quad .5 mL IM 6+ MO (FLUZONE/FLULAVAL/F LUARIX) Unknown Completed [facility] Vital Signs Vital Name Observation Time Observation Value Comments S rosamaria Systolic blood pressure 2023-09-01 12:28:34 172 mm[Hg] [facility] Diastolic blood pressure 2023-09-01 12:28:34 110 mm[Hg] [place] [facility] Heart rate 2023-09-01 12:28:34 67 /min [facility] Body temperature 2023-09-01 12:28:34 36.61 Miranda [facility] Respiratory rate 2023-09-01 12:28:34 16 /min [facility] Oxygen saturation in Arterial blood by Pulse oximetry 2023-09-01 12:28:34 94 /min [place] [facility] Body height 2023-09-01 10:32:00 180.3 cm [facility] Body weight 2023-09-01 10:32:00 102.059 kg [facility] BMI 2023-09-01 10:32:00 31.38 kg/m2 [facility] height 2022 09:45:00 71 [in_i] Commo n [facility] weight 2022 09:45:00 218 [lb_av] Comm on [facility] temperature 2022 09:45:00 97.6 [degF] Com mon [facility] bmi 2022 09:45:00 30.4 kg/m2 Commo n [facility] oximetry 2022 09:45:00 94 % [facility] respiratory rate 2022 09:45:00 18 /min [facility] blood pressure systolic 2022 09:45:00 160 mm[Hg] [facility] blood pressure diastolic 2022 09:45:00 104 mm[Hg] [facility] Oxygen saturation in Arterial blood by Pulse oximetry 2022-07-02 18:44:00 99 /min Yumiko mendoza - External Systolic blood pressure 2022-07-02 18:44:00 141 mm[Hg] Yumiko Solorio ld - External Diastolic blood pressure 2022-07-02 18:44:00 95 mm[Hg] Yumiko mendoza - External Heart rate 2022-07-02 18:44:00 78 [...] Systolic blood pressure 2022-04-17 23:55:00 154 mm[Hg] [facility] hospital Diastolic blood pressure 2022-04-17 23:55:00 99 mm[Hg] [facility] Heart rate 2022-04-17 23:55:00 82 /min [facility] Body temperature 2022-04-17 23:55:00 36.61 Miranda [facility] Respiratory rate 2022-04-17 23:55:00 16 /min [facility] Body height 2022-04-17 23:55:00 180.3 cm [facility] Body weight 2022-04-17 23:55:00 108.863 kg [facility] BMI 2022-04-17 23:55:00 33.47 kg/m2 [facility] Oxygen saturation in Arterial blood by Pulse oximetry 2022-04-17 23:55:00 100 /min [facility] Systolic blood pressure 2021-12-19 18:06:00 132 mm[Hg] Yumiko Mao ld - External Diastolic blood pressure 2021-12-19 18:06:00 84 mm[Hg] Yumiko Mao ld - External Heart rate 2021-12-19 17:56:00 93 /min Elfego y Seybold - External Body temperature 2021-12-19 17:56:00 36.33 Miranda Yumiko Hamiltonybold - External Respiratory rate 2021-12-19 17:56:00 14 /min Yumiko Seybold - External Body height 2021-12-19 17:56:00 180.3 cm Lucila ey Seybold - External Body weight 2021-12-19 17:56:00 98.884 kg Lucila ey Seybold - External BMI 2021-12-19 17:56:00 30.40 kg/m2 Lucila ey Seybold - External Oxygen saturation in Arterial blood by Pulse oximetry 2021-12-19 17:56:00 99 /min Yumiko Mao ld - External Systolic blood pressure 2021-11-21 [...] n Source LIPASE 2022-04-18 02:00:00 Keshawn Cheney [facility] COMP. METABOLIC PANEL (64265) 2022-04-18 02:00:00 Keshawn Cheney [facility] CBC WITH DIFF 2022-04-18 02:00:00 Keshawn Cheney [facility] URINALYSIS 2022-04-18 00:14:00 [facility] NOTICE OF PRIVACY PRACTICES 2022-04-17 23:53:59 Doctor Unassigned, [place] [facility] CONSENT/REFUSAL FOR DIAGNOSIS AND TREATMENT 2022-04-17 23:51:45 Doctor Unassigned, [place] [facility] Encounters Start Date/Time End Date/Time Encounter Type Admission Type Attending Clinicians Care Facility Care Department Encounter ID Source 2022 09:12:[address] [facility] [id number] [facility] 2024-09-17 00:00:00 2024-09-17 00:00:00 (TEL) [facility] [id number] [facility] 2023-09-01 05:38:00 2023-09-01 07:58:00 Emergency X TABITHA GERARD WAKILI [facility] ERT [id number] [facility] 2023-09-01 05:38:00 2023-09-01 07:58:00 Emergency Tabitha Gerard [facility] [id number] [facility] 2023-01-31 10:00:00 2023-01-31 10:00:00 Outpatient JOAN BURLESON [id number] [facility] 2023-01-21 00:00:00 2023-01-21 00:00:00 Outpatient JOAN BURLESON [id number] [facility] 2022-12-17 00:00:00 2022-12-17 00:00:00 Outpatient MONICA PAULSON [id number] [facility] 2022-12-14 00:00:00 2022-12-14 00:00:00 Outpatient JOAN BURLESON [id number] Y[facility] 2022 00:00:00 2022 00:00:00 OFFICE VISIT ESTAB PT LEVEL [facility] [id number] [facility] 2022-09-19 00:00:00 2022-09-19 00:00:00 Outpatient JOAN BURLESON [id number] Y[facility] 2022-08-22 00:00:00 2022-08-22 00:00:00 Outpatient JOAN BURLESON [id number] Y[facility] 2022-08-14 00:00:00 2022-08-14 00:00:00 Outpatient JOAN BURLESON [id number] [facility] 2022-08-02 00:00:00 2022-08-02 00:00:00 Outpatient PREZAJOAN Kuo YUMIKO [id number] [facility] 2022-07-24 00:00:00 2022-07-24 00:00:00 Outpatient PREZAS, JOAN HOLBROOK YUMIKO [id number] [facility] 2022-07-04 00:00:00 2022-07-04 00:00:00 Outpatient PREZAJOAN Kuo YUMIKO [id number] Yumiko Seybbala 2022-07-03 08:05:00 2022-07-03 08:05:00 Outpatient CELESTE YUMIKO HOLBROOK [id number] Yumiko Seybbala 2022-07-03 00:00:00 2022-07-03 00:00:00 Outpatient PREZAS, JOAN YUMIKO HOLBROOK [id number] [facility] 2022-07-02 14:15:00 2022-07-02 14:15:00 Outpatient PREZAJOAN Kuo YUMIKO HOLBROOK [id number] Yumiko Seybbala 2022-06-18 14:00:00 2022-06-18 14:00:00 Outpatient TAYLOR MCNAIR [id number] Yumiko Seybold 2022-06-11 00:00:00 2022-06-11 00:00:00 Outpatient TAYLOR MCNAIR [id number] Yumiko Seybold 2022-06-05 16:00:00 2022-06-05 16:00:00 Outpatient DARRYL BERNARD [id number] Y[facility]iko Seybold 2022-05-31 00:00:00 2022-05-31 00:00:00 Outpatient PREZAShiela JOAN HOLBROOK [id number] Yumiko Seybold 2022-05-31 00:00:00 2022-05-31 00:00:00 Outpatient REEMA MOSLEY [id number] Yumiko Seybold 2022-05-30 13:30:00 2022-05-30 13:30:00 Outpatient BHARATH ANDRADE [id number] Yumiko Seybold 2022-05-30 00:00:00 2022-05-30 00:00:00 Outpatient PREZAS, JOAN HOLBROOK YUMIKO [id number] Y[facility]iko [facility] 2022-05-29 00:00:00 2022-05-29 00:00:00 Outpatient PREZAS, JOAN ROMEROOFE HOLBROOK [id number] [facility] 2022-05-23 00:00:00 2022-05-23 00:00:00 Outpatient PREZAS, JOAN HOLBROOK YUMIKO [id number] [facility] 2022-05-21 11:30:00 2022-05-21 11:30:00 Outpatient PREZAS, JOAN YUMIKO HOLBROOK [id number] Yumiko [facility] 2022-05-17 00:00:00 2022-05-17 00:00:00 Outpatient PREZAS, JOAN YUMIKO HOLBROOK [id number] Yumiko [facility] 2022-05-02 00:00:00 2022-05-02 00:00:00 Outpatient MONICA PAULSON [id number] Y[facility] 2022-04-23 00:00:00 2022-04-23 00:00:00 Outpatient PREZAS, JOAN YUMIKO HOLBROOK [id number] [facility] 2022-04-17 17:57:00 2022-04-17 22:53:00 Emergency X SCOT CHENEYMAU [facility] ERT [id number] [facility] 2022-04-17 17:57:00 2022-04-17 22:53:00 Emergency Keshawn Cheney [facility] [id number] [facility] 2022-03-02 00:00:00 2022-03-02 00:00:00 Outpatient PREZAS, JOAN YUMIKO HOLBROOK [id number] [facility] 2021-12-19 13:30:00 2021-12-19 13:30:00 Outpatient PREZAS, JOAN YUMIKO HOLBROOK [id number] Yumiko Joshi 2021-12-01 00:00:00 2021-12-01 00:00:00 Outpatient JOAN BURLESON [id number] Yumiko Joshi 2021-11-21 14:30:00 2021-11-21 14:30:00 Outpatient JOAN BURLESON [id number] Yumiko Joshi 2021-10-30 10:00:00 2021-10-30 10:00:00 Outpatient JOAN BURLESON [id number] Yumiko Joshi Results Test Description Test Time Test Comments Results Result Co mments [facility]47* Test Item Value Reference Range Interpretation Comme nts LIPASE (test code = 2810646227) 47 U/L 0-220 Lab Interpretation (test cod e = 60876-9) [facility] [id number] 02:15:28* Test Item Value Reference Range Interpretation Comme nts WBC (test code = 6690-2) 8.60 See_Comment [Automated Experticitya ge] The system which generated this result transmitted reference range: 4.20 - 10.70 10*3/?L. The reference range was not used to interpret this result as normal/abnormal. RBC (test code = 789-8) 5.42 See_Comment [Automated Experticitya ge] The system which generated this result [...] 31.6 g/dL 31.2-35.0 RDW-SD (test code = 09272-8) 44.9 fL 38.5-51.6 RDW-CV (test code = 788-0) 13.7 % 12.1-15.4 PLT (test code = 777-3) 208 See_Comment [Automated messa ge] The system which generated this result transmitted reference range: 150 - 328 10*3/?L. The reference range was not used to interpret this result as normal/abnormal. MPV (test code = 15930-9) 10.1 fL 9.8-13.0 NRBC/100 WBC (test code = 9406675280) 0.0 See_Comment [Automated me ssage] The system which generated this result transmitted reference range: 0.0 - 10.0 /100 WBCs. The reference range was not used to interpret this result as normal/abnormal. NRBC x10^3 (test code = 1682168832) See_Comment [Automated me ssage] The system which generated this result transmitted reference range: 10*3/?L. The reference range was not used to interpret this result as normal/abnormal. GRAN MAT (NEUT) % (test code = 770-8) 67.4 % IMM GRAN % (test code = 8044961979) 0.70 % LYMPH % (test code = 736-9) 19.8 % MONO % (test code = 5905-5) 9.1 % EOS % (test code = 713-8) 2.3 % BASO % (test code = 706-2) 0.7 % GRAN MAT x10^3(ANC) (test code = 2745674741) 5.80 10*3/uL 1.99-6.95 IMM GRAN x10^3 (test code = 2764843725) 0.06 10*3/uL 0.00-0.06 LYMPH x10^3 (test code = 731-0) 1.70 10*3/uL 1.09-3.23 MONO x10^3 (test code = 742-7) 0.78 10*3/uL 0.36-1.02 EOS x10^3 (test code = 711-2) 0.20 10*3/uL 0.06-0.53 BASO x10^3 (test code = 704-7) 0.06 10*3/uL 0.01-0.09 [facility] Notes Date/Time Note Provider Source 2023-09-01 07:58:01 Patient given discharge instructions on urinary retention. No prescriptions given. Pt advised to follow up with pcp. Pt left ER ambulatory, no signs of distress. Sara Vargas RN [facility] 2023-09-01 07:20:30 Pt walked to tx 1. Pt standing and trying to take shoes off. Pt fell backwards. Pt awake, denies pain. MDs to tx 1. Pt refusing help to bed. Pt finally sat down on stretcher. Denies injuries. [facility] 2023-09-01 06:50:00 Report to [facility]. 20F lundberg insertion pending COA bring that size catheter. Sonam Loyola RN [facility] 2023-09-01 05:29:43 C/O lundberg catheter not draining tonight. Was passing urin around catheter. Patient has catheter secondary to prostate issues. While in waiting room, catheter started to drain and he felt bettr Aníbal Serrano RN [facility] 2023-09-01 05:21:00 [facility] Emergency Department Note Patient Name: Hung Edmondson Date of : 1960 62 year old male Treatment Room: Room/bed info not found Primary Care Physician: Deborah Medley Patient Escorted by: Self [9] Mode of Arrival: Personal means [1] EMS Treatment Prior to ED Arrival: [employer] treatment: None Travel and Exposure Screening: Symptoms Does patient have any of these symptoms?: (not recorded) Exposure Screening Has patient had contact with someone with a communicable disease in the last month?: (not recorded) Diseases exposed to:: (not recorded) Is Patient ?: (not recorded) Exposure Date: (not recorded) Chief Complaint: Chief Complaint 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 History of Present Illness: Hung Edmondson [...] History provided by: Patient and medical records historical interpreter used: No Past Medical History/Immunizations: Past Medical [...] N/A 12/04/2018 Surgeon: Alisa Borrego MD; Location: [facility] REMOVAL OF EYE [...] Eval: ED Events Date/Time Event User Comments 09/01/23 5837 Medical Screening Begins TABITHA GERARD MD -- 09/01/23 0533 First Provider Evaluation TABITHA GERARD MD -- [...] MD Specialty: IM-INTERNAL MEDICINE Relationship: PCP - [address] [address] Electronically signed by: Tabitha Gerard MD 09/01/2352 [facility]
--- NOTE | 2024-12-03 04:31 | ER ---
Nurse's Notes [facility] Name: Hung Long Age: 64 yrs Sex: Male : 1960 Arrival Date: 12/03/2024 Time: 03:55 Bed 7 Private MD: Steve Gutierrez Diagnosis: ENCOUNTER FOR EXCHANGE OF INDWELLING URINARY CATHETER Presentation: 12/03 04:27 Chief complaint: Patient states: need my lundberg changed out, starting to leak around the vc1 catheter. Coronavirus screen: Client denies travel out of the [place] in the last 14 days. At this time, the client does not indicate any symptoms associated with coronavirus-19. Ebola Screen: Patient negative for fever greater than or equal to 101.5 degrees Fahrenheit, and additional compatible Ebola Virus Disease symptoms Patient denies exposure to infectious person. Patient denies travel to an Ebola-affected area in the 21 days before illness onset. No symptoms or risks identified at this time. Initial Sepsis Screen: Does the patient meet any 2 criteria? No. Patient's initial sepsis screen is negative. Does the patient have a suspected source of infection? No. Patient's initial sepsis screen is negative. Risk Assessment: Do you want to hurt yourself or someone else? Patient reports no desire to harm self or others. Onset of symptoms was December 03, 2024. 04:27 Method Of Arrival: Ambulatory vc1 04:27 Acuity: GUNNAR 5 vc1 Triage Assessment: 04:31 General: Appears in no apparent distress. uncomfortable, Behavior is calm, cooperative, vc1 appropriate for age. Pain: Denies pain. EENT: No deficits noted. No signs and/or symptoms were reported regarding the EENT system. Neuro: Level of Consciousness is awake, alert, obeys commands, Oriented to person, place, time, situation, Appropriate for age. Cardiovascular: Capillary refill < 3 seconds. Respiratory: Airway is patent Respiratory effort is even, unlabored, Respiratory pattern is regular, symmetrical. GI: No deficits noted. No signs and/or symptoms were reported involving the gastrointestinal system. : Lundberg in place to gravity drainage clamped Reports leaking around lundberg catheter. Derm: Skin is intact, is healthy with good turgor, Skin is dry, Skin is normal, Skin temperature is warm. Musculoskeletal: Circulation, motion, and sensation intact. Range of motion: intact in all extremities. Historical: - Allergies: 04:30 NKDA; vc1 - PMHx: 04:30 chronic neck pain; enlarged prostate; Hypercholesterolemia; Hypertensive disorder; vc1 - PSHx: 04:30 Appendectomy; vc1 - Immunization history:: Client reports having NOT received the Covid vaccine. Flu vaccine is not up to date. - Infectious Disease History:: Denies. - Social history:: Smoking status: Patient reports the use of cigarette tobacco products, 4-5 cigs/day. Screenin:31 Abuse screen: Denies threats or abuse. Nutritional screening: No deficits noted. vc1 Tuberculosis screening: No symptoms or risk factors identified. 04:37 [facility] ED Fall Risk Assessment (Adult) History of falling in the last 3 months, nh2 including since admission No falls in past 3 months (0 pts) Confusion or Disorientation No (0 pts) Intoxicated or Sedated No (0 pts) Impaired Gait No (0 pts) Mobility Assist Device Used No (0 pt) Altered Elimination No (0 pt) Score/Fall Risk Level 0 - 2 = Low Risk Oriented to surroundings, Maintained a safe environment, Educated pt \T\ family on fall prevention, incl call for assistance when getting out of bed, Assessed \T\ reinforced patient's understanding of fall precautions. Assessment: 04:37 Reassessment: see triage. nh2 Vital Signs: 04:27 BP 193 / 134; Pulse 83; Resp 16; Temp 97.8; Pulse Ox 94% ; Weight 97.52 kg; Height 5 vc1 ft. 11 in. ; 04:27 Body Mass Index 29.99 (97.52 kg, 180.34 cm) vc1 ED Course: 04:01 Patient arrived in ED. gm2 04:01 Steve Gutierrez MD is Private Physician. gm2 04:19 Mateo Lara DO is Attending Physician. tt7 04:20 Rai Pederson Jr, RN is Primary Nurse. nh2 04:25 Lundberg cath removed intact, balloon deflated, tolerated well. nh2 04:28 Steve Gutierrez MD is Referral Physician. tt7 04:30 Triage completed. vc1 04:30 Lundberg cath inserted, using sterile technique, 18 Fr., by ca, balloon inflated, to nh2 gravity drainage, returned clear yellow urine. Patient tolerated well. 04:31 Arm band placed on right wrist. vc1 04:34 Patient has correct armband on for positive identification. Bed in low position. Call vc1 light in reach. Provided Education on: plan of care. 04:37 No provider procedures requiring assistance completed. Patient did not have IV access nh2 during this emergency room visit. Administered Medications: No medications were administered Medication: 04:34 VIS not applicable for this client. vc1 Outcome: 04:30 Discharge ordered by . tt7 04:37 Discharged to home ambulatory, nh2 04:37 Condition: stable 04:37 Discharge instructions given to patient, Instructed on discharge instructions, follow up and referral plans. Demonstrated understanding of instructions, follow-up care, 04:39 Patient left the ED. nh2 Signatures: Kitty Dillard RN RN vc1 Kayla Buchanan 2 Rai Pederson Jr, RN RN nh2 Mateo Lara DO DO tt7
--- NOTE | 2024-12-03 04:31 | EDPHYS ---
Physician Documentation [facility] Name: Hung Long Age: 64 yrs Sex: Male : 1960 Arrival Date: 12/03/2024 Time: 03:55 Bed 7 Private MD: Steve Gutierrez ED Physician Mateo Lara HPI: 12/03 04:26 This 64 yrs old Male presents to ER via Ambulatory with complaints of Needs Urinary tt7 Catheter Replacement. 04:26 Patient here for routine exchange of his Kyle catheter, he has intermittently required tt7 a Kyle catheter for the past approximately 1 year due to urinary retention. He has established with an outpatient urologist that he follows up with. Denies hematuria, fever, nausea, vomiting. Historical: - Allergies: 04:30 NKDA; vc1 - PMHx: 04:30 chronic neck pain; enlarged prostate; Hypercholesterolemia; Hypertensive disorder; vc1 - PSHx: 04:30 Appendectomy; vc1 - Immunization history:: Client reports having NOT received the Covid vaccine. Flu vaccine is not up to date. - Infectious Disease History:: Denies. - Social history:: Smoking status: Patient reports the use of cigarette tobacco products, 4-5 cigs/day. ROS: 04:27 Constitutional: negative for fever. Cardiovascular: negative for chest pain. tt7 Respiratory: negative for shortness of breath. Abdomen/GI: negative for abdominal pain, nausea, vomiting, diarrhea. MS/Extremity: negative for injury and deformity. Skin: negative for rash. Neuro: negative for focal weakness. Exam: 04:27 Constitutional: Constitutional: vital signs reviewed, well appearing Head: tt7 normocephalic Eyes: no conjunctival injection, anicteric sclerae ENMT: mucus membranes moist Neck: trachea midline, no JVD Respiratory: normal respiratory effort, no accessory muscle use, no audible wheezing Cardiovascular: Regular rate and rhythm, no lower extremity edema Abdomen: nondistended MSK: normal ROM of extremities, no gross deformities Skin: warm, dry, intact Neuro: alert and oriented with appropriate mental status, normal speech, follows commands, no focal neurologic deficits Psych: appropriate mood and affect Vital Signs: 04:27 BP 193 / 134; Pulse 83; Resp 16; Temp 97.8; Pulse Ox 94% ; Weight 97.52 kg; Height 5 vc1 ft. 11 in. ; 04:27 Body Mass Index 29.99 (97.52 kg, 180.34 cm) vc1 MDM: 04:19 Medical Screening Exam initiated tt7 04:27 Differential Diagnosis Routine urinary catheter exchange. Data reviewed: vital signs, tt7 nurses notes, old medical records. ED course: Patient asymptomatic, Kyle catheter will be replaced for a new 1, patient will then be discharged to follow-up with his outpatient urologist. 12/03 04:26 Order name: Kyle; Complete Time: 04:39 tt7 Administered Medications: No medications were administered Disposition: 04:32 Co-signature as Attending Physician, Mateo Lara DO. tt7 Disposition Summary: 12/03/24 04:30 Discharge Ordered Notes: Location: Home tt7 Problem: chronic tt7 Symptoms: are resolved tt7 Condition: Stable tt7 Diagnosis - ENCOUNTER FOR EXCHANGE OF INDWELLING URINARY CATHETER tt7 Followup: tt7 - With: Emergency Department - When: As needed - Reason: Followup: tt7 - With: Steve Gutierrez MD - When: 1 - 2 days - Reason: Recheck today's complaints, Re-evaluation by your physician Discharge Instructions: - Discharge Summary Sheet tt7 - Acute Urinary Retention, Male, [id number] tt7 - Indwelling Urinary Catheter Care, Adult, Ubjz-[id number] tt7 Forms: - Medication Reconciliation Form tt7 - Antibiotic Education tt7 - Prescription Opioid Use tt7 - Patient Portal Instructions tt7 - Leadership Thank You Letter tt7 Signatures: Kitty Dillard RN RN vc1 Mateo Lara DO DO tt7
[2024-12-03 04:45] VITALS: BP 193/134; TEMP 97.8; O2SAT 94
== END 2024-12-03 04:39 | disposition home or self-care (01) ==
LOC: ER 03:55
DX: Z46.6 Encounter for fitting and adjustment of urinary device (principal)
CPT/HCPCS: 51702; 99284

== ENCOUNTER 2024-12-04 20:31 | Emergency (ER) | payer OTHER ==
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
[2024-12-04] MEDS ORDERED: TAMSULOSIN 0.4 MG SR CAP ONE (21:50)
[2024-12-04 22:21] LABS: Sqamous Epithelial <5 /HPF (None Seen); Urine Culture Reflex Order REFLEXED; Urine Microscopic Reflex YN ORDER UMIC; Urine WBC Clump Occasional /HPF (None Seen)
--- NOTE | 2024-12-04 22:40 | ER ---
Nurse's Notes [facility] [address] Name: Hung Long Age: 64 yrs Sex: Male : 1960 Arrival Date: 12/04/2024 Time: 20:31 Bed 15 Private MD: Diagnosis: UTI/ Urinary tract infection, site not specified;Leakage of urinary (indwelling) catheter;Essential (primary) hypertension Presentation: 12/04 20:30 Chief complaint: Patient states: HAD AN URINARY CATHETER PUT IN TODAY AND IT IS ha1 DRAINING URINE AROUND THE CATHETER AND VERY LITTLE URINE INTO THE CATHETER. 20:30 Coronavirus screen: Client denies travel out of the [place] in the last 14 days. Ebola ha1 Screen: No symptoms or risks identified at this time. Initial Sepsis Screen: Does the patient meet any 2 criteria? No. Patient's initial sepsis screen is negative. Does the patient have a suspected source of infection? No. Patient's initial sepsis screen is negative. Risk Assessment: Do you want to hurt yourself or someone else? Patient reports no desire to harm self or others. Onset of symptoms was December 04, 2024. 20:30 Method Of Arrival: Ambulatory ha1 20:30 Acuity: GUNNAR 4 ha1 Triage Assessment: 20:42 General: Appears comfortable, Behavior is calm, cooperative. Pain: Denies pain. Neuro: ha1 Level of Consciousness is awake, alert, obeys commands, Oriented to person, place, time, situation. Cardiovascular: Capillary refill < 3 seconds Patient's skin is warm and dry. Respiratory: Airway is patent Trachea midline Respiratory effort is even, unlabored, Respiratory pattern is regular, symmetrical. GI: No signs and/or symptoms were reported involving the gastrointestinal system. : Reports URINARY CATHETER DRAINING URINE AROUND IT. Historical: - Allergies: 20:42 NKDA; ha1 - Home Meds: 20:42 tamsulosin 0.4 mg Oral capsule 1 cap daily [Active]; ha1 - PMHx: 20:42 chronic neck pain; enlarged prostate; Hypercholesterolemia; Hypertensive disorder; ha1 - PSHx: 20:42 Appendectomy; ha1 - Immunization history:: Adult Immunizations unknown. - Infectious Disease History:: Denies. - Social history:: Smoking status: Patient reports the use of cigarette tobacco products, smokes one-half pack cigarettes per day. Screenin:12 [facility] ED Fall Risk Assessment (Adult) History of falling in the last 3 months, kj2 including since admission No falls in past 3 months (0 pts) Confusion or Disorientation No (0 pts) Intoxicated or Sedated No (0 pts) Impaired Gait No (0 pts) Mobility Assist Device Used No (0 pt) Altered Elimination No (0 pt) Score/Fall Risk Level 0 - 2 = Low Risk Maintained a safe environment, Hourly rounding (assess needs \T\ fall precautionary measures) done. Abuse screen: Denies threats or abuse. Denies injuries from another. Nutritional screening: No deficits noted. Tuberculosis screening: No symptoms or risk factors identified. Assessment: 22:04 General: Appears in no apparent distress. Behavior is cooperative. Pain: Pain currently kj2 is 6 out of 10 on a pain scale. Neuro: Level of Consciousness is awake, alert, obeys commands, Oriented to person, place, time, situation. Cardiovascular: Patient's skin is warm and dry. Respiratory: Airway Respiratory effort is unlabored. GI: No signs and/or symptoms were reported involving the gastrointestinal system. : Reports lundberg catheter leakage. 22:34 Reassessment: Patient appears in no apparent distress at this time. Patient is alert, kj2 oriented x 3, equal unlabored respirations, skin warm/dry/pink. 23:30 Reassessment: Patient appears in no apparent distress at this time. Patient is alert, kj2 oriented x 3, equal unlabored respirations, skin warm/dry/pink. 20fr lundberg catheter placed via sterile technique. Vital Signs: 20:30 BP 188 / 103; Pulse 83; Resp 18 S; Temp 98.6; Pulse Ox 97% on R/A; Weight 97.52 kg; ha1 Height 5 ft. 11 in. ; 22:31 BP 211 / 117; Pulse 62; Resp 20; Pulse Ox 99% on R/A; kj2 23:30 BP 170 / 90; Pulse 70; Resp 18; Temp 100(O); kj2 20:30 Body Mass Index 29.99 (97.52 kg, 180.34 cm) ha1 ED Course: 20:35 Patient arrived in ED. al6 20:41 [facility] cp 20:41 Mateo Lara DO is Attending Physician. cp 20:41 Triage completed. ha1 20:43 Mateo Lara DO is Attending Physician. tt7 21:48 Rae Christensen, RN is Primary Nurse. kj2 22:00 No provider procedures requiring assistance completed. kj2 22:00 Patient has correct armband on for positive identification. Bed in low position. Call kj2 light in reach. Provided Education on: call light. 22:04 UA Rfx Catracho Cult if indicated Sent. kj2 12/05 00:06 Patient did not have IV access during this emergency room visit. kj2 Administered Medications: 12/04 21:51 Drug: Flomax PO 0.4 mg PO once Route: PO; kj2 12/05 00:07 Follow up: Response: No adverse reaction kj2 12/04 22:55 Drug: cloNIDine PO 0.2 mg PO once Route: PO; kj2 12/05 00:07 Follow up: Response: No adverse reaction kj2 12/04 22:55 Drug: Cefdinir PO 300 mg PO once Route: PO; kj2 12/05 00:06 Follow up: Response: No adverse reaction kj2 Medication: 00:05 VIS not applicable for this client. kj2 Outcome: 12/04 22:39 Discharge ordered by MD. tt7 12/05 00:05 Discharged to home ambulatory, kj2 Condition: stable Discharge instructions given to patient, Instructed on discharge instructions, follow up and referral plans. Demonstrated understanding of instructions, follow-up care, 00:07 Patient left the ED. kj2 Signatures: Evelio Veloz PA-C PAAnnie Nair cp, RN RN ha1 Rae Christensen RN RN kj2 Ana Kothari al6 Mateo Lara DO DO tt7
--- NOTE | 2024-12-04 22:40 | EDPHYS ---
Physician Documentation [facility] Name: Hung Long Age: 64 yrs Sex: Male : 1960 Arrival Date: 12/04/2024 Time: 20:31 Bed 15 Private MD: ED Physician Mateo Lara HPI: 12/05 07:34 This 64 yrs old Male presents to ER via Ambulatory with complaints of Problem With tt7 Urinary Catheter. 07:34 Patient with chronic indwelling Kyle catheter presents for leakage around the tt7 catheter, no fever or abdominal pain, history of hypertension, BPH, is established with a urologist. Historical: - Allergies: 12/04 20:42 NKDA; ha1 - Home Meds: 20:42 tamsulosin 0.4 mg Oral capsule 1 cap daily [Active]; ha1 - PMHx: 20:42 chronic neck pain; enlarged prostate; Hypercholesterolemia; Hypertensive disorder; ha1 - PSHx: 20:42 Appendectomy; ha1 - Immunization history:: Adult Immunizations unknown. - Infectious Disease History:: Denies. - Social history:: Smoking status: Patient reports the use of cigarette tobacco products, smokes one-half pack cigarettes per day. ROS: 12/05 07:33 Constitutional: negative for fever. Cardiovascular: negative for chest pain. tt7 Respiratory: negative for shortness of breath. Abdomen/GI: negative for abdominal pain, nausea, vomiting, diarrhea. MS/Extremity: negative for injury and deformity. Skin: negative for rash. Neuro: negative for focal weakness. Exam: 07:33 Constitutional: Constitutional: vital signs reviewed, well appearing Head: tt7 normocephalic Eyes: no conjunctival injection, anicteric sclerae ENMT: mucus membranes moist Neck: trachea midline, no JVD Respiratory: normal respiratory effort, no accessory muscle use, no audible wheezing Cardiovascular: Regular rate and rhythm, no lower extremity edema Abdomen: nondistended MSK: normal ROM of extremities, no gross deformities Skin: warm, dry, intact Neuro: alert and oriented with appropriate mental status, normal speech, follows commands, no focal neurologic deficits Psych: appropriate mood and affect Vital Signs: 12/04 20:30 BP 188 / 103; Pulse 83; Resp 18 S; Temp 98.6; Pulse Ox 97% on R/A; Weight 97.52 kg; ha1 Height 5 ft. 11 in. ; 22:31 BP 211 / 117; Pulse 62; Resp 20; Pulse Ox 99% on R/A; kj2 23:30 BP 170 / 90; Pulse 70; Resp 18; Temp 100(O); kj2 20:30 Body Mass Index 29.99 (97.52 kg, 180.34 cm) ha1 MDM: 20:42 Medical Screening Exam initiated tt7 22:42 Differential Diagnosis h. Data reviewed: vital signs, nurses notes, old medical tt7 records, lab test result(s). ED course: h. 12/05 07:34 ED course: Patient hypertensive, asymptomatic, forgot to take his blood pressure tt7 medicine, treated with oral clonidine here in the emergency department, Kyle catheter exchanged for a larger 1, urine sent for urinalysis, evidence of infection present, patient treated with course of cefdinir, advised to follow-up with his urologist, return precautions discussed, after completion of the patient's emergency department evaluation, I do not suspect a life-threatening or disabling process. Patient is medically stable and not in need of emergent medical intervention. I had a detailed discussion with the patient regarding the historical points, exam findings, emergency department evaluation, diagnostic results, and the discharge diagnosis. I instructed the patient on outpatient management of their condition. I discussed the need for outpatient follow-up with a primary care physician. I informed the patient on return precautions, including the need to return to the ED if symptoms do not improve, worsen, or if there are any questions or concerns that arise at home. The patient was discharged in stable condition. 12/04 20:44 Order name: UA Rfx Catracho Cult if indicated; Complete Time: 22:31 tt7 12/04 22:27 Order name: Urine Culture EDKS 12/04 20:43 Order name: Saroj; Complete Time: 00:07 7 Administered Medications: 12/04 21:51 Drug: Flomax PO 0.4 mg PO once Route: PO; kj2 12/05 00:07 Follow up: Response: No adverse reaction 12/04 22:55 Drug: cloNIDine PO 0.2 mg PO once Route: PO; kj2 12/05 00:07 Follow up: Response: No adverse reaction 12/04 22:55 Drug: Cefdinir PO 300 mg PO once Route: PO; kj12/05 00:06 Follow up: Response: No adverse reaction kj2 Disposition: 07:35 Co-signature as Attending Physician, Mateo Lara DO. tt7 Disposition Summary: 12/04/24 22:39 Discharge Ordered Notes: Location: Home tt7 Problem: new tt7 Symptoms: are resolved tt7 Condition: Stable tt7 Diagnosis - UTI/ Urinary tract infection, site not specified tt7 - Leakage of urinary (indwelling) catheter tt7 - Essential (primary) hypertension tt7 Followup: tt7 - With: Emergency Department - When: As needed - Reason: Followup: tt7 - With: Private Physician - When: 2 - 3 days - Reason: Recheck today's complaints, Re-evaluation by your physician Discharge Instructions: - Discharge Summary Sheet tt7 - Urinary Tract Infection, Adult, [id number] tt7 - Managing Your Hypertension tt7 Forms: - Medication Reconciliation Form tt7 - Antibiotic Education tt7 - Prescription Opioid Use tt7 - Patient Portal Instructions tt7 - Leadership Thank You Letter tt7 Prescriptions: - cefdinir 300 mg Oral capsule - take 1 capsule ORAL route 2 times per day for 10 days; 20 capsule; Refills: 0, tt7 Product Selection Permitted Signatures: Dispatcher [employer] Annie Alvarez RN RN ha1 Rae Christensen RN RN kj2 Mateo Lara DO DO tt7 Corrections: (The following items were deleted from the chart) 12/04 20:44 20:44 UA Rfx Catracho Cult if indicated+[id number].LAB.BRZ ordered. EDKS EDMS
[2024-12-04] MEDS ORDERED: CEFDINIR 300 MG CAP PO ONE (22:51)
[2024-12-05 07:55] VITALS: O2SAT 99
[2024-12-05 07:56] VITALS: BP 170/90; TEMP 100
== END 2024-12-05 00:07 | disposition home or self-care (01) ==
LOC: ER 20:31
DX: N39.0 Urinary tract infection, site not specified (principal); T83.038A Leakage of other urinary catheter, initial encounter; I10 Essential (primary) hypertension; F17.210 Nicotine dependence, cigarettes, uncomplicated
CPT/HCPCS: 81001; 87077; 87086; 87088; 87186; 99283